=== PATIENT | female | born 1950 | race Caucasian/White ===

== ENCOUNTER 2017-07-10 09:36 | Emergency (ER) | payer MEDICARE ==
[~2017-07-10] VITALS: Ht 154.9 cm; Wt 54.7 kg
[~2017-07-10 09:36] MED LIST: ACHD5005 PO; ALBU17AE3 IH; AML2.5T PO; ASP81TEC PO; ATRV10T; BETA15CR37 TP; BUDE0.5A2 NEB; CALC-685 PO; CALC1TAB97 PO; CARV25TA PO; CEFT1FRO2 IV; CEFU250T11 PO; CEPH500C PO; CHOL100011 PO; CHOL200018 PO; CRV25T; CRV25T PO; FISH1CAP15 PO; FMT20TRX PO; FOLI-74 PO; FORM20VI NEB; FRSM20T; FURO40TA4 PO; HYDR-3583 PO; IPRA3AMP NEB; IRBE1TAB17 PO; ISOS30TA3 PO; KCL10CCR; KCL20TCR PO; LACT1TAB9 PO; LEVO100T7 PO; LEVO125T6 PO; LVT.15T PO; OLME40TA14; OMEG1CAP51 PO; OMEP20CA12 PO; OMG1KC PO; PANT40TA3 PO; POTA20TA15 PO; PRAV40TA PO; PRD10T PO; SIMV40TA2 PO; SIMV40TA4 PO; SULF1TAB38 PO; VENL150C98 PO; VNL75T PO; WARF5TAB PO; WARF5TAB6 PO; WARF7.5T PO; WARF7.5T49 PO; WRF1T PO; WRF2.5T PO; WRF5T PO; [UNRECOGNIZED DRUG - CODE] PO
[2017-07-10 10:04] LABS: BASOPHILS % (AUTO) 0 % (0-10); EOSINOPHILS # (AUTO) 0.2 10^3/uL (0.0-0.3); EOSINOPHILS % (AUTO) 2 % (0-10); LYMPHOCYTES # (AUTO) 0.9 X 10^3 (1.0-4.0); LYMPHOCYTES % (AUTO) 9 % (12-44); MEAN CORPUSCULAR HEMOGLOBIN 31 PG (25-34); MEAN CORPUSCULAR HGB CONC 33 G/DL (32-36); MEAN CORPUSCULAR VOLUME 94 FL (80-99); MEAN PLATELET VOLUME 11.3 FL (7.4-10.4); MONOCYTES # (AUTO) 1.6 X 10^3 (0.0-1.0); MONOCYTES % (AUTO) 16 % (0-12); NEUTROPHILS # (AUTO) 7.2 X 10^3 (1.8-7.8); NEUTROPHILS % (AUTO) 73 % (42-75); PLATELET COUNT 204 10^3/uL (130-400); RED BLOOD COUNT 3.75 10^6/uL (4.35-5.85); WHITE BLOOD COUNT 9.8 10^3/uL (4.3-11.0)
[2017-07-10 10:21] LABS: ALANINE AMINOTRANSFERASE 11 U/L (0-55); ALBUMIN 3.2 GM/DL (3.2-4.5); ANION GAP 8 MMOL/L (5-14); ASPARTATE AMINO TRANSFERASE 43 U/L (5-34); BILIRUBIN,TOTAL 0.6 MG/DL (0.1-1.0); BLOOD UREA NITROGEN 13 MG/DL (7-18); BUN/CREATININE RATIO 19; CARBON DIOXIDE 29 MMOL/L (21-32); CHLORIDE 102 MMOL/L (98-107); CREATININE SERUM 0.68 MG/DL (0.60-1.30); GFR ESTIMATED > 60; GLUCOSE 96 MG/DL (70-105); POTASSIUM 3.7 MMOL/L (3.6-5.0); SODIUM 139 MMOL/L (135-145); TOTAL PROTEIN 6.4 GM/DL (6.4-8.2)
[2017-07-10 10:27] LABS: TROPONIN I < 0.30 NG/ML (<0.30)
--- NOTE | 2017-07-10 10:29 | Diagnostic Imaging Report ---
Portable upright radiograph of the chest. INDICATION: Severe chest pain and shortness of breath. FINDINGS: The lungs are clear of focal infiltrate. There is prominent interstitial markings. These appear to be chronic with probable element of mild vascular congestion. The heart size is mildly enlarged. No effusion or pneumothorax. Post sternotomy wires and plates for internal fixation seen. There is bilateral shoulder replacement. IMPRESSION: Cardiomegaly with minimal vascular congestion. Dictated by: Dictated on workstation # [id number]
--- NOTE | 2017-07-10 11:01 | ED Chest Pain ---
General Chief Complaint: Chest Pain Stated Complaint: CP Nursing Triage Note: PT STATES MID CHEST PAIN RADIATING TO LT ARM THAT STARTED THE MORNING OF . PT HAS A HEART HX WITH CABG AND STENTS. Nursing Sepsis Screen: No Definite Risk Source: patient Exam Limitations: no limitations History of Present Illness Time seen by provider: 10:45 Initial Comments The patient is a 67-year-old white female. She presents with a complaint of central and left-sided chest pain. This began yesterday morning between 0330 and 0400. At that time she was driving a family member to work from the [employer] into the [employer]. It has continued unabated since then. She has taken a couple of baby aspirin. She has an extensive history of coronary artery disease with previous bypass grafting and also additional stenting. 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 Last interventions were in 2016. She is a smoker with a many year history 3 packs per day. Over the last 2 years she states that it is usually a one half pack per day problem. She denied any dyspnea or diaphoresis. Timing/Duration: other (30 hours) Severity/Quality: mild, moderate Location: central Radiation: arms Activities at Onset: none Prior CP/Workup: cardiac cath, cardiolye scan, echocardiography, thallium scan Allergies and Home Medications Allergies Coded Allergies: penicillin G (Verified Allergy, Intermediate, 10/11/16) ITCHING AFTER RECEIVING PENICILLIN WHEN SHE WAS 30-35 YEARS OLD meperidine (Verified Allergy, Unknown, 03/06/07) quinine (Verified Allergy, Unknown, 09/05/06) levofloxacin (Verified Adverse Reaction, Intermediate, HIVES, 10/11/16) BURNING AND ITCHING Home Medications Aspirin 81 Mg Tablet, 81 MG PO DAILY, (Reported) Betamethasone/Propylene Glyc 15 Gm Cream..g., TP BID PRN for RASH, (Reported) Budesonide 0.5 Mg/2 Ml Ampul.neb, 0.5 MG NEB DAILY, (Reported) Calcium Carbonate/Vitamin D3 1 Each Tablet, 1 TAB PO BID, (Reported) Carvedilol 25 Mg Tablet, 25 MG PO BID, (Reported) Ceftriaxone Na/Dextrose,Iso 1 Gm/50 Ml Froz.piggy, 1 GM IV DAILY for 42 Days Prescribed by: BENJAMIN MILLAN MD on 10/15/16 0725 Cholecalciferol 1,000 Unit Capsule, 1,000 UNIT PO DAILY, (Reported) Folic Acid/Mv,Fe,Other Min 1 Each Tablet, 1 TAB PO DAILY, (Reported) Formoterol Fumarate 20 Mcg/2 Ml Vial.neb, 20 MCG NEB BID, (Reported) Furosemide 40 Mg Tablet, 40 MG PO DAILY, (Reported) Ipratropium/Albuterol Sulfate 3 Ml Ampul.neb, 3 ML NEB DAILY PRN for SHORTNESS OF BREATH, (Reported) NEEDED FOR SHORTNESS OF BREATH Isosorbide Mononitrate 30 Mg Tab.er.24h, 30 MG PO BID, (Reported) Lactobacillus Acidophilus 1 Each Tablet, 1 EACH PO DAILY, #60 Prescribed by: SAM GOLDBERG on 10/15/16 0818 Levothyroxine Sodium 100 Mcg Tablet, 100 MCG PO DAILY, (Reported) [place] 3 Polyunsat Fatty Acids 1,000 Mg Cap, 1,000 MG PO DAILY, (Reported) Pantoprazole Sodium 40 Mg Tablet.dr, 40 MG PO DAILY, (Reported) Potassium Chloride 20 Meq Tab.er.prt, 20 MEQ PO DAILY, (Reported) Simvastatin 40 Mg Tablet, 40 MG PO HS, (Reported) Venlafaxine HCl 150 Mg Cap.er.24h, 150 MG PO BID, (Reported) Warfarin Sodium 7.5 Mg Tablet, 7.5 MG PO SuTuWeThSa, (Reported) Review of Systems Constitutional: see HPI EENTM: No Symptoms Reported Respiratory: Cough, SOA With Exertion, Wheezing Cardiovascular: See HPI Gastrointestinal: No Symptoms Reported, Other (weight loss over the past year or so) Genitourinary: No Symptoms Reported Musculoskeletal: no symptoms reported Skin: no symptoms reported Psychiatric/Neurological: No Symptoms Reported Endocrine: No Symptoms Reported Hematologic/Lymphatic: No Symptoms Reported Past Bwaaffi-Cgrhmu-Svxxrm Hx Patient Social History Alcohol Use: Denies Use Recreational Drug Use: No Smoking Status: Current Everyday Smoker Type Used: Cigarettes 2nd Hand Smoke Exposure: No Recent Foreign Travel: No Contact w/Someone Who Travel: No Recent Infectious Disease Expo: No Recent Hopitalizations: No ( ) Immunizations Up To Date Tetanus Booster (TDap): Less than 5yrs Date of Pneumonia Vaccine: Aug 21, 2015 Date of Influenza Vaccine: Oct 11, 2016 Seasonal Allergies Seasonal Allergies: No Surgeries HX Surgeries: Yes (L AND R SHOULDER REPLACEMENTS, LEFT ULNAR TRANSPOSITION, BYPASS 2 VESSEL) Surgeries: Appendectomy, CABG, Gallbladder, Hysterectomy, Orthopedic Respiratory Hx Respiratory Disorders: Yes Respiratory Disorders: Pulmonary Embolism, Sleep Apnea, COPD Cardiovascular Hx Cardiac Disorders: Yes (BY-PASS, STENTS) Cardiac Disorders: Coronary Artery Disease, Hypertension Neurological Hx Neurological Disorders: No Reproductive System Hx Reproductive Disorders: Yes (HYSTERECTOMY 1983) Sexually Transmitted Disease: No HIV/AIDS: No Female Reproductive Disorders: Denies Genitourinary Hx Genitourinary Disorders: No Gastrointestinal Hx Gastrointestinal Disorders: No Gastrointestinal Disorders: Obstructive Bowel, Ulcer Musculoskeletal Hx Musculoskeletal Disorders: Yes (ARTHRITIS, ARTHROSCOPY OF KNEE) Musculoskeletal Disorders: Chronic Back Pain Endocrine Hx Endocrine Disorders: Yes ( PRE- DIABETES) Endocrine Disorders: Diabetes, Non-Insulin dep HEENT HX ENT Disorders: No Loss of Vision: Denies Cancer Hx Cancer: No Psychosocial Hx Psychiatric Problems: Yes Behavioral Health Disorders: Depression Integumentary HX Skin/Integumentary Disorder: No Blood Transfusions Hx Blood Disorders: Yes ( HX OF DVT WITH PE) Family Medical History Significant Family History: Hypertension Family Medial History: Patient reports no known family medical history. Physical Exam Vital Signs Vital Sign - Last 12Hours 07/10/17 07/10/17 09:40 09:43 Temp 99.4 Pulse 70 Resp 20 B/P (MAP) 189/84 Pulse Ox 96 O2 Delivery Nasal Cannula O2 Flow Rate 2.00 Capillary Refill : Less Than 3 Seconds General Appearance: No Apparent Distress, WD/WN HEENT: Normal ENT Inspection Neck: Full Range of Motion, Normal Inspection, Non Tender Respiratory: Decreased Breath Sounds Cardiovascular: Regular Rate, Rhythm, No Edema, No Gallop, No JVD, No Murmur, Normal Peripheral Pulses Gastrointestinal: Other (scaphoid and nontender.) Extremity: Other Neurologic/Psychiatric: Alert, Oriented x3, No Motor/Sensory Deficits, Normal Mood/Affect Progress/Results/Core Measures Results/Orders Lab Results Laboratory Tests Test 07/10/17 09:45 Range/Units White Blood Count 9.8 4.3-11.0 10^3/uL Red Blood Count 3.75 L 4.35-5.85 10^6/uL Hemoglobin 11.5 11.5-16.0 G/DL Hematocrit 35 35-52 % Mean Corpuscular Volume 94 80-99 FL Mean Corpuscular Hemoglobin 31 25-34 PG Mean Corpuscular Hemoglobin Concent 33 32-36 G/DL Red Cell Distribution Width 17.0 H 10.0-14.5 % Platelet Count 204 130-400 10^3/uL Mean Platelet Volume 11.3 H 7.4-10.4 FL Neutrophils (%) (Auto) 73 42-75 % Lymphocytes (%) (Auto) 9 L 12-44 % Monocytes (%) (Auto) 16 H 0-12 % Eosinophils (%) (Auto) 2 0-10 % Basophils (%) (Auto) 0 0-10 % Neutrophils # (Auto) 7.2 1.8-7.8 X 10^3 Lymphocytes # (Auto) 0.9 L 1.0-4.0 X 10^3 Monocytes # (Auto) 1.6 H 0.0-1.0 X 10^3 Eosinophils # (Auto) 0.2 0.0-0.3 10^3/uL Basophils # (Auto) 0.0 0.0-0.1 10^3/uL Sodium Level 139 135-145 MMOL/L Potassium Level 3.7 3.6-5.0 MMOL/L Chloride Level 102 98-107 MMOL/L Carbon Dioxide Level 29 21-32 MMOL/L Anion Gap 8 5-14 MMOL/L Blood Urea Nitrogen 13 7-18 MG/DL Creatinine 0.68 0.60-1.30 MG/DL Estimat Glomerular Filtration Rate > 60 BUN/Creatinine Ratio 19 Glucose Level 96 70-105 MG/DL Calcium Level 9.0 8.5-10.1 MG/DL Total Bilirubin 0.6 0.1-1.0 MG/DL Aspartate Amino Transf (AST/SGOT) 43 H 5-34 U/L Alanine Aminotransferase (ALT/SGPT) 11 0-55 U/L Alkaline Phosphatase 69 40-136 U/L Troponin I < 0.30 <0.30 NG/ML Total Protein 6.4 6.4-8.2 GM/DL Albumin 3.2 3.2-4.5 GM/DL My Orders Orders - TAYLOR VALENCIA MD Ekg Tracing (07/10/17 09:40) Cbc With Automated Diff (07/10/17 09:48) Comprehensive Metabolic Panel (07/10/17 09:48) Troponin I (07/10/17 09:48) Chest 1 View, Ap/Pa Only (07/10/17 09:48) Vital Signs/I&O Vital Sign - Last 12Hours 07/10/17 07/10/17 09:40 09:43 Temp 99.4 Pulse 70 Resp 20 B/P (MAP) 189/84 Pulse Ox 96 O2 Delivery Nasal Cannula Nasal Cannula O2 Flow Rate 2.00 Blood Pressure Mean: 119 Departure Impression Impression: Primary Impression: Chest pain Disposition: 01 HOME, SELF-CARE Condition: Stable/Unchanged Departure-Patient Inst. Decision time for Depature: 11:01 Referrals: SAM GOLDBERG MD (PCP/Family) Primary Care Physician Add. Discharge Instructions: All discharge instructions reviewed with patient and/or family. Voiced understanding. Try tramadol for the pain. If pain increases or otherwise changes return to emergency room. I spoke to Dr. Goldberg and we have arranged a an office appointment for you on 07/15@09TAYLOR CARRIZALES MD Jul 10, 2017 11:00
[2017-07-10] MEDS ORDERED: HYDROcodone/APAP 5 MG/325 MG (LORTAB) TAB PO ONE (11:15)
[2017-07-10 11:21] VITALS: BP 177/77
[2017-08-05] MEDS ORDERED: AMLO2.5T PO (10:46)
[2017-08-05] MEDS ORDERED: BUDE10.2 IH (10:46)
[2017-08-05] MEDS ORDERED: CYAN10006 PO (10:46)
[2017-08-05] MEDS ORDERED: WARF-48 PO (10:46)
[2017-08-05] MEDS ORDERED: FA/M1TAB29 PO (10:46)
[2017-08-05] MEDS ORDERED: ALBU2.5V4 NEB (10:46)
[2017-08-08] MEDS ORDERED: OMG1KC PO (09:36)
[2017-08-08] MEDS ORDERED: PRD20T PO (09:36)
[2017-08-08] MEDS ORDERED: IPRA3AMP IH (09:36)
[2017-08-08] MEDS ORDERED: ASPI-983 PO (09:36)
[2017-08-08] MEDS ORDERED: RIVA20TA PO (09:36)
[2017-08-08] MEDS ORDERED: CLC200V2 IM (09:40)
[2017-08-08] MEDS ORDERED: FURO-125 PO (11:14)
[2017-08-19] MEDS ORDERED: ASPI-983 PO (10:02)
[2017-08-19] MEDS ORDERED: CEPH500C PO (10:02)
[2017-08-19] MEDS ORDERED: IPRA3AMP IH (10:02)
[2017-08-19] MEDS ORDERED: RIVA20TA PO (10:02)
[2017-08-19] MEDS ORDERED: OMG1KC PO (10:02)
[2017-08-19] MEDS ORDERED: ALEN70TA2 PO (10:02)
[2017-08-19] MEDS ORDERED: LACT1CAP65 PO (10:02)
[2017-08-19] MEDS ORDERED: FURO20TA4 PO (10:02)
[2017-08-22] MEDS ORDERED: FLUT1AER IH (13:52)
[2017-08-22] MEDS ORDERED: CALAZIME TOP (13:52)
[2017-08-22] MEDS ORDERED: PRD20T PO (14:19)
[2017-08-26] MEDS ORDERED: ACID1TAB PO (08:58)
[2017-08-26] MEDS ORDERED: PRD20T PO (08:58)
== END 2017-07-10 11:21 | disposition home or self-care (01) ==
LOC: EDUNIT# 09:36 → ER 09:39
DX: R07.9 Chest pain, unspecified (principal); M79.622 Pain in left upper arm; I51.7 Cardiomegaly; I25.10 Atherosclerotic heart disease of native coronary artery without angina pectoris; J44.1 Chronic obstructive pulmonary disease with (acute) exacerbation; G47.30 Sleep apnea, unspecified; F17.210 Nicotine dependence, cigarettes, uncomplicated; Z79.82 Long term (current) use of aspirin; Z79.899 Other long term (current) drug therapy; Z95.1 Presence of aortocoronary bypass graft; Z95.5 Presence of coronary angioplasty implant and graft
CPT/HCPCS: 36415; 71010; 80053; 84484; 85025; 93005

== ENCOUNTER 2017-08-03 11:30 | Inpatient (IN) | payer MEDICARE ==
[~2017-08-03] VITALS: Ht 156.2 cm; Wt 63.4 kg
[2017-08-03 11:55] LABS: BASOPHILS % (AUTO) 0 % (0-10); EOSINOPHILS % (AUTO) 0 % (0-10); LYMPHOCYTES # (AUTO) 1.5 X 10^3 (1.0-4.0); LYMPHOCYTES % (AUTO) 17 % (12-44); MEAN CORPUSCULAR HEMOGLOBIN 31 PG (25-34); MEAN CORPUSCULAR HGB CONC 34 G/DL (32-36); MEAN CORPUSCULAR VOLUME 93 FL (80-99); MEAN PLATELET VOLUME 11.1 FL (7.4-10.4); MONOCYTES # (AUTO) 1.1 X 10^3 (0.0-1.0); MONOCYTES % (AUTO) 13 % (0-12); NEUTROPHILS # (AUTO) 6.3 X 10^3 (1.8-7.8); NEUTROPHILS % (AUTO) 71 % (42-75); PLATELET COUNT 166 10^3/uL (130-400); RED BLOOD COUNT 3.76 10^6/uL (4.35-5.85); RED CELL DISTRIBUTION WIDTH 21.3 % (10.0-14.5); WHITE BLOOD COUNT 8.9 10^3/uL (4.3-11.0)
[2017-08-03] MEDS ORDERED: RT-ALBUTEROL/IPRATROPIUM 3 ML (DUONEB) VIAL INH ONE (12:00)
[2017-08-03 12:03] LABS: PROTHROMBIN TIME PATIENT 13.3 SEC (12.2-14.7)
[2017-08-03 12:12] LABS: ALANINE AMINOTRANSFERASE 8 U/L (0-55); ANION GAP 11 MMOL/L (5-14); ASPARTATE AMINO TRANSFERASE 32 U/L (5-34); BILIRUBIN,TOTAL 0.9 MG/DL (0.1-1.0); BLOOD UREA NITROGEN 18 MG/DL (7-18); BUN/CREATININE RATIO 24; CALCIUM 12.6 MG/DL (8.5-10.1); CARBON DIOXIDE 26 MMOL/L (21-32); CHLORIDE 105 MMOL/L (98-107); CREATININE SERUM 0.75 MG/DL (0.60-1.30); GFR ESTIMATED > 60; GLUCOSE 110 MG/DL (70-105); MAGNESIUM 1.6 MG/DL (1.8-2.4); POTASSIUM 4.1 MMOL/L (3.6-5.0); SODIUM 142 MMOL/L (135-145); TOTAL PROTEIN 6.2 GM/DL (6.4-8.2)
[2017-08-03 12:19] LABS: MYOGLOBIN SERUM 39.9 NG/ML (10.0-92.0)
--- NOTE | 2017-08-03 12:26 | Diagnostic Imaging Report ---
INDICATION: Confusion, hypoxia COMPARISON: 01/10/17 FINDINGS: Frontal and lateral views of the chest demonstrate cardiac enlargement without pulmonary edema. Small effusions are seen in both bases, left greater than right. There is no pneumothorax. No obvious infiltrate. There is COPD. IMPRESSION: 1. Cardiac enlargement without pulmonary edema 2. COPD without infiltrate 3. Small bilateral pleural effusions. Dictated by: Dictated on workstation # [id number]
[2017-08-03] MEDS ORDERED: IOHEXOL 350 MG/ML 150 ML (OMNIPAQUE 350) VIAL IV ONE (13:30)
[2017-08-03] MEDS ORDERED: NS 100 ML (IVPB) BAG IV ONE (13:30)
--- NOTE | 2017-08-03 14:30 | Diagnostic Imaging Report ---
PROCEDURE: CT angiography of the chest with contrast. TECHNIQUE: Multiple contiguous axial images were obtained through the chest after uneventful bolus administration of intravenous contrast. Reconstructed CTA MIP acquisitions were also performed. INDICATION: Chest pain, shortness of breath. COMPARISON: CT chest 08/31/15. FINDINGS: There is mild cardiac enlargement without pericardial effusion. There is atherosclerosis of the thoracic aorta without aneurysm or dissection. There is no pulmonary embolism. Coronary artery disease is present. There has been prior median sternotomy. There are new bilateral hilar and mediastinal lymph nodes. The largest lymph nodes in the right hilum measuring approximately 2 cm. Central airways are normal. There is some questionable narrowing of the superior vena cava. However, no collaterals are seen that would indicate superior vena cava syndrome. Please correlate clinically. There is centrilobular emphysema. There is no focal infiltrate. There is atelectasis and small effusion in the left base. There is no obvious pulmonary mass or nodule. No pneumothorax. Osseous structures are stable. Visualized upper abdominal solid organs are intact. Questionable portal lymph nodes are present. Consider CT abdomen and pelvis with postcontrast imaging. IMPRESSION: 1. No pulmonary embolism or aortic pathology. 2. Mediastinal and hilar lymphadenopathy concerning for neoplasm such as lymphoma. 3. COPD. 4. Small effusion left lung base. 5. Minimal narrowing of the superior vena cava without focal stenosis or occlusion. Dictated by: Dictated on workstation # [id number]
--- NOTE | 2017-08-03 15:19 | ED Chest Pain ---
General Chief Complaint: Chest Pain Stated Complaint: SOA/COUGH/CP Nursing Triage Note: TO ED ACCOMPIED BY FEMALE PATIENT REPORTS THAT SHE HAD ONSET OF CHEST PAIN ON FRIDAY WHILE WORKING IN [place]. WAS SEEN IN [facility] ER ON SAT WAS SENT HOME WORK UP NEG. HERE TO DAY BECAUSE CON'T TO HAVE CP ON AND OFF REPORTS NO PAIN ON ADMIT. GIVES POOR HX ABOUT PMH Nursing Sepsis Screen: No Definite Risk Source: patient, old records Exam Limitations: no limitations History of Present Illness Time seen by provider: 11:49 Initial Comments This 67-year-old woman presents to the emergency room with complaints of chest pain that started yesterday. She presented to the emergency room in [place] where she was evaluated and dismissed home. She was seen last week by her cardiology office at [place]. She reports an echocardiogram was performed along with a heart catheter. Records from the heart catheter were obtained which revealed no acute stenosis. She reports her pain is worse with cough and she produces clear sputum. Patient has significant COPD but has lost her nebulizer machine. She denies fever. Her local provider is Dr. Goldberg. Patient's friend reports that she has been rather confused over the past several days. Confusion has improved over the last 48 hours but she continues to be somewhat confused today. Allergies and Home Medications Allergies Coded Allergies: penicillin G (Verified Allergy, Intermediate, 10/11/16) ITCHING AFTER RECEIVING PENICILLIN WHEN SHE WAS 30-35 YEARS OLD meperidine (Verified Allergy, Unknown, 03/06/07) quinine (Verified Allergy, Unknown, 09/05/06) levofloxacin (Verified Adverse Reaction, Intermediate, HIVES, 10/11/16) BURNING AND ITCHING Home Medications Aspirin 81 Mg Tablet, 81 MG PO DAILY, (Reported) Betamethasone/Propylene Glyc 15 Gm Cream..g., TP BID PRN for RASH, (Reported) Budesonide 0.5 Mg/2 Ml Ampul.neb, 0.5 MG NEB DAILY, (Reported) Calcium Carbonate/Vitamin D3 1 Each Tablet, 1 TAB PO BID, (Reported) Carvedilol 25 Mg Tablet, 25 MG PO BID, (Reported) Ceftriaxone Na/Dextrose,Iso 1 Gm/50 Ml Froz.piggy, 1 GM IV DAILY for 42 Days Prescribed by: BENJAMIN MILLAN MD on 10/15/16 0725 Cholecalciferol 1,000 Unit Capsule, 1,000 UNIT PO DAILY, (Reported) Folic Acid/Mv,Fe,Other Min 1 Each Tablet, 1 TAB PO DAILY, (Reported) Formoterol Fumarate 20 Mcg/2 Ml Vial.neb, 20 MCG NEB BID, (Reported) Furosemide 40 Mg Tablet, 40 MG PO DAILY, (Reported) Ipratropium/Albuterol Sulfate 3 Ml Ampul.neb, 3 ML NEB DAILY PRN for SHORTNESS OF BREATH, (Reported) NEEDED FOR SHORTNESS OF BREATH Isosorbide Mononitrate 30 Mg Tab.er.24h, 30 MG PO BID, (Reported) Lactobacillus Acidophilus 1 Each Tablet, 1 EACH PO DAILY, #60 Prescribed by: SAM GOLDBERG on 10/15/16 0818 Levothyroxine Sodium 100 Mcg Tablet, 100 MCG PO DAILY, (Reported) [employer] [place] 3 Polyunsat Fatty Acids 1,000 Mg Cap, 1,000 MG PO DAILY, (Reported) Pantoprazole Sodium 40 Mg Tablet.dr, 40 MG PO DAILY, (Reported) Potassium Chloride 20 Meq Tab.er.prt, 20 MEQ PO DAILY, (Reported) Simvastatin 40 Mg Tablet, 40 MG PO HS, (Reported) Venlafaxine HCl 150 Mg Cap.er.24h, 150 MG PO BID, (Reported) Warfarin Sodium 7.5 Mg Tablet, 7.5 MG PO SuTuWeThSa, (Reported) Review of Systems Constitutional: no symptoms reported EENTM: No Symptoms Reported Respiratory: See HPI Cardiovascular: See HPI Gastrointestinal: No Symptoms Reported Genitourinary: No Symptoms Reported Musculoskeletal: no symptoms reported Skin: no symptoms reported Psychiatric/Neurological: See HPI Endocrine: No Symptoms Reported Hematologic/Lymphatic: No Symptoms Reported Past Nllecrn-Pupkgi-Gxhbbi Hx Patient Social History Alcohol Use: Denies Use Recreational Drug Use: No Type Used: Cigarettes 2nd Hand Smoke Exposure: No Recent Foreign Travel: No Contact w/Someone Who Travel: No Recent Infectious Disease Expo: No Recent Hopitalizations: No ( ) Immunizations Up To Date Tetanus Booster (TDap): Less than 5yrs Date of Pneumonia Vaccine: Aug 21, 2015 Date of Influenza Vaccine: Oct 11, 2016 Seasonal Allergies Seasonal Allergies: No Surgeries History of Surgeries: Yes (L AND R SHOULDER REPLACEMENTS, LEFT ULNAR TRANSPOSITION, BYPASS 2 VESSEL) Surgeries: Appendectomy, CABG, Gallbladder, Hysterectomy, Orthopedic Respiratory History of Respiratory Disorde: Yes Respiratory Disorders: Pulmonary Embolism, Sleep Apnea, COPD Currently Using CPAP: No Currently Using BIPAP: No Cardiovascular History of Cardiac Disorders: Yes (BY-PASS, STENTS) Cardiac Disorders: Coronary Artery Disease, Hypertension Neurological History of Neurological Disord: No Reproductive System Hx Reproductive Disorders: Yes (HYSTERECTOMY 1983) Sexually Transmitted Disease: No HIV/AIDS: No Female Reproductive Disorders: Denies Genitourinary History of Genitourinary Disor: No Gastrointestinal History of Gastrointestinal Di: No Gastrointestinal Disorders: Obstructive Bowel, Ulcer Musculoskeletal History of Musculoskeletal Dis: Yes (ARTHRITIS, ARTHROSCOPY OF KNEE) Musculoskeletal Disorders: Chronic Back Pain Endocrine History of Endocrine Disorders: Yes ( PRE- DIABETES) Endocrine Disorders: Diabetes, Non-Insulin dep HEENT Loss of Vision: Denies Cancer History of Cancer: No Psychosocial History of Psychiatric Problem: Yes Behavioral Health Disorders: Depression Integumentary History of Skin or Integumenta: No Blood Transfusions History of Blood Disorders: Yes ( HX OF DVT WITH PE) Family Medical History Significant Family History: Hypertension Family Medial History: Patient reports no known family medical history. Physical Exam Vital Signs Vital Sign - Last 12Hours 08/03/17 08/03/17 11:30 12:13 Temp 97.6 Pulse 73 Resp 18 B/P (MAP) 191/106 Pulse Ox 90 O2 Delivery Nasal Cannula O2 Flow Rate 2.00 Capillary Refill : Less Than 3 Seconds General Appearance: WD/WN, Mild Distress HEENT: PERRL/EOMI, Normal ENT Inspection, Other (Pharynx dry) Neck: Normal Inspection Respiratory: Accessory Muscle Use, No Crackles, Wheezing Cardiovascular: Regular Rate, Rhythm, No Edema, No Murmur Gastrointestinal: Normal Bowel Sounds, Non Tender, Soft Extremity: Normal Inspection, No Pedal Edema, Calf Tenderness (Left) Neurologic/Psychiatric: Alert, Oriented x3, No Motor/Sensory Deficits, Normal Mood/Affect, vest front presser II-XII Norm as Tested Skin: Normal Color, Warm/Dry Progress/Results/Core Measures Results/Orders Lab Results Laboratory Tests Test 08/03/17 11:35 Range/Units White Blood Count 8.9 4.3-11.0 10^3/uL Red Blood Count 3.76 L 4.35-5.85 10^6/uL Hemoglobin 11.7 11.5-16.0 G/DL Hematocrit 35 35-52 % Mean Corpuscular Volume 93 80-99 FL Mean Corpuscular Hemoglobin 31 25-34 PG Mean Corpuscular Hemoglobin Concent 34 32-36 G/DL Red Cell Distribution Width 21.3 H 10.0-14.5 % Platelet Count 166 130-400 10^3/uL Mean Platelet Volume 11.1 H 7.4-10.4 FL Neutrophils (%) (Auto) 71 42-75 % Lymphocytes (%) (Auto) 17 12-44 % Monocytes (%) (Auto) 13 H 0-12 % Eosinophils (%) (Auto) 0 0-10 % Basophils (%) (Auto) 0 0-10 % Neutrophils # (Auto) 6.3 1.8-7.8 X 10^3 Lymphocytes # (Auto) 1.5 1.0-4.0 X 10^3 Monocytes # (Auto) 1.1 H 0.0-1.0 X 10^3 Eosinophils # (Auto) 0.0 0.0-0.3 10^3/uL Basophils # (Auto) 0.0 0.0-0.1 10^3/uL Prothrombin Time 13.3 12.2-14.7 SEC INR Comment 1.0 0.8-1.4 Activated Partial Thromboplast Time 23 L 24-35 SEC D-Dimer 3.13 H 0.00-0.49 UG/ML Sodium Level 142 135-145 MMOL/L Potassium Level 4.1 3.6-5.0 MMOL/L Chloride Level 105 98-107 MMOL/L Carbon Dioxide Level 26 21-32 MMOL/L Anion Gap 11 5-14 MMOL/L Blood Urea Nitrogen 18 7-18 MG/DL Creatinine 0.75 0.60-1.30 MG/DL Estimat Glomerular Filtration Rate > 60 BUN/Creatinine Ratio 24 Glucose Level 110 H 70-105 MG/DL Calcium Level 12.6 H 8.5-10.1 MG/DL Magnesium Level 1.6 L 1.8-2.4 MG/DL Total Bilirubin 0.9 0.1-1.0 MG/DL Aspartate Amino Transf (AST/SGOT) 32 5-34 U/L Alanine Aminotransferase (ALT/SGPT) 8 0-55 U/L Alkaline Phosphatase 83 40-136 U/L Myoglobin 39.9 10.0-92.0 NG/ML Troponin I < 0.30 <0.30 NG/ML C-Reactive Protein High Sensitivity 2.62 H 0.00-0.50 MG/DL Total Protein 6.2 L 6.4-8.2 GM/DL Albumin 3.0 L 3.2-4.5 GM/DL My Orders Orders - MIGUEL SIERRA MD Ekg Tracing (08/03/17 11:32) Cbc With Automated Diff (08/03/17 11:49) Magnesium (08/03/17 11:49) Cardiac Profile 1 (08/03/17 11:49) Comprehensive Metabolic Panel (08/03/17 11:49) Myoglobin Serum (08/03/17 11:49) Protime With Inr (08/03/17 11:49) Partial Thromboplastin Time (08/03/17 11:49) O2 (08/03/17 11:49) Monitor-Rhythm Ecg Trace Only (08/03/17 11:49) Lipid Panel (08/04/17 06:00) Saline Lock/Iv-Start (08/03/17 11:49) Fibrin Degradation Products (08/03/17 11:49) Chest Pa/Lat (2 View) (08/03/17 11:49) Hs C Reactive Protein (08/03/17 11:49) Albuterol/Ipra Inhalation Soln (Duoneb I (08/03/17 12:00) Svn Sm Volume Nebulizer Rt-Rfs (08/03/17 11:49) Ct Angio Chest W (08/03/17 13:28) Iohexol Injection (Omnipaque 350 Mg/Ml 1 (08/03/17 13:30) Ns (Ivpb) (Sodium Chloride 0.9% Ivpb Bag (08/03/17 13:30) Medications Given in ED Current Medications Medications Dose Ordered Sig/Osmany Route Start Time Stop Time Status Last Admin Dose Admin Albuterol/ Ipratropium 3 ml ONCE ONCE INH 08/03/17 12:00 08/03/17 12:01 DC 08/03/17 12:12 3 ML Iohexol 150 ml ONCE ONCE IV 08/03/17 13:30 08/03/17 13:40 DC 08/03/17 13:43 125 ML Sodium Chloride 100 ml ONCE ONCE IV 08/03/17 13:30 08/03/17 13:40 DC 08/03/17 13:43 100 ML Vital Signs/I&O Vital Sign - Last 12Hours 08/03/17 08/03/17 08/03/17 11:30 11:30 12:13 Temp 97.6 Pulse 73 Resp 18 B/P (MAP) 191/106 Pulse Ox 90 O2 Delivery Nasal Cannula Nasal Cannula O2 Flow Rate 2.00 2.00 Blood Pressure Mean: 134 Progress Note : Progress Note Patient was treated with DuoNeb which helped her breathing and reduced her chest pain. D-dimer was significantly elevated. CT angiogram of the chest revealed no pulmonary embolus. However, there was perihilar and mediastinal lymphadenopathy suggestive of neoplasm. This was discussed with the patient and further workup with her primary care provider was advised. I have concerns about patient's stability at home. She has been confused in recent days and has not been taking her medications. She cannot give me a very good reason why she has not been compliant with her medications. She also has significant COPD but has lost her nebulizer machine. Chest pain seems to be noncardiac and not caused by pulmonary embolus. It is likely musculoskeletal in nature. The catheter report from [facility] was reviewed. There was no acute stenosis to suggest angina as a cause of her pain. Patient did improve somewhat with a DuoNeb treatment in the ER. ECG Initial ECG Impression Date: Aug 03, 2017 Initial ECG Impression Time: 11:33 Initial ECG Rate: 76 Initial ECG Rhythm: Normal Sinus Initial ECG Intervals: Normal Initial ECG Impression: Normal Comment Normal sinus rhythm with no ST elevation or depression. No abnormal intervals or axis deviation. Diagnostic Imaging Diagonstic Imaging: CT Plain Films/CT/US/NM/MRI: chest Comments CT angiogram of the chest viewed by me and report reviewed. See report below: NAME: DANIELA [facility]ER [facility] REC#: [id number] PT STATUS: REG ER : 1950 PHYSICIAN: MIGUEL SIERRA MD ADMIT DATE: 08/03/17/ER Draft Date of Exam:08/03/17 CT ANGIO CHEST W PROCEDURE: CT angiography of the chest with contrast. TECHNIQUE: Multiple contiguous axial images were obtained through the chest after uneventful bolus administration of intravenous contrast. Reconstructed CTA MIP acquisitions were also performed. INDICATION: Chest pain, shortness of breath. COMPARISON: CT chest 08/31/15. FINDINGS: There is mild cardiac enlargement without pericardial effusion. There is atherosclerosis of the thoracic aorta without aneurysm or dissection. There is no pulmonary embolism. Coronary artery disease is present. There has been prior median sternotomy. There are new bilateral hilar and mediastinal lymph nodes. The largest lymph nodes in the right hilum measuring approximately 2 cm. Central airways are normal. There is some questionable narrowing of the superior vena cava. However, no collaterals are seen that would indicate superior vena cava syndrome. Please correlate clinically. There is centrilobular emphysema. There is no focal infiltrate. There is atelectasis and small effusion in the left base. There is no obvious pulmonary mass or nodule. No pneumothorax. Osseous structures are stable. Visualized upper abdominal solid organs are intact. Questionable portal lymph nodes are present. Consider CT abdomen and pelvis with postcontrast imaging. IMPRESSION: 1. No pulmonary embolism or aortic pathology. 2. Mediastinal and hilar lymphadenopathy concerning for neoplasm such as lymphoma. 3. COPD. 4. Small effusion left lung base. 5. Minimal narrowing of the superior vena cava without focal stenosis or occlusion. Dictated on workstation # [id number] Dict: 08/03/17 1419 Trans: 08/03/17 1429 [id number] Interpreted by: ZAINA ORELLANA Departure Communication (Admissions) Time/Spoke to Admitting Phy: 15:30 Communication Case reviewed with Dr. Medellin who agrees to admission for observation. Impression Impression: Primary Impression: Altered mental status Qualified Codes: R41.82 - Altered mental status, unspecified Additional Impressions: COPD exacerbation Weakness Mediastinal lymphadenopathy Atypical chest pain Noncompliance with medication regimen Disposition: ADMITTED INPATIENT Condition: Improved Admissions Decision to Admit Reason: Admit from ER (General) Decision to Admit/Date: Aug 03, 2017 Time/Decision to Admit Time: 15:30 Departure-Patient Inst. Referrals: SAM GOLDBERG MD (PCP/Family) Primary Care Physician MIGUEL SIERRA MD Aug 03, 2017 15:19
[2017-08-03 17:00] VITALS: BP 175/82
[2017-08-03] MEDS ORDERED: CATHETER FLUSH 10 ML SYR IV PRN (17:15)
[2017-08-03] MEDS ORDERED: RT-ALBUTEROL SULF 2.5 MG/3 ML PRE-MIX VIAL IH PRN (17:15)
[2017-08-03] MEDS: NS IV 1000 ML 1,000 ML IV SCH (18:04)
[2017-08-03] MEDS: ENOXAPARIN 60 MG/0.6 ML (LOVENOX) SYR SC SCH (18:04)
[2017-08-03] MEDS: RT-ALBUTEROL/IPRATROPIUM 3 ML (DUONEB) VIAL IH SCH ×2 (19:02→22:23)
[2017-08-03] MEDS ORDERED: RT-ALBUTEROL/IPRATROPIUM 3 ML (DUONEB) VIAL IH PRN (20:15)
--- NOTE | 2017-08-03 20:24 | History & Physical-Hospitalist ---
HPI History of Present Illness: HPI/Chief Complaint 67 yo wf well known to me with very complicated and extensive PMH. presents with increased SOA, confusion. Hasn't taken any of her medications for the last 2-3 days. Has obviously lost weight and declined since I last saw her 2 years ago. Knows me and relates most of her history accurately. Source: patient, old records Exam Limitations: clinical condition Date Seen 08/03/17 Time Seen by Provider: 12:00 Attending Physician Yakelin Chacon MD PCP Sam Goldberg MD Referring Physician Date of Admission Aug 03, 2017 at 15:37 Home Medications & Allergies Home Medications Reviewed patient Home Medication Reconciliation Form Allergies Allergies Coded Allergies penicillin G (Verified Allergy, Intermediate, 10/11/16) ITCHING AFTER RECEIVING PENICILLIN WHEN SHE WAS 30-35 YEARS OLD meperidine (Verified Allergy, Unknown, 03/06/07) quinine (Verified Allergy, Unknown, 09/05/06) levofloxacin (Verified Adverse Reaction, Intermediate, HIVES, 10/11/16) BURNING AND ITCHING Past Oslgpot-Vjotkh-Vpqggu Hx Patient Social History Marrital Status: single Employed/Student: unemployed Alcohol Use: Denies Use Recreational Drug Use: No Smoking Status: Current Someday Smoker Former Smoker, Quit: Aug 01, 2017 Type Used: Cigarettes 2nd Hand Smoke Exposure: No Physical Abuse Screen: No Sexual Abuse: No Recent Foreign Travel: No Contact w/other who traveled: No Recent Hopitalizations: No ( ) Recent Infectious Disease Expo: No Immunizations Up To Date Tetanus Booster (TDap): Less than 5yrs Date of Pneumonia Vaccine: Aug 21, 2015 Date of Influenza Vaccine: Oct 11, 2016 Seasonal Allergies Seasonal Allergies: No Surgeries Yes (L AND R SHOULDER REPLACEMENTS, LEFT ULNAR TRANSPOSITION, BYPASS 2 VESSEL) Appendectomy, CABG, Gallbladder, Hysterectomy, Open Heart Surgery, Orthopedic Respiratory Yes COPD, Pulmonary Embolism Currently Using CPAP: Yes Currently Using BIPAP: No Cardiovascular Yes (BY-PASS, STENTS) Coronary Artery Disease, Hypertension Neurological No Reproductive System Hx Reproductive Disorders: Yes (HYSTERECTOMY 1983) Sexually Transmitted Disease: No HIV/AIDS: No Female Reproductive Disorders: Denies Genitourinary No Gastrointestinal Yes Abdominal Hernia, Obstructive Bowel, Ulcer Musculoskeletal Yes (ARTHRITIS, ARTHROSCOPY OF KNEE) Chronic Back Pain Endocrine History of Endocrine Disorders: Yes ( PRE- DIABETES) Endocrine Disorders: Hypothyroidsim, Diabetes, Non-Insulin dep HEENT History of HEENT Disorders: No Loss of Vision: Denies Cancer No Psychosocial History of Psychiatric Problem: Yes Behavioral Health Disorders: Depression Integumentary History of Skin or Integumenta: No Blood Transfusions History of Blood Disorders: Yes ( HX OF DVT WITH PE) Family Medical History Significant Family History: Hypertension Family Hx: Blood clots G8 BROTHER Cardiovascular disease 19 FATHER Hypertension 19 FATHER 19 MOTHER G8 BROTHER Hypoglycemia 19 FATHER Myocardial infarction G8 BROTHER, Onset:35 Review of Systems Constitutional: weakness, weight loss EENTM: no symptoms reported Respiratory: dyspnea on exertion, short of breath Cardiovascular: chest pain Gastrointestinal: no symptoms reported Genitourinary: no symptoms reported Musculoskeletal: back pain Skin: no symptoms reported Psychiatric/Neurological: Other (confused) Physical Exam Physical Exam Vital Signs Vital Sign - Last 12Hours 08/03/17 08/03/17 11:30 12:13 Temp 97.6 Pulse 73 Resp 18 B/P (MAP) 191/106 Pulse Ox 90 O2 Delivery Nasal Cannula O2 Flow Rate 2.00 Capillary Refill : Less Than 3 Seconds General Appearance: Chronically ill HEENT: Other (edentulous-dry) Neck: Limited Range of Motion Respiratory: Decreased Breath Sounds, Rales Cardiovascular: No Edema, Systolic Murmur (2/6) Gastrointestinal: No Organomegaly, Non Tender, Soft Rectal: Deferred Extremity: No Pedal Edema Neurologic/Psychiatric: Alert, No Motor/Sensory Deficits Skin: Warm/Dry Lymphatic: No Adenopathy Results Results/Procedures Lab Laboratory Tests 08/03/17 11:35 08/04/17 05:32 Assessment/Plan Admission Diagnosis 1.exacerbation of COPD-sats keep dropping to low 80's on my exam- plan abx - may need pulm consult for bronch because of adenopathy. 2. Confusion 3. Mediastinal adenopathy and weight loss of uncertain etiology- check LDH and CT abd/pelvis- consider lymphoma 4. CAD 5. PVD 6.hypercalcemia- possibly secondary to dehydration- recheck 7.poor social situation-pt lives at home with her 6 dogs with little support and money 8.hx of PE with subtherapeutic INR secondary to confusion and non-complience- Lovenox Copy Copies To 1: SAM GOLDBERG MD Clinical Quality Measures AMI/AHF: ASA po Prior to arrival: No DVT/VTE Risk/Contraindication: Risk Factor Score Per Nursin RFS Level Per Nursing on Admit: 4+=Very High YAKELIN CHACON MD Aug 03, 2017 20:24
[2017-08-03 20:45] VITALS: BP 175/82
[2017-08-03] MEDS ORDERED: ISOSORBIDE MONONITRATE 30 MG (IMDUR) TAB PO SCH (21:00)
[2017-08-03] MEDS ORDERED: SIMvastatin 40 MG (ZOCOR) TAB PO SCH (21:00)
[2017-08-03] MEDS ORDERED: NON-FORMULARY MEDICATION 1 EA EA (Carvedilol 25 MG) PO SCH (21:00)
[2017-08-03] MEDS ORDERED: NON-FORMULARY MEDICATION 1 EA EA (Venlafaxine HCl (Venlafaxine HCl ER) 150 MG) PO SCH (21:00)
[2017-08-03 23:30] VITALS: BP 134/62
[2017-08-04] MEDS: RT-ALBUTEROL/IPRATROPIUM 3 ML (DUONEB) VIAL IH SCH ×6 (02:24→21:52)
[2017-08-04 03:30] VITALS: BP 137/71
[2017-08-04] MEDS: NS IV 1000 ML 1,000 ML IV SCH ×2 (03:31→17:42)
[2017-08-04 06:08] LABS: BASOPHILS # (AUTO) 0.1 10^3/uL (0.0-0.1); BASOPHILS % (AUTO) 0 % (0-10); EOSINOPHILS # (AUTO) 0.1 10^3/uL (0.0-0.3); EOSINOPHILS % (AUTO) 1 % (0-10); LYMPHOCYTES % (AUTO) 24 % (12-44); MEAN CORPUSCULAR HEMOGLOBIN 31 PG (25-34); MEAN CORPUSCULAR HGB CONC 33 G/DL (32-36); MEAN CORPUSCULAR VOLUME 94 FL (80-99); MONOCYTES # (AUTO) 2.1 X 10^3 (0.0-1.0); MONOCYTES % (AUTO) 17 % (0-12); NEUTROPHILS # (AUTO) 7.2 X 10^3 (1.8-7.8); NEUTROPHILS % (AUTO) 58 % (42-75); PLATELET COUNT 152 10^3/uL (130-400); RED BLOOD COUNT 3.42 10^6/uL (4.35-5.85); RED CELL DISTRIBUTION WIDTH 21.9 % (10.0-14.5); WHITE BLOOD COUNT 12.4 10^3/uL (4.3-11.0)
[2017-08-04 06:18] LABS: ALANINE AMINOTRANSFERASE 6 U/L (0-55); ALBUMIN 2.6 GM/DL (3.2-4.5); ANION GAP 10 MMOL/L (5-14); ASPARTATE AMINO TRANSFERASE 28 U/L (5-34); BILIRUBIN,TOTAL 0.6 MG/DL (0.1-1.0); BLOOD UREA NITROGEN 18 MG/DL (7-18); BUN/CREATININE RATIO 24; CALCIUM 12.7 MG/DL (8.5-10.1); CARBON DIOXIDE 26 MMOL/L (21-32); CHLORIDE 109 MMOL/L (98-107); CREATININE SERUM 0.74 MG/DL (0.60-1.30); GFR ESTIMATED > 60; GLUCOSE 89 MG/DL (70-105); POTASSIUM 3.7 MMOL/L (3.6-5.0); SODIUM 145 MMOL/L (135-145); TOTAL PROTEIN 5.3 GM/DL (6.4-8.2)
[2017-08-04 06:27] LABS: CHOLESTEROL 150 MG/DL (< 200); DIRECT LDL 85 MG/DL (1-129); TRIGLYCERIDES 279 MG/DL (<150); VLDL CHOLESTEROL 56 MG/DL (5-40)
[2017-08-04] MEDS ORDERED: CARVEDILOL 12.5 MG (COREG) TABLET PO SCH (07:00)
[2017-08-04] MEDS ORDERED: VENlafaxine 75 MG (EFFEXOR) TAB PO SCH (07:00)
[2017-08-04 08:00] VITALS: BP 127/75
[2017-08-04] MEDS ORDERED: PANTOPRAZOLE 40 MG (PROTONIX) TAB PO SCH (09:00)
[2017-08-04] MEDS ORDERED: LEVOTHYROXINE 100 MCG (LEVOTHROID) TAB PO SCH (09:00)
[2017-08-04] MEDS ORDERED: KCL 20 MEQ TAB (K-DUR) PO SCH (09:00)
[2017-08-04] MEDS ORDERED: ASPIRIN E.C. 81 MG (ECOTRIN) TAB PO SCH (09:00)
[2017-08-04] MEDS ORDERED: PATIENT MAY USE OWN MEDS, ALL MC SCH (10:00)
[2017-08-04] MEDS: CARVEDILOL 25 MG PO SCH ×2 (10:54→17:41)
[2017-08-04] MEDS: KCL 20 MEQ TAB (K-DUR) PO SCH (10:56)
[2017-08-04] MEDS: ASPIRIN E.C. 81 MG (ECOTRIN) TAB PO SCH (10:56)
[2017-08-04] MEDS: ISOSORBIDE MONONITRATE 30 MG (IMDUR) TAB PO SCH ×2 (10:57→21:07)
[2017-08-04] MEDS: VENLAFAXINE ER 150 MG CAPS PO SCH ×2 (10:57→17:41)
[2017-08-04] MEDS: PANTOPRAZOLE 40 MG (PROTONIX) TAB PO SCH (10:58)
[2017-08-04] MEDS: LEVOTHYROXINE 100 MCG (LEVOTHROID) TAB PO SCH (11:00)
[2017-08-04 12:00] VITALS: BP 124/64
--- NOTE | 2017-08-04 12:27 | Progress Note (SOAP) ---
Subjective Date Seen by Provider: Aug 04, 2017 Time Seen by Provider: 12:21 Subjective/Events-last exam Fwup COPD exacerbation with hypoxia, confusion, mediastinal adenopathy, hypercalcemia, history of CAD and PVD. Awake and alert. Feels little better. Productive cough but clear. Patient does report at least a 100lb weight loss in last year and admits to night sweats. Objective Exam Vital Signs Date Time Temp Pulse Resp B/P (MAP) Pulse Ox O2 Delivery O2 Flow Rate FiO2 08/04/17 09:48 90 Nasal Cannula 2.00 08/04/17 07:05 95 Nasal Cannula 2.00 08/04/17 07:00 90 08/04/17 03:30 97.5 87 18 137/71 93 Nasal Cannula 2.00 08/04/17 02:24 91 Nasal Cannula 2.00 08/04/17 01:00 85 08/03/17 23:30 98.6 87 18 134/62 94 Nasal Cannula 2.00 08/03/17 22:23 91 Nasal Cannula 2.00 08/03/17 20:50 Nasal Cannula 2.00 08/03/17 20:45 98.5 55 19 175/82 97 Nasal Cannula 2.00 08/03/17 19:03 98 Nasal Cannula 2.00 08/03/17 19:00 79 08/03/17 18:07 62 08/03/17 17:30 98 Nasal Cannula 2.00 08/03/17 17:00 98.5 55 19 175/82 97 Nasal Cannula 2.00 08/03/17 16:45 67 18 100 Nasal Cannula Capillary Refill : Less Than 3 Seconds General Appearance: No Apparent Distress Neck: Supple Respiratory: Lungs Clear, Decreased Breath Sounds Cardiovascular: Regular Rate, Rhythm Gastrointestinal: normal bowel sounds, non tender, soft Extremity: Non Tender, No Calf Tenderness, No Pedal Edema Neurologic/Psychiatric: Alert, Oriented x3 Results Lab Laboratory Tests 08/04/17 05:32: White Blood Count 12.4H, Red Blood Count 3.42L, Hemoglobin 10.6L, Hematocrit 32L , Mean Corpuscular Volume 94, Mean Corpuscular Hemoglobin 31, Mean Corpuscular Hemoglobin Concent 33, Red Cell Distribution Width 21.9H, Platelet Count 152, Mean Platelet Volume 11.0H, Neutrophils (%) (Auto) 58, Lymphocytes (%) (Auto) 24 , Monocytes (%) (Auto) 17H, Eosinophils (%) (Auto) 1, Basophils (%) (Auto) 0, Neutrophils # (Auto) 7.2, Lymphocytes # (Auto) 3.0, Monocytes # (Auto) 2.1H, Eosinophils # (Auto) 0.1, Basophils # (Auto) 0.1, Sodium Level 145, Potassium Level 3.7, Chloride Level 109H, Carbon Dioxide Level 26, Anion Gap 10, Blood Urea Nitrogen 18, Creatinine 0.74, Estimat Glomerular Filtration Rate > 60, BUN/ Creatinine Ratio 24, Glucose Level 89, Calcium Level 12.7H, Total Bilirubin 0.6 , Aspartate Amino Transf (AST/SGOT) 28, Alanine Aminotransferase (ALT/SGPT) 6, Alkaline Phosphatase 80, Lactate Dehydrogenase 891H, Total Protein 5.3L, Albumin 2.6L, Triglycerides Level 279H, Cholesterol Level 150, LDL Cholesterol Direct 85, VLDL Cholesterol 56H, HDL Cholesterol < 15L Assessment/Plan Assessment/Plan Assess & Plan/Chief Complaint 1. Exacerbation of COPD with hypoxia--improved on oxygen and nebulizer treatments, CXR shows no sign of pneumonia 2. Confusion--improved 3. Mediastinal adenopathy and weight loss and night sweats of uncertain etiology --concerning for lymphoma, will consult pulmonology 4. CAD--stable 5. PVD--stable 6. Hypercalcemia--repeat with PTH 7. Poor social situation-pt lives at home with her 6 dogs with little support and money 8. Hx of PE with subtherapeutic INR secondary to confusion and non-complience- Lovenox 9. Leukocytosis--check UA Clinical Quality Measures AMI/AHF: ASA po Prior to arrival: No DVT/VTE Risk/Contraindication: Risk Factor Score Per Nursin RFS Level Per Nursing on Admit: 4+=Very High JONO MARTINEZ DO Aug 04, 2017 12:27
[2017-08-04] MEDS ORDERED: HOLD METFORMIN MC SCH (14:09)
[2017-08-04] MEDS ORDERED: IOHEXOL 350 MG/ML 100 ML (OMNIPAQUE 350) VIAL IV ONE (14:15)
[2017-08-04] MEDS ORDERED: NS 100 ML (IVPB) BAG IV ONE (14:15)
--- NOTE | 2017-08-04 14:45 | Diagnostic Imaging Report ---
PROCEDURE: CT abdomen and pelvis with and without contrast. TECHNIQUE: Precontrast acquisitions were acquired through the abdomen and pelvis. Multiple contiguous axial images were obtained through the abdomen and pelvis after the administration of intravenous contrast. INDICATION: Abdominal pain with cough. History of mediastinal adenopathy now with confusion. Most recent abdominal pelvic CT is 08/31/2015 that was a nonenhanced exam. Left pleural effusion and subjacent basilar atelectasis unchanged from earlier chest CT. There is no evidence for a liver mass. No biliary dilatation. Pancreas appears grossly unremarkable. There is a portacaval node in the right upper quadrant elongated measuring 2.7 cm in length with width of 1.5 cm. There are no adrenal masses. Spleen negative. There is some residual contrast within the kidneys presumed from CT performed one day prior. The delayed images do show accumulation of contrast within the collecting systems but heterogeneity throughout both renal cortices. Correlate with renal function studies to exclude tubular dysfunction. No renal obstruction or appreciable renal mass. There is a small abdominal and small to moderate pelvic free fluid without evidence for loculation. The urinary bladder unremarkable. There is aortoiliac and mesenteric atherosclerotic vascular calcifications. There is no bowel obstruction. No pneumatosis or free air. There is some generalized integumentary edema as well as some hazy induration and increased density of the abdominal pelvic mesenteric fat. No periaortic adenopathy. No pelvic adenopathy. No acute osseous abnormality. IMPRESSION: Abnormal density and heterogeneous enhancement of the unobstructed kidneys raise the question of tubular dysfunction. Correlate with renal function studies. Small volume of abdominal pelvic free fluid without loculation. Left basilar pleural fluid and adjacent atelectasis unchanged from prior CT. The preinjection series likely show some retention of cortical contrast in the kidneys again suggestive of dysfunction. Right upper quadrant portacaval lymph node. No other adenopathy. IVC filter present. No bowel, biliary or urinary tract obstruction. Dictated by: Dictated on workstation # [id number]
[2017-08-04] MEDS: RT-BUDESONIDE NEBS 0.5 MG/2ML (PULMICORT) AMP IH SCH ×2 (14:48→18:06)
[2017-08-04 16:00] VITALS: BP 109/55
[2017-08-04] MEDS: ENOXAPARIN 60 MG/0.6 ML (LOVENOX) SYR SC SCH (17:39)
[2017-08-04 20:55] VITALS: BP 134/65
[2017-08-04] MEDS: SIMvastatin 40 MG (ZOCOR) TAB PO SCH (21:08)
[2017-08-05] VITALS: BP 124/67
[2017-08-05] MEDS: RT-ALBUTEROL/IPRATROPIUM 3 ML (DUONEB) VIAL IH SCH ×6 (02:15→22:03)
[2017-08-05] MEDS: NS IV 1000 ML 1,000 ML IV SCH ×4 (03:10→17:21)
[2017-08-05 04:00] VITALS: BP 134/64
[2017-08-05 05:37] LABS: BASOPHILS % (AUTO) 0 % (0-10); EOSINOPHILS # (AUTO) 0.2 10^3/uL (0.0-0.3); EOSINOPHILS % (AUTO) 2 % (0-10); LYMPHOCYTES # (AUTO) 2.7 X 10^3 (1.0-4.0); LYMPHOCYTES % (AUTO) 28 % (12-44); MEAN CORPUSCULAR HEMOGLOBIN 31 PG (25-34); MEAN CORPUSCULAR HGB CONC 32 G/DL (32-36); MEAN CORPUSCULAR VOLUME 95 FL (80-99); MEAN PLATELET VOLUME 11.2 FL (7.4-10.4); MONOCYTES % (AUTO) 20 % (0-12); NEUTROPHILS # (AUTO) 4.7 X 10^3 (1.8-7.8); NEUTROPHILS % (AUTO) 49 % (42-75); PLATELET COUNT 145 10^3/uL (130-400); RED BLOOD COUNT 3.05 10^6/uL (4.35-5.85); RED CELL DISTRIBUTION WIDTH 21.9 % (10.0-14.5); WHITE BLOOD COUNT 9.6 10^3/uL (4.3-11.0)
[2017-08-05] MEDS: LEVOTHYROXINE 100 MCG (LEVOTHROID) TAB PO SCH (05:47)
[2017-08-05] MEDS: VENLAFAXINE ER 150 MG CAPS PO SCH ×2 (05:48→17:23)
[2017-08-05] MEDS: CARVEDILOL 25 MG PO SCH ×2 (05:49→17:24)
[2017-08-05 05:55] LABS: ANION GAP 5 MMOL/L (5-14); BLOOD UREA NITROGEN 18 MG/DL (7-18); BUN/CREATININE RATIO 26; CALCIUM 12.6 MG/DL (8.5-10.1); CARBON DIOXIDE 26 MMOL/L (21-32); CHLORIDE 111 MMOL/L (98-107); CREATININE SERUM 0.68 MG/DL (0.60-1.30); GFR ESTIMATED > 60; GLUCOSE 80 MG/DL (70-105); POTASSIUM 4.1 MMOL/L (3.6-5.0); SODIUM 142 MMOL/L (135-145)
[2017-08-05 05:56] LABS: ANISOCYTOSIS MODERATE; ATYPICAL LYMPHOCYTES 4 %; BAND NEUTROPHILS 2 %; BASOPHILS % (MANUAL) 0 %; EOSINOPHILS % (MANUAL) 0 %; HYPOCHROMASIA MODERATE; LYMPHOCYTES % (MANUAL) 20 %; MICROCYTOSIS SLIGHT; NEUTROPHILS % (MANUAL) 54 %; POLYCHROMASIA SLIGHT; REACTIVE LYMPHOCYTES 4 %; STOMATOCYTES SLIGHT; TARGET CELLS SLIGHT
[2017-08-05] MEDS: RT-BUDESONIDE NEBS 0.5 MG/2ML (PULMICORT) AMP IH SCH ×2 (06:37→18:47)
--- NOTE | 2017-08-05 07:43 | Pulmonary Consultation ---
History of Present Illness History of Present Illness Date of Consultation 08/05/17 07:37 Time Seen by Provider: 07:37 Date of Admission History of Present Illness 67yo with hx of COPD presented secondary to worsening SOB, pleuritic CP, and confusion. CP is worse with coughing. Onset of symptoms were 2-3 days prior to admission PT had recent echo and heart cath at [facility]. CT scan done upon admission shows signigicant mediastinal lymphadenopathy. PT has been having significant wt loss and decreased appetite. I am consulted for pulmonary management. Allergies and Home Medications Allergies Coded Allergies: penicillin G (Verified Allergy, Intermediate, 10/11/16) ITCHING AFTER RECEIVING PENICILLIN WHEN SHE WAS 30-35 YEARS OLD meperidine (Verified Allergy, Unknown, 03/06/07) quinine (Verified Allergy, Unknown, 09/05/06) levofloxacin (Verified Adverse Reaction, Intermediate, HIVES, 10/11/16) BURNING AND ITCHING Home Medications Aspirin 81 Mg Tablet, 81 MG PO DAILY, (Reported) Betamethasone/Propylene Glyc 15 Gm Cream..g., TP BID PRN for RASH, (Reported) Budesonide 0.5 Mg/2 Ml Ampul.neb, 0.5 MG NEB DAILY, (Reported) Calcium Carbonate/Vitamin D3 1 Each Tablet, 1 TAB PO BID, (Reported) Carvedilol 25 Mg Tablet, 25 MG PO BID, (Reported) Ceftriaxone Na/Dextrose,Iso 1 Gm/50 Ml Froz.piggy, 1 GM IV DAILY for 42 Days Prescribed by: BENJAMIN MILLAN MD on 10/15/16 0725 Cholecalciferol 1,000 Unit Capsule, 1,000 UNIT PO DAILY, (Reported) Folic Acid/Mv,Fe,Other Min 1 Each Tablet, 1 TAB PO DAILY, (Reported) Formoterol Fumarate 20 Mcg/2 Ml Vial.neb, 20 MCG NEB BID, (Reported) Furosemide 40 Mg Tablet, 40 MG PO DAILY, (Reported) Ipratropium/Albuterol Sulfate 3 Ml Ampul.neb, 3 ML NEB DAILY PRN for SHORTNESS OF BREATH, (Reported) NEEDED FOR SHORTNESS OF BREATH Isosorbide Mononitrate 30 Mg Tab.er.24h, 30 MG PO BID, (Reported) Lactobacillus Acidophilus 1 Each Tablet, 1 EACH PO DAILY, #60 Prescribed by: SAM GOLDBERG on 10/15/16 0818 Levothyroxine Sodium 100 Mcg Tablet, 100 MCG PO DAILY, (Reported) Clare 3 Polyunsat Fatty Acids 1,000 Mg Cap, 1,000 MG PO DAILY, (Reported) Pantoprazole Sodium 40 Mg Tablet.dr, 40 MG PO DAILY, (Reported) Potassium Chloride 20 Meq Tab.er.prt, 20 MEQ PO DAILY, (Reported) Simvastatin 40 Mg Tablet, 40 MG PO HS, (Reported) Venlafaxine HCl 150 Mg Cap.er.24h, 150 MG PO BID, (Reported) Warfarin Sodium 7.5 Mg Tablet, 7.5 MG PO SuTuWeThSa, (Reported) Past Lexwlgi-Xeljre-Xiiprg Hx Patient Social History Alcohol Use: Denies Use Recreational Drug Use: No Smoking Status: Current Someday Smoker Type Used: Cigarettes Former Smoker, Quit: Aug 01, 2017 2nd Hand Smoke Exposure: No Recent Foreign Travel: No Contact w/Someone Who Travel: No Recent Infectious Disease Expo: No Recent Hopitalizations: No ( ) Immunizations Up To Date Tetanus Booster (TDap): Less than 5yrs Date of Pneumonia Vaccine: Aug 21, 2015 Date of Influenza Vaccine: Oct 11, 2016 Seasonal Allergies Seasonal Allergies: No Surgeries History of Surgeries: Yes (L AND R SHOULDER REPLACEMENTS, LEFT ULNAR TRANSPOSITION, BYPASS 2 VESSEL) Surgeries: Appendectomy, CABG, Gallbladder, Hysterectomy, Open Heart Surgery, Orthopedic Respiratory History of Respiratory Disorde: Yes Respiratory Disorders: Pulmonary Embolism, Sleep Apnea, COPD Currently Using CPAP: Yes Currently Using BIPAP: No Cardiovascular History of Cardiac Disorders: Yes (BY-PASS, STENTS) Cardiac Disorders: Coronary Artery Disease, Hypertension Neurological History of Neurological Disord: No Reproductive System Hx Reproductive Disorders: Yes (HYSTERECTOMY 1983) Sexually Transmitted Disease: No HIV/AIDS: No Female Reproductive Disorders: Denies Genitourinary History of Genitourinary Disor: No Gastrointestinal History of Gastrointestinal Di: Yes Gastrointestinal Disorders: Abdominal Hernia, Obstructive Bowel, Ulcer Musculoskeletal History of Musculoskeletal Dis: Yes (ARTHRITIS, ARTHROSCOPY OF KNEE) Musculoskeletal Disorders: Chronic Back Pain Endocrine History of Endocrine Disorders: Yes ( PRE- DIABETES) Endocrine Disorders: Hypothyroidsim, Diabetes, Non-Insulin dep HEENT History of HEENT Disorders: No Loss of Vision: Denies Cancer History of Cancer: No Psychosocial History of Psychiatric Problem: Yes Behavioral Health Disorders: Depression Integumentary History of Skin or Integumenta: No Blood Transfusions History of Blood Disorders: Yes ( HX OF DVT WITH PE) Family Medical History Significant Family History: Hypertension Family Medial History: Blood clots G8 BROTHER Cardiovascular disease 19 FATHER Hypertension 19 FATHER 19 MOTHER G8 BROTHER Hypoglycemia 19 FATHER Myocardial infarction G8 BROTHER, Onset:35 Review of Systems Time Seen by Provider: 07:46 Constitutional: Weakness, Malaise, No: Fever Eyes: No: Pain, Vision change, Conjunctivae inflammation, Eyelid inflammation, Other, Redness ENT: No: Ear pain, Ear discharge, Nose pain, Nose discharge, Nose congestion, Mouth pain, Mouth swelling, Throat pain, Throat swelling, Other Respiratory: Cough, Dry, Shortness of breath, SOB with excertion Cardiovascular: Chest Pain, Palpitations, Orthopnea, Paroxysmal Noc. Dyspnea Gastrointestinal: No: Nausea, Vomiting, Abdominal Pain, Diarrhea, Constipation , Melena, Hematochezia, Other Neurological: Weakness, Incoordination Exam Exam Vital Signs Date Time Temp Pulse Resp B/P (MAP) Pulse Ox O2 Delivery O2 Flow Rate FiO2 08/05/17 06:40 99 08/05/17 06:34 95 Nasal Cannula 2.00 08/05/17 02:16 90 Nasal Cannula 2.00 08/05/17 00:42 57 08/05/17 00:00 98.6 67 18 124/67 96 Nasal Cannula 2.00 08/04/17 21:53 95 Nasal Cannula 2.00 08/04/17 21:00 94 Nasal Cannula 2.00 08/04/17 20:55 98.6 64 21 134/65 93 Nasal Cannula 2.00 08/04/17 19:00 59 08/04/17 18:09 95 Nasal Cannula 2.00 08/04/17 16:00 98.6 62 20 109/55 95 Nasal Cannula 2.00 08/04/17 14:48 92 Nasal Cannula 2.00 08/04/17 13:00 67 08/04/17 12:00 98.3 68 20 124/64 95 Nasal Cannula 2.00 08/04/17 09:48 90 Nasal Cannula 2.00 08/04/17 09:00 94 Nasal Cannula 2.00 08/04/17 08:00 98.8 95 20 127/75 General Appearance: No Apparent Distress, Anxious, Chronically ill HEENT: Other (edentulous-dry) Neck: Limited Range of Motion Respiratory: Decreased Breath Sounds, Rales Cardiovascular: No Edema, Systolic Murmur (2/6) Capillary Refill: Less Than 3 Seconds Gastrointestinal: normal bowel sounds, non tender, soft Extremity: No Pedal Edema Neurologic/Psychiatric: Alert, No Motor/Sensory Deficits Skin: Warm/Dry Lymphatic: No Adenopathy Results Lab Laboratory Tests 08/03/17 11:35 08/04/17 05:32 08/05/17 05:15 Assessment/Plan Assessment/Plan COPDAE -oxygen -SVNs Q4 -Steroids Mediastinal adenopathy with wt loss -- No hx of sarcoid -check LAITH level -Will plan on bronchoscopy with EBUS next Wed - this can be done as out patient Hypercalcemia -IVF - increase to 150 cc/hr NS -Add Solumedrol 40 IV Q 6 Hx of PE -currently on lovenox 60 min was spent with patient and medical staff discussing plan of care. I talked with Samara from endoscopy and patient is scheduled for bronchoscopy and EBUS next Wed. I also communicated POC with Dr. Goldberg. Clinical Quality Measures AMI/AHF: ASA po Prior to arrival: No DVT/VTE Risk/Contraindication: Risk Factor Score Per Nursin RFS Level Per Nursing on Admit: 4+=Very High SHIVA AVITIA DO Aug 05, 2017 07:43
[2017-08-05 08:00] VITALS: BP 132/65
[2017-08-05] MEDS ORDERED: methylPREDNISolone 125 MG (Solu-MEDROL) VIAL IVP NR (08:15)
--- NOTE | 2017-08-05 08:58 | Progress Note (SOAP) ---
Subjective Date Seen by Provider: Aug 05, 2017 Time Seen by Provider: 08:55 Subjective/Events-last exam SHE STATES THAT SHE WAS TOLD ABOUT THE LESIONS IN HER CHEST - AND DR. AVITIA REPORTED THAT HE WAS PLANNING ON PROCEDURE NEXT WEEK. PATIENT REPORTS THAT SHE IS STILL FEELING FATIGUED, SHORT OF BREATH, BUT DOES FEEL BETTER THAN ON ADMISSION. Review of Systems General: No Chills, Fatigue HEENT: No Head Aches Pulmonary: Dyspnea, Cough Cardiovascular: No: Chest Pain, Palpitations Gastrointestinal: No: Nausea, Abdominal Pain Neurological: Weakness, No: Confusion Objective Exam Vital Signs Date Time Temp Pulse Resp B/P (MAP) Pulse Ox O2 Delivery O2 Flow Rate FiO2 08/05/17 06:40 99 08/05/17 06:34 95 Nasal Cannula 2.00 08/05/17 04:00 98.9 56 18 134/64 92 Nasal Cannula 2.00 08/05/17 02:16 90 Nasal Cannula 2.00 08/05/17 00:42 57 08/05/17 00:00 98.6 67 18 124/67 96 Nasal Cannula 2.00 08/04/17 21:53 95 Nasal Cannula 2.00 08/04/17 21:00 94 Nasal Cannula 2.00 08/04/17 20:55 98.6 64 21 134/65 93 Nasal Cannula 2.00 08/04/17 19:00 59 08/04/17 18:09 95 Nasal Cannula 2.00 08/04/17 16:00 98.6 62 20 109/55 95 Nasal Cannula 2.00 08/04/17 14:48 92 Nasal Cannula 2.00 08/04/17 13:00 67 08/04/17 12:00 98.3 68 20 124/64 95 Nasal Cannula 2.00 08/04/17 09:48 90 Nasal Cannula 2.00 08/04/17 09:00 94 Nasal Cannula 2.00 Capillary Refill : Less Than 3 Seconds General Appearance: No Apparent Distress, WD/WN HEENT: PERRL/EOMI Neck: Full Range of Motion, Supple Respiratory: Chest Non Tender, Decreased Breath Sounds, Wheezing Cardiovascular: Regular Rate, Rhythm Gastrointestinal: normal bowel sounds, non tender, soft, no pulsatile mass Neurologic/Psychiatric: Alert, Oriented x3, No Motor/Sensory Deficits, Normal Mood/Affect Skin: Normal Color, Warm/Dry Lymphatic: No Adenopathy Results Lab Laboratory Tests 08/05/17 05:15: White Blood Count 9.6, Red Blood Count 3.05L, Hemoglobin 9.3L, Hematocrit 29L, Mean Corpuscular Volume 95, Mean Corpuscular Hemoglobin 31, Mean Corpuscular Hemoglobin Concent 32, Red Cell Distribution Width 21.9H, Platelet Count 145, Mean Platelet Volume 11.2H, Neutrophils (%) (Auto) 49, Lymphocytes (%) (Auto) 28 , Monocytes (%) (Auto) 20H, Eosinophils (%) (Auto) 2, Basophils (%) (Auto) 0, Neutrophils # (Auto) 4.7, Lymphocytes # (Auto) 2.7, Monocytes # (Auto) 2.0H, Eosinophils # (Auto) 0.2, Basophils # (Auto) 0.0, Neutrophils % (Manual) 54, Lymphocytes % (Manual) 20, Monocytes % (Manual) 16, Eosinophils % (Manual) 0, Basophils % (Manual) 0, Band Neutrophils 2, Atypical Lymphocytes 4, Reactive Lymphocytes 4, Smudge Cells SLIGHT, Polychromasia SLIGHT, Hypochromasia MODERATE , Anisocytosis MODERATE, Microcytosis SLIGHT, Macrocytosis MODERATE, Target Cells SLIGHT, Stomatocytes SLIGHT, Sodium Level 142, Potassium Level 4.1, Chloride Level 111H, Carbon Dioxide Level 26, Anion Gap 5, Blood Urea Nitrogen 18, Creatinine 0.68, Estimat Glomerular Filtration Rate > 60, BUN/Creatinine Ratio 26, Glucose Level 80, Calcium Level 12.6H Assessment/Plan Assessment/Plan Assess & Plan/Chief Complaint COPD EXACERBATION - HYPOXEMIA - IMPROVED ON 2 LITERS NASAL CANNULA AT 94% - CXR/ CT OF CHEST SHOWS LYMPHADENOPATHY - SUSPECT LYMPHOMA CONFUSION - IMPROVING LYMPHADENOPATHY - MEDIASTINAL AND ABDOMINAL - SUSPICIOUS FOR LYMPHOMA - DR. AVITIA CONSULTED - SEE HIS FULL NOTE - HE HAS INDICATED OUTPATIENT BRONCHOSCOPY NEXT WEEK. CAD - CHRONIC - STABLE - CONTINUE CURRENT CARE HX OF PULMONARY EMBOLUS - HAS BEEN ON COUMADIN FOR "YEARS" - WILL NEED TO CONSIDER OTHER TREATMENT OPTIONS - HOWEVER - DUE TO COST, PT MAY NOT BE ABLE TO AFFORD OTHER MEDICATIONS. WILL HAVE SUPERVISOR DOG LICENSE OFFICER WITH HELP WITH MEDICATION IF THEY ARE ABLE. HYPERCALCEMIA - PTH PENDING - CALCIUM LEVEL STILL HIGH. DIFFICULT SOCIAL SITUATION - PT IS ABLE TO MAKE HER OWN DECISIONS, [place]ES [place] - LIVES ALONE - HAS 6 DOGS WHO LIVE IN HER HOUSE. SHE USUALLY COMES TO CLINIC SMELLING OF ANIMALS. Clinical Quality Measures AMI/AHF: ASA po Prior to arrival: No DVT/VTE Risk/Contraindication: Risk Factor Score Per Nursin RFS Level Per Nursing on Admit: 4+=Very High SAM CINTRON MD Aug 05, 2017 08:58
[2017-08-05] MEDS: KCL 20 MEQ TAB (K-DUR) PO SCH (09:02)
[2017-08-05] MEDS: ASPIRIN E.C. 81 MG (ECOTRIN) TAB PO SCH (09:02)
[2017-08-05] MEDS: ISOSORBIDE MONONITRATE 30 MG (IMDUR) TAB PO SCH ×2 (09:02→21:23)
[2017-08-05] MEDS: PANTOPRAZOLE 40 MG (PROTONIX) TAB PO SCH (09:02)
[2017-08-05] MEDS ORDERED: OMG1KC PO (10:46)
[2017-08-05] MEDS ORDERED: BUDE10.2 IH ×2 (10:46)
[2017-08-05] MEDS ORDERED: CYAN10006 PO ×2 (10:46)
[2017-08-05] MEDS ORDERED: FA/M1TAB29 PO ×2 (10:46)
[2017-08-05] MEDS ORDERED: AMLO2.5T PO ×2 (10:46)
[2017-08-05] MEDS ORDERED: WARF-48 PO ×2 (10:46)
[2017-08-05] MEDS ORDERED: ALBU2.5V4 NEB ×2 (10:46)
[2017-08-05 12:00] VITALS: BP 158/76
[2017-08-05 16:00] VITALS: BP 145/77
[2017-08-05] MEDS: methylPREDNISolone 40 MG/ML (Solu-MEDROL) VIAL IV SCH ×2 (17:21→21:23)
[2017-08-05] MEDS: ENOXAPARIN 60 MG/0.6 ML (LOVENOX) SYR SC SCH (17:22)
[2017-08-05 20:00] VITALS: BP 157/74
[2017-08-05] MEDS: SIMvastatin 40 MG (ZOCOR) TAB PO SCH (21:24)
[2017-08-06] VITALS: BP 160/67
[2017-08-06] MEDS: NS IV 1000 ML 1,000 ML IV SCH ×3 (01:18→21:05)
[2017-08-06] MEDS: RT-ALBUTEROL/IPRATROPIUM 3 ML (DUONEB) VIAL IH SCH ×6 (02:14→22:20)
[2017-08-06] MEDS: methylPREDNISolone 40 MG/ML (Solu-MEDROL) VIAL IV SCH ×4 (02:39→20:02)
[2017-08-06 04:00] VITALS: BP 158/72
[2017-08-06] MEDS: RT-BUDESONIDE NEBS 0.5 MG/2ML (PULMICORT) AMP IH SCH ×2 (06:30→18:52)
[2017-08-06] MEDS: VENLAFAXINE ER 150 MG CAPS PO SCH ×2 (06:38→17:42)
[2017-08-06] MEDS: LEVOTHYROXINE 100 MCG (LEVOTHROID) TAB PO SCH (06:42)
[2017-08-06] MEDS: CARVEDILOL 25 MG PO SCH ×2 (06:44→17:42)
[2017-08-06 07:46] LABS: CALCIUM PARA THYROID HORMONE 12.2 mg/dL (8.5-10.5); PTH INTACT IRMA <6.0 pg/mL (10.0-65.0)
[2017-08-06 08:16] VITALS: BP 181/76
[2017-08-06] MEDS: ASPIRIN E.C. 81 MG (ECOTRIN) TAB PO SCH (08:39)
[2017-08-06] MEDS: ISOSORBIDE MONONITRATE 30 MG (IMDUR) TAB PO SCH ×2 (08:39→20:03)
--- NOTE | 2017-08-06 08:39 | Progress Note (SOAP) ---
Subjective Date Seen by Provider: Aug 06, 2017 Time Seen by Provider: 08:38 Subjective/Events-last exam PT REPORTS THAT SHE IS FEELING A LITTLE BETTER EVERY DAY - SHE IS BREATHING BETTER TODAY. SHE REPORTS THAT SHE DOES NOT HAVE ANY CHEST PAIN, DOES HAVE SOME WEAKNESS WITH STANDING AND WALKING, BUT IS FEELING STRONGER. HER LADAUM-SL-JTY IS IN THE ROOM, DISCUSSING HER DIAGNOSIS AND PROGNOSIS. THEY HAVE AGREED TOGETHER (DANIELA AND FAMILY) THAT SHE SHOULD GO TO THE HALF-WAY FOR STRENGTHENING AND SHE WOULD LIKE TO CONSIDER NURSING [facility] [place] [facility] [place] WHEN SHE IS DISCHARGED FROM THE HALF-WAY. Review of Systems General: No Chills, Fatigue HEENT: No Head Aches Pulmonary: Dyspnea, No Cough Cardiovascular: No: Chest Pain, Palpitations Gastrointestinal: No: Nausea, Abdominal Pain, Constipation Genitourinary: No Dysuria, No Frequency Neurological: Weakness, Confusion (INTERMITTENT) Objective Exam Vital Signs Date Time Temp Pulse Resp B/P (MAP) Pulse Ox O2 Delivery O2 Flow Rate FiO2 08/06/17 08:16 97.5 70 18 181/76 94 Nasal Cannula 2.00 08/06/17 06:36 98 08/06/17 06:30 95 Nasal Cannula 2.00 08/06/17 04:00 97.4 72 18 158/72 91 Nasal Cannula 2.00 08/06/17 02:16 92 Nasal Cannula 2.00 08/06/17 01:00 58 08/06/17 00:00 96.5 62 16 160/67 90 Nasal Cannula 2.00 08/05/17 22:03 92 Nasal Cannula 08/05/17 21:56 99.3 08/05/17 21:00 94 Nasal Cannula 2.00 08/05/17 20:00 100.3 73 20 157/74 91 Nasal Cannula 2.00 08/05/17 19:00 54 08/05/17 18:49 91 Nasal Cannula 08/05/17 16:00 98.3 56 20 145/77 95 Nasal Cannula 2.00 08/05/17 14:52 86 Room Air 08/05/17 13:00 54 08/05/17 12:00 98.4 59 20 158/76 92 Nasal Cannula 2.00 08/05/17 11:22 90 Nasal Cannula 2.00 08/05/17 09:00 94 Nasal Cannula 2.00 Capillary Refill : Less Than 3 Seconds General Appearance: No Apparent Distress, WD/WN HEENT: PERRL/EOMI, Pharynx Normal Neck: Full Range of Motion, Supple Respiratory: Chest Non Tender, Lungs Clear Cardiovascular: Regular Rate, Rhythm Gastrointestinal: normal bowel sounds, soft Extremity: Normal Capillary Refill, Non Tender, No Calf Tenderness Neurologic/Psychiatric: Alert, Oriented x3, Normal Mood/Affect Skin: Warm/Dry Assessment/Plan Assessment/Plan Assess & Plan/Chief Complaint COPD EXACERBATION - HYPOXEMIA - IMPROVED ON 2 LITERS NASAL CANNULA AT 94% - CXR/ CT OF CHEST SHOWS LYMPHADENOPATHY - SUSPECT LYMPHOMA - DR. AVITIA WILL DO WORK- UP NEXT WEEK CONFUSION - IMPROVING LYMPHADENOPATHY - MEDIASTINAL AND ABDOMINAL - SUSPICIOUS FOR LYMPHOMA - DR. AVITIA CONSULTED - SEE HIS FULL NOTE - HE HAS INDICATED OUTPATIENT BRONCHOSCOPY NEXT WEEK. CAD - CHRONIC - STABLE - CONTINUE CURRENT CARE HX OF PULMONARY EMBOLUS - HAS BEEN ON COUMADIN FOR "YEARS" - WILL NEED TO CONSIDER OTHER TREATMENT OPTIONS - HOWEVER - DUE TO COST, PT MAY NOT BE ABLE TO AFFORD OTHER MEDICATIONS. WILL HAVE OCC MED PHYSICIAN WITH HELP WITH MEDICATION IF THEY ARE ABLE. HYPERCALCEMIA - PTH PENDING - CALCIUM LEVEL STILL HIGH. DIFFICULT SOCIAL SITUATION - PT IS ABLE TO MAKE HER OWN DECISIONS, HOWEVER HER [id number]-ORM AND OTHER FAMILY MEMBERS HAVE TALKED TO HER AND SHE IS CURRENTLY IN AGREEMENT THAT SHE NEEDS HELP AND WILL GO TO HALF-WAY ON DISCHARGE - OTHERWISE SHE WILL GO BACK TO A BAD LIVING SITUATION OF SIGNIFICANT POVERTY, LACK OF SELF CARE AND MOST OF HER MONEY GOING TO PAY FOR HER 6 DOGS. Clinical Quality Measures AMI/AHF: ASA po Prior to arrival: No DVT/VTE Risk/Contraindication: Risk Factor Score Per Nursin RFS Level Per Nursing on Admit: 4+=Very High SAM CINTRON MD Aug 06, 2017 08:38
[2017-08-06] MEDS: KCL 20 MEQ TAB (K-DUR) PO SCH (08:40)
[2017-08-06] MEDS: PANTOPRAZOLE 40 MG (PROTONIX) TAB PO SCH (08:41)
[2017-08-06 12:00] VITALS: BP_SYST 153; BP_SYST 177; BP_DIAS 69; BP_DIAS 71
--- NOTE | 2017-08-06 12:06 | Pulmonary Progress Note ---
Subjective Time Seen by Provider: 08:14 Subjective/Events-last exam No complications noted. Exam Exam Vital Signs Date Time Temp Pulse Resp B/P (MAP) Pulse Ox O2 Delivery O2 Flow Rate FiO2 08/06/17 10:18 93 Nasal Cannula 2.00 08/06/17 09:00 Nasal Cannula 2.00 08/06/17 08:16 97.5 70 18 181/76 94 Nasal Cannula 2.00 08/06/17 06:36 98 08/06/17 06:30 95 Nasal Cannula 2.00 08/06/17 04:00 97.4 72 18 158/72 91 Nasal Cannula 2.00 08/06/17 02:16 92 Nasal Cannula 2.00 08/06/17 01:00 58 08/06/17 00:00 96.5 62 16 160/67 90 Nasal Cannula 2.00 08/05/17 22:03 92 Nasal Cannula 08/05/17 21:56 99.3 08/05/17 21:00 94 Nasal Cannula 2.00 08/05/17 20:00 100.3 73 20 157/74 91 Nasal Cannula 2.00 08/05/17 19:00 54 08/05/17 18:49 91 Nasal Cannula 08/05/17 16:00 98.3 56 20 145/77 95 Nasal Cannula 2.00 08/05/17 14:52 86 Room Air 08/05/17 13:00 54 General Appearance: No Apparent Distress, WD/WN HEENT: PERRL/EOMI Neck: Full Range of Motion, Supple Respiratory: Chest Non Tender, Decreased Breath Sounds, Wheezing Cardiovascular: Regular Rate, Rhythm Capillary Refill: Less Than 3 Seconds Gastrointestinal: normal bowel sounds, non tender, soft, no pulsatile mass Extremity: No Pedal Edema Neurologic/Psychiatric: Alert, Oriented x3, No Motor/Sensory Deficits, Normal Mood/Affect Skin: Normal Color, Warm/Dry Lymphatic: No Adenopathy Results Lab Laboratory Tests 08/05/17 05:15 Assessment/Plan Assessment/Plan COPDAE -oxygen -SVNs Q4 -Steroids Mediastinal adenopathy with wt loss -- No hx of sarcoid -check LAITH level -Will plan on bronchoscopy with EBUS next Fri - this can be done as out patient Hypercalcemia -IVF - increase to 150 cc/hr NS -Add Solumedrol 40 IV Q 6 Hx of PE -currently on lovenox 232 Clinical Quality Measures AMI/AHF: ASA po Prior to arrival: No DVT/VTE Risk/Contraindication: Risk Factor Score Per Nursin RFS Level Per Nursing on Admit: 4+=Very High SHIVA AVITIA DO Aug 06, 2017 12:06
[2017-08-06 15:45] VITALS: BP 136/65
[2017-08-06] MEDS: ENOXAPARIN 60 MG/0.6 ML (LOVENOX) SYR SC SCH (17:42)
[2017-08-06 19:57] LABS: BILIRUBIN,URINE NEGATIVE (NEGATIVE); KETONES,URINE NEGATIVE (NEGATIVE); LEUKOCYTE ESTERASE ,URINE NEGATIVE (NEGATIVE); NITRITE,URINE NEGATIVE (NEGATIVE); PH,URINE 5 (5-9); PROTEIN,URINE NEGATIVE (NEGATIVE); UROBILINOGEN,URINE NORMAL (NORMAL)
[2017-08-06 20:00] VITALS: BP 165/77
[2017-08-06] MEDS: SIMvastatin 40 MG (ZOCOR) TAB PO SCH (20:02)
[2017-08-06 20:08] LABS: WBC,URINE 0-2 /HPF
[2017-08-07] VITALS (7 sets, daily range): BP systolic 147–190; BP diastolic 75–87
[2017-08-07] MEDS: RT-ALBUTEROL/IPRATROPIUM 3 ML (DUONEB) VIAL IH SCH ×6 (01:41→21:34)
[2017-08-07] MEDS: methylPREDNISolone 40 MG/ML (Solu-MEDROL) VIAL IV SCH ×4 (03:12→20:06)
[2017-08-07] MEDS: VENLAFAXINE ER 150 MG CAPS PO SCH ×2 (05:37→18:10)
[2017-08-07] MEDS: LEVOTHYROXINE 100 MCG (LEVOTHROID) TAB PO SCH (05:38)
[2017-08-07] MEDS: CARVEDILOL 25 MG PO SCH ×2 (05:38→18:11)
[2017-08-07] MEDS: RT-BUDESONIDE NEBS 0.5 MG/2ML (PULMICORT) AMP IH SCH ×2 (07:57→21:34)
--- NOTE | 2017-08-07 08:34 | Pulmonary Progress Note ---
Subjective Time Seen by Provider: 08:29 Subjective/Events-last exam No complications noted. Exam Exam Vital Signs Date Time Temp Pulse Resp B/P (MAP) Pulse Ox O2 Delivery O2 Flow Rate FiO2 08/07/17 08:18 Nasal Cannula 2.00 08/07/17 08:10 95 Nasal Cannula 2.00 08/07/17 07:58 94 Nasal Cannula 2.00 08/07/17 04:25 98.4 67 19 177/86 94 Nasal Cannula 2.00 08/07/17 01:41 93 Nasal Cannula 2.00 08/07/17 01:00 65 08/07/17 00:00 96.7 65 19 166/77 91 Nasal Cannula 2.00 08/06/17 22:20 92 Nasal Cannula 2.00 08/06/17 20:30 Nasal Cannula 2.00 08/06/17 20:00 97.1 63 20 165/77 95 Nasal Cannula 2.00 08/06/17 19:00 58 08/06/17 18:59 Nasal Cannula 2.00 08/06/17 18:52 92 Nasal Cannula 2.00 08/06/17 15:45 97.0 69 20 136/65 95 Nasal Cannula 2.00 08/06/17 14:37 93 Nasal Cannula 2.00 08/06/17 12:00 98.2 57 18 153/69 93 Nasal Cannula 2.00 08/06/17 10:18 93 Nasal Cannula 2.00 08/06/17 09:00 Nasal Cannula 2.00 General Appearance: No Apparent Distress, WD/WN HEENT: PERRL/EOMI Neck: Full Range of Motion, Supple Respiratory: Chest Non Tender, Decreased Breath Sounds, Wheezing Cardiovascular: Regular Rate, Rhythm Capillary Refill: Less Than 3 Seconds Gastrointestinal: normal bowel sounds, non tender, soft, no pulsatile mass Extremity: No Pedal Edema Neurologic/Psychiatric: Alert, Oriented x3, No Motor/Sensory Deficits, Normal Mood/Affect Skin: Normal Color, Warm/Dry Lymphatic: No Adenopathy Assessment/Plan Assessment/Plan COPDAE -oxygen -SVNs Q4 -Steroids Mediastinal adenopathy with wt loss -- No hx of sarcoid -check LAITH level -Will plan on bronchoscopy with EBUS next Wed - this can be done as out patient Hypercalcemia - IVF -Steroids - repeat labs Hx of PE -currently on lovenox 232 Clinical Quality Measures AMI/AHF: ASA po Prior to arrival: No DVT/VTE Risk/Contraindication: Risk Factor Score Per Nursin RFS Level Per Nursing on Admit: 4+=Very High SHIVA AVITIA DO Aug 07, 2017 08:34
--- NOTE | 2017-08-07 08:49 | Progress Note (SOAP) ---
Subjective Date Seen by Provider: Aug 07, 2017 Time Seen by Provider: 08:31 Subjective/Events-last exam PT REPORTS THAT SHE IS FEELING BETTER - STILL WEAK AND SHORT OF BREATH, BUT SHE IS IMPROVING. SHE DOES FEEL INTERMITTENTLY CONFUSED. Review of Systems General: Fatigue, Malaise Pulmonary: Dyspnea Cardiovascular: No: Chest Pain Gastrointestinal: No: Nausea, Abdominal Pain Neurological: Weakness, Confusion (INTERMITTENT) Objective Exam Vital Signs Date Time Temp Pulse Resp B/P (MAP) Pulse Ox O2 Delivery O2 Flow Rate FiO2 08/07/17 08:18 Nasal Cannula 2.00 08/07/17 08:10 95 Nasal Cannula 2.00 08/07/17 07:58 94 Nasal Cannula 2.00 08/07/17 04:25 98.4 67 19 177/86 94 Nasal Cannula 2.00 08/07/17 01:41 93 Nasal Cannula 2.00 08/07/17 01:00 65 08/07/17 00:00 96.7 65 19 166/77 91 Nasal Cannula 2.00 08/06/17 22:20 92 Nasal Cannula 2.00 08/06/17 20:30 Nasal Cannula 2.00 08/06/17 20:00 97.1 63 20 165/77 95 Nasal Cannula 2.00 08/06/17 19:00 58 08/06/17 18:59 Nasal Cannula 2.00 08/06/17 18:52 92 Nasal Cannula 2.00 08/06/17 15:45 97.0 69 20 136/65 95 Nasal Cannula 2.00 08/06/17 14:37 93 Nasal Cannula 2.00 08/06/17 12:00 98.2 57 18 153/69 93 Nasal Cannula 2.00 08/06/17 10:18 93 Nasal Cannula 2.00 08/06/17 09:00 Nasal Cannula 2.00 Capillary Refill : Less Than 3 SecondsLess Than 3 Seconds General Appearance: No Apparent Distress, WD/WN HEENT: PERRL/EOMI Neck: Full Range of Motion, Supple Respiratory: Chest Non Tender, Lungs Clear Cardiovascular: Regular Rate, Rhythm Gastrointestinal: normal bowel sounds, soft Extremity: Normal Capillary Refill, No Pedal Edema Neurologic/Psychiatric: Alert Skin: Warm/Dry Lymphatic: No Adenopathy Results Lab Laboratory Tests 08/06/17 19:30: Urine Color YELLOW, Urine Clarity CLEAR, Urine pH 5, Urine Specific [place] 1.025H, Urine Protein NEGATIVE, Urine Glucose (UA) NEGATIVE, Urine Ketones NEGATIVE, Urine Nitrite NEGATIVE, Urine Bilirubin NEGATIVE, Urine Urobilinogen NORMAL, Urine Leukocyte Esterase NEGATIVE, Urine RBC (Auto) NEGATIVE, Urine RBC NONE, Urine WBC 0-2, Urine Crystals NONE, Urine Bacteria TRACE, Urine Casts NONE , Urine Mucus NEGATIVE, Urine Culture Indicated NO Assessment/Plan Assessment/Plan Assess & Plan/Chief Complaint COPD EXACERBATION - HYPOXEMIA - IMPROVED ON 2 LITERS NASAL CANNULA AT 94% - CXR/ CT OF CHEST SHOWS LYMPHADENOPATHY - SUSPECT LYMPHOMA - DR. AVITIA WILL DO WORK- UP NEXT WEEK CONFUSION - IMPROVING LYMPHADENOPATHY - MEDIASTINAL AND ABDOMINAL - SUSPICIOUS FOR LYMPHOMA (LDH ELEVATED)- DR. AVITIA CONSULTED - SEE HIS FULL NOTE - HE HAS INDICATED OUTPATIENT BRONCHOSCOPY NEXT WEEK. CAD - CHRONIC - STABLE - CONTINUE CURRENT CARE HX OF PULMONARY EMBOLUS - HAS BEEN ON COUMADIN FOR "YEARS" - HYPERCALCEMIA - PTH PENDING - CALCIUM LEVEL STILL HIGH. - ORDERED IM CALCITONIN IF REPEAT CALCIUM IS STILL ELEVATED DIFFICULT SOCIAL SITUATION - PT IS ABLE TO MAKE HER OWN DECISIONS, HOWEVER HER [id number] AND OTHER FAMILY MEMBERS HAVE TALKED TO HER AND SHE IS CURRENTLY IN AGREEMENT THAT SHE NEEDS HELP AND WILL GO TO HALF-WAY ON DISCHARGE - OTHERWISE SHE WILL GO BACK TO A BAD LIVING SITUATION OF SIGNIFICANT POVERTY, LACK OF SELF CARE AND MOST OF HER MONEY GOING TO PAY FOR HER 6 DOGS. Clinical Quality Measures AMI/AHF: ASA po Prior to arrival: No DVT/VTE Risk/Contraindication: Risk Factor Score Per Nursin RFS Level Per Nursing on Admit: 4+=Very High SAM CINTRON MD Aug 07, 2017 08:49
[2017-08-07] MEDS: PANTOPRAZOLE 40 MG (PROTONIX) TAB PO SCH (08:59)
[2017-08-07] MEDS: KCL 20 MEQ TAB (K-DUR) PO SCH (09:00)
[2017-08-07] MEDS: ISOSORBIDE MONONITRATE 30 MG (IMDUR) TAB PO SCH ×2 (09:00→20:06)
[2017-08-07] MEDS: ASPIRIN E.C. 81 MG (ECOTRIN) TAB PO SCH (09:01)
[2017-08-07 10:20] LABS: BASOPHILS % (AUTO) 0 % (0-10); EOSINOPHILS % (AUTO) 0 % (0-10); LYMPHOCYTES # (AUTO) 1.3 X 10^3 (1.0-4.0); LYMPHOCYTES % (AUTO) 9 % (12-44); MEAN CORPUSCULAR HEMOGLOBIN 31 PG (25-34); MEAN CORPUSCULAR HGB CONC 33 G/DL (32-36); MEAN CORPUSCULAR VOLUME 95 FL (80-99); MEAN PLATELET VOLUME 11.2 FL (7.4-10.4); MONOCYTES # (AUTO) 1.5 X 10^3 (0.0-1.0); MONOCYTES % (AUTO) 10 % (0-12); NEUTROPHILS # (AUTO) 11.9 X 10^3 (1.8-7.8); NEUTROPHILS % (AUTO) 81 % (42-75); PLATELET COUNT 185 10^3/uL (130-400); RED BLOOD COUNT 3.05 10^6/uL (4.35-5.85); WHITE BLOOD COUNT 14.6 10^3/uL (4.3-11.0)
[2017-08-07 10:47] LABS: ALANINE AMINOTRANSFERASE 7 U/L (0-55); ALBUMIN 2.5 GM/DL (3.2-4.5); ANION GAP 5 MMOL/L (5-14); ASPARTATE AMINO TRANSFERASE 23 U/L (5-34); BILIRUBIN,TOTAL 0.5 MG/DL (0.1-1.0); BLOOD UREA NITROGEN 26 MG/DL (7-18); BUN/CREATININE RATIO 38; CARBON DIOXIDE 26 MMOL/L (21-32); CHLORIDE 110 MMOL/L (98-107); CREATININE SERUM 0.68 MG/DL (0.60-1.30); GFR ESTIMATED > 60; GLUCOSE 94 MG/DL (70-105); POTASSIUM 3.8 MMOL/L (3.6-5.0); SODIUM 141 MMOL/L (135-145); TOTAL PROTEIN 4.8 GM/DL (6.4-8.2)
[2017-08-07] MEDS: NS IV 1000 ML 1,000 ML IV SCH ×2 (10:51→18:08)
[2017-08-07 10:52] LABS: CALCIUM 13.4 MG/DL (8.5-10.1)
[2017-08-07] MEDS ORDERED: CALCITONIN 400 IUNITS/2 ML INJ (MIACALCIN) VIAL IM SCH (12:00)
--- NOTE | 2017-08-07 13:47 | Diagnostic Imaging Report ---
Parathyroid scan with SPECT CT. INDICATION: Elevated calcium, low PHA. There are no previous nuclear medicine studies available for comparison. The thyroid gland and the parathyroid tissues were obscured by streak artifact related to the total shoulder prostheses on the recent CTA chest exam of 08/03/2017. Anterior images of the neck and upper thorax were obtained at 20 minutes following injection and at 2 hours after injection. On the delayed series there is no area of increased activity that would suggest a parathyroid adenoma. In reviewing the SPECT images, there is no abnormal uptake that would suggest a parathyroid adenoma either. The mediastinal adenopathy and the left lower lobe atelectasis/infiltrate seen on the recent CT chest exam are again visualized on this study. IMPRESSION: There is no abnormal uptake to indicate the presence of a parathyroid adenoma. Dictated by: Dictated on workstation # [id number]
[2017-08-07] MEDS: ENOXAPARIN 60 MG/0.6 ML (LOVENOX) SYR SC SCH (18:08)
[2017-08-07] MEDS: SIMvastatin 40 MG (ZOCOR) TAB PO SCH (20:07)
[2017-08-07 23:24] LABS: CALCIUM IONIZED 2.06 mmol/L (1.16-1.32)
[2017-08-08] MEDS: NS IV 1000 ML 1,000 ML IV SCH ×2 (01:01→12:38)
[2017-08-08] MEDS: methylPREDNISolone 40 MG/ML (Solu-MEDROL) VIAL IV SCH ×2 (02:50→10:16)
[2017-08-08] MEDS: RT-ALBUTEROL/IPRATROPIUM 3 ML (DUONEB) VIAL IH SCH ×3 (03:05→10:11)
[2017-08-08 05:40] VITALS: BP 169/85
[2017-08-08] MEDS: VENLAFAXINE ER 150 MG CAPS PO SCH (05:40)
[2017-08-08] MEDS: CARVEDILOL 25 MG PO SCH (05:40)
[2017-08-08] MEDS: LEVOTHYROXINE 100 MCG (LEVOTHROID) TAB PO SCH (05:40)
[2017-08-08] MEDS: RT-BUDESONIDE NEBS 0.5 MG/2ML (PULMICORT) AMP IH SCH (06:21)
[2017-08-08 08:00] VITALS: BP 194/88
[2017-08-08] MEDS ORDERED: RIVAROXABAN 20 MG TABLET (XARELTO) PO NR (09:30)
[2017-08-08] MEDS ORDERED: PRD20T PO ×2 (09:36)
[2017-08-08] MEDS ORDERED: IPRA3AMP IH ×2 (09:36)
[2017-08-08] MEDS ORDERED: RIVA20TA PO ×2 (09:36)
[2017-08-08] MEDS ORDERED: OMG1KC PO ×2 (09:36)
[2017-08-08] MEDS ORDERED: ASPI-983 PO ×2 (09:36)
[2017-08-08] MEDS ORDERED: CLC200V2 IM ×2 (09:40)
[2017-08-08] MEDS ORDERED: CALCITONIN 400 IUNITS/2 ML INJ (MIACALCIN) VIAL IM SCH (10:00)
--- NOTE | 2017-08-08 10:05 | Discharge Inst-Skilled Nursing ---
Discharge Inst-Skilled NF Patient Instructions Patient Problems: COPD EXACERBATION - HYPOXEMIA CONFUSION - IMPROVING LYMPHADENOPATHY - MEDIASTINAL AND ABDOMINAL CAD - CHRONIC HX OF PULMONARY EMBOLUS HYPERCALCEMIA DIFFICULT SOCIAL SITUATION GENERALIZED WEAKNESS OXYGEN DEPENDENCE Consult/Follow Up/Orders Follow Up Appt.: PT MUST BE AT THE HOSPITAL FOR A PROCEDURE BY DR. AVITIA ON 08/13/17 - SHE NEEDS TO BE AT HOSPITAL AT 6:15AM ON 08/13/17. FOLLOW UP WITH [facility] IN 7 DAYS FROM DISCHARGE. Skilled NF Admit to: [facility] Certification (SNF) I certify that SNF services are required to be given on an inpatient basis because of the above named patient's need for penitentiary care on a continuing basis for the conditions(s) for which he/she was receiving inpatient hospital services prior to his/her transfer to the [facility]. Correction Facility Order: Nursing Services, [employer]-Evaluate & Treat, Physical Therapy-Evaluate & Treat, Speech Language-Evaluate & Treat Discharge Diet: Regular Diet Daily Activity as Tolerated: Yes New & Resume Previous Orders Sam Goldberg Aug 08, 2017 10:02 Medication List: Active Scripts Active Miacalcin (Calcitonin [place]) 400 Intlu/2 Ml Soln 250 Intlu IM Q12H 4 Days Xarelto (Rivaroxaban) 20 Mg Tablet 20 Mg PO DAILY 30 Days GIVE MEDICATION DAILY - HOLD ON 08/11/17, 08/12/17, AND 08/13/17 AND RESTART ON 08/14/17 GIVE DAILY THEREAFTER Prednisone 20 Mg Tab 20 Mg PO DAILY Take 3 tabs(60mg)daily,decrease by 1/2 tab(10mg)every other day. Aspirin EC (Aspirin) 81 Mg Tablet. 0 Mg PO DAILY 30 Days HOLD UNTIL 08/15/17 Iprat-Albut 0.5-3(2.5) mg/3 ml (Ipratropium/Albuterol Sulfate) 3 Ml Ampul.neb 3 Ml IH Q6H 30 Days Fish Oil 1,000 mg Capsule ([place] 3 Polyunsat Fatty Acids) 1,000 Mg Cap 2,000 Mg PO HS 30 Days HOLD MEDICATION UNTIL 08/15/17 - SHE TAKES 2 (1000MG) CAPSULES @HS Reported Amlodipine Besylate 2.5 Mg Tablet 1.25 Mg PO HS TAKES 1/2 (2.5MG) TABLET Symbicort 160-4.5 Mcg Inhaler (Budesonide/Formoterol Fumarate) 10.2 Gm Hfa.aer.ad 2 Puff IH BID Albuterol Sulfate 2.5 Mg/3 Ml Vial.neb 2.5 Mg NEB Q4H PRN Vitamin B-12 (Cyanocobalamin (Vitamin B-12)) 1,000 Mcg Tablet 1,000 Mcg PO DAILY Complete Multi 50+ Tablet (Multivit-Min/FA/Lycopene/Lut) 1 Each Tablet 1 Tab PO DAILY Isosorbide Mononitrate ER (Isosorbide Mononitrate) 30 Mg Tab.er.24h 30 Mg PO BID Levothyroxine Sodium 100 Mcg Tablet 100 Mcg PO DAILY Venlafaxine HCl ER (Venlafaxine HCl) 150 Mg Cap.er.24h 150 Mg PO BID Pantoprazole Sodium 40 Mg Tablet.dr 40 Mg PO DAILY Potassium Chloride 20 Meq Tab.er.prt 20 Meq PO DAILY Carvedilol 25 Mg Tablet 25 Mg PO BID Simvastatin 40 Mg Tablet 40 Mg PO HS Lab results: Laboratory Tests Test 08/07/17 10:07 Range/Units White Blood Count 14.6 H 4.3-11.0 10^3/uL Red Blood Count 3.05 L 4.35-5.85 10^6/uL Hemoglobin 9.5 L 11.5-16.0 G/DL Hematocrit 29 L 35-52 % Mean Corpuscular Volume 95 80-99 FL Mean Corpuscular Hemoglobin 31 25-34 PG Mean Corpuscular Hemoglobin Concent 33 32-36 G/DL Red Cell Distribution Width 22.0 H 10.0-14.5 % Platelet Count 185 130-400 10^3/uL Mean Platelet Volume 11.2 H 7.4-10.4 FL Neutrophils (%) (Auto) 81 H 42-75 % Lymphocytes (%) (Auto) 9 L 12-44 % Monocytes (%) (Auto) 10 0-12 % Eosinophils (%) (Auto) 0 0-10 % Basophils (%) (Auto) 0 0-10 % Neutrophils # (Auto) 11.9 H 1.8-7.8 X 10^3 Lymphocytes # (Auto) 1.3 1.0-4.0 X 10^3 Monocytes # (Auto) 1.5 H 0.0-1.0 X 10^3 Eosinophils # (Auto) 0.0 0.0-0.3 10^3/uL Basophils # (Auto) 0.0 0.0-0.1 10^3/uL Sodium Level 141 135-145 MMOL/L Potassium Level 3.8 3.6-5.0 MMOL/L Chloride Level 110 H 98-107 MMOL/L Carbon Dioxide Level 26 21-32 MMOL/L Anion Gap 5 5-14 MMOL/L Blood Urea Nitrogen 26 H 7-18 MG/DL Creatinine 0.68 0.60-1.30 MG/DL Estimat Glomerular Filtration Rate > 60 BUN/Creatinine Ratio 38 Glucose Level 94 70-105 MG/DL Calcium Level 13.4 *H 8.5-10.1 MG/DL Total Bilirubin 0.5 0.1-1.0 MG/DL Aspartate Amino Transf (AST/SGOT) 23 5-34 U/L Alanine Aminotransferase (ALT/SGPT) 7 0-55 U/L Alkaline Phosphatase 58 40-136 U/L Total Protein 4.8 L 6.4-8.2 GM/DL Albumin 2.5 L 3.2-4.5 GM/DL My orders: Orders - SAM GOLDBERG MD Calcitonin Injection (Miacalcin Injectio (08/08/17 10:00) Rivaroxaban Tablet (Xarelto Tablet) (08/08/17 09:30) Attending Discharge (08/08/17 10:01) SAM GOLDBERG MD Aug 08, 2017 10:05
--- NOTE | 2017-08-08 10:07 | Discharge Summary ---
Diagnosis/Chief Complaint Date of Admission Aug 05, 2017 at 09:25 Date of Discharge Discharge Date: Aug 08, 2017 Discharge Time: 11:00 Admission Diagnosis Admission Diagnosis COPD EXACERBATION - HYPOXEMIA - CONFUSION - IMPROVING LYMPHADENOPATHY - MEDIASTINAL AND ABDOMINAL - CAD - CHRONIC - STABLE - HX OF PULMONARY EMBOLUS - HYPERCALCEMIA - DIFFICULT SOCIAL SITUATION - GENERALIZED WEAKNESS Discharge Diagnosis COPD EXACERBATION - HYPOXEMIA - CONFUSION - IMPROVING LYMPHADENOPATHY - MEDIASTINAL AND ABDOMINAL - CAD - CHRONIC - STABLE - HX OF PULMONARY EMBOLUS - HYPERCALCEMIA - DIFFICULT SOCIAL SITUATION - GENERALIZED WEAKNESS Reason Hospital Visit PT ADMITTED WITH CONFUSION, WEAKNESS, HAD BEEN AT HOME, NOT ABLE TO CARE FOR HERSELF. Discharge Summary Discharge Physical Examination Allergies: Coded Allergies: penicillin G (Verified Allergy, Intermediate, 10/11/16) ITCHING AFTER RECEIVING PENICILLIN WHEN SHE WAS 30-35 YEARS OLD meperidine (Verified Allergy, Unknown, 03/06/07) quinine (Verified Allergy, Unknown, 09/05/06) levofloxacin (Verified Adverse Reaction, Intermediate, HIVES, 10/11/16) BURNING AND ITCHING Vitals & I&Os General Appearance: Alert, Oriented X3, Cooperative Respiratory: Clear to Auscultation Cardiovascular: Regular Rate, Other (II/ CINTHIA) Abdominal: Normal Bowel Sounds, Soft Extremities: No Clubbing Neuro: Cranial Nerves 3-12 NL Psych/Mental Status: Mental Status NL, Mood NL Hospital Course COPD EXACERBATION - HYPOXEMIA - IMPROVED ON 2 LITERS NASAL CANNULA AT 94% - CXR/ CT OF CHEST SHOWS LYMPHADENOPATHY - SUSPECT LYMPHOMA - DR. AVITIA WILL DO WORK- UP NEXT WEEK CONFUSION - IMPROVING LYMPHADENOPATHY - MEDIASTINAL AND ABDOMINAL - SUSPICIOUS FOR LYMPHOMA (LDH ELEVATED)- DR. AVITIA CONSULTED - SEE HIS FULL NOTE - HE HAS INDICATED OUTPATIENT BRONCHOSCOPY NEXT WEEK. CAD - CHRONIC - STABLE - CONTINUE CURRENT CARE HX OF PULMONARY EMBOLUS - HAS BEEN ON COUMADIN FOR "YEARS" - HYPERCALCEMIA - PTH PENDING - CALCIUM LEVEL STILL HIGH. - ORDERED IM CALCITONIN IF REPEAT CALCIUM IS STILL ELEVATED DIFFICULT SOCIAL SITUATION - PT IS ABLE TO MAKE HER OWN DECISIONS, HOWEVER HER [id number] AND OTHER FAMILY MEMBERS HAVE TALKED TO HER AND SHE IS CURRENTLY IN AGREEMENT THAT SHE NEEDS HELP AND WILL GO TO LONG TERM ON DISCHARGE - OTHERWISE SHE WILL GO BACK TO A BAD LIVING SITUATION OF SIGNIFICANT POVERTY, LACK OF SELF CARE AND MOST OF HER MONEY GOING TO PAY FOR HER 6 DOGS. Discharge Condition at discharge SLIGHTLY IMPROVED Instructions to patient/family Please see electronic discharge instructions given to patient. Discharge Medications Reviewed and agree with Discharge Medication list on patient's Discharge Instruction sheet Clinical Quality Measures AMI/AHF: ASA po Prior to arrival: No DVT/VTE Risk/Contraindication: Risk Factor Score Per Nursin RFS Level Per Nursing on Admit: 4+=Very High SAM CINTRON MD Aug 08, 2017 10:07
[2017-08-08] MEDS: PANTOPRAZOLE 40 MG (PROTONIX) TAB PO SCH (10:10)
[2017-08-08] MEDS: ISOSORBIDE MONONITRATE 30 MG (IMDUR) TAB PO SCH (10:10)
[2017-08-08] MEDS: ASPIRIN E.C. 81 MG (ECOTRIN) TAB PO SCH (10:11)
[2017-08-08] MEDS: KCL 20 MEQ TAB (K-DUR) PO SCH (10:11)
[2017-08-08 10:13] LABS: CALCIUM PH 7.39
[2017-08-08 10:13] LABS: ABG BASE EXCESS 3.3 MMOL/L (-2.5-2.5); ABG HCO3 28 MMOL/L (23-27); ABG OXYGEN SATURATION 94 % (94-100); ABG PCO2 45 MMHG (35-45); ABG PO2 70 MMHG (79-93)
[2017-08-08 10:15] LABS: CORRECTED IONIZED CALCIUM 2.04 mmol/L (1.16-1.32)
[2017-08-08] MEDS ORDERED: FUROSEMIDE 40 MG/4 ML INJ (LASIX) ONE (10:32)
[2017-08-08] MEDS ORDERED: FURO-125 PO ×2 (11:14)
[2017-08-19] MEDS ORDERED: FURO20TA4 PO (10:02)
[2017-08-19] MEDS ORDERED: IPRA3AMP IH (10:02)
[2017-08-19] MEDS ORDERED: ASPI-983 PO (10:02)
[2017-08-19] MEDS ORDERED: CEPH500C PO (10:02)
[2017-08-19] MEDS ORDERED: RIVA20TA PO (10:02)
[2017-08-19] MEDS ORDERED: OMG1KC PO (10:02)
[2017-08-19] MEDS ORDERED: ALEN70TA2 PO (10:02)
[2017-08-19] MEDS ORDERED: LACT1CAP65 PO (10:02)
[2017-08-22] MEDS ORDERED: CALAZIME TOP (13:52)
[2017-08-22] MEDS ORDERED: FLUT1AER IH (13:52)
[2017-08-22] MEDS ORDERED: PRD20T PO (14:19)
[2017-08-26] MEDS ORDERED: PRD20T PO (08:58)
[2017-08-26] MEDS ORDERED: ACID1TAB PO (08:58)
== END 2017-08-08 15:23 | DRG 191 ==
LOC: EDUNIT# 11:30 → ER 11:31 → UNDOADMOB 15:37 → 4TH 15:37 → OBSVTOIN 08-05 09:24 → INTOOBSV 08-05 09:25 → 4TH 08-06 08:24 → UNDODISIN 08-08 15:23
PROVIDERS: ADMIT Internal Medicine; ATTEND Internal Medicine
DX: J44.1 Chronic obstructive pulmonary disease with (acute) exacerbation (principal); C85.92 Non-Hodgkin lymphoma, unspecified, intrathoracic lymph nodes; R07.89 Other chest pain; E83.52 Hypercalcemia; R63.4 Abnormal weight loss; R63.0 Anorexia; E86.0 Dehydration; I25.10 Atherosclerotic heart disease of native coronary artery without angina pectoris; I10 Essential (primary) hypertension; G47.30 Sleep apnea, unspecified; R41.0 Disorientation, unspecified; E11.9 Type 2 diabetes mellitus without complications; F32.9 Major depressive disorder, single episode, unspecified; I73.9 Peripheral vascular disease, unspecified; E03.9 Hypothyroidism, unspecified; M19.91 Primary osteoarthritis, unspecified site; M54.9 Dorsalgia, unspecified; Z91.14 Patient's other noncompliance with medication regimen; Z59.6 Low income; Z60.2 Problems related to living alone; Z87.891 Personal history of nicotine dependence; Z79.84 Long term (current) use of oral hypoglycemic drugs; Z86.711 Personal history of pulmonary embolism; Z86.718 Personal history of other venous thrombosis and embolism; Z79.01 Long term (current) use of anticoagulants; Z95.1 Presence of aortocoronary bypass graft; Z95.5 Presence of coronary angioplasty implant and graft; Z87.11 Personal history of peptic ulcer disease; Z96.611 Presence of right artificial shoulder joint; Z96.612 Presence of left artificial shoulder joint
CPT/HCPCS: 36415; 71020; 71275; 74178; 78072; 80048; 80053; 80061; 81000; 82164; 82330; 82805; 83615; 83735; 83874; 83970; 84484; 85007; 85025; 85027; 85379; 85610; 85730; 86141; 93005; 93041; 94640; 94760; G0378

== ENCOUNTER 2017-08-11 05:29 | Outpatient (CLI) | payer MEDICARE ==
[~2017-08-11] VITALS: Ht 156.2 cm; Wt 63.4 kg
[~2017-08-11 05:29] MED LIST changes: +ALBU2.5V4 NEB; +AMLO2.5T PO; +ASPI-983 PO; +BUDE10.2 IH; +CLC200V2 IM; +CYAN10006 PO; +FA/M1TAB29 PO; +FURO-125 PO; +IPRA3AMP IH; +PRD20T PO; +RIVA20TA PO; +WARF-48 PO
== END 2017-08-11 08:40 | disposition home or self-care (01) ==
LOC: PREOP 05:29
PROVIDERS: ATTEND Internal Medicine Critical Care Medicine
DX: Z53.9 Procedure and treatment not carried out, unspecified reason (principal)

== ENCOUNTER 2017-08-12 16:53 | Outpatient (CLI) | payer MEDICARE ==
[~2017-08-12] VITALS: Wt 55.8 kg
[2017-08-12] MEDS ORDERED: methylPREDNISolone 125 MG (Solu-MEDROL) VIAL ONE (17:11)
[2017-08-12] MEDS ORDERED: methylPREDNISolone 125 MG (Solu-MEDROL) VIAL IVP NR (17:15)
[2017-08-12] MEDS ORDERED: NS IV 1000 ML 1,000 ML IV SCH (17:15)
[2017-08-12 17:19] VITALS: BP 162/72
[2017-08-12] MEDS ORDERED: NS IV ONE (17:30)
[2017-08-12] MEDS ORDERED: PAMIDRONATE IV ONE (17:30)
[2017-08-12 21:25] VITALS: BP 162/72
[2017-08-12 21:28] VITALS: BP 164/88
[2017-08-19] MEDS ORDERED: OMG1KC PO (10:02)
[2017-08-19] MEDS ORDERED: ALEN70TA2 PO (10:02)
[2017-08-19] MEDS ORDERED: ASPI-983 PO (10:02)
[2017-08-19] MEDS ORDERED: FURO20TA4 PO (10:02)
[2017-08-19] MEDS ORDERED: RIVA20TA PO (10:02)
[2017-08-19] MEDS ORDERED: CEPH500C PO (10:02)
[2017-08-19] MEDS ORDERED: LACT1CAP65 PO (10:02)
[2017-08-19] MEDS ORDERED: IPRA3AMP IH (10:02)
== END 2017-08-12 21:40 ==
LOC: 4THo 16:53 → 4TH 16:55 → 4THo 21:40
PROVIDERS: ATTEND Family Medicine
DX: E83.52 Hypercalcemia (principal)
CPT/HCPCS: 96361; 96365; 96366; 96374

== ENCOUNTER → 2017-08-12 | Outpatient (CLI) | payer MEDICARE ==
[2017-08-12 12:51] LABS: BASOPHILS # (AUTO) 0.1 10^3/uL (0.0-0.1); BASOPHILS % (AUTO) 1 % (0-10); EOSINOPHILS # (AUTO) 0.3 10^3/uL (0.0-0.3); EOSINOPHILS % (AUTO) 2 % (0-10); LYMPHOCYTES # (AUTO) 2.2 X 10^3 (1.0-4.0); LYMPHOCYTES % (AUTO) 15 % (12-44); MEAN CORPUSCULAR HEMOGLOBIN 32 PG (25-34); MEAN CORPUSCULAR HGB CONC 32 G/DL (32-36); MEAN CORPUSCULAR VOLUME 99 FL (80-99); MEAN PLATELET VOLUME 11.3 FL (7.4-10.4); MONOCYTES # (AUTO) 2.5 X 10^3 (0.0-1.0); MONOCYTES % (AUTO) 16 % (0-12); NEUTROPHILS % (AUTO) 66 % (42-75); PLATELET COUNT 197 10^3/uL (130-400); RED BLOOD COUNT 3.59 10^6/uL (4.35-5.85)
[2017-08-12 13:07] LABS: PROTHROMBIN TIME PATIENT 12.8 SEC (12.2-14.7)
[2017-08-12 13:16] LABS: ALBUMIN 2.9 GM/DL (3.2-4.5); BILIRUBIN,TOTAL 0.7 MG/DL (0.1-1.0); CREATININE SERUM 1.49 MG/DL (0.60-1.30); POTASSIUM 3.3 MMOL/L (3.6-5.0); TOTAL PROTEIN 5.3 GM/DL (6.4-8.2)
[2017-08-12 13:23] LABS: CALCIUM 15.2 MG/DL (8.5-10.1)
[2017-08-12 13:41] LABS: ANISOCYTOSIS SLIGHT; BAND NEUTROPHILS 11 %; BASOPHILS % (MANUAL) 0 %; EOSINOPHILS % (MANUAL) 2 %; LYMPHOCYTES % (MANUAL) 8 %; METAMYELOCYTES % 1 %; NEUTROPHILS % (MANUAL) 61 %; REACTIVE LYMPHOCYTES 5 %; TARGET CELLS SLIGHT
[2017-08-13 08:18] LABS: CALCIUM PH 7.46
[2017-08-13 08:23] LABS: CALCIUM IONIZED 2.1 mmol/L (1.16-1.32); CORRECTED IONIZED CALCIUM 2.16 mmol/L (1.16-1.32)
== END ==
LOC: LAB 11:59
PROVIDERS: ATTEND Nurse Practitioner Family
DX: R59.1 Generalized enlarged lymph nodes (principal)
CPT/HCPCS: 36415; 80053; 82330; 85007; 85027; 85610; 85730

== ENCOUNTER → 2017-08-15 | Outpatient (CLI) | payer MEDICARE ==
[~2017-08-15] MED LIST changes: +ACID1TAB PO; +ALEN70TA2 PO; +CALAZIME TOP; +FLUT1AER IH; +FURO20TA4 PO; +LACT1CAP65 PO
--- NOTE | 2017-08-25 14:44 | Physician Query-Final Dx ---
LOUISE ART 08/25/17 1444: Clinic Account Progress/Dx Physician Query: Please give diagnosis need dx for urine culture Date of Service Aug 15, 2017 at 15:33 SAM CINTRON MD 08/25/17 1614: Clinic Account Progress/Dx DIAGNOSIS: Diagnosis CONFUSION, WEAKNESS, FREQUENCY LOUISE ART Aug 25, 2017 14:44 SAM CINTRON MD Aug 25, 2017 16:14
== END ==
LOC: CVS 15:33
PROVIDERS: ATTEND Family Medicine
DX: R35.0 Frequency of micturition (principal); R53.1 Weakness; R41.0 Disorientation, unspecified
CPT/HCPCS: 87077; 87088; 87186

== ENCOUNTER → 2017-08-18 | Outpatient (CLI) | payer MEDICARE ==
[2017-08-18 17:46] LABS: ALBUMIN 2.6 GM/DL (3.2-4.5); BILIRUBIN,TOTAL 0.4 MG/DL (0.1-1.0); CALCIUM 9.7 MG/DL (8.5-10.1); CREATININE SERUM 0.99 MG/DL (0.60-1.30); POTASSIUM 3.5 MMOL/L (3.6-5.0); TOTAL PROTEIN 4.4 GM/DL (6.4-8.2)
== END ==
LOC: CVS 16:54
PROVIDERS: ATTEND Family Medicine
DX: E83.52 Hypercalcemia (principal)
CPT/HCPCS: 80053

== ENCOUNTER 2017-08-20 06:32 | Day surgery (SDC) | payer MEDICARE ==
[~2017-08-20] VITALS: Wt 55.8 kg
[~2017-08-20 06:32] MED LIST changes: -ACID1TAB PO; -CALAZIME TOP; -FLUT1AER IH
[2017-08-20] MEDS ORDERED: LACTATED RINGERS 1,000 ML IV STA (06:48)
[2017-08-20 06:55] VITALS: BP 176/86
--- NOTE | 2017-08-20 07:14 | Progress Note-Pre Operative ---
Pre-Operative Progress Note H&P Reviewed The H&P was reviewed, patient examined and no changes noted. Date Seen by Provider: Aug 20, 2017 Time Seen by Provider: 07:14 Date H&P Reviewed: Aug 20, 2017 Time H&P Reviewed: 07:14 Pre-Operative Diagnosis: SHIVA HARRIS DO Aug 20, 2017 07:14
[2017-08-20] MEDS ORDERED: MIDAZOLAM 2 MG/2 ML (VERSED) VIAL ONE (07:26)
[2017-08-20] MEDS ORDERED: proPOfol 200 MG/20 ML (DIPRIVAN) VIAL IV ONE (07:26)
[2017-08-20] MEDS ORDERED: fentaNYL INJECTION 100 MCG/2 ML AMP ONE (07:26)
[2017-08-20] MEDS ORDERED: SEVOFLURANE (ULTANE) 15 ML INHAL SOLN ONE (07:26)
[2017-08-20] MEDS ORDERED: SUCCINYLCHOLINE INJ 100 MG/5 ML SYR ONE (07:26)
[2017-08-20] MEDS ORDERED: ROCURONIUM 50 MG/5 ML (ZEMURON) VIAL IV ONE (08:14)
--- NOTE | 2017-08-20 08:14 | Diagnostic Imaging Report ---
Portable upright radiograph of the chest. INDICATION: Crackles. FINDINGS: There is left basilar infiltrates or atelectasis with a small left effusion. The heart size is at the upper limits of normal. No pneumothorax. Mediastinum and mirtha appear unremarkable. Poststernotomy changes and bilateral shoulder replacement seen. IMPRESSION: Left lower lobe infiltrate and/or atelectasis with small left effusion. Dictated by: Dictated on workstation # [id number]
--- NOTE | 2017-08-20 09:30 | Pulmonary Procedures ---
Pulmonary Procedures Date of Procedure Date of Service: Aug 20, 2017 Bronch Bronchoscopy with EBUS with bx of station 7, 10R, 4L, and 4R lymph nodes Preop DX: mediastinal lymphadenopathy PostOP DX: same Complications: None Pt was sedated per anesthesia. Bronchoscopy was advanced through the ED tube and an anatomical undertaken down to the segmental bronchi bilaterally. No endobronchial lesions noted. EBUS was then advanced through ET tube and the mediastinum was US. station 7, 10R, 4L, and 4R lymph nodes were sampled via needle bx under US guidance. Pt tolerated procedure well. No complications noted. SHIVA AVITIA DO Aug 20, 2017 09:30
--- NOTE | 2017-08-20 10:23 | Diagnostic Imaging Report ---
INDICATION: Post bronchoscopy. TECHNIQUE: Single view chest at 9:51 AM. CORRELATION STUDY: 08/20/2017. FINDINGS: The heart size is enlarged. There is a prominent appearance about the hilar structures. The vasculature is also prominent. Left pleural effusion with likely trace right pleural effusion. There is lucency over the region of the diaphragm. No definitive pneumothorax. Mildly prominent interstitial markings. Poststernotomy changes. Surgical changes of the bilateral shoulders. IMPRESSION: Small pleural effusions, left greater than right. No definitive pneumothorax. Lucency at the right diaphragm is likely overlapping summation shadows. Fullness of the hilar structures is likely owing to underlying known lymphadenopathy. Dictated by: Dictated on workstation # [id number]
[2017-08-20 10:25] VITALS: BP 195/90
[2017-08-20 10:55] VITALS: BP 146/100
[2017-08-20 11:05] VITALS: BP 146/100
[2017-08-22] MEDS ORDERED: CALAZIME TOP (13:52)
[2017-08-22] MEDS ORDERED: FLUT1AER IH (13:52)
[2017-08-22] MEDS ORDERED: PRD20T PO (14:19)
[2017-08-26] MEDS ORDERED: PRD20T PO (08:58)
[2017-08-26] MEDS ORDERED: ACID1TAB PO (08:58)
== END 2017-08-20 11:05 | disposition home or self-care (01) ==
LOC: ENDO 06:32
PROVIDERS: ATTEND Internal Medicine Critical Care Medicine
DX: C85.12 Unspecified B-cell lymphoma, intrathoracic lymph nodes (principal); D86.9 Sarcoidosis, unspecified; J44.9 Chronic obstructive pulmonary disease, unspecified; E83.52 Hypercalcemia; I10 Essential (primary) hypertension; G47.33 Obstructive sleep apnea (adult) (pediatric); E11.9 Type 2 diabetes mellitus without complications; Z86.718 Personal history of other venous thrombosis and embolism; Z86.711 Personal history of pulmonary embolism; Z95.1 Presence of aortocoronary bypass graft; Z87.891 Personal history of nicotine dependence; Z79.01 Long term (current) use of anticoagulants
CPT/HCPCS: 71010; 88112; 88305; 88341; 88342

== ENCOUNTER 2017-08-22 08:50 | Inpatient (IN) | payer MEDICARE ==
[~2017-08-22] VITALS: Ht 157.5 cm; Wt 63.5 kg
[2017-08-22 09:16] LABS: BASOPHILS % (AUTO) 0 % (0-10); EOSINOPHILS # (AUTO) 0.2 10^3/uL (0.0-0.3); EOSINOPHILS % (AUTO) 1 % (0-10); LYMPHOCYTES # (AUTO) 1.7 X 10^3 (1.0-4.0); LYMPHOCYTES % (AUTO) 13 % (12-44); MEAN CORPUSCULAR HEMOGLOBIN 32 PG (25-34); MEAN CORPUSCULAR HGB CONC 32 G/DL (32-36); MEAN CORPUSCULAR VOLUME 98 FL (80-99); MEAN PLATELET VOLUME 11.2 FL (7.4-10.4); MONOCYTES # (AUTO) 1.6 X 10^3 (0.0-1.0); MONOCYTES % (AUTO) 11 % (0-12); NEUTROPHILS # (AUTO) 10.3 X 10^3 (1.8-7.8); NEUTROPHILS % (AUTO) 75 % (42-75); PLATELET COUNT 133 10^3/uL (130-400); RED BLOOD COUNT 2.92 10^6/uL (4.35-5.85); RED CELL DISTRIBUTION WIDTH 19.1 % (10.0-14.5); WHITE BLOOD COUNT 13.8 10^3/uL (4.3-11.0)
[2017-08-22 09:22] LABS: BILIRUBIN,URINE NEGATIVE (NEGATIVE); KETONES,URINE NEGATIVE (NEGATIVE); LEUKOCYTE ESTERASE ,URINE NEGATIVE (NEGATIVE); NITRITE,URINE NEGATIVE (NEGATIVE); PH,URINE 8 (5-9); PROTEIN,URINE NEGATIVE (NEGATIVE); UROBILINOGEN,URINE NORMAL (NORMAL)
--- NOTE | 2017-08-22 09:25 | ED General ---
General Chief Complaint: Altered Mental Status Stated Complaint: AMS Nursing Triage Note: ARRIVED VIA AMBULANCE FROM [facility] WITH ALTERED LOC AND WILL PARKINSONIAN MOVEMENTS TO BOTH SIDES WITH NECK. Nursing Sepsis Screen: No Definite Risk Source of Information: Patient, Caregiver, EMS, Family History of Present Illness Time Seen by Provider: 09:14 Initial Comments This 67-year-old white female presents to emergency department via EMS with a history of being unable to weight-bear due to difficulty with balance and confusion. The patient has apparently had a recent bronchoscopy with Dr. Magdaleno. She has had hypercalcemia which has spontaneously improved. The patient is unable to offer a helpful history due to confusion and possible hallucinations. Allergies and Home Medications Allergies Coded Allergies: penicillin G (Verified Allergy, Intermediate, 10/11/16) ITCHING AFTER RECEIVING PENICILLIN WHEN SHE WAS 30-35 YEARS OLD meperidine (Verified Allergy, Unknown, 03/06/07) quinine (Verified Allergy, Unknown, 09/05/06) levofloxacin (Verified Adverse Reaction, Intermediate, HIVES, 10/11/16) BURNING AND ITCHING Home Medications Albuterol Sulfate 2.5 Mg/3 Ml Vial.neb, 2.5 MG NEB Q4H PRN for SHORTNESS OF BREATH, (Reported) Alendronate Sodium 70 Mg Tablet, 70 MG PO WEEK, (Reported) Amlodipine Besylate 2.5 Mg Tablet, 1.25 MG PO HS, (Reported) TAKES 1/2 (2.5MG) TABLET Aspirin 81 Mg Tablet.dr, 81 MG PO DAILY, (Reported) Budesonide/Formoterol Fumarate 10.2 Gm Hfa.aer.ad, 2 PUFF IH BID, (Reported) Carvedilol 25 Mg Tablet, 25 MG PO BID, (Reported) Cephalexin 500 Mg Capsule, 500 MG PO TID, (Reported) Cyanocobalamin (Vitamin B-12) 1,000 Mcg Tablet, 1,000 MCG PO DAILY, (Reported) Furosemide 20 Mg Tablet, 20 MG PO DAILY, (Reported) Ipratropium/Albuterol Sulfate 3 Ml Ampul.neb, 3 ML IH Q6H, (Reported) Isosorbide Mononitrate 30 Mg Tab.er.24h, 30 MG PO BID, (Reported) Lactobacillus Rhamnosus GG 1 Each Cap.sprink, 1 EACH PO TID, (Reported) Levothyroxine Sodium 100 Mcg Tablet, 100 MCG PO DAILY, (Reported) Multivit-Min/FA/Lycopene/Lut 1 Each Tablet, 1 TAB PO DAILY, (Reported) [place] 3 Polyunsat Fatty Acids 1,000 Mg Cap, 2,000 MG PO HS, (Reported) take 2 (1,000mg) tabs Pantoprazole Sodium 40 Mg Tablet.dr, 40 MG PO DAILY, (Reported) Potassium Chloride 20 Meq Tab.er.prt, 20 MEQ PO DAILY, (Reported) Prednisone 20 Mg Tab, 20 MG PO DAILY, #22 Take 3 tabs(60mg)daily,decrease by 1/2 tab(10mg)every other day. Prescribed by: SAM GOLDBERG on 08/08/17 0936 Rivaroxaban 20 Mg Tablet, 20 MG PO DAILY@1800, (Reported) Simvastatin 40 Mg Tablet, 40 MG PO HS, (Reported) Venlafaxine HCl 150 Mg Cap.er.24h, 150 MG PO BID, (Reported) Constitutional: No chills, No fever EENTM: No hoarseness Respiratory: No cough Cardiovascular: no symptoms reported Gastrointestinal: No diarrhea Genitourinary: no symptoms reported : No Musculoskeletal: no symptoms reported Skin: no symptoms reported Psychiatric/Neurological: Tremors, Other (confusion and possible visual hallucinations.) Hematologic/Lymphatic: No Symptoms Reported Immunological/Allergic: no symptoms reported Past Mexpkmc-Sonhyw-Zcdqyq Hx Patient Social History Alcohol Use: Denies Use Recreational Drug Use: No Smoking Status: Unknown if Ever Smoked Type Used: Cigarettes Former Smoker, Quit: Aug 01, 2017 2nd Hand Smoke Exposure: No Recent Foreign Travel: No Contact w/Someone Who Travel: No Recent Infectious Disease Expo: No Recent Hopitalizations: Yes (Aug) Immunizations Up To Date Tetanus Booster (TDap): Less than 5yrs Date of Pneumonia Vaccine: Aug 21, 2015 Date of Influenza Vaccine: Oct 11, 2016 Seasonal Allergies Seasonal Allergies: No Surgeries History of Surgeries: Yes (L AND R SHOULDER REPLACEMENTS, LEFT ULNAR TRANSPOSITION, BYPASS 2 VESSEL) Surgeries: Appendectomy, CABG, Gallbladder, Hysterectomy, Open Heart Surgery, Orthopedic Respiratory History of Respiratory Disorde: Yes Respiratory Disorders: Pulmonary Embolism, Sleep Apnea, COPD Currently Using CPAP: Yes Currently Using BIPAP: No Cardiovascular History of Cardiac Disorders: Yes (BY-PASS, STENTS) Cardiac Disorders: Coronary Artery Disease, Hypertension Neurological History of Neurological Disord: No Reproductive System Hx Reproductive Disorders: No Sexually Transmitted Disease: No HIV/AIDS: No Female Reproductive Disorders: Denies 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 Genitourinary History of Genitourinary Disor: No Gastrointestinal History of Gastrointestinal Di: Yes Gastrointestinal Disorders: Abdominal Hernia, Obstructive Bowel, Ulcer Musculoskeletal History of Musculoskeletal Dis: Yes (ARTHRITIS, ARTHROSCOPY OF KNEE) Musculoskeletal Disorders: Chronic Back Pain Endocrine History of Endocrine Disorders: Yes ( PRE- DIABETES diet controlled) Endocrine Disorders: Hypothyroidsim, Diabetes, Non-Insulin dep HEENT History of HEENT Disorders: No Loss of Vision: Denies Cancer History of Cancer: No Psychosocial History of Psychiatric Problem: Yes Behavioral Health Disorders: Depression Integumentary History of Skin or Integumenta: No Blood Transfusions History of Blood Disorders: Yes ( HX OF DVT WITH PE) Reviewed Nursing Assessment Reviewed/Agree w Nursing PMH: Yes Family Medical History Significant Family History: Hypertension Family Medial History: Blood clots G8 BROTHER Cardiovascular disease 19 FATHER Hypertension 19 FATHER 19 MOTHER G8 BROTHER Hypoglycemia 19 FATHER Myocardial infarction G8 BROTHER, Onset:35 Physical Exam Vital Signs Vital Sign - Last 12Hours 08/22/17 08:50 Temp 98.0 Pulse 87 Resp 18 B/P (MAP) 113/74 Pulse Ox 91 Capillary Refill : Less Than 3 Seconds General Appearance: Anxious, Cachetic HEENT: Normal ENT Inspection Neck: Normal Inspection Respiratory: Lungs Clear Cardiovascular: Regular Rate, Rhythm Gastrointestinal: Normal Bowel Sounds, Non Tender Back: Normal Inspection Extremity: Normal Range of Motion Neurologic/Psychiatric: Alert, Other (the patient is clearly confused. She believes that her dog years ago is alive. The patient may be having some visual hallucinations. The patient is poorly oriented to place and time.) Progress/Results/Core Measures Results/Orders Lab Results Laboratory Tests Test 08/22/17 08:59 08/22/17 09:15 Range/Units White Blood Count 13.8 H 4.3-11.0 10^3/uL Red Blood Count 2.92 L 4.35-5.85 10^6/uL Hemoglobin 9.2 L 11.5-16.0 G/DL Hematocrit 29 L 35-52 % Mean Corpuscular Volume 98 80-99 FL Mean Corpuscular Hemoglobin 32 25-34 PG Mean Corpuscular Hemoglobin Concent 32 32-36 G/DL Red Cell Distribution Width 19.1 H 10.0-14.5 % Platelet Count 133 130-400 10^3/uL Mean Platelet Volume 11.2 H 7.4-10.4 FL Neutrophils (%) (Auto) 75 42-75 % Lymphocytes (%) (Auto) 13 12-44 % Monocytes (%) (Auto) 11 0-12 % Eosinophils (%) (Auto) 1 0-10 % Basophils (%) (Auto) 0 0-10 % Neutrophils # (Auto) 10.3 H 1.8-7.8 X 10^3 Lymphocytes # (Auto) 1.7 1.0-4.0 X 10^3 Monocytes # (Auto) 1.6 H 0.0-1.0 X 10^3 Eosinophils # (Auto) 0.2 0.0-0.3 10^3/uL Basophils # (Auto) 0.0 0.0-0.1 10^3/uL Sodium Level 143 135-145 MMOL/L Potassium Level 3.6 3.6-5.0 MMOL/L Chloride Level 107 98-107 MMOL/L Carbon Dioxide Level 30 21-32 MMOL/L Anion Gap 6 5-14 MMOL/L Blood Urea Nitrogen 18 7-18 MG/DL Creatinine 0.80 0.60-1.30 MG/DL Estimat Glomerular Filtration Rate > 60 BUN/Creatinine Ratio 23 Glucose Level 103 70-105 MG/DL Calcium Level 10.1 8.5-10.1 MG/DL Phosphorus Level 2.3 2.3-4.7 MG/DL Magnesium Level 1.5 L 1.8-2.4 MG/DL Total Bilirubin 0.6 0.1-1.0 MG/DL Aspartate Amino Transf (AST/SGOT) 28 5-34 U/L Alanine Aminotransferase (ALT/SGPT) 10 0-55 U/L Alkaline Phosphatase 79 40-136 U/L Total Protein 4.6 L 6.4-8.2 GM/DL Albumin 2.7 L 3.2-4.5 GM/DL Urine Color YELLOW Urine Clarity CLEAR Urine pH 8 5-9 Urine Specific [place] 1.010 L 1.016-1.022 Urine Protein NEGATIVE NEGATIVE Urine Glucose (UA) NEGATIVE NEGATIVE Urine Ketones NEGATIVE NEGATIVE Urine Nitrite NEGATIVE NEGATIVE Urine Bilirubin NEGATIVE NEGATIVE Urine Urobilinogen NORMAL NORMAL MG/DL Urine Leukocyte Esterase NEGATIVE NEGATIVE Urine RBC (Auto) NEGATIVE NEGATIVE Urine RBC 0-2 /HPF Urine WBC 5-10 H /HPF Urine Crystals NONE /LPF Urine Bacteria TRACE /HPF Urine Casts NONE /LPF Urine Mucus NEGATIVE /LPF Urine Culture Indicated YES My Orders Orders - JEAN PAUL TAYLOR MD Cbc With Automated Diff (08/22/17 09:05) Comprehensive Metabolic Panel (08/22/17 09:05) Ua Culture If Indicated (08/22/17 09:05) Ekg Tracing (08/22/17 09:05) Chest 1 View, Ap/Pa Only (08/22/17 09:05) Magnesium (08/22/17 09:05) Phosphorus (08/22/17 09:05) Ct Head Wo (08/22/17 09:08) Urine Culture (08/22/17 09:15) Doxycycline Injection (Vibramycin Inject (08/22/17 10:30) Tick Panel With Lyme Eia (08/22/17 10:28) Mri Brain W/Wo Contrast (08/22/17 10:28) Methylprednisolone Sod Succ (Solu-Medrol (08/22/17 10:30) Vital Signs/I&O Vital Sign - Last 12Hours 08/22/17 08:50 Temp 98.0 Pulse 87 Resp 18 B/P (MAP) 113/74 Pulse Ox 91 Blood Pressure Mean: 87 Progress Note : Time: 10:38 Progress Note The patient's lab and radiographic evaluation were essentially unremarkable. I visited with Dr. Goldberg, the patient's doctor, who informed me the patient has a pulmonary mass. The acute confusion as causes concern and we are going to obtain an MR I have the patient's head, a tick panel, initiate IV doxycycline and Solu-Medrol. Patient will be admitted. Departure Communication (Admissions) Time/Spoke to Admitting Phy: 10:[address] Goldberg. Impression Impression: Primary Impression: Acute confusion Disposition: ADMITTED INPATIENT Condition: Unchanged Admissions Decision to Admit Reason: Admit from ER (General) Decision to Admit/Date: Aug 22, 2017 Time/Decision to Admit Time: 10:43 Departure-Patient Inst. Referrals: SAM GOLDBERG MD (PCP/Family) Primary Care Physician JEAN PAUL TAYLOR MD Aug 22, 2017 09:25
[2017-08-22 09:28] LABS: ALANINE AMINOTRANSFERASE 10 U/L (0-55); ALBUMIN 2.7 GM/DL (3.2-4.5); ANION GAP 6 MMOL/L (5-14); ASPARTATE AMINO TRANSFERASE 28 U/L (5-34); BILIRUBIN,TOTAL 0.6 MG/DL (0.1-1.0); BLOOD UREA NITROGEN 18 MG/DL (7-18); BUN/CREATININE RATIO 23; CALCIUM 10.1 MG/DL (8.5-10.1); CARBON DIOXIDE 30 MMOL/L (21-32); CHLORIDE 107 MMOL/L (98-107); GFR ESTIMATED > 60; GLUCOSE 103 MG/DL (70-105); MAGNESIUM 1.5 MG/DL (1.8-2.4); PHOSPHORUS 2.3 MG/DL (2.3-4.7); POTASSIUM 3.6 MMOL/L (3.6-5.0); SODIUM 143 MMOL/L (135-145); TOTAL PROTEIN 4.6 GM/DL (6.4-8.2)
--- NOTE | 2017-08-22 09:53 | Diagnostic Imaging Report ---
Portable upright radiograph of the chest INDICATION: Altered mental status. FINDINGS: There is chronic appearing interstitial thickening seen with no focal infiltrates. The heart size is mildly enlarged. No effusion or pneumothorax. Sternotomy wires and bilateral shoulder replacement seen. IMPRESSION: Chronic appearing interstitial prominence. Mild cardiomegaly. Dictated by: Dictated on workstation # [id number]
--- NOTE | 2017-08-22 09:58 | Diagnostic Imaging Report ---
PROCEDURE: CT head without contrast. TECHNIQUE: Multiple contiguous axial images were obtained through the brain without the use of intravenous contrast. INDICATION: Altered mental status. FINDINGS: There is no intracranial hemorrhage. There is periventricular and deep white matter hypodensities slightly prominent in the right periventricular white matter near the upper aspect of the right basal ganglia. No hydrocephalus. No extra-axial fluid collection seen. The calvarium, the orbits and paranasal sinuses appear grossly unremarkable. IMPRESSION: 1. No intracranial hemorrhage. 2. Periventricular and deep white matter mild hypodensities are seen particularly prominent in the right periventricular region along the upper aspect of the basal ganglia level. Chronicity of this finding is indeterminate and a small acute component is not entirely ruled out. Correlate clinically and with MRI of the brain if needed. Dictated by: Dictated on workstation # [id number]
[2017-08-22] MEDS ORDERED: DOXYCYCLINE INJECTION 100 MG in NS (IVPB) 100 ML IV ONE (10:30)
[2017-08-22] MEDS ORDERED: methylPREDNISolone 125 MG (Solu-MEDROL) VIAL IVP ONE (10:30)
[2017-08-22] MEDS ORDERED: LORazepam INJ 2 MG/ML (ATIVAN) VIAL ONE (11:10)
[2017-08-22] MEDS ORDERED: LORazepam INJ 2 MG/ML (ATIVAN) VIAL IVP ONE (11:15)
[2017-08-22] MEDS ORDERED: GADOBUTROL 7.5 MMOL/7.5 ML (GADAVIST) VIAL IV ONE (11:45)
--- NOTE | 2017-08-22 12:09 | Diagnostic Imaging Report ---
PROCEDURE: MR imaging of the brain with and without contrast. TECHNIQUE: Multiplanar, multisequence MR imaging of the brain was performed with and without contrast. INDICATION: Altered mental status. Abnormal density in the white matter seen on CT scan particularly along the right periventricular lesion. 6 mL of Gadavist is administered intravenously. FINDINGS: There is no diffusion restriction to suggest an acute infarct or other diffusion abnormality. Abnormal density seen on CT scan demonstrates corresponding T2 hyperintense lesions in the periventricular and deep white matter and also in the basal ganglia. These demonstrate no significant mass effect and no associated postcontrast enhancement. There is also no diffusion restriction in these areas. This is compatible with chronic microvascular ischemic changes with possible component of lacunar infarcts in the more confluent areas. No acute infarct is seen however. There is also white matter abnormalities within the tracts and the brainstem with similar imaging features compatible with chronic microvascular ischemic changes and probably element of Wallerian degeneration. No acute infarct in the brainstem or the cerebellum. There is no enhancing mass. The central vascular flow-voids appear grossly unremarkable. No hydrocephalus. The internal auditory canals and inner ear structures appear unremarkable. The pituitary gland is normal in size. No hypothalamic or pineal region mass. The orbits appear symmetric. There is mild mucosal thickening along the middle and inferior turbinates in the nasal cavity and in the ethmoidal air cells. IMPRESSION: White matter findings are compatible with chronic microvascular ischemic changes. No acute infarct. No enhancing mass. Dictated by: Dictated on workstation # [id number]
[2017-08-22] MEDS ORDERED: NS IV 1000 ML 1,000 ML ONE (12:39)
[2017-08-22 12:40] VITALS: BP 176/83
[2017-08-22] MEDS ORDERED: CATHETER FLUSH 10 ML SYR IV PRN (13:00)
[2017-08-22] MEDS ORDERED: NS IV 1000 ML 1,000 ML IV SCH (13:00)
--- NOTE | 2017-08-22 13:03 | History & Physicial ---
History of Present Illness History of Present Illness Reason for visit/HPI PT IS A 67 Y/O FEMALE WHO IS KNOWN TO ME FROM CLINIC. SHE WAS ADMITTED EARLIER THIS MONTH FOR CONFUSION, DYSPNEA, FOUND TO HAVE LYMPHADENOPATHY OF THE CHEST - POSSIBLE LYMPHOMA. HER CALCIUM LEVEL CLIMBED WHILE IN THE HOSPITAL, SHE WAS STARTED ON CALCITONIN IM - THE SENIOR CARE NEGLECTED TO GET THE CORRECT MEDICATION GIVEN TO THE PATIENT X 4 DAYS, AND HER CALCIUM DEO TO 16. WE WERE ABLE TO DOSE HER WITH FLUIDS AND PAMIDRONATE IN THE HOSPITAL X 1, AND THEN THE SENIOR CARE FINALLY GOT THE CORRECT MEDICATION INTO THE FACILITY FOR 8 DOSES OF CALCITONIN IM. HER CALCIUM LEVEL RETURNED TO NORMAL, HER CONFUSION RESOLVED UNTIL LAST NIGHT. SHE APPARENTLY HAD "STRANGE HEAD MOVEMENTS" AND PER HER COUSIN - SOME JERKING BEHAVIORS. SHE WAS BROUGHT TO THE HOSPITAL AFTER HER FAMILY WAS NOTIFIED OF HER SYMPTOMS. NOTE SHOULD BE MADE THAT I WAS NOT NOTIFIED LAST NIGHT OF HER SYMPTOMS. Date of Admission Aug 22, 2017 at 11:00 Date Seen by Provider: Aug 22, 2017 Time Seen by Provider: 10:15 Attending Physician Sam Goldberg MD Admitting Physician Sam Goldberg MD Consult DR. CRAWFORD AND ANESTHESIA Allergies and Home Medications Allergies Coded Allergies: penicillin G (Verified Allergy, Intermediate, 10/11/16) ITCHING AFTER RECEIVING PENICILLIN WHEN SHE WAS 30-35 YEARS OLD meperidine (Verified Allergy, Unknown, 03/06/07) quinine (Verified Allergy, Unknown, 09/05/06) levofloxacin (Verified Adverse Reaction, Intermediate, HIVES, 10/11/16) BURNING AND ITCHING Home Medications Albuterol Sulfate 2.5 Mg/3 Ml Vial.neb, 2.5 MG NEB Q4H PRN for SHORTNESS OF BREATH, (Reported) Alendronate Sodium 70 Mg Tablet, 70 MG PO WEEK, (Reported) Amlodipine Besylate 2.5 Mg Tablet, 1.25 MG PO HS, (Reported) TAKES 1/2 (2.5MG) TABLET Aspirin 81 Mg Tablet.dr, 81 MG PO DAILY, (Reported) Budesonide/Formoterol Fumarate 10.2 Gm Hfa.aer.ad, 2 PUFF IH BID, (Reported) Carvedilol 25 Mg Tablet, 25 MG PO BID, (Reported) Cephalexin 500 Mg Capsule, 500 MG PO TID, (Reported) Cyanocobalamin (Vitamin B-12) 1,000 Mcg Tablet, 1,000 MCG PO DAILY, (Reported) Furosemide 20 Mg Tablet, 20 MG PO DAILY, (Reported) Ipratropium/Albuterol Sulfate 3 Ml Ampul.neb, 3 ML IH Q6H, (Reported) Isosorbide Mononitrate 30 Mg Tab.er.24h, 30 MG PO BID, (Reported) Lactobacillus Rhamnosus GG 1 Each Cap.sprink, 1 EACH PO TID, (Reported) Levothyroxine Sodium 100 Mcg Tablet, 100 MCG PO DAILY, (Reported) Multivit-Min/FA/Lycopene/Lut 1 Each Tablet, 1 TAB PO DAILY, (Reported) [place] 3 Polyunsat Fatty Acids 1,000 Mg Cap, 2,000 MG PO HS, (Reported) take 2 (1,000mg) tabs Pantoprazole Sodium 40 Mg Tablet.dr, 40 MG PO DAILY, (Reported) Potassium Chloride 20 Meq Tab.er.prt, 20 MEQ PO DAILY, (Reported) Prednisone 20 Mg Tab, 20 MG PO DAILY, #22 Take 3 tabs(60mg)daily,decrease by 1/2 tab(10mg)every other day. Prescribed by: SAM GOLDBERG on 08/08/17 0936 Rivaroxaban 20 Mg Tablet, 20 MG PO DAILY@1800, (Reported) Simvastatin 40 Mg Tablet, 40 MG PO HS, (Reported) Venlafaxine HCl 150 Mg Cap.er.24h, 150 MG PO BID, (Reported) Past Iletqvm-Czllgf-Rpjsld Hx Patient Social History Marrital Status: single Number of Children: 0 Number of living children: 0 Living Status: AT [facility]IOR CARE -PRIOR TO THIS WAS LIVING AT HOME WITH HER MULTIPLE DOGS Employed/Student: retired Alcohol Use: Denies Use Recreational Drug Use: No Smoking Status: Unknown if Ever Smoked Former Smoker, Quit: Aug 01, 2017 Type Used: Cigarettes 2nd Hand Smoke Exposure: No Physical Abuse Screen: No Sexual Abuse: No Recent Foreign Travel: No Contact w/other who traveled: No Recent Hopitalizations: Yes (Aug) Recent Infectious Disease Expo: No Immunizations Up To Date Tetanus Booster (TDap): Less than 5yrs Date of Pneumonia Vaccine: Aug 21, 2015 Date of Influenza Vaccine: Oct 11, 2016 Seasonal Allergies Seasonal Allergies: No Surgeries Yes (L AND R SHOULDER REPLACEMENTS, LEFT ULNAR TRANSPOSITION, BYPASS 2 VESSEL) Appendectomy, CABG, Gallbladder, Hysterectomy, Open Heart Surgery, Orthopedic Respiratory Yes COPD, Pulmonary Embolism Currently Using CPAP: Yes Currently Using BIPAP: No Cardiovascular Yes (BY-PASS, STENTS) Coronary Artery Disease, Hypertension Neurological No Reproductive System : No Hx Reproductive Disorders: No Sexually Transmitted Disease: No HIV/AIDS: No Female Reproductive Disorders: Denies 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 History: Hysterectomy Genitourinary No Gastrointestinal Yes Abdominal Hernia, Obstructive Bowel, Ulcer Musculoskeletal Yes (ARTHRITIS, ARTHROSCOPY OF KNEE) Chronic Back Pain Endocrine History of Endocrine Disorders: Yes ( PRE- DIABETES diet controlled) Endocrine Disorders: Hypothyroidsim, Diabetes, Non-Insulin dep HEENT History of HEENT Disorders: No Loss of Vision: Denies Cancer No Psychosocial History of Psychiatric Problem: Yes Behavioral Health Disorders: Depression Integumentary History of Skin or Integumenta: No Blood Transfusions History of Blood Disorders: Yes ( HX OF DVT WITH PE) Reviewed Nursing Assessment Reviewed/Agree w Nursing PMH: Yes Family Medical History Significant Family History: Heart Disease, Hypertension, Other Conditions/Hx ( HX OF BLOOD CLOTS) Family Hx: Blood clots G8 BROTHER Cardiovascular disease 19 FATHER Hypertension 19 FATHER 19 MOTHER G8 BROTHER Hypoglycemia 19 FATHER Myocardial infarction G8 BROTHER, Onset:35 Constitutional: No chills, No fever, weakness EENTM: No hearing loss, No vision loss, No hoarseness, No mouth pain, No throat pain Respiratory: No cough, No dyspnea on exertion Cardiovascular: No chest pain, No edema, No palpitations Gastrointestinal: No abdominal pain, No nausea, No vomiting Genitourinary: no symptoms reported Musculoskeletal: No muscle stiffness, No muscle weakness Skin: No lesions, No rash Psychiatric/Neurological: Other (CONFUSION, WEAKNESS, HALLUCINATIONS - VISUAL, JERKING MOVEMENT OF HEAD) All Other Systems Reviewed Negative Unless Noted: Yes Physical Exam Vital Signs Vital Sign - Last 12Hours 08/22/17 08/22/17 08:50 12:00 Temp 98.0 Pulse 87 Resp 18 B/P (MAP) 113/74 Pulse Ox 91 O2 Delivery Nasal Cannula O2 Flow Rate 2.00 Capillary Refill : Less Than 3 Seconds General Appearance: WD/WN, Other (ODD HEAD AND NECK MOVEMENTS, UNABLE TO FOLLOW COMMANDS) Eyes: Bilateral Eye Normal Inspection, Bilateral Eye PERRL Neck: Supple Respiratory: Chest Non Tender, Lungs Clear, Normal Breath Sounds, No Accessory Muscle Use Cardiovascular: Regular Rate, Rhythm, Systolic Murmur (III/) Gastrointestinal: Normal Bowel Sounds, Non Tender, Soft Rectal: Deferred Extremity: Normal Capillary Refill, Normal Range of Motion, Non Tender, No Calf Tenderness, No Pedal Edema Neurologic/Psychiatric: Alert, No Aphasia, No Depressed Affect, Disoriented x3 , No Facial Droop, No Motor Weakness Skin: Warm/Dry Assessment/Plan Assessment and Plan CONFUSION HX OF TICK BORNE ILLNESS POSSIBLE LYMPHOMA - CONCERN FOR LYMPHATIC SPREAD TO SPINAL CANAL HYPOTHYROID HX OF PULMONARY EMBOLISM CHRONIC ANTICOAGULATION HYPERCALCEMIA CONFUSION - SUPPORTIVE CARE, MRI OF BRAIN NEGATIVE FOR ACUTE STROKE, NO MASS- LIKE LESIONS IN BRAIN EITHER. HX OF TICK BORNE ILLNESS - TICK PANEL PROCESSING - PT GIVEN IV DOXYCYCLINE POSSIBLE LYMPHOMA - CONCERN FOR LYMPHATIC SPREAD TO SPINAL CANAL - CONTACTED DR. ZAYAS - HE WILL HAVE HIS ANESTHESIA PROVIDER IN THE HOSPITAL DO A LUMBAR PUNCTURE TODAY- I HAVE DISCUSSED WITH DR. CRAWFORD AND DR. PRICE - AN EXTRA TUBE FOR CYTOLOGY WILL BE PREPARED. HYPOTHYROID - CHECK TSH AND FREE T4, RESUME HOME MEDICATION TOMORROW. HX OF PULMONARY EMBOLISM WITH CHRONIC ANTICOAGULATION - RESUME XARELTO TOMORROW. HYPERCALCEMIA - CALCIUM SLIGHTLY ELEVATED TODAY- MONITOR LABS - MAY NEED TO GIVE IV PAMIDRONATE TOMORROW- DEPENDING ON CALCIUM LEVEL. DVT PROPHYLAXIS WITH XARELTO AND SCD'S GI PROPHYLAXIS WILL BE WITH PROTONIX. Problems: Admission Diagnosis CONFUSION HX OF TICK BORNE ILLNESS POSSIBLE LYMPHOMA - CONCERN FOR LYMPHATIC SPREAD TO SPINAL CANAL HYPOTHYROID HX OF PULMONARY EMBOLISM CHRONIC ANTICOAGULATION HYPERCALCEMIA SAM GOLDBERG MD Aug 22, 2017 13:03
[2017-08-22] MEDS ORDERED: CALAZIME TOP ×2 (13:52)
[2017-08-22] MEDS ORDERED: FLUT1AER IH ×2 (13:52)
--- NOTE | 2017-08-22 13:53 | Anesthesia-Procedure Note ---
Procedure Start/Stop Time Date of Procedure: Aug 22, 2017 Start Time: 13:30 Stop Time: 13:45 Postprocedural Diagnosis: change in mental status Procedures/Interventions Discussed Risk,Benefits: Yes Patient Consents: Yes Position: Sitting Sterile Technique: Yes Fluid Color: clear Spinal Needle Used: 20g Quinke 3 1/2inch Procedure Notes csf aspirated on 2nd attempt with no heme or parasthesia. csf fluid clear. tolerated procedure well KEEGAN CHERY CRNA Aug 22, 2017 13:53
[2017-08-22] MEDS ORDERED: PRD20T PO ×2 (14:19)
[2017-08-22 14:26] LABS: CSF GLUCOSE 43 MG/DL (50-80); CSF TOTAL PROTEIN 34 MG/DL (15-40)
[2017-08-22] MEDS: NS IV 1000 ML 1,000 ML IV SCH ×2 (14:30→23:54)
[2017-08-22 14:32] LABS: APPEARANCE,CSF CLEAR; COLOR,CSF COLORLESS
[2017-08-22 14:34] LABS: WHITE BLOOD CELL,CSF 0 CELLS (0-5)
[2017-08-22 14:56] LABS: THYROID STIMULATING HORMONE 10.91 UIU/ML (0.35-4.94)
[2017-08-22] MEDS ORDERED: RT-ALBUTEROL SULF 2.5 MG/3 ML PRE-MIX VIAL INH PRN (15:00)
[2017-08-22 15:25] VITALS: BP 158/75
[2017-08-22] MEDS ORDERED: cefTRIAXone INJECTION 1,000 MG in NS (IVPB) 50 ML IV NR (15:30)
[2017-08-22] MEDS: LACTOBACILLUS Acidoph/Bulgar (LACTINEX/FLORANEX) TAB PO SCH (18:32)
[2017-08-22] MEDS: RIVAROXABAN 20 MG TABLET (XARELTO) PO SCH (18:32)
[2017-08-22] MEDS: methylPREDNISolone 125 MG (Solu-MEDROL) VIAL IVP SCH ×2 (18:32→23:54)
[2017-08-22 19:45] VITALS: BP 158/79
--- NOTE | 2017-08-22 20:01 | CONSULTATION REPORT ---
DATE OF SERVICE: 08/22/2017 REFERRING AND PRIMARY PHYSICIAN: Yenny Goldberg MD IMPRESSION: 1. A 67-year-old female admitted with mental status changes. 2. Recent history of hypercalcemia which was treated and patient transferred to a detention. 3. Recent CT scan showing small mediastinal lymphadenopathy which was suspicious for malignancy. Status post biopsy on 08/20/2017 with the pathology report pending. 4. Abnormal CT scan and MRI of the head with significant white matter changes due to chronic microvascular ischemic changes. RECOMMENDATIONS: 1. Agree with lumbar puncture because of the acute change in mental status. 2. Will await pathology report from the bronchoscopy with transbronchial biopsy of mediastinal lymph nodes. 3. Continue supportive care as you are doing. 4. I will be out of town for one week and Dr. Sarbjit Rodriguez is covering for me during this time. BRIEF HISTORY: The patient is a 67-year-old female who was sent to the hospital from the detention with mental status changes that worsened within the last 24 hours. The patient was admitted to the hospital approximately 3 weeks ago with hypercalcemia which was treated with bisphosphonate. She had workup including CT scans done at that time which showed mild to moderate enlargement of mediastinal lymph nodes. No other obvious masses noted. She was scheduled for an outpatient bronchoscopy with transbronchial biopsy which was completed on 08/20/2017. As there was a change in her mental status, she was sent to the Emergency Room, evaluated and admitted. An oncology consultation was obtained because of the lymphadenopathy and possibility of lymphoma or other malignancy. PAST MEDICAL HISTORY: Could not be obtained from the patient as she is somnolent and not arousable today. Reviewing her previous records showed history of COPD. She has history of coronary artery disease requiring 2-vessel CABG in the past. She has had history of DVTs and PEs in the past. History of hypertension for several years. She has history of osteoarthritis requiring bilateral shoulder replacement. She has had abdominal hernia repair following bowel obstruction. She is borderline diabetic which is controlled with diet. History of hypothyroidism and on replacement. PAST SURGICAL HISTORY: Include appendectomy, cholecystectomy, hysterectomy, in addition to the orthopedic surgeries, CABG. SOCIAL HISTORY: The patient was living alone previously but following her most recent hospitalization she was sent to a detention. She has no children and a cousin or sister is her close relative and POA. She has previous history of tobacco but unable to quantitate as she could not provide any history. PHYSICAL EXAMINATION: GENERAL: Today showed an elderly female, somnolent and not arousable. VITAL SIGNS: Temperature was 99.3, pulse rate of 72, respirations 20, blood pressure 176/83, oxygen saturation 98% on 2 liters of oxygen by nasal cannula. HEENT: Normocephalic, conjunctivae pink, sclerae anicteric, oral mucosa moist. NECK: Supple with no JVD. No nuchal rigidity on passive movement. No cervical, supraclavicular or axillary lymphadenopathy palpable. CHEST: Symmetrical. LUNGS: With slightly diminished breath sounds bilaterally without wheezes or rales. CARDIOVASCULAR: Regular in rate and rhythm with a grade 3 holosystolic murmur. ABDOMEN: Soft, nontender with no hepatosplenomegaly or other masses palpable. EXTREMITIES: Showed no edema. NEUROLOGICAL: Examination could not be completed. LABORATORY: CBC done today showed WBC 13.8, hemoglobin 9.2, platelet count 133,000 with neutrophil count of 10.3 and monocyte count of 1.6. Chemistry panel showed normal electrolytes. BUN was 18 and creatinine 0.8 with GFR more than 60 mL/min. Measured calcium was 10.1 with albumin level of 2.7 for a corrected calcium level of 11.2. Liver function studies were normal except albumin level of 2.7. Serum magnesium was 1.5. TSH was elevated at 10.91. Calcium level during her most recent hospitalization in early August was elevated with the highest reading on 08/12/2017 when this was measured at 15.2 with an albumin level of 2.9. RADIOLOGY: CT scan of the head done today in the Emergency Room showed no intracranial hemorrhage. Periventricular deep white matter hypodensities more prominent in the right periventricular region. An MRI of the brain was recommended which was done today. This showed white matter findings compatible with chronic microvascular ischemic changes. No acute infarct or enhancing masses. CT angiogram done on 08/03/2017 showed no evidence of pulmonary embolism. Mediastinal and hilar lymphadenopathy was noted. Lymph nodes in the right hilum measuring 2 cm was the largest group. Small left pleural effusion. Minimal narrowing of the superior vena cava without focal stenosis or occlusion. CT scan of the abdomen and pelvis done on 08/04/2017 showed abnormal density and heterogeneous enhancement of the unobstructed kidneys raising the question of tubular dysfunction. Small volume of abdominal/pelvic free fluid without loculation. There is a right upper quadrant portal caval lymph node measuring 1.5 x 2.7 cm. No other adenopathy. An IVC filter was present. No obstruction of any hollow viscus. The patient underwent a bronchoscopy with EBUS and transbronchial biopsy. Pathology reports are pending from this. Thank you for allowing me to participate in this patient's care. I will follow the patient with you and make appropriate recommendations. I will be out of town for one week and Dr. Rodriguez is covering for me during this time. Job ID: [id number] DocumentID: [id number] Dictated Date: 08/22/2017 15:26:21 Automotive Refinisher Date: 08/22/2017 20:01:16 Dictated By: DYLAN CRAWFORD MD
[2017-08-22] MEDS: RT-ALBUTEROL/IPRATROPIUM 3 ML (DUONEB) VIAL IH SCH (20:23)
[2017-08-22] MEDS ORDERED: NON-FORMULARY MEDICATION 1 EA EA (Lactobacillus Rhamnosus GG (Culturelle) 1 CAP) PO SCH (21:00)
[2017-08-23] VITALS: BP 158/74
[2017-08-23] MEDS: RT-ALBUTEROL/IPRATROPIUM 3 ML (DUONEB) VIAL IH SCH ×4 (02:26→19:15)
[2017-08-23 04:00] VITALS: BP 167/82
[2017-08-23 05:21] LABS: LYME AB G M < 0.01 Index (0.00-0.89)
[2017-08-23] MEDS: LACTOBACILLUS Acidoph/Bulgar (LACTINEX/FLORANEX) TAB PO SCH ×3 (06:15→17:13)
[2017-08-23] MEDS: methylPREDNISolone 125 MG (Solu-MEDROL) VIAL IVP SCH ×3 (06:15→17:13)
[2017-08-23] MEDS: PANTOPRAZOLE 40 MG (PROTONIX) TAB PO SCH (06:15)
[2017-08-23] MEDS: LEVOTHYROXINE 100 MCG (LEVOTHROID) TAB PO SCH (06:15)
[2017-08-23 06:26] LABS: BASOPHILS % (AUTO) 0 % (0-10); EOSINOPHILS % (AUTO) 0 % (0-10); LYMPHOCYTES # (AUTO) 0.5 X 10^3 (1.0-4.0); LYMPHOCYTES % (AUTO) 4 % (12-44); MEAN CORPUSCULAR HEMOGLOBIN 32 PG (25-34); MEAN CORPUSCULAR HGB CONC 33 G/DL (32-36); MEAN CORPUSCULAR VOLUME 99 FL (80-99); MEAN PLATELET VOLUME 11.4 FL (7.4-10.4); MONOCYTES # (AUTO) 0.5 X 10^3 (0.0-1.0); MONOCYTES % (AUTO) 4 % (0-12); NEUTROPHILS # (AUTO) 10.7 X 10^3 (1.8-7.8); NEUTROPHILS % (AUTO) 92 % (42-75); PLATELET COUNT 129 10^3/uL (130-400); RED BLOOD COUNT 2.96 10^6/uL (4.35-5.85); RED CELL DISTRIBUTION WIDTH 19.7 % (10.0-14.5); WHITE BLOOD COUNT 11.6 10^3/uL (4.3-11.0)
[2017-08-23 06:52] LABS: ALANINE AMINOTRANSFERASE 8 U/L (0-55); ALBUMIN 2.6 GM/DL (3.2-4.5); ANION GAP 8 MMOL/L (5-14); ASPARTATE AMINO TRANSFERASE 24 U/L (5-34); BILIRUBIN,TOTAL 0.4 MG/DL (0.1-1.0); BLOOD UREA NITROGEN 23 MG/DL (7-18); BUN/CREATININE RATIO 28; CALCIUM 9.7 MG/DL (8.5-10.1); CARBON DIOXIDE 26 MMOL/L (21-32); CHLORIDE 110 MMOL/L (98-107); CREATININE SERUM 0.83 MG/DL (0.60-1.30); GFR ESTIMATED > 60; GLUCOSE 149 MG/DL (70-105); POTASSIUM 4.2 MMOL/L (3.6-5.0); SODIUM 144 MMOL/L (135-145); TOTAL PROTEIN 4.6 GM/DL (6.4-8.2)
[2017-08-23 08:00] VITALS: BP 188/86
[2017-08-23] MEDS ORDERED: NON-FORMULARY MEDICATION 1 EA EA (Fluticasone/Vilanterol (Breo Ellipta 100-25 Mcg INH) 1 P IH SCH (09:00)
[2017-08-23] MEDS: NS IV 1000 ML 1,000 ML IV SCH ×3 (09:05→20:22)
[2017-08-23] MEDS: cefTRIAXone INJECTION 1,000 MG in NS (IVPB) 50 ML IV SCH (09:05)
[2017-08-23] MEDS: RT-ADVAIR HFA 115/21 MCG PER PUFF IH SCH ×2 (10:03→19:15)
--- NOTE | 2017-08-23 11:16 | Progress Note-Hospitalist ---
Progress Note Progress Notes/Assess & Plan Date Seen 08/23/17 Time Seen by Provider: 10:45 Diagonsis/Assessment & Plan Patient still very confused and hallucinating and delusional Thinks people are in her room and she is in the room alone Chapin catheter maintains indwelling Labs are stable Lumbar puncture performed basic assessment shows no significant abnormality but most studies pending Reviewed meds and labs AFVSS, Pleasant, confused RRR w/murmur, CTAB no rales noted but minimal expansion No edema Laboratory Tests 08/23/17 05:[address] Goldberg with updates: CONFUSION - SUPPORTIVE CARE, MRI OF BRAIN NEGATIVE FOR ACUTE STROKE, NO MASS- LIKE LESIONS IN BRAIN EITHER. Hallucinations noted. HX OF TICK BORNE ILLNESS - TICK PANEL PROCESSING - PT ON IV DOXYCYCLINE POSSIBLE LYMPHOMA - CONCERN FOR LYMPHATIC SPREAD TO SPINAL CANAL - CONTACTED DR. ZAYAS - HE WILL HAVE HIS ANESTHESIA PROVIDER IN THE HOSPITAL DO A LUMBAR PUNCTURE TODAY- I HAVE DISCUSSED WITH DR. CRAWFORD AND DR. PRICE - AN EXTRA TUBE FOR CYTOLOGY WILL BE PREPARED. HYPOTHYROID - CHECK TSH AND FREE T4, RESUME HOME MEDICATION TODAY. HX OF PULMONARY EMBOLISM WITH CHRONIC ANTICOAGULATION - RESUME XARELTO TODAY. HYPERCALCEMIA - CALCIUM SLIGHTLY ELEVATED ON ADMIT- MONITOR LABS - MAY NEED TO GIVE IV PAMIDRONATE - DEPENDING ON CALCIUM LEVEL. DR CRAWFORD TO ADDRESS. CORRECTED TODAY IS 10.82 GIVEN ALBUMIN 2.6 YESTERDAY IT WAS 11.14 DVT PROPHYLAXIS WITH XARELTO AND SCD'S GI PROPHYLAXIS WITH PROTONIX. Plan: Poor prognosis long-term due to multiple co-morbidities Maintain Doxy empirically Xarelto tolerated Obtain labs tomorrow Appreciate Oncology evaluation KINDRA MOTT DO Aug 23, 2017 11:16
[2017-08-23 12:00] VITALS: BP 176/74
[2017-08-23] MEDS ORDERED: NON-FORMULARY MEDICATION 1 EA EA (Alendronate Sodium (Fosamax) 70 MG) PO SCH (15:00)
[2017-08-23 16:20] VITALS: BP 179/86
[2017-08-23] MEDS: RIVAROXABAN 20 MG TABLET (XARELTO) PO SCH (17:13)
[2017-08-23 20:00] VITALS: BP 164/80
[2017-08-24] VITALS: BP 169/87
[2017-08-24] MEDS: methylPREDNISolone 125 MG (Solu-MEDROL) VIAL IVP SCH ×2 (00:44→06:10)
[2017-08-24] MEDS: RT-ALBUTEROL/IPRATROPIUM 3 ML (DUONEB) VIAL IH SCH ×4 (02:20→20:43)
[2017-08-24] MEDS: NS IV 1000 ML 1,000 ML IV SCH (06:09)
[2017-08-24] MEDS: PANTOPRAZOLE 40 MG (PROTONIX) TAB PO SCH (06:09)
[2017-08-24] MEDS: LACTOBACILLUS Acidoph/Bulgar (LACTINEX/FLORANEX) TAB PO SCH ×3 (06:09→17:19)
[2017-08-24] MEDS: LEVOTHYROXINE 100 MCG (LEVOTHROID) TAB PO SCH (06:09)
[2017-08-24 06:23] LABS: BASOPHILS % (AUTO) 0 % (0-10); EOSINOPHILS % (AUTO) 0 % (0-10); LYMPHOCYTES # (AUTO) 0.4 X 10^3 (1.0-4.0); LYMPHOCYTES % (AUTO) 3 % (12-44); MEAN CORPUSCULAR HEMOGLOBIN 32 PG (25-34); MEAN CORPUSCULAR HGB CONC 33 G/DL (32-36); MEAN CORPUSCULAR VOLUME 98 FL (80-99); MONOCYTES # (AUTO) 0.7 X 10^3 (0.0-1.0); MONOCYTES % (AUTO) 4 % (0-12); NEUTROPHILS # (AUTO) 15.2 X 10^3 (1.8-7.8); NEUTROPHILS % (AUTO) 93 % (42-75); PLATELET COUNT 146 10^3/uL (130-400); RED CELL DISTRIBUTION WIDTH 19.7 % (10.0-14.5); WHITE BLOOD COUNT 16.3 10^3/uL (4.3-11.0)
[2017-08-24 06:41] LABS: ALANINE AMINOTRANSFERASE 9 U/L (0-55); ALBUMIN 2.6 GM/DL (3.2-4.5); ANION GAP 9 MMOL/L (5-14); ASPARTATE AMINO TRANSFERASE 18 U/L (5-34); BILIRUBIN,TOTAL 0.3 MG/DL (0.1-1.0); BLOOD UREA NITROGEN 25 MG/DL (7-18); BUN/CREATININE RATIO 30; CALCIUM 9.5 MG/DL (8.5-10.1); CARBON DIOXIDE 23 MMOL/L (21-32); CHLORIDE 110 MMOL/L (98-107); CREATININE SERUM 0.82 MG/DL (0.60-1.30); GFR ESTIMATED > 60; GLUCOSE 148 MG/DL (70-105); POTASSIUM 3.7 MMOL/L (3.6-5.0); SODIUM 142 MMOL/L (135-145); TOTAL PROTEIN 4.6 GM/DL (6.4-8.2)
[2017-08-24 06:46] LABS: BAND NEUTROPHILS 6 %; HYPOCHROMASIA SLIGHT; LYMPHOCYTES % (MANUAL) 2 %; NEUTROPHILS % (MANUAL) 91 %
[2017-08-24 08:00] VITALS: BP 152/87
[2017-08-24] MEDS: RT-ADVAIR HFA 115/21 MCG PER PUFF IH SCH ×2 (08:08→20:44)
[2017-08-24] MEDS: cefTRIAXone INJECTION 1,000 MG in NS (IVPB) 50 ML IV SCH (08:32)
[2017-08-24] MEDS: SENNA W/DOCUSATE (SENOKOT S) TABLET PO SCH ×2 (11:40→20:41)
[2017-08-24] MEDS: LACTULOSE SYRUP 10GM/15ML (ENULOSE) 30ML UDC PO SCH ×2 (11:40→20:43)
--- NOTE | 2017-08-24 11:48 | Progress Note-Hospitalist ---
Progress Note Progress Notes/Assess & Plan Date Seen 08/24/17 Time Seen by Provider: 11:00 Diagonsis/Assessment & Plan Patient is now alert and not delirious and not hallucinating and was aware that she was confused yesterday Chapin catheter maintains indwelling so will DC Labs are stable but elevated wbc due to steroids so will decrease the dose Reviewed meds and labs Eating and drinking so will HLIVF AFVSS, Pleasant, awake, alert, sitting in chair RRR w/murmur, CTAB no rales good expansion today No edema Laboratory Tests 08/24/17 06:[address] Goldberg with updates: CONFUSION - SUPPORTIVE CARE, MRI OF BRAIN NEGATIVE FOR ACUTE STROKE, NO MASS- LIKE LESIONS IN BRAIN EITHER. Hallucinations noted yesterday that are resolved today HX OF TICK BORNE ILLNESS - TICK PANEL PROCESSING - PT ON IV ROCEPHIN POSSIBLE LYMPHOMA - CONCERN FOR LYMPHATIC SPREAD TO SPINAL CANAL - CONTACTED DR. ZAYAS - HE WILL HAVE HIS ANESTHESIA PROVIDER IN THE HOSPITAL DO A LUMBAR PUNCTURE TODAY- I HAVE DISCUSSED WITH DR. CRAWFORD AND DR. PRICE - AN EXTRA TUBE FOR CYTOLOGY WILL BE PREPARED. HYPOTHYROID - CHECK TSH AND FREE T4, RESUMED HOME MEDICATION FRIDAY. HX OF PULMONARY EMBOLISM WITH CHRONIC ANTICOAGULATION - RESUMED XARELTO FRIDAY. HYPERCALCEMIA - CALCIUM SLIGHTLY ELEVATED ON ADMIT- MONITOR LABS - MAY NEED TO GIVE IV PAMIDRONATE - DEPENDING ON CALCIUM LEVEL. DR CRAWFORD TO ADDRESS. CORRECTED TODAY IS IMPROVED DVT PROPHYLAXIS WITH XARELTO AND SCD'S GI PROPHYLAXIS WITH PROTONIX. Plan: Poor prognosis long-term due to multiple co-morbidities but improved today Maintain Rocephin empirically Xarelto tolerated Obtain labs tomorrow Appreciate Oncology evaluation HLIVF DC catheter PT/OT KINDRA MOTT DO Aug 24, 2017 11:48
[2017-08-24 15:52] VITALS: BP 155/82
[2017-08-24] MEDS: RIVAROXABAN 20 MG TABLET (XARELTO) PO SCH (17:19)
[2017-08-24] MEDS: VENlafaxine XR 75 MG (EFFEXOR XR) CAP PO SCH (17:19)
[2017-08-24] MEDS: amLODIPine 2.5MG (NORVASC) TAB PO SCH (20:41)
[2017-08-24] MEDS: ISOSORBIDE MONONITRATE 30 MG (IMDUR) TAB PO SCH (20:41)
[2017-08-24] MEDS: methylPREDNISolone 40 MG/ML (Solu-MEDROL) VIAL IV SCH (20:47)
[2017-08-24] MEDS ORDERED: NON-FORMULARY MEDICATION 1 EA EA (Venlafaxine HCl (Venlafaxine HCl ER) 150 MG) PO SCH (21:00)
[2017-08-24] MEDS ORDERED: methylPREDNISolone 125 MG (Solu-MEDROL) VIAL IVP SCH (21:00)
[2017-08-25] VITALS: BP 165/93
[2017-08-25] MEDS: RT-ALBUTEROL/IPRATROPIUM 3 ML (DUONEB) VIAL IH SCH ×4 (02:40→21:45)
[2017-08-25 05:55] LABS: BASOPHILS % (AUTO) 0 % (0-10); EOSINOPHILS # (AUTO) 0.1 10^3/uL (0.0-0.3); EOSINOPHILS % (AUTO) 0 % (0-10); LYMPHOCYTES # (AUTO) 0.5 X 10^3 (1.0-4.0); LYMPHOCYTES % (AUTO) 3 % (12-44); MEAN CORPUSCULAR HEMOGLOBIN 32 PG (25-34); MEAN CORPUSCULAR HGB CONC 32 G/DL (32-36); MEAN CORPUSCULAR VOLUME 99 FL (80-99); MEAN PLATELET VOLUME 10.9 FL (7.4-10.4); MONOCYTES # (AUTO) 1.1 X 10^3 (0.0-1.0); MONOCYTES % (AUTO) 7 % (0-12); NEUTROPHILS # (AUTO) 14.1 X 10^3 (1.8-7.8); NEUTROPHILS % (AUTO) 90 % (42-75); PLATELET COUNT 143 10^3/uL (130-400); RED BLOOD COUNT 3.16 10^6/uL (4.35-5.85); RED CELL DISTRIBUTION WIDTH 19.4 % (10.0-14.5); WHITE BLOOD COUNT 15.8 10^3/uL (4.3-11.0)
[2017-08-25] MEDS: LEVOTHYROXINE 100 MCG (LEVOTHROID) TAB PO SCH (06:06)
[2017-08-25] MEDS: VENlafaxine XR 75 MG (EFFEXOR XR) CAP PO SCH ×2 (06:06→17:12)
[2017-08-25] MEDS: LACTOBACILLUS Acidoph/Bulgar (LACTINEX/FLORANEX) TAB PO SCH ×3 (06:06→17:12)
[2017-08-25] MEDS: PANTOPRAZOLE 40 MG (PROTONIX) TAB PO SCH (06:08)
[2017-08-25 06:19] LABS: ALANINE AMINOTRANSFERASE 8 U/L (0-55); ALBUMIN 2.5 GM/DL (3.2-4.5); ANION GAP 7 MMOL/L (5-14); ASPARTATE AMINO TRANSFERASE 17 U/L (5-34); BILIRUBIN,TOTAL 0.3 MG/DL (0.1-1.0); BLOOD UREA NITROGEN 28 MG/DL (7-18); BUN/CREATININE RATIO 37; CALCIUM 10.1 MG/DL (8.5-10.1); CARBON DIOXIDE 24 MMOL/L (21-32); CHLORIDE 109 MMOL/L (98-107); CREATININE SERUM 0.76 MG/DL (0.60-1.30); GFR ESTIMATED > 60; GLUCOSE 134 MG/DL (70-105); POTASSIUM 3.7 MMOL/L (3.6-5.0); SODIUM 140 MMOL/L (135-145); TOTAL PROTEIN 4.3 GM/DL (6.4-8.2)
[2017-08-25] MEDS: RT-ADVAIR HFA 115/21 MCG PER PUFF IH SCH ×2 (07:16→21:45)
[2017-08-25 08:00] VITALS: BP 184/94
[2017-08-25] MEDS: SENNA W/DOCUSATE (SENOKOT S) TABLET PO SCH ×2 (08:03→20:27)
--- NOTE | 2017-08-25 08:03 | Progress Note (SOAP) ---
Subjective Date Seen by Provider: Aug 25, 2017 Time Seen by Provider: 08:15 Objective Exam Vital Signs Date Time Temp Pulse Resp B/P (MAP) Pulse Ox O2 Delivery O2 Flow Rate FiO2 08/25/17 07:18 95 Nasal Cannula 2.00 08/25/17 07:16 95 Nasal Cannula 2.00 08/25/17 02:41 95 Nasal Cannula 3.00 08/25/17 00:00 98.9 84 20 165/93 98 Nasal Cannula 3.00 08/24/17 20:55 Nasal Cannula 3.00 08/24/17 20:53 96 Nasal Cannula 08/24/17 20:44 95 Nasal Cannula 3.00 08/24/17 15:52 97.0 84 20 155/82 96 Nasal Cannula 3.00 08/24/17 15:38 95 Nasal Cannula 3.00 08/24/17 09:29 Nasal Cannula 3.00 08/24/17 08:11 95 Nasal Cannula 3.00 Capillary Refill : Less Than 3 SecondsLess Than 3 Seconds Results Lab Laboratory Tests 08/25/17 05:37: White Blood Count 15.8H, Red Blood Count 3.16L, Hemoglobin 10.0L, Hematocrit 31L , Mean Corpuscular Volume 99, Mean Corpuscular Hemoglobin 32, Mean Corpuscular Hemoglobin Concent 32, Red Cell Distribution Width 19.4H, Platelet Count 143, Mean Platelet Volume 10.9H, Neutrophils (%) (Auto) 90H, Lymphocytes (%) (Auto) 3L, Monocytes (%) (Auto) 7, Eosinophils (%) (Auto) 0, Basophils (%) (Auto) 0, Neutrophils # (Auto) 14.1H, Lymphocytes # (Auto) 0.5L, Monocytes # (Auto) 1.1H, Eosinophils # (Auto) 0.1, Basophils # (Auto) 0.0, Sodium Level 140, Potassium Level 3.7, Chloride Level 109H, Carbon Dioxide Level 24, Anion Gap 7, Blood Urea Nitrogen 28H, Creatinine 0.76, Estimat Glomerular Filtration Rate > 60, BUN /Creatinine Ratio 37, Glucose Level 134H, Calcium Level 10.1, Total Bilirubin 0.3, Aspartate Amino Transf (AST/SGOT) 17, Alanine Aminotransferase (ALT/SGPT) 8 , Alkaline Phosphatase 78, Total Protein 4.3L, Albumin 2.5L Microbiology 08/22/17 Blood Culture - Preliminary, Resulted No growth 08/22/17 Gram Stain - Final, Resulted 08/22/17 CSF Culture - Preliminary, Resulted No growth 08/22/17 Urine Culture - Final, Complete NO GROWTH Clinical Quality Measures DVT/VTE Risk/Contraindication: Risk Factor Score Per Nursin RFS Level Per Nursing on Admit: 4+=Very High SAM CINTRON MD Aug 25, 2017 08:03
[2017-08-25] MEDS: KCL 20 MEQ TAB (K-DUR) PO SCH (08:04)
[2017-08-25] MEDS: FUROSEMIDE 20 MG (LASIX) TAB PO SCH (08:04)
[2017-08-25] MEDS: ISOSORBIDE MONONITRATE 30 MG (IMDUR) TAB PO SCH ×2 (08:04→20:27)
[2017-08-25] MEDS: methylPREDNISolone 40 MG/ML (Solu-MEDROL) VIAL IV SCH ×2 (08:04→20:27)
[2017-08-25] MEDS: LACTULOSE SYRUP 10GM/15ML (ENULOSE) 30ML UDC PO SCH ×2 (08:05→20:27)
[2017-08-25] MEDS: cefTRIAXone INJECTION 1,000 MG in NS (IVPB) 50 ML IV SCH (08:05)
[2017-08-25 08:59] LABS: LYME AB INTERP Negative (Negative); TULAREMIA ANTIBODY <1:20
[2017-08-25 13:18] LABS: EHRLICHIA CHAFFEENSIS G ABY <1:16 (<1:16)
[2017-08-25 15:15] VITALS: BP 141/85
[2017-08-25 15:20] LABS: IGG ROCKY MOUNTAIN SPOTTED FEV <1:16 (<1:16); IGM ROCKY MOUNTAIN SPOTTED FEV <1:10 (<1:10)
[2017-08-25] MEDS: RIVAROXABAN 20 MG TABLET (XARELTO) PO SCH (17:12)
[2017-08-25] MEDS: amLODIPine 2.5MG (NORVASC) TAB PO SCH (20:27)
[2017-08-26 00:30] VITALS: BP 144/88
[2017-08-26] MEDS: RT-ALBUTEROL/IPRATROPIUM 3 ML (DUONEB) VIAL IH SCH ×2 (03:03→08:04)
[2017-08-26 05:58] LABS: BASOPHILS % (AUTO) 0 % (0-10); EOSINOPHILS % (AUTO) 0 % (0-10); LYMPHOCYTES # (AUTO) 0.6 X 10^3 (1.0-4.0); LYMPHOCYTES % (AUTO) 4 % (12-44); MEAN CORPUSCULAR HEMOGLOBIN 32 PG (25-34); MEAN CORPUSCULAR HGB CONC 33 G/DL (32-36); MEAN CORPUSCULAR VOLUME 98 FL (80-99); MEAN PLATELET VOLUME 11.3 FL (7.4-10.4); MONOCYTES # (AUTO) 1.4 X 10^3 (0.0-1.0); MONOCYTES % (AUTO) 8 % (0-12); NEUTROPHILS # (AUTO) 15.1 X 10^3 (1.8-7.8); NEUTROPHILS % (AUTO) 88 % (42-75); PLATELET COUNT 165 10^3/uL (130-400); RED BLOOD COUNT 3.32 10^6/uL (4.35-5.85); RED CELL DISTRIBUTION WIDTH 19.4 % (10.0-14.5); WHITE BLOOD COUNT 17.2 10^3/uL (4.3-11.0)
[2017-08-26] MEDS: PANTOPRAZOLE 40 MG (PROTONIX) TAB PO SCH (06:01)
[2017-08-26] MEDS: LACTOBACILLUS Acidoph/Bulgar (LACTINEX/FLORANEX) TAB PO SCH ×2 (06:01→11:31)
[2017-08-26] MEDS: LEVOTHYROXINE 100 MCG (LEVOTHROID) TAB PO SCH (06:01)
[2017-08-26] MEDS: VENlafaxine XR 75 MG (EFFEXOR XR) CAP PO SCH (06:01)
[2017-08-26 06:11] LABS: ALANINE AMINOTRANSFERASE 8 U/L (0-55); ALBUMIN 2.6 GM/DL (3.2-4.5); ANION GAP 8 MMOL/L (5-14); ASPARTATE AMINO TRANSFERASE 16 U/L (5-34); BILIRUBIN,TOTAL 0.3 MG/DL (0.1-1.0); BLOOD UREA NITROGEN 32 MG/DL (7-18); BUN/CREATININE RATIO 42; CALCIUM 10.7 MG/DL (8.5-10.1); CARBON DIOXIDE 24 MMOL/L (21-32); CHLORIDE 106 MMOL/L (98-107); CREATININE SERUM 0.77 MG/DL (0.60-1.30); GFR ESTIMATED > 60; GLUCOSE 108 MG/DL (70-105); POTASSIUM 3.9 MMOL/L (3.6-5.0); SODIUM 138 MMOL/L (135-145); TOTAL PROTEIN 4.4 GM/DL (6.4-8.2)
[2017-08-26 08:00] VITALS: BP 161/101
[2017-08-26] MEDS: RT-ADVAIR HFA 115/21 MCG PER PUFF IH SCH (08:11)
[2017-08-26] MEDS: SENNA W/DOCUSATE (SENOKOT S) TABLET PO SCH (08:13)
[2017-08-26] MEDS: LACTULOSE SYRUP 10GM/15ML (ENULOSE) 30ML UDC PO SCH (08:14)
[2017-08-26] MEDS: cefTRIAXone INJECTION 1,000 MG in NS (IVPB) 50 ML IV SCH (08:14)
[2017-08-26] MEDS: methylPREDNISolone 40 MG/ML (Solu-MEDROL) VIAL IV SCH (08:14)
[2017-08-26] MEDS: FUROSEMIDE 20 MG (LASIX) TAB PO SCH (08:14)
[2017-08-26] MEDS: ISOSORBIDE MONONITRATE 30 MG (IMDUR) TAB PO SCH (08:14)
[2017-08-26] MEDS: KCL 20 MEQ TAB (K-DUR) PO SCH (08:14)
--- NOTE | 2017-08-26 08:53 | Discharge Summary ---
Diagnosis/Chief Complaint Date of Admission Aug 22, 2017 at 11:00 Date of Discharge Admission Diagnosis Admission Diagnosis CONFUSION HX OF TICK BORNE ILLNESS POSSIBLE LYMPHOMA - CONCERN FOR LYMPHATIC SPREAD TO SPINAL CANAL HYPOTHYROID HX OF PULMONARY EMBOLISM CHRONIC ANTICOAGULATION HYPERCALCEMIA Reason Hospital Visit PT IS A 67 Y/O FEMALE WHO IS KNOWN TO ME FROM CLINIC. SHE WAS ADMITTED EARLIER THIS MONTH FOR CONFUSION, DYSPNEA, FOUND TO HAVE LYMPHADENOPATHY OF THE CHEST - POSSIBLE LYMPHOMA. HER CALCIUM LEVEL CLIMBED WHILE IN THE HOSPITAL, SHE WAS STARTED ON CALCITONIN IM - THE SNF NEGLECTED TO GET THE CORRECT MEDICATION GIVEN TO THE PATIENT X 4 DAYS, AND HER CALCIUM DEO TO 16. WE WERE ABLE TO DOSE HER WITH FLUIDS AND PAMIDRONATE IN THE HOSPITAL X 1, AND THEN THE SNF FINALLY GOT THE CORRECT MEDICATION INTO THE FACILITY FOR 8 DOSES OF CALCITONIN IM. HER CALCIUM LEVEL RETURNED TO NORMAL, HER CONFUSION RESOLVED UNTIL LAST NIGHT. SHE APPARENTLY HAD "STRANGE HEAD MOVEMENTS" AND PER HER COUSIN - SOME JERKING BEHAVIORS. SHE WAS BROUGHT TO THE HOSPITAL AFTER HER FAMILY WAS NOTIFIED OF HER SYMPTOMS. NOTE SHOULD BE MADE THAT I WAS NOT NOTIFIED LAST NIGHT OF HER SYMPTOMS. Discharge Summary Discharge Physical Examination Allergies: Coded Allergies: penicillin G (Verified Allergy, Intermediate, 10/11/16) ITCHING AFTER RECEIVING PENICILLIN WHEN SHE WAS 30-35 YEARS OLD meperidine (Verified Allergy, Unknown, 03/06/07) quinine (Verified Allergy, Unknown, 09/05/06) levofloxacin (Verified Adverse Reaction, Intermediate, HIVES, 10/11/16) BURNING AND ITCHING Vitals & I&Os Vital Signs Date Time Temp Pulse Resp B/P (MAP) Pulse Ox O2 Delivery O2 Flow Rate FiO2 08/26/17 08:11 96 Nasal Cannula 2.00 08/26/17 08:00 96.4 93 16 161/101 Hospital Course Pending Labs Laboratory Tests 08/26/17 05:10: White Blood Count 17.2, Red Blood Count 3.32, Hemoglobin 10.7, Hematocrit 33, Mean Corpuscular Volume 98, Mean Corpuscular Hemoglobin 32, Mean Corpuscular Hemoglobin Concent 33, Red Cell Distribution Width 19.4, Platelet Count 165, Mean Platelet Volume 11.3, Neutrophils (%) (Auto) 88, Lymphocytes (%) (Auto) 4, Monocytes (%) (Auto) 8, Eosinophils (%) (Auto) 0, Basophils (%) (Auto) 0, Neutrophils # (Auto) 15.1, Lymphocytes # (Auto) 0.6, Monocytes # (Auto) 1.4, Eosinophils # (Auto) 0.0, Basophils # (Auto) 0.0, Sodium Level 138, Potassium Level 3.9, Chloride Level 106, Carbon Dioxide Level 24, Anion Gap 8, Blood Urea Nitrogen 32, Creatinine 0.77, Estimat Glomerular Filtration Rate > 60, BUN/ Creatinine Ratio 42, Glucose Level 108, Calcium Level 10.7, Total Bilirubin 0.3 , Aspartate Amino Transf (AST/SGOT) 16, Alanine Aminotransferase (ALT/SGPT) 8, Alkaline Phosphatase 83, Total Protein 4.4, Albumin 2.6 Discharge Instructions to patient/family Please see electronic discharge instructions given to patient. Discharge Medications Reviewed and agree with Discharge Medication list on patient's Discharge Instruction sheet Clinical Quality Measures DVT/VTE Risk/Contraindication: Risk Factor Score Per Nursin RFS Level Per Nursing on Admit: 4+=Very High SAM CINTRON MD Aug 26, 2017 08:53
[2017-08-26] MEDS ORDERED: ACID1TAB PO ×2 (08:58)
[2017-08-26] MEDS ORDERED: PRD20T PO ×2 (08:58)
[2017-08-26] MEDS ORDERED: CARVEDILOL 12.5 MG (COREG) TABLET PO SCH (09:00)
[2017-08-26] MEDS ORDERED: predniSONE 20 MG TAB PO NR (09:00)
--- NOTE | 2017-08-26 09:00 | Discharge Inst-Skilled Nursing ---
Discharge Inst-Skilled NF Patient Instructions Patient Problems: CONFUSION HX OF TICK BORNE ILLNESS POSSIBLE LYMPHOMA - CONCERN FOR LYMPHATIC SPREAD TO SPINAL CANAL HYPOTHYROID HX OF PULMONARY EMBOLISM CHRONIC ANTICOAGULATION HYPERCALCEMIA Goal: strengthening increased enough for patient to go to assisted living facility Consult/Follow Up/Orders Follow Up Appt.: 1 week with bryan arrieta Skilled NF Admit to: [facility] ([facility]) I certify that SNF services are required to be given on an inpatient basis because of the above named patient's need for long-term care on a continuing basis for the conditions(s) for which he/she was receiving inpatient hospital services prior to his/her transfer to the SNF. Long-Term Facility Order: Nursing Services, Eligibility Supervisor-Evaluate & Treat, Physical Therapy-Evaluate & Treat, Speech Language-Evaluate & Treat Discharge Diet: Regular Diet Daily Activity as Tolerated: Yes New & Resume Previous Orders Sam Goldberg Aug 26, 2017 08:58 Pneu Vac Indicated: Yes SAM GOLDBERG MD Aug 26, 2017 09:00
[2017-08-26 12:45] VITALS: BP 161/101
--- NOTE | 2017-08-27 13:11 | Physician Query Clarification ---
PQ-Uncertain Diagnosis Admission/Discharge Admission Date: Aug 22, 2017 at 11:00 Discharge Date: Aug 26, 2017 at 12:50 Question After studies, what was determined to be the cause of the patients confusion, hallucinations, delirium? Principal reason for admission? Please document a response below. PHYSICIAN RESPONSE Diagnosis clinically valid: Other, explanation/clinical finding Explanation of clincal finding HYPERCALCEMIA In responding to this query, please exercise your independent professional judgment. The purpose of this communication is to more accurately reflect the complexity of your patients condition. The fact that a question is asked does not imply that any particular answer is desired or expected. Thank you for your timely response to this clarification. Requestors name: [ ] Phone # [ ] THIS PHYSICIAN QUERY FORM IS A PERMANENT PART OF THE MEDICAL RECORD LOUISE ART Aug 27, 2017 13:11 SAM CINTRON MD Aug 29, 2017 11:38
== END 2017-08-26 12:50 | DRG 641 ==
LOC: EDUNIT# 08:50 → ER 08:51 → 4TH 11:00
PROVIDERS: ADMIT Family Medicine; ATTEND Family Medicine
PROC: 009U3ZX Drainage of Spinal Canal, Percutaneous Approach, Diagnostic (ICD-10-PCS; principal; 2017-08-22)
DX: E83.52 Hypercalcemia (principal); C85.90 Non-Hodgkin lymphoma, unspecified, unspecified site; R41.0 Disorientation, unspecified; E03.9 Hypothyroidism, unspecified; R64 Cachexia; R44.3 Hallucinations, unspecified; E11.9 Type 2 diabetes mellitus without complications; I25.10 Atherosclerotic heart disease of native coronary artery without angina pectoris; I10 Essential (primary) hypertension; J44.9 Chronic obstructive pulmonary disease, unspecified; G47.30 Sleep apnea, unspecified; F32.9 Major depressive disorder, single episode, unspecified; M19.91 Primary osteoarthritis, unspecified site; M54.9 Dorsalgia, unspecified; Z79.01 Long term (current) use of anticoagulants; Z86.711 Personal history of pulmonary embolism; Z86.718 Personal history of other venous thrombosis and embolism; Z86.19 Personal history of other infectious and parasitic diseases; Z95.5 Presence of coronary angioplasty implant and graft; Z95.1 Presence of aortocoronary bypass graft; Z79.84 Long term (current) use of oral hypoglycemic drugs; Z87.891 Personal history of nicotine dependence; Z87.11 Personal history of peptic ulcer disease; Z96.611 Presence of right artificial shoulder joint; Z96.612 Presence of left artificial shoulder joint
CPT/HCPCS: 36415; 51702; 70450; 70553; 71010; 80053; 81000; 82945; 83735; 84100; 84157; 84439; 84443; 85007; 85025; 85027; 86618; 86666; 86668; 86757; 87040; 87070; 87088; 87205; 88112; 89051; 93005; 94640; 94760; 96365; 96375

== ENCOUNTER 2017-08-29 05:14 | Inpatient (IN) | payer MEDICARE ==
[~2017-08-29] VITALS: Ht 157.5 cm; Wt 61.1 kg
[~2017-08-29 05:14] MED LIST changes: +ACID1TAB PO; +CALAZIME TOP; +FLUT1AER IH
[2017-08-29] MEDS ORDERED: NS IV 500 ML 500 ML IV ONE (05:34)
--- NOTE | 2017-08-29 05:41 | ED Neurological Problem ---
General Chief Complaint: Altered Mental Status Stated Complaint: AMS Nursing Triage Note: BROUGHT IN BY CUSTODIAL STAFF FOR INCREASED ALTERED MENTAL STATUS Nursing Sepsis Screen: No Definite Risk Source: patient, family Exam Limitations: clinical condition (JULIANN PICKETT MD) History of Present Illness Time seen by provider: 05:25 Initial Comments Here from the fdc with family who reports that the patient is confused tonight. Apparently she was doing okay last night but sometime overnight became quite confused and was twitching. Patient has new diagnosis of lymphoma to the chest and has recently been admitted for urinary tract infection and altered mental status with hypercalcemia. She is currently on a steroid taper. She had been doing better since the last hospitalization a week ago until early this morning. No reported fevers. Patient does answer a few questions and follows simple commands. Denies pain, vomiting or breathing problems. Timing/Duration: 4-6 hours Severity: moderate Associated Symptoms: confusion, No fever/chills, muscle spasms, No nausea/ vomiting, trouble walking, weakness (JULIANN PICKETT MD) Allergies and Home Medications Allergies Coded Allergies: penicillin G (Verified Allergy, Intermediate, 10/11/16) ITCHING AFTER RECEIVING PENICILLIN WHEN SHE WAS 30-35 YEARS OLD meperidine (Verified Allergy, Unknown, 03/06/07) quinine (Verified Allergy, Unknown, 09/05/06) levofloxacin (Verified Adverse Reaction, Intermediate, HIVES, 10/11/16) BURNING AND ITCHING Home Medications Albuterol Sulfate 2.5 Mg/3 Ml Vial.neb, 2.5 MG NEB Q4H PRN for COPD, (Reported) Alendronate Sodium 70 Mg Tablet, 70 MG PO Sa, (Reported) Amlodipine Besylate 2.5 Mg Tablet, 1.25 MG PO HS, (Reported) TAKES 1/2 (2.5MG) TABLET Aspirin 81 Mg Tablet.dr, 81 MG PO DAILY, (Reported) Carvedilol 25 Mg Tablet, 25 MG PO BID, (Reported) Cyanocobalamin (Vitamin B-12) 1,000 Mcg Tablet, 1,000 MCG PO DAILY, (Reported) Fluticasone/Vilanterol 1 Each Blst.w.dev, 1 PUFF IH DAILY, (Reported) Furosemide 20 Mg Tablet, 20 MG PO DAILY, (Reported) Ipratropium/Albuterol Sulfate 3 Ml Ampul.neb, 3 ML IH Q6H, (Reported) Isosorbide Mononitrate 30 Mg Tab.er.24h, 30 MG PO BID, (Reported) L. Acidophilus/Bulgaricus 1 Each Tablet, 1 TAB.CHEW PO DAILY for 30 Days, #30 Ref 6 Prescribed by: SAM GOLDBERG on 08/26/17 0858 Levothyroxine Sodium 100 Mcg Tablet, 100 MCG PO DAILY, (Reported) Multivit-Min/FA/Lycopene/Lut 1 Each Tablet, 1 TAB PO DAILY, (Reported) [place] 3 Polyunsat Fatty Acids 1,000 Mg Cap, 2,000 MG PO HS, (Reported) take 2 (1,000mg) tabs Pantoprazole Sodium 40 Mg Tablet.dr, 40 MG PO DAILY, (Reported) Potassium Chloride 20 Meq Tab.er.prt, 20 MEQ PO DAILY, (Reported) Prednisone 20 Mg Tab, 20 MG PO DAILY, #22 Take 3 tabs(60mg)daily,decrease by 1/2 tab(10mg)every other day. Prescribed by: SAM GOLDBERG on 08/26/1758 Rivaroxaban 20 Mg Tablet, 20 MG PO 1800, (Reported) Simvastatin 40 Mg Tablet, 40 MG PO HS, (Reported) Venlafaxine HCl 150 Mg Cap.er.24h, 150 MG PO BID, (Reported) [Calazime Oint] , TOP BID, (Reported) FOR OTHER SPECIFIED AFTER CARE Constitutional: see HPI, No chills, No fever Respiratory: no symptoms reported, No cough, No short of breath Cardiovascular: no symptoms reported, No chest pain Gastrointestinal: no symptoms reported, No diarrhea, No vomiting Other Unable to Complete review of systems due to altered mental status (JULIANN PICKETT MD) Past Aathlch-Smahko-Pjtogf Hx Patient Social History Alcohol Use: Denies Use Recreational Drug Use: No Smoking Status: Former Smoker Type Used: Cigarettes Former Smoker, Quit: Aug 01, 2017 2nd Hand Smoke Exposure: No Recent Foreign Travel: No Contact w/Someone Who Travel: No Recent Infectious Disease Expo: No Recent Hopitalizations: Yes (Aug) (JULIANN PICKETT MD) Immunizations Up To Date Tetanus Booster (TDap): Less than 5yrs Date of Pneumonia Vaccine: Aug 21, 2015 Date of Influenza Vaccine: Oct 20, 2016 (JULIANN PICKETT MD) Seasonal Allergies Seasonal Allergies: No (JULIANN PICKETT MD) Surgeries History of Surgeries: Yes (L AND R SHOULDER REPLACEMENTS, LEFT ULNAR TRANSPOSITION, BYPASS 2 VESSEL) Surgeries: Appendectomy, CABG, Gallbladder, Hysterectomy, Open Heart Surgery, Orthopedic (JULIANN PICKETT MD) Respiratory History of Respiratory Disorde: Yes Respiratory Disorders: Pulmonary Embolism, Sleep Apnea, COPD Currently Using CPAP: Yes Currently Using BIPAP: No (JULIANN PICKETT MD) Cardiovascular History of Cardiac Disorders: Yes (BY-PASS, STENTS) Cardiac Disorders: Coronary Artery Disease, Hypertension (JULIANN PICKETT MD) Neurological History of Neurological Disord: No (JULIANN PICKETT MD) Reproductive System Hx Reproductive Disorders: No Sexually Transmitted Disease: No HIV/AIDS: No Female Reproductive Disorders: Denies 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 (JULIANN PICKETT MD) Genitourinary History of Genitourinary Disor: No (JULIANN PICKETT MD) Gastrointestinal History of Gastrointestinal Di: Yes Gastrointestinal Disorders: Abdominal Hernia, Obstructive Bowel, Ulcer (JULIANN PICKETT MD) Musculoskeletal History of Musculoskeletal Dis: Yes (ARTHRITIS, ARTHROSCOPY OF KNEE) Musculoskeletal Disorders: Chronic Back Pain (JULIANN PICKETT MD) Endocrine History of Endocrine Disorders: Yes ( PRE- DIABETES diet controlled) Endocrine Disorders: Hypothyroidsim, Diabetes, Non-Insulin dep (JULIANN PICKETT MD) HEENT History of HEENT Disorders: No Loss of Vision: Denies (JULIANN PICKETT MD) Cancer History of Cancer: No (JULIANN PICKETT MD) Psychosocial History of Psychiatric Problem: Yes Behavioral Health Disorders: Depression (JULIANN PICKETT MD) Integumentary History of Skin or Integumenta: No (JULIANN PICKETT MD) Blood Transfusions History of Blood Disorders: Yes ( HX OF DVT WITH PE) (JULIANN PICKETT MD) Reviewed Nursing Assessment Reviewed/Agree w Nursing PMH: Yes (JULIANN PICKETT MD) Family Medical History Significant Family History: Heart Disease, Hypertension, Other Conditions/Hx Family Medial History: Blood clots G8 BROTHER Cardiovascular disease 19 FATHER Hypertension 19 FATHER 19 MOTHER G8 BROTHER Hypoglycemia 19 FATHER Myocardial infarction G8 BROTHER, Onset:35 (JULIANN PICKETT MD) Family Medial History: Blood clots G8 BROTHER Cardiovascular disease 19 FATHER Hypertension 19 FATHER 19 MOTHER G8 BROTHER Hypoglycemia 19 FATHER Myocardial infarction G8 BROTHER, Onset:35 (TAYLOR VALENCIA MD) Physical Exam Vital Signs Vital Sign - Last 12Hours 08/29/17 05:30 Temp 96.4 Pulse 74 Resp 18 B/P (MAP) 176/95 Pulse Ox 96 O2 Delivery Nasal Cannula O2 Flow Rate 3.00 (TAYLOR VALENCIA MD) Vital Signs Capillary Refill : Less Than 3 Seconds (JULIANN PICKETT MD) General Appearance: no apparent distress, other (ill appearing) HEENT: PERRL/EOMI, other (mucous membranes dry) Neck: full range of motion, supple Respiratory: lungs clear, normal breath sounds Cardiovascular: regular rate, rhythm, systolic murmur (holosystolic) Gastrointestinal: non tender, soft Back: normal inspection, no CVA tenderness, no vertebral tenderness Extremities: non-tender, no pedal edema, other (appears to have involuntary twitching muscle movements) Neurologic/Psychiatric: disoriented x 3, other (awake and follows simple commands and answers some simple questions but appears to be quite confused) Crainal Nerves: normal speech, PERRL Coordination/Gait: abnormal gait (requires full assistance to transfer from wheelchair to bed.) Motor/Sensory: weak motor strength RUE, weak motor strength LUE, weak motor strength RLE, weak motor strength LLE Skin: normal color, warm/dry (JULIANN PICKETT MD) Progress/Results/Core Measures Results/Orders Lab Results Laboratory Tests Test 08/29/17 05:37 08/29/17 05:40 Range/Units Urine Color YELLOW Urine Clarity CLEAR Urine pH 5 5-9 Urine Specific Dwarf 1.015 L 1.016-1.022 Urine Protein NEGATIVE NEGATIVE Urine Glucose (UA) NEGATIVE NEGATIVE Urine Ketones NEGATIVE NEGATIVE Urine Nitrite NEGATIVE NEGATIVE Urine Bilirubin NEGATIVE NEGATIVE Urine Urobilinogen NORMAL NORMAL MG/DL Urine Leukocyte Esterase NEGATIVE NEGATIVE Urine RBC (Auto) 1+ H NEGATIVE Urine RBC RARE /HPF Urine WBC RARE /HPF Urine Squamous Epithelial Cells NONE /HPF Urine Crystals NONE /LPF Urine Bacteria NEGATIVE /HPF Urine Casts PRESENT /LPF Urine Hyaline Casts RARE /LPF Urine Mucus NEGATIVE /LPF Urine Yeast FEW H /HPF Urine Culture Indicated NO White Blood Count 12.4 H 4.3-11.0 10^3/uL Red Blood Count 3.05 L 4.35-5.85 10^6/uL Hemoglobin 9.9 L 11.5-16.0 G/DL Hematocrit 31 L 35-52 % Mean Corpuscular Volume 102 H 80-99 FL Mean Corpuscular Hemoglobin 33 25-34 PG Mean Corpuscular Hemoglobin Concent 32 32-36 G/DL Red Cell Distribution Width 18.9 H 10.0-14.5 % Platelet Count 141 130-400 10^3/uL Mean Platelet Volume 10.4 7.4-10.4 FL Neutrophils (%) (Auto) 78 H 42-75 % Lymphocytes (%) (Auto) 10 L 12-44 % Monocytes (%) (Auto) 11 0-12 % Eosinophils (%) (Auto) 1 0-10 % Basophils (%) (Auto) 0 0-10 % Neutrophils # (Auto) 9.7 H 1.8-7.8 X 10^3 Lymphocytes # (Auto) 1.2 1.0-4.0 X 10^3 Monocytes # (Auto) 1.4 H 0.0-1.0 X 10^3 Eosinophils # (Auto) 0.2 0.0-0.3 10^3/uL Basophils # (Auto) 0.0 0.0-0.1 10^3/uL Sodium Level 142 135-145 MMOL/L Potassium Level 3.9 3.6-5.0 MMOL/L Chloride Level 107 98-107 MMOL/L Carbon Dioxide Level 29 21-32 MMOL/L Anion Gap 6 5-14 MMOL/L Blood Urea Nitrogen 31 H 7-18 MG/DL Creatinine 0.72 0.60-1.30 MG/DL Estimat Glomerular Filtration Rate > 60 BUN/Creatinine Ratio 43 Glucose Level 65 L 70-105 MG/DL Calcium Level 12.7 H 8.5-10.1 MG/DL Phosphorus Level 2.5 2.3-4.7 MG/DL Magnesium Level 1.6 L 1.8-2.4 MG/DL Total Bilirubin 0.6 0.1-1.0 MG/DL Aspartate Amino Transf (AST/SGOT) 20 5-34 U/L Alanine Aminotransferase (ALT/SGPT) < 6 0-55 U/L Alkaline Phosphatase 75 40-136 U/L Total Protein 4.5 L 6.4-8.2 GM/DL Albumin 2.6 L 3.2-4.5 GM/DL (TAYLOR VALENCIA MD) Medications Given in ED Current Medications Medications Dose Ordered Sig/Osmany Route Start Time Stop Time Status Last Admin Dose Admin Sodium Chloride 500 ml @ 0 mls/hr Q0M ONCE IV 08/29/17 05:34 08/29/17 05:36 DC 08/29/17 05:55 0 MLS/HR (TAYLOR VALENCIA MD) Vital Signs/I&O Vital Sign - Last 12Hours 08/29/17 08/29/17 05:30 06:43 Temp 96.4 Pulse 74 98 Resp 18 18 B/P (MAP) 176/95 176/60 Pulse Ox 96 91 O2 Delivery Nasal Cannula Nasal Cannula O2 Flow Rate 3.00 3.00 (TAYLOR VALENCIA MD) Blood Pressure Mean: 122 Progress Note : Progress Note Seen and evaluated. IV, labs and UA ordered. Records reviewed. Dr. Goldberg did call prior to patient's arrival. Patient has had recent CT and MRI of the brain. We will forego that at this point. Patient does have new diagnosis of lymphoma. History of previous event similar and noted to have urinary tract infection and hypercalcemia. We will evaluate for these. Normal saline 500 mL bolus. Monitor patient. (JULIANN PICKETT MD) Departure Communication (Admissions) Progress Notes [address] Goldberg (TAYLOR VALENCIA MD) Impression Impression: Primary Impression: ALTERERED MENTAL STATE Additional Impression: Hypercalcemia Disposition: ADMITTED INPATIENT Condition: Stable/Unchanged Admissions Decision to Admit Reason: Admit from ER (General) Decision to Admit/Date: Aug 29, 2017 Time/Decision to Admit Time: 07:04 (TAYLOR VALENCIA MD) Transfer Time Spoke to Accepting Phy: 07:04 (TAYLOR VALENCIA MD) Departure-Patient Inst. Referrals: SAM GOLDBERG MD (PCP/Family) Primary Care Physician JULIANN PICKETT MD Aug 29, 2017 05:41 TAYLOR VALENCIA MD Aug 29, 2017 07:04
[2017-08-29 05:49] LABS: BILIRUBIN,URINE NEGATIVE (NEGATIVE); KETONES,URINE NEGATIVE (NEGATIVE); LEUKOCYTE ESTERASE ,URINE NEGATIVE (NEGATIVE); NITRITE,URINE NEGATIVE (NEGATIVE); PH,URINE 5 (5-9); PROTEIN,URINE NEGATIVE (NEGATIVE); UROBILINOGEN,URINE NORMAL (NORMAL)
[2017-08-29 05:57] LABS: BASOPHILS % (AUTO) 0 % (0-10); EOSINOPHILS # (AUTO) 0.2 10^3/uL (0.0-0.3); EOSINOPHILS % (AUTO) 1 % (0-10); LYMPHOCYTES # (AUTO) 1.2 X 10^3 (1.0-4.0); LYMPHOCYTES % (AUTO) 10 % (12-44); MEAN CORPUSCULAR HEMOGLOBIN 33 PG (25-34); MEAN CORPUSCULAR HGB CONC 32 G/DL (32-36); MEAN CORPUSCULAR VOLUME 102 FL (80-99); MEAN PLATELET VOLUME 10.4 FL (7.4-10.4); MONOCYTES # (AUTO) 1.4 X 10^3 (0.0-1.0); MONOCYTES % (AUTO) 11 % (0-12); NEUTROPHILS # (AUTO) 9.7 X 10^3 (1.8-7.8); NEUTROPHILS % (AUTO) 78 % (42-75); PLATELET COUNT 141 10^3/uL (130-400); RED BLOOD COUNT 3.05 10^6/uL (4.35-5.85); RED CELL DISTRIBUTION WIDTH 18.9 % (10.0-14.5); WHITE BLOOD COUNT 12.4 10^3/uL (4.3-11.0)
[2017-08-29 05:58] LABS: HYALINE CASTS, URINE RARE /LPF; WBC,URINE RARE /HPF
[2017-08-29 05:59] LABS: YEAST,URINE FEW /HPF
[2017-08-29 06:16] LABS: ALANINE AMINOTRANSFERASE < 6 U/L (0-55); ALBUMIN 2.6 GM/DL (3.2-4.5); ANION GAP 6 MMOL/L (5-14); ASPARTATE AMINO TRANSFERASE 20 U/L (5-34); BILIRUBIN,TOTAL 0.6 MG/DL (0.1-1.0); BLOOD UREA NITROGEN 31 MG/DL (7-18); BUN/CREATININE RATIO 43; CALCIUM 12.7 MG/DL (8.5-10.1); CARBON DIOXIDE 29 MMOL/L (21-32); CHLORIDE 107 MMOL/L (98-107); CREATININE SERUM 0.72 MG/DL (0.60-1.30); GFR ESTIMATED > 60; GLUCOSE 65 MG/DL (70-105); MAGNESIUM 1.6 MG/DL (1.8-2.4); PHOSPHORUS 2.5 MG/DL (2.3-4.7); POTASSIUM 3.9 MMOL/L (3.6-5.0); SODIUM 142 MMOL/L (135-145); TOTAL PROTEIN 4.5 GM/DL (6.4-8.2)
[2017-08-29 06:43] VITALS: BP 176/60
[2017-08-29 07:50] VITALS: BP 173/85
[2017-08-29] MEDS ORDERED: NS IV NR ×2 (08:15)
[2017-08-29] MEDS ORDERED: PAMIDRONATE IV NR ×2 (08:15)
[2017-08-29] MEDS ORDERED: CATHETER FLUSH 10 ML SYR IV PRN (08:15)
[2017-08-29] MEDS: NS IV 1000 ML 1,000 ML IV SCH ×4 (08:32→20:42)
[2017-08-29] MEDS: predniSONE 20 MG TAB PO SCH (08:33)
--- NOTE | 2017-08-29 09:11 | History & Physicial ---
History of Present Illness History of Present Illness Reason for visit/HPI PT IS A 67 Y/O FEMALE WHO IS WELL KNOWN TO ME FROM CLINIC AND MULTIPLE RECENT HOSPITALIZATIONS. DANIELA HAS LYMPHOMA WITH ENLARGED NODES IN THE CHEST AND HAS HYPERCALCEMIA WELL A RECENT URINARY TRACT INFECTION. SHE WAS DOING WELL LAST WEEK, WAS DISCHARGED FROM THE HOSPITAL ON ORAL ANTIBIOTICS, HER CALCIUM LEVEL WAS NORMAL. SHE WAS SEEN BY DR. AVITIA YESTERDAY AND HAD BEEN GIVEN THE DIAGNOSIS OF LYMPHOMA. SHE WAS BEING WELL MAINTAINED ON HER BISPHOSPHONATE THERAPY WELL STEROID TAPER. APPARENTLY IN THE MIDDLE OF THE NIGHT LAST NIGHT, THE NURSES NOTED THAT THE PATIENT WAS HAVING STRANGE HEAD MOVEMENTS, JERKING MOVEMENTS AND WAS UNABLE TO BE AROUSED BACK TO HER NORMAL COGNITIVE. Date of Admission Aug 29, 2017 at 06:35 Date Seen by Provider: Aug 29, 2017 Time Seen by Provider: 08:40 Attending Physician Sam Goldberg MD Admitting Physician Sam Goldberg MD Consult DR. DIEHL Allergies and Home Medications Allergies Coded Allergies: penicillin G (Verified Allergy, Intermediate, 08/29/17) ITCHING AFTER RECEIVING PENICILLIN WHEN SHE WAS 30-35 YEARS OLD meperidine (Verified Allergy, Unknown, 08/29/17) quinine (Verified Allergy, Unknown, 08/29/17) levofloxacin (Verified Adverse Reaction, Intermediate, HIVES, 08/29/17) BURNING AND ITCHING Home Medications Albuterol Sulfate 2.5 Mg/3 Ml Vial.neb, 2.5 MG NEB Q4H PRN for COPD, (Reported) Alendronate Sodium 70 Mg Tablet, 70 MG PO Sa, (Reported) Amlodipine Besylate 2.5 Mg Tablet, 1.25 MG PO HS, (Reported) TAKES 1/2 (2.5MG) TABLET Aspirin 81 Mg Tablet.dr, 81 MG PO DAILY, (Reported) Carvedilol 25 Mg Tablet, 25 MG PO BID, (Reported) Cyanocobalamin (Vitamin B-12) 1,000 Mcg Tablet, 1,000 MCG PO DAILY, (Reported) Fluticasone/Vilanterol 1 Each Blst.w.dev, 1 PUFF IH DAILY, (Reported) Furosemide 20 Mg Tablet, 20 MG PO DAILY, (Reported) Ipratropium/Albuterol Sulfate 3 Ml Ampul.neb, 3 ML IH Q6H, (Reported) Isosorbide Mononitrate 30 Mg Tab.er.24h, 30 MG PO BID, (Reported) L. Acidophilus/Bulgaricus 1 Each Tablet, 1 TAB.CHEW PO DAILY for 30 Days, #30 Ref 6 Prescribed by: SAM GOLDBERG on 08/26/17857 Levothyroxine Sodium 100 Mcg Tablet, 100 MCG PO DAILY, (Reported) Multivit-Min/FA/Lycopene/Lut 1 Each Tablet, 1 TAB PO DAILY, (Reported) [place] 3 Polyunsat Fatty Acids 1,000 Mg Cap, 2,000 MG PO HS, (Reported) take 2 (1,000mg) tabs Pantoprazole Sodium 40 Mg Tablet.dr, 40 MG PO DAILY, (Reported) Potassium Chloride 20 Meq Tab.er.prt, 20 MEQ PO DAILY, (Reported) Prednisone 20 Mg Tab, 20 MG PO DAILY, #22 Take 3 tabs(60mg)daily,decrease by 1/2 tab(10mg)every other day. Prescribed by: SAM GOLDBERG on 08/26/17857 Rivaroxaban 20 Mg Tablet, 20 MG PO 1800, (Reported) Simvastatin 40 Mg Tablet, 40 MG PO HS, (Reported) Venlafaxine HCl 150 Mg Cap.er.24h, 150 MG PO BID, (Reported) [Calazime Oint] , TOP BID, (Reported) FOR OTHER SPECIFIED AFTER CARE Past Zamouxa-Wnewdk-Cgylee Hx Patient Social History Marrital Status: single Living Status: PREVIOUSLY LIVED AT HOME ALONE Alcohol Use: Denies Use Recreational Drug Use: No Smoking Status: Former Smoker Former Smoker, Quit: Aug 01, 2017 Type Used: Cigarettes 2nd Hand Smoke Exposure: No Recent Foreign Travel: No Contact w/other who traveled: No Recent Hopitalizations: Yes (Aug) Recent Infectious Disease Expo: No Immunizations Up To Date Tetanus Booster (TDap): Less than 5yrs Date of Pneumonia Vaccine: Aug 21, 2015 Date of Influenza Vaccine: Oct 20, 2016 Seasonal Allergies Seasonal Allergies: No Surgeries Yes (L AND R SHOULDER REPLACEMENTS, LEFT ULNAR TRANSPOSITION, BYPASS 2 VESSEL) Appendectomy, CABG, Gallbladder, Hysterectomy, Open Heart Surgery, Orthopedic Respiratory Yes COPD, Pulmonary Embolism Currently Using CPAP: Yes Currently Using BIPAP: No Cardiovascular Yes (BY-PASS, STENTS) Coronary Artery Disease, Hypertension Neurological No Reproductive System Hx Reproductive Disorders: No Sexually Transmitted Disease: No HIV/AIDS: No Female Reproductive Disorders: Denies 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 Genitourinary No Gastrointestinal Yes Abdominal Hernia, Obstructive Bowel, Ulcer Musculoskeletal Yes (ARTHRITIS, ARTHROSCOPY OF KNEE) Chronic Back Pain Endocrine History of Endocrine Disorders: Yes ( PRE- DIABETES diet controlled) Endocrine Disorders: Hypothyroidsim, Diabetes, Non-Insulin dep HEENT History of HEENT Disorders: No Loss of Vision: Denies Cancer No Psychosocial History of Psychiatric Problem: Yes Behavioral Health Disorders: Depression Integumentary History of Skin or Integumenta: No Blood Transfusions History of Blood Disorders: Yes ( HX OF DVT WITH PE) Reviewed Nursing Assessment Reviewed/Agree w Nursing PMH: Yes Family Medical History Significant Family History: Heart Disease, Hypertension, Other Conditions/Hx Family Hx: Blood clots G8 BROTHER Cardiovascular disease 19 FATHER Hypertension 19 FATHER 19 MOTHER G8 BROTHER Hypoglycemia 19 FATHER Myocardial infarction G8 BROTHER, Onset:35 Constitutional: No chills, No fever, malaise, weakness EENTM: No hoarseness, No mouth pain, No throat pain, No throat swelling Respiratory: No cough, No dyspnea on exertion Cardiovascular: No chest pain Gastrointestinal: No abdominal pain, No constipation, No diarrhea Genitourinary: no symptoms reported : No Musculoskeletal: No back pain Skin: no symptoms reported Psychiatric/Neurological: Weakness All Other Systems Reviewed Negative Unless Noted: Yes Physical Exam Vital Signs Vital Sign - Last 12Hours 08/29/17 05:30 Temp 96.4 Pulse 74 Resp 18 B/P (MAP) 176/95 Pulse Ox 96 O2 Delivery Nasal Cannula O2 Flow Rate 3.00 Capillary Refill : Less Than 3 Seconds General Appearance: WD/WN, Other (ABNORMAL MOVEMENTS, APPEARS CONFUSED) Eyes: Bilateral Eye Normal Inspection HEENT: PERRL/EOMI, Pharynx Normal Neck: Full Range of Motion, Supple Respiratory: Chest Non Tender, Lungs Clear, Normal Breath Sounds, No Accessory Muscle Use Cardiovascular: Regular Rate, Rhythm, Systolic Murmur Gastrointestinal: Normal Bowel Sounds, No Organomegaly, No Pulsatile Mass, Non Tender, Soft Rectal: Deferred Back: Normal Inspection Extremity: Normal Capillary Refill, Non Tender, No Calf Tenderness, No Pedal Edema Neurologic/Psychiatric: Alert, Disoriented x3 Skin: Warm/Dry Lymphatic: No Adenopathy Assessment/Plan Assessment and Plan HYPERCALCEMIA CONFUSION LYMPHOMA HYPOTHYROID HX OF PULMONARY EMBOLISM CHRONIC ANTICOAGULATION HYPERCALCEMIA - IV PAMIDRONATE, HIGH RATE IV FLUIDS, IV LASIX. CONFUSION - SUPPORTIVE CARE LYMPHOMA - MONITOR SYMPTOMS - CONSULT TO DR. DIEHL. SHE HAS INDICATED THAT DR. CRAWFORD DOES NOT WANT THE PATIENT STARTED ON CHEMOTHERAPY OF YET. HE WANTS TO HAVE A PORT PLACED AND POSSIBLY GET MORE TISSUE. HYPOTHYROID - RESUME HOME MEDICATION HX OF PULMONARY EMBOLISM WITH CHRONIC ANTICOAGULATION - RESUMED XARELTO DVT PROPHYLAXIS WITH XARELTO AND SCD'S GI PROPHYLAXIS WILL BE WITH PROTONIX. Problems: Admission Diagnosis HYPERCALCEMIA CONFUSION LYMPHOMA HYPOTHYROID HX OF PULMONARY EMBOLISM CHRONIC ANTICOAGULATION SAM GOLDBERG MD Aug 29, 2017 09:11
[2017-08-29] MEDS ORDERED: FUROSEMIDE 40 MG/4 ML INJ (LASIX) IVP NR (09:15)
[2017-08-29 12:00] VITALS: BP 134/81
[2017-08-29 12:36] LABS: ANION GAP 6 MMOL/L (5-14); BLOOD UREA NITROGEN 29 MG/DL (7-18); BUN/CREATININE RATIO 40; CARBON DIOXIDE 32 MMOL/L (21-32); CHLORIDE 105 MMOL/L (98-107); CREATININE SERUM 0.73 MG/DL (0.60-1.30); GFR ESTIMATED > 60; GLUCOSE 85 MG/DL (70-105); POTASSIUM 3.6 MMOL/L (3.6-5.0); SODIUM 143 MMOL/L (135-145)
[2017-08-29] MEDS: MENTHOL/ZINC OXIDE (CALMOSEPTINE) 113 GM TUBE TOP SCH ×2 (12:56→20:42)
--- NOTE | 2017-08-29 15:15 | Oncology Consultation ---
Visit Information Visit Information Date of Admission Aug 29, 2017 at 06:35 Attending Physician Sam Goldberg MD Admitting Physician Sam Goldberg MD Chief Complaint Called to see patient for hypercalcemia and mental status changes and newly diagnosed lymphoma Interval History Ms. Del Castillo is a 67 year old white female readmitted to hospital for confusion and hypercalcemia. She had the similar episodes 2 weeks and had extensive work including MRI of head, lumbar puncture for CSF where negative for infarction and tumor lesion and infection. Her CT scan showed mediastinal and hilar lymphadenopathy concerning for neoplasm such as lymphoma. However the lesion was too difficulty for CT guided biopsy. Dr Pineda did a transbronchial biopsy early this week and preliminary pathology report showed B cell lymphoma as of yesterday. Pt had clear mental status and cognitive condition and normal serum calcium level at last discharge to alf. She had acute onset confusion again last night and was found to have hypercalcemia again. Her last Pamidronate treatment was about [address] Jordan saw patient last week before his vacation and is aware of what is going on the patient. I consulted the patient on: 08/29/17 15:15 Time Seen by Provider: 11:00 Constitutional: see HPI Respiratory: no symptoms reported Cardiovascular: no symptoms reported Gastrointestinal: no symptoms reported Genitourinary: frequency Musculoskeletal: other (arms jerk) Psychiatric/Neurological: Other (seeing birds in the room and seeing her parent parents in her room) Health Status Allergies Coded Allergies: penicillin G (Verified Allergy, Intermediate, 08/29/17) ITCHING AFTER RECEIVING PENICILLIN WHEN SHE WAS 30-35 YEARS OLD meperidine (Verified Allergy, Unknown, 08/29/17) quinine (Verified Allergy, Unknown, 08/29/17) levofloxacin (Verified Adverse Reaction, Intermediate, HIVES, 08/29/17) BURNING AND ITCHING Home Medications Albuterol Sulfate (Albuterol Sulfate) 2.5 Mg/3 Ml Vial.neb, 2.5 MG NEB Q4H PRN for COPD, (Reported) Alendronate Sodium (Fosamax) 70 Mg Tablet, 70 MG PO Sa, (Reported) Amlodipine Besylate (Amlodipine Besylate) 2.5 Mg Tablet, 1.25 MG PO HS, ( Reported) TAKES 1/2 (2.5MG) TABLET Aspirin (Aspirin EC) 81 Mg Tablet.dr, 81 MG PO DAILY, (Reported) Carvedilol (Carvedilol) 25 Mg Tablet, 25 MG PO BID, (Reported) Cyanocobalamin (Vitamin B-12) (Vitamin B-12) 1,000 Mcg Tablet, 1,000 MCG PO DAILY, (Reported) Fluticasone/Vilanterol (Breo Ellipta 100-25 Mcg INH) 1 Each Blst.w.dev, 1 PUFF IH DAILY, (Reported) Furosemide (Furosemide) 20 Mg Tablet, 20 MG PO DAILY, (Reported) Ipratropium/Albuterol Sulfate (Iprat-Albut 0.5-3(2.5) mg/3 ml) 3 Ml Ampul.neb, 3 ML IH Q6H, (Reported) Isosorbide Mononitrate (Isosorbide Mononitrate ER) 30 Mg Tab.er.24h, 30 MG PO BID, (Reported) L. Acidophilus/Bulgaricus (Floranex Tablet) 1 Each Tablet, 1 TAB.CHEW PO DAILY for 30 Days, #30 Ref 6 Prescribed by: SAM GOLDBERG on 08/26/1758 Levothyroxine Sodium (Levothyroxine Sodium) 100 Mcg Tablet, 100 MCG PO DAILY, ( Reported) Multivit-Min/FA/Lycopene/Lut (Complete Multi 50+ Tablet) 1 Each Tablet, 1 TAB PO DAILY, (Reported) [place] 3 Polyunsat Fatty Acids (Fish Oil 1,000 mg Capsule) 1,000 Mg Cap, 2,000 MG PO HS, (Reported) take 2 (1,000mg) tabs Pantoprazole Sodium (Pantoprazole Sodium) 40 Mg Tablet.dr, 40 MG PO DAILY, ( Reported) Potassium Chloride (Potassium Chloride) 20 Meq Tab.er.prt, 20 MEQ PO DAILY, ( Reported) Prednisone (Prednisone) 20 Mg Tab, 20 MG PO DAILY, #22 Take 3 tabs(60mg)daily,decrease by 1/2 tab(10mg)every other day. Prescribed by: SAM GOLDBERG on 08/26/17857 Rivaroxaban (Xarelto) 20 Mg Tablet, 20 MG PO 1800, (Reported) Simvastatin (Simvastatin) 40 Mg Tablet, 40 MG PO HS, (Reported) Venlafaxine HCl (Venlafaxine HCl ER) 150 Mg Cap.er.24h, 150 MG PO BID, (Reported ) [Calazime Oint] , TOP BID, (Reported) FOR OTHER SPECIFIED AFTER CARE ORU-Vnmfrv-Vretph Hx Patient Social History Marrital Status: single Living Status: PREVIOUSLY LIVED AT HOME ALONE Alcohol Use: Denies Use Recreational Drug Use: No Smoking Status: Former Smoker Type Used: Cigarettes 2nd Hand Smoke Exposure: No Recent Foreign Travel: No Contact w/other who traveled: No Recent Infectious Disease Expo: No Recent Hopitalizations: Yes (Aug) Physical Abuse Screen: No Sexual Abuse: No Immunizations Up To Date Tetanus Booster (TDap): Less than 5yrs Date of Pneumonia Vaccine: Aug 21, 2015 Date of Influenza Vaccine: Oct 20, 2016 Family Medical History Significant Family History: Heart Disease, Hypertension, Other Conditions/Hx Family History: Blood clots G8 BROTHER Cardiovascular disease 19 FATHER Hypertension 19 FATHER 19 MOTHER G8 BROTHER Hypoglycemia 19 FATHER Myocardial infarction G8 BROTHER, Onset:35 Physical Exam Vital Signs Vital Sign - Last 12Hours 08/29/17 05:30 Temp 96.4 Pulse 74 Resp 18 B/P (MAP) 176/95 Pulse Ox 96 O2 Delivery Nasal Cannula O2 Flow Rate 3.00 Capillary Refill : Less Than 3 Seconds General Appearance: No Apparent Distress HEENT: PERRL/EOMI, Other (poor dental condition) Neck: Non Tender, Supple Respiratory: Chest Non Tender, Lungs Clear, No Accessory Muscle Use, No Respiratory Distress Cardiovascular: Regular Rate, Rhythm, No Edema, No Gallop Gastrointestinal: Non Tender, Soft Neurologic/Psychiatric: Other (Pt knows her name but do not the place and date. She is seeing the birds in her room and actively chasing the birds with her arms and legs moving around) Data Review Labs Laboratory Tests 08/29/17 12:15 08/30/17 05:13 Laboratory Tests 08/29/17 05:37: Urine Specific [place] 1.015L, Urine RBC (Auto) 1+H, Urine Yeast FEWH 08/29/17 05:40: White Blood Count 12.4H, Red Blood Count 3.05L, Hemoglobin 9.9L, Hematocrit 31L , Mean Corpuscular Volume 102H, Red Cell Distribution Width 18.9H, Neutrophils ( %) (Auto) 78H, Lymphocytes (%) (Auto) 10L, Neutrophils # (Auto) 9.7H, Monocytes # (Auto) 1.4H, Blood Urea Nitrogen 31H, Glucose Level 65L, Calcium Level 12.7H, Magnesium Level 1.6L, Total Protein 4.5L, Albumin 2.6L 08/29/17 12:15: Blood Urea Nitrogen 29H, Calcium Level 13.0*H 08/30/17 05:13: Red Blood Count 2.65L, Hemoglobin 8.6L, Hematocrit 27L, Mean Corpuscular Volume 102H, Red Cell Distribution Width 19.0H, Monocytes # (Auto) 1.1H, Blood Urea Nitrogen 26H, Glucose Level 63L, Calcium Level 11.9H, Total Protein 3.9L, Albumin 2.4L, Mean Platelet Volume 10.5H, Sodium Level 146H, Potassium Level 3.2L, Chloride Level 110H Laboratory Tests 08/29/17 12:15 08/30/17 05:13 Impression & Plan Impression & Plan IMP: 1. Acute metal status change with confusion and hallucination. 2. Hypercalcemia. 3. [place] lymphadenopathy with preliminary report B cell lymphoma. 4. Anemia, slightly macrocytic. Plan: 1. IVF and Lasix 2. IV Pamidronate 3. [place] to monitor accurate I/O 4. Once patient is clear from her confusion/hallucination, we can arrange port placement and prepare for chemotherapy. 5. Dr Jordan will be back next Friday to decide the chemo regiment. 6. I have discussed above plans with her POA and she agreed with them. 7. Daily lab RAQUEL DIEHL MD Aug 29, 2017 15:15
[2017-08-29 16:00] VITALS: BP 159/79
[2017-08-29] MEDS ORDERED: RIVAROXABAN 20 MG TABLET (XARELTO) PO SCH (17:00)
[2017-08-29 19:19] VITALS: BP 154/85
[2017-08-30] VITALS: BP 163/85
[2017-08-30] MEDS: NS IV 1000 ML 1,000 ML IV SCH ×2 (02:12→06:59)
[2017-08-30 04:00] VITALS: BP 158/86
[2017-08-30] MEDS: predniSONE 20 MG TAB PO SCH (06:02)
[2017-08-30 06:07] LABS: BASOPHILS % (AUTO) 0 % (0-10); EOSINOPHILS # (AUTO) 0.2 10^3/uL (0.0-0.3); EOSINOPHILS % (AUTO) 2 % (0-10); LYMPHOCYTES # (AUTO) 1.3 X 10^3 (1.0-4.0); LYMPHOCYTES % (AUTO) 14 % (12-44); MEAN CORPUSCULAR HEMOGLOBIN 33 PG (25-34); MEAN CORPUSCULAR HGB CONC 32 G/DL (32-36); MEAN CORPUSCULAR VOLUME 102 FL (80-99); MEAN PLATELET VOLUME 10.5 FL (7.4-10.4); MONOCYTES # (AUTO) 1.1 X 10^3 (0.0-1.0); MONOCYTES % (AUTO) 12 % (0-12); NEUTROPHILS # (AUTO) 6.4 X 10^3 (1.8-7.8); NEUTROPHILS % (AUTO) 71 % (42-75); PLATELET COUNT 147 10^3/uL (130-400); RED BLOOD COUNT 2.65 10^6/uL (4.35-5.85)
[2017-08-30 06:35] LABS: ALANINE AMINOTRANSFERASE 6 U/L (0-55); ALBUMIN 2.4 GM/DL (3.2-4.5); ANION GAP 7 MMOL/L (5-14); ASPARTATE AMINO TRANSFERASE 21 U/L (5-34); BILIRUBIN,TOTAL 0.5 MG/DL (0.1-1.0); BLOOD UREA NITROGEN 26 MG/DL (7-18); BUN/CREATININE RATIO 35; CALCIUM 11.9 MG/DL (8.5-10.1); CARBON DIOXIDE 29 MMOL/L (21-32); CHLORIDE 110 MMOL/L (98-107); CREATININE SERUM 0.74 MG/DL (0.60-1.30); GFR ESTIMATED > 60; GLUCOSE 63 MG/DL (70-105); POTASSIUM 3.2 MMOL/L (3.6-5.0); SODIUM 146 MMOL/L (135-145); TOTAL PROTEIN 3.9 GM/DL (6.4-8.2)
[2017-08-30 08:00] VITALS: BP 170/80
[2017-08-30] MEDS: MENTHOL/ZINC OXIDE (CALMOSEPTINE) 113 GM TUBE TOP SCH ×2 (08:42→22:13)
[2017-08-30] MEDS ORDERED: FUROSEMIDE 40 MG/4 ML INJ (LASIX) IVP ONE (11:30)
[2017-08-30 12:00] VITALS: BP 167/81
[2017-08-30] MEDS: D5 1/2 NS W/KCL 40 MEQ/L 1,000 ML IV SCH ×3 (12:08→22:13)
[2017-08-30] MEDS: POTASSIUM CL 10MEQ/50ML IVPB 50 ML IV SCH ×4 (12:09→15:56)
--- NOTE | 2017-08-30 12:22 | Oncology Progress Note ---
Subjective Time Seen by Provider: 11:30 Subjective/Events-last exam Pt is more alert today compare to yesterday. She says "I am doing fine". However, she is still moving up her arms "I am painting the ceiling". Data Review Labs Laboratory Tests 08/30/17 05:13 Laboratory Tests 08/29/17 05:37: Urine Specific [place] 1.015L, Urine RBC (Auto) 1+H, Urine Yeast FEWH 08/29/17 05:40: White Blood Count 12.4H, Red Blood Count 3.05L, Hemoglobin 9.9L, Hematocrit 31L , Mean Corpuscular Volume 102H, Red Cell Distribution Width 18.9H, Neutrophils ( %) (Auto) 78H, Lymphocytes (%) (Auto) 10L, Neutrophils # (Auto) 9.7H, Monocytes # (Auto) 1.4H, Blood Urea Nitrogen 31H, Glucose Level 65L, Calcium Level 12.7H, Magnesium Level 1.6L, Total Protein 4.5L, Albumin 2.6L 08/29/17 12:15: Blood Urea Nitrogen 29H, Calcium Level 13.0*H 08/30/17 05:13: Red Blood Count 2.65L, Hemoglobin 8.6L, Hematocrit 27L, Mean Corpuscular Volume 102H, Red Cell Distribution Width 19.0H, Monocytes # (Auto) 1.1H, Blood Urea Nitrogen 26H, Glucose Level 63L, Calcium Level 11.9H, Total Protein 3.9L, Albumin 2.4L, Mean Platelet Volume 10.5H, Sodium Level 146H, Potassium Level 3.2L, Chloride Level 110H Physical Exam Vital Signs Vital Sign - Last 12Hours 08/29/17 05:30 Temp 96.4 Pulse 74 Resp 18 B/P (MAP) 176/95 Pulse Ox 96 O2 Delivery Nasal Cannula O2 Flow Rate 3.00 Capillary Refill : Less Than 3 Seconds General Appearance: No Apparent Distress HEENT: PERRL/EOMI Respiratory: Chest Non Tender, Lungs Clear, No Accessory Muscle Use, No Respiratory Distress Cardiovascular: No Edema, No JVD Gastrointestinal: Non Tender, Soft Neurologic/Psychiatric: Alert, Other (still hallucination) Impression & Plan Impression & Plan IMP: 1. Acute metal status change with confusion and hallucination. 2. Hypercalcemia. 3. [place] lymphadenopathy with preliminary report B cell lymphoma. 4. Anemia, slightly macrocytic. 5. Hypokalemia 6. Elevated Na due to NS infusion. Plan: 1. Change normal saline to D5 1/2 NS with 40 meq KCL at 200ml/hr. 2. IV Lasix 40mg today. 3. [place] to monitor accurate I/O 4. Once patient is clear from her confusion/hallucination, we can arrange port placement and prepare for chemotherapy. 5. Dr Jordan will be back next Friday to decide the chemo regiment. 6. Replace 40meq K+ today 7. Daily lab. Clinical Quality Measures DVT/VTE Risk/Contraindication: Risk Factor Score Per Nursin RFS Level Per Nursing on Admit: 4+=Very High RAQUEL DIEHL MD Aug 30, 2017 12:22
--- NOTE | 2017-08-30 12:43 | Progress Note-Hospitalist ---
Progress Note Progress Notes/Assess & Plan Date Seen 08/30/17 Time Seen by Provider: 11:15 Diagonsis/Assessment & Plan Chart Review: No fever Vitals stable WBC normal at 9.0 Hgb 8.6 CMP reveled Na+ 146, K+ 3.2, Ca++ 11.9 down from 13 Patient Interview: Pt states she has not yet had anything to eat or drink, but she is doing okay but she is actively hallucinating by grabbing things in the air and likely her answers are not reliable Pt confirms she is seeing things and states that the paint is changing colors. Pt asked why this was happening and Ca++ level was discussed. Physical exam stable Pt confirms coughing up mucus that is clear? AFVSS, Pleasant, confused, grabbing out into the air, lying supine in bed RRR, CTAB no rales noted Noted 1+ edema Laboratory Tests 08/30/17 05:13 Assessment: Hypercalcemia decreased from 13 to 11.9 after Pamidronate Hallucinations due to hypercalcemia Lymphoma new dx no chemotherapy plans for right now per Oncology Recent UTI Hypokalemia receiving supplement IV Hypernatremia mild 146 Plan: Will check labs today and tomorrow Encourage eating and drinking Potassium supplement O2 prn Monitor sodium and potassium Scribed by Daria Benavidez under the direct supervision of Dr. Hussein. Diagnosis/Problems Diagnosis/Problems (1) Hypercalcemia Status: Acute Assessment & Plan: Due to Lymphoma, continue IVF and s/p Pamidronate (2) Dehydration Status: Acute Assessment & Plan: Due to hypercalcemia maintained on aggressive IVF (3) Hallucinations Status: Acute Assessment & Plan: Due to hypercalcemia, no anti-psychotics required at this time (4) Lymphoma Status: Acute Assessment & Plan: Oncology consulted and appreciated Qualifiers: Qualified Codes: C85.10 - Unspecified B-cell lymphoma, unspecified site (5) Hypokalemia Status: Acute Assessment & Plan: Replacing IVF 40meq (6) Hypernatremia Status: Acute Assessment & Plan: IVF D51/2NS KINDRA HUSSEIN DO Aug 30, 2017 12:43
[2017-08-30] MEDS ORDERED: RT-ALBUTEROL SULF 2.5 MG/3 ML PRE-MIX VIAL IH PRN (14:15)
[2017-08-30] MEDS ORDERED: NON-FORMULARY MEDICATION 1 EA EA (Alendronate Sodium (Fosamax) 70 MG) PO SCH (14:15)
[2017-08-30] MEDS: RT-ALBUTEROL/IPRATROPIUM 3 ML (DUONEB) VIAL IH SCH ×2 (14:56→20:42)
[2017-08-30 15:37] VITALS: BP 167/80
[2017-08-30] MEDS: RIVAROXABAN 20 MG TABLET (XARELTO) PO SCH (17:00)
[2017-08-30 19:35] VITALS: BP 175/86
[2017-08-30] MEDS: RT-ADVAIR HFA 115/21 MCG PER PUFF IH SCH (20:42)
[2017-08-30] MEDS: VENlafaxine XR 75 MG (EFFEXOR XR) CAP PO SCH (22:13)
[2017-08-30] MEDS: OMEGA 3 (FISH OIL) 1000 MG CAP PO SCH (22:14)
[2017-08-30] MEDS: CARVEDILOL 12.5 MG (COREG) TABLET PO SCH (22:14)
[2017-08-30] MEDS: ISOSORBIDE MONONITRATE 30 MG (IMDUR) TAB PO SCH (22:15)
[2017-08-30] MEDS: amLODIPine 2.5MG (NORVASC) TAB PO SCH (22:15)
[2017-08-30] MEDS: SIMvastatin 40 MG (ZOCOR) TAB PO SCH (22:15)
[2017-08-31] VITALS (7 sets, daily range): BP systolic 95–171; BP diastolic 55–82
[2017-08-31] MEDS: D5 1/2 NS W/KCL 40 MEQ/L 1,000 ML IV SCH ×3 (03:16→12:06)
[2017-08-31] MEDS: RT-ALBUTEROL/IPRATROPIUM 3 ML (DUONEB) VIAL IH SCH ×4 (04:33→21:30)
[2017-08-31] MEDS: LEVOTHYROXINE 100 MCG (LEVOTHROID) TAB PO SCH (06:34)
[2017-08-31] MEDS: predniSONE 20 MG TAB PO SCH (06:34)
[2017-08-31 07:29] LABS: MEAN PLATELET VOLUME 10.5 FL (7.4-10.4); RED BLOOD COUNT 2.85 10^6/uL (4.35-5.85); RED CELL DISTRIBUTION WIDTH 19.4 % (10.0-14.5); WHITE BLOOD COUNT 9.5 10^3/uL (4.3-11.0)
[2017-08-31 07:55] LABS: ALANINE AMINOTRANSFERASE 6 U/L (0-55); ALBUMIN 2.3 GM/DL (3.2-4.5); ANION GAP 3 MMOL/L (5-14); ASPARTATE AMINO TRANSFERASE 19 U/L (5-34); BILIRUBIN,TOTAL 0.4 MG/DL (0.1-1.0); BLOOD UREA NITROGEN 22 MG/DL (7-18); BUN/CREATININE RATIO 31; CALCIUM 11.5 MG/DL (8.5-10.1); CARBON DIOXIDE 29 MMOL/L (21-32); CHLORIDE 109 MMOL/L (98-107); CREATININE SERUM 0.72 MG/DL (0.60-1.30); GFR ESTIMATED > 60; GLUCOSE 113 MG/DL (70-105); MAGNESIUM 1.3 MG/DL (1.8-2.4); POTASSIUM 4.7 MMOL/L (3.6-5.0); SODIUM 141 MMOL/L (135-145); TOTAL PROTEIN 3.8 GM/DL (6.4-8.2)
[2017-08-31] MEDS: ISOSORBIDE MONONITRATE 30 MG (IMDUR) TAB PO SCH ×2 (08:14→21:24)
[2017-08-31] MEDS: KCL 20 MEQ TAB (K-DUR) PO SCH (08:14)
[2017-08-31] MEDS: VENlafaxine XR 75 MG (EFFEXOR XR) CAP PO SCH ×2 (08:14→21:24)
[2017-08-31] MEDS: CARVEDILOL 12.5 MG (COREG) TABLET PO SCH ×2 (08:14→21:24)
[2017-08-31] MEDS: LACTOBACILLUS Acidoph/Bulgar (LACTINEX/FLORANEX) TAB PO SCH (08:14)
[2017-08-31] MEDS: PANTOPRAZOLE 40 MG (PROTONIX) TAB PO SCH (08:14)
[2017-08-31] MEDS: MULTIVIT W/MINERALS TAB (THERAGRAN M) PO SCH (08:15)
[2017-08-31] MEDS: ASPIRIN E.C. 81 MG (ECOTRIN) TAB PO SCH (08:15)
[2017-08-31] MEDS: CYANOCOBALAMIN 500 MCG TAB (VITAMIN B-12) PO SCH (08:15)
[2017-08-31] MEDS: FUROSEMIDE 20 MG (LASIX) TAB PO SCH (08:15)
[2017-08-31] MEDS: MENTHOL/ZINC OXIDE (CALMOSEPTINE) 113 GM TUBE TOP SCH ×2 (08:15→21:25)
[2017-08-31] MEDS: RT-ADVAIR HFA 115/21 MCG PER PUFF IH SCH ×2 (08:55→21:29)
[2017-08-31] MEDS ORDERED: predniSONE 20 MG TAB PO SCH (09:00)
[2017-08-31] MEDS ORDERED: INFLUENZA TRIvalent 2017-2018 0.5 ML/45 MCG SYR IM ONE (09:00)
[2017-08-31] MEDS ORDERED: amLODIPine 5 MG (NORVASC) TAB PO ONE (11:45)
--- NOTE | 2017-08-31 12:23 | Progress Note-Hospitalist ---
Progress Note Progress Notes/Assess & Plan Date Seen 08/31/17 Time Seen by Provider: 11:00 Diagonsis/Assessment & Plan Chart Review: WBC 9.5 Hgb 9.2 Restarted home meds yesterday due to elevated BP Ca++ down from 11.9 to 11.5 Albumin 2.3 K+ 4.7 No fever Vitals stable except elevated BP Will give Norvasc 5 since 1.25 dose given at night Patient Interview: Pt states she feels up to eating and had breakfast ready on the bedside-table. Pt states she would like to sit up to eat though and I informed her that I will have her RN come help her sit up. Pt confirms experiencing pain in her knees. Pt confirms having pain meds administered Physical exam stable. Lungs sound perfect AFVSS, Pleasant, less confused, lying supine in bed RRR, CTAB no rales noted Noted 1+ edema Laboratory Tests 08/31/17 06:33 Assessment: Hypercalcemia decreased from 13 to 11.5 after Pamidronate and aggressive IVF with Lasix so will initiate another one time dose of Lasix IV 20mg today Hallucinations due to hypercalcemia appear to be improved today Lymphoma new dx no chemotherapy plans for right now per Oncology Recent UTI Hypokalemia receiving supplement IV no Hypernatremia mild now resolved at 141 Chronic anemia of cancer and chronic disease Plan: Will check labs tomorrow Encourage eating and drinking O2 prn Monitor sodium and potassium and calcium Lasix 20mg IV x 1 Poor prognosis Scribed by Daria Benavidez under the direct supervision of Dr. Hussein. Diagnosis/Problems Diagnosis/Problems (1) Hypercalcemia Status: Acute Assessment & Plan: Due to Lymphoma, continue IVF and s/p Pamidronate (2) Dehydration Status: Acute Assessment & Plan: Due to hypercalcemia maintained on aggressive IVF (3) Hallucinations Status: Acute Assessment & Plan: Due to hypercalcemia, no anti-psychotics required at this time (4) Lymphoma Status: Acute Assessment & Plan: Oncology consulted and appreciated Qualifiers: Qualified Codes: C85.10 - Unspecified B-cell lymphoma, unspecified site (5) Hypokalemia Status: Acute Assessment & Plan: Replacing IVF 40meq (6) Hypernatremia Status: Acute Assessment & Plan: IVF D51/2NS KINDRA HUSSEIN DO Aug 31, 2017 12:23
[2017-08-31] MEDS ORDERED: FUROSEMIDE 40 MG/4 ML INJ (LASIX) IVP NR (12:30)
--- NOTE | 2017-08-31 14:12 | Oncology Progress Note ---
Subjective Time Seen by Provider: 14:00 Subjective/Events-last exam Pt is feeling much better. She is happy and smiling. She knows her name, place and time date. No more hallucination this morning and afternoon. She is eating her full meals. Good urine output and fluid balance Ca++ down from 13 to 11.5 today Mg++ low 1.3 today Data Review Labs Laboratory Tests 08/31/17 06:33 Laboratory Tests 08/29/17 05:37: Urine Specific [place] 1.015L, Urine RBC (Auto) 1+H, Urine Yeast FEWH 08/29/17 05:40: White Blood Count 12.4H, Red Blood Count 3.05L, Hemoglobin 9.9L, Hematocrit 31L , Mean Corpuscular Volume 102H, Red Cell Distribution Width 18.9H, Neutrophils ( %) (Auto) 78H, Lymphocytes (%) (Auto) 10L, Neutrophils # (Auto) 9.7H, Monocytes # (Auto) 1.4H, Blood Urea Nitrogen 31H, Glucose Level 65L, Calcium Level 12.7H, Magnesium Level 1.6L, Total Protein 4.5L, Albumin 2.6L 08/29/17 12:15: Blood Urea Nitrogen 29H, Calcium Level 13.0*H 08/30/17 05:13: Red Blood Count 2.65L, Hemoglobin 8.6L, Hematocrit 27L, Mean Corpuscular Volume 102H, Red Cell Distribution Width 19.0H, Monocytes # (Auto) 1.1H, Blood Urea Nitrogen 26H, Glucose Level 63L, Calcium Level 11.9H, Total Protein 3.9L, Albumin 2.4L, Mean Platelet Volume 10.5H, Sodium Level 146H, Potassium Level 3.2L, Chloride Level 110H 08/31/17 06:33: Red Blood Count 2.85L, Hemoglobin 9.2L, Hematocrit 29L, Mean Corpuscular Volume 103H, Mean Corpuscular Hemoglobin Concent 31L, Red Cell Distribution Width 19.4H , Mean Platelet Volume 10.5H, Chloride Level 109H, Anion Gap 3L, Blood Urea Nitrogen 22H, Glucose Level 113H, Calcium Level 11.5H, Magnesium Level 1.3L, Total Protein 3.8L, Albumin 2.3L Laboratory Tests 08/31/17 06:33 Physical Exam Vital Signs Vital Sign - Last 12Hours 08/29/17 05:30 Temp 96.4 Pulse 74 Resp 18 B/P (MAP) 176/95 Pulse Ox 96 O2 Delivery Nasal Cannula O2 Flow Rate 3.00 Capillary Refill : Less Than 3 Seconds General Appearance: No Apparent Distress HEENT: PERRL/EOMI Respiratory: Chest Non Tender, Lungs Clear, Normal Breath Sounds, No Accessory Muscle Use, No Respiratory Distress Cardiovascular: No Edema, No JVD Gastrointestinal: Non Tender, Soft Extremity: No Calf Tenderness, No Pedal Edema Neurologic/Psychiatric: Alert, Oriented x3 Impression & Plan Impression & Plan IMP: 1. Acute metal status change with confusion and hallucination. Much improved. 2. Hypercalcemia, improved from 13 to 11.5 today 3. [place] lymphadenopathy with preliminary report B cell lymphoma. 4. Anemia, slightly macrocytic. 5. Hypokalemia, resolved 6. Elevated Na due to NS infusion. resolved 7. Hypomagnesium 1.3. Plan: 1. Change IVF to normal saline 100ml/hr today. 2. IV Lasix 20mg today. 3. [place] to monitor accurate I/O 4. Once patient is clear from her confusion/hallucination, we can arrange port placement Friday and prepare for chemotherapy. Dr Bray is aware of the patient for the port. 5. Dr Jordan will be back next Friday to decide the chemo regiment. 6. Replace 4g Mg++ today 7. Daily lab. Clinical Quality Measures DVT/VTE Risk/Contraindication: Risk Factor Score Per Nursin RFS Level Per Nursing on Admit: 4+=Very High RAQUEL DIEHL MD Aug 31, 2017 14:12
[2017-08-31] MEDS: NS IV 1000 ML 1,000 ML IV SCH (14:39)
[2017-08-31] MEDS: MAGNESIUM 1 GM/100 ML IVPB 100 ML IV SCH ×4 (14:40→18:29)
[2017-08-31] MEDS: RIVAROXABAN 20 MG TABLET (XARELTO) PO SCH (18:29)
[2017-08-31] MEDS: amLODIPine 2.5MG (NORVASC) TAB PO SCH (21:23)
[2017-08-31] MEDS: SIMvastatin 40 MG (ZOCOR) TAB PO SCH (21:24)
[2017-08-31] MEDS: OMEGA 3 (FISH OIL) 1000 MG CAP PO SCH (21:24)
[2017-09-01] VITALS (7 sets, daily range): BP systolic 126–173; BP diastolic 71–82
[2017-09-01] MEDS: NS IV 1000 ML 1,000 ML IV SCH ×5 (01:39→23:28)
[2017-09-01] MEDS: RT-ALBUTEROL/IPRATROPIUM 3 ML (DUONEB) VIAL IH SCH ×4 (02:56→19:25)
[2017-09-01 05:56] LABS: MEAN PLATELET VOLUME 10.4 FL (7.4-10.4); RED BLOOD COUNT 2.96 10^6/uL (4.35-5.85); RED CELL DISTRIBUTION WIDTH 19.3 % (10.0-14.5); WHITE BLOOD COUNT 9.6 10^3/uL (4.3-11.0)
[2017-09-01] MEDS: predniSONE 20 MG TAB PO SCH (06:19)
[2017-09-01] MEDS: LEVOTHYROXINE 100 MCG (LEVOTHROID) TAB PO SCH (06:19)
[2017-09-01 06:20] LABS: ALANINE AMINOTRANSFERASE < 6 U/L (0-55); ALBUMIN 2.3 GM/DL (3.2-4.5); ANION GAP 5 MMOL/L (5-14); ASPARTATE AMINO TRANSFERASE 17 U/L (5-34); BILIRUBIN,TOTAL 0.3 MG/DL (0.1-1.0); BLOOD UREA NITROGEN 19 MG/DL (7-18); BUN/CREATININE RATIO 26; CALCIUM 11.4 MG/DL (8.5-10.1); CARBON DIOXIDE 29 MMOL/L (21-32); CHLORIDE 107 MMOL/L (98-107); CREATININE SERUM 0.73 MG/DL (0.60-1.30); GFR ESTIMATED > 60; GLUCOSE 85 MG/DL (70-105); MAGNESIUM 2.1 MG/DL (1.8-2.4); POTASSIUM 4.7 MMOL/L (3.6-5.0); SODIUM 141 MMOL/L (135-145)
--- NOTE | 2017-09-01 08:16 | Progress Note (SOAP) ---
Subjective Date Seen by Provider: Sep 01, 2017 Time Seen by Provider: 08:20 Subjective/Events-last exam PT IS A 67 Y/O FEMALE WHO IS WELL KNOWN TO ME FROM CLINIC. SHE STATES THAT SHE FEELS BETTER TODAY- HER COUSIN MAGALY REPORTS THAT SHE THINKS DANIELA IS BACK TO HER USUAL SELF AT THIS TIME. DANIELA REPORTS THAT SHE HAS "LOST TIME" BUT THINKS THAT SHE IS FEELING NORMAL FROM A COGNITIVE STANDPOINT. SHE DENIES CHEST PAIN, SHORTNESS OF BREATH, DIZZINESS, ABDOMINAL PAIN, NAUSEA. Review of Systems General: No Fatigue, No Malaise HEENT: No Head Aches Pulmonary: No Dyspnea, No Cough Cardiovascular: No: Chest Pain Gastrointestinal: No: Nausea, Abdominal Pain Musculoskeletal: No: neck pain, back pain, leg pain Neurological: No: Weakness, Confusion Objective Exam Vital Signs Date Time Temp Pulse Resp B/P (MAP) Pulse Ox O2 Delivery O2 Flow Rate FiO2 09/01/17 04:05 98.4 69 20 171/82 92 Nasal Cannula 2.00 09/01/17 02:57 93 Nasal Cannula 0.50 09/01/17 00:10 98.4 71 20 173/73 92 Nasal Cannula 2.00 08/31/17 21:30 92 Nasal Cannula 0.50 08/31/17 20:15 99.3 71 20 142/68 95 Nasal Cannula 2.00 08/31/17 20:15 Nasal Cannula 2.00 08/31/17 16:25 97.3 65 20 146/77 93 Nasal Cannula 0.50 08/31/17 15:02 94 Nasal Cannula 0.50 08/31/17 13:15 68 116/55 08/31/17 12:00 98.7 69 20 95/58 98 Nasal Cannula 0.50 08/31/17 08:56 Nasal Cannula 0.50 08/31/17 08:55 94 Nasal Cannula 0.50 Capillary Refill : Less Than 3 Seconds General Appearance: No Apparent Distress, WD/WN HEENT: PERRL/EOMI Neck: Full Range of Motion, Supple Respiratory: Chest Non Tender, Lungs Clear, Normal Breath Sounds Cardiovascular: Regular Rate, Rhythm, Systolic Murmur Gastrointestinal: normal bowel sounds, non tender, soft, no organomegaly, no pulsatile mass Extremity: Normal Capillary Refill, Non Tender, No Calf Tenderness, No Pedal Edema Neurologic/Psychiatric: Alert, Oriented x3, No Motor/Sensory Deficits, Normal Mood/Affect, surgical assistant II-XII Norm as Tested Skin: Warm/Dry Lymphatic: No Adenopathy Results Lab Laboratory Tests 09/01/17 05:30: White Blood Count 9.6, Red Blood Count 2.96L, Hemoglobin 9.6L, Hematocrit 31L, Mean Corpuscular Volume 103H, Mean Corpuscular Hemoglobin 32, Mean Corpuscular Hemoglobin Concent 32, Red Cell Distribution Width 19.3H, Platelet Count 151, Mean Platelet Volume 10.4, Sodium Level 141, Potassium Level 4.7, Chloride Level 107, Carbon Dioxide Level 29, Anion Gap 5, Blood Urea Nitrogen 19H, Creatinine 0.73, Estimat Glomerular Filtration Rate > 60, BUN/Creatinine Ratio 26, Glucose Level 85, Calcium Level 11.4H, Magnesium Level 2.1, Total Bilirubin 0.3, Aspartate Amino Transf (AST/SGOT) 17, Alanine Aminotransferase (ALT/SGPT) < 6, Alkaline Phosphatase 77, Total Protein 4.0L, Albumin 2.3L Assessment/Plan Assessment/Plan Assess & Plan/Chief Complaint HYPERCALCEMIA CONFUSION LYMPHOMA HYPOTHYROID HX OF PULMONARY EMBOLISM CHRONIC ANTICOAGULATION HYPERCALCEMIA - IV PAMIDRONATE, ON ADMISSION PT WAS STARTED ON HIGH RATE IV FLUIDS, IV LASIX. - - DOSE OF FLUIDS DECREASED - CONTINUE WITH FLUIDS, MONITOR CREATININE. CONFUSION - RESOLVED. LYMPHOMA - MONITOR SYMPTOMS - CONSULT TO DR. DIEHL. SHE HAS INDICATED THAT DR. CRAWFORD DOES NOT WANT THE PATIENT STARTED ON CHEMOTHERAPY OF YET. HE WANTS TO HAVE A PORT PLACED AND POSSIBLY GET MORE TISSUE. - PT TO HAVE PORT PLACED ON FRIDAY OF THIS WEEK - DR. REECE CONSULTED. HYPOTHYROID - RESUMED HOME MEDICATION HYPOMAGNESEMIA - PT RECENTLY WITH 4 BAGS OF MAGNESIUM - THIS WAS FINISHED ON 08/31/17 IN THE EVENING. HX OF PULMONARY EMBOLISM WITH CHRONIC ANTICOAGULATION - RESUMED XARELTO - HOWEVER TO BE HELD TODAY, TOMORROW AND FRIDAY - RESTART FRIDAY EVENING. PT TO BE ON LOVENOX UNTIL PRIOR TO PORT PLACEMENT. DVT PROPHYLAXIS WITH XARELTO AND SCD'S GI PROPHYLAXIS WILL BE WITH PROTONIX. Clinical Quality Measures DVT/VTE Risk/Contraindication: Risk Factor Score Per Nursin RFS Level Per Nursing on Admit: 4+=Very High SAM CINTRON MD Sep 01, 2017 08:16
[2017-09-01] MEDS: CARVEDILOL 12.5 MG (COREG) TABLET PO SCH ×2 (08:23→21:10)
[2017-09-01] MEDS: VENlafaxine XR 75 MG (EFFEXOR XR) CAP PO SCH ×2 (08:23→21:08)
[2017-09-01] MEDS: PANTOPRAZOLE 40 MG (PROTONIX) TAB PO SCH (08:23)
[2017-09-01] MEDS: MULTIVIT W/MINERALS TAB (THERAGRAN M) PO SCH (08:23)
[2017-09-01] MEDS: ISOSORBIDE MONONITRATE 30 MG (IMDUR) TAB PO SCH ×2 (08:23→21:09)
[2017-09-01] MEDS: LACTOBACILLUS Acidoph/Bulgar (LACTINEX/FLORANEX) TAB PO SCH (08:24)
[2017-09-01] MEDS: CYANOCOBALAMIN 500 MCG TAB (VITAMIN B-12) PO SCH (08:24)
[2017-09-01] MEDS: MENTHOL/ZINC OXIDE (CALMOSEPTINE) 113 GM TUBE TOP SCH ×2 (08:24→21:11)
[2017-09-01] MEDS: KCL 20 MEQ TAB (K-DUR) PO SCH (08:24)
[2017-09-01] MEDS: ASPIRIN E.C. 81 MG (ECOTRIN) TAB PO SCH (08:24)
[2017-09-01] MEDS: FUROSEMIDE 20 MG (LASIX) TAB PO SCH (08:24)
[2017-09-01] MEDS: RT-ADVAIR HFA 115/21 MCG PER PUFF IH SCH ×2 (10:37→19:25)
--- NOTE | 2017-09-01 11:11 | Progress Note (SOAP) ---
Subjective Date Seen by Provider: Sep 01, 2017 Time Seen by Provider: 11:05 Subjective/Events-last exam dry cough. Serum calcium decreasing Review of Systems General: Night Sweats, Malaise HEENT: No Head Aches, No Eye Pain, No Ear Pain, No Dysphasia, No Sinus Congestion, No Post Nasal Drip, No Sore Throat Pulmonary: Dyspnea, Cough Cardiovascular: No: Chest Pain, Palpitations, Orthopnea, Paroxysmal Noc. Dyspnea, Edema, Lt Headedness Gastrointestinal: No: Nausea, Vomiting, Abdominal Pain, Diarrhea, Constipation , Melena, Hematochezia Genitourinary: Dysuria Musculoskeletal: back pain Neurological: Weakness Objective Exam Vital Signs Date Time Temp Pulse Resp B/P (MAP) Pulse Ox O2 Delivery O2 Flow Rate FiO2 09/01/17 10:36 Nasal Cannula 0.50 09/01/17 08:46 97.8 72 20 126/79 96 Nasal Cannula 2.00 09/01/17 04:05 98.4 69 20 171/82 92 Nasal Cannula 2.00 09/01/17 02:57 93 Nasal Cannula 0.50 09/01/17 00:10 98.4 71 20 173/73 92 Nasal Cannula 2.00 08/31/17 21:30 92 Nasal Cannula 0.50 08/31/17 20:15 99.3 71 20 142/68 95 Nasal Cannula 2.00 08/31/17 20:15 Nasal Cannula 2.00 08/31/17 16:25 97.3 65 20 146/77 93 Nasal Cannula 0.50 08/31/17 15:02 94 Nasal Cannula 0.50 08/31/17 13:15 68 116/55 08/31/17 12:00 98.7 69 20 95/58 98 Nasal Cannula 0.50 Capillary Refill : Less Than 3 Seconds General Appearance: Mild Distress Neck: Normal Inspection Respiratory: Decreased Breath Sounds Cardiovascular: Regular Rate, Rhythm Gastrointestinal: non tender Extremity: Normal Inspection Neurologic/Psychiatric: Alert, Oriented x3 Skin: Warm/Dry Other comments sternal wires appeared to be prominent due to decreased subcutaneous tissue. No dehiscence of sternum. No supraclavicular lymphadenopathy Results Lab Laboratory Tests 09/01/17 05:30: White Blood Count 9.6, Red Blood Count 2.96L, Hemoglobin 9.6L, Hematocrit 31L, Mean Corpuscular Volume 103H, Mean Corpuscular Hemoglobin 32, Mean Corpuscular Hemoglobin Concent 32, Red Cell Distribution Width 19.3H, Platelet Count 151, Mean Platelet Volume 10.4, Sodium Level 141, Potassium Level 4.7, Chloride Level 107, Carbon Dioxide Level 29, Anion Gap 5, Blood Urea Nitrogen 19H, Creatinine 0.73, Estimat Glomerular Filtration Rate > 60, BUN/Creatinine Ratio 26, Glucose Level 85, Calcium Level 11.4H, Magnesium Level 2.1, Total Bilirubin 0.3, Aspartate Amino Transf (AST/SGOT) 17, Alanine Aminotransferase (ALT/SGPT) < 6, Alkaline Phosphatase 77, Total Protein 4.0L, Albumin 2.3L Assessment/Plan Assessment/Plan Assess & Plan/Chief Complaint 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 Hypercalcemia of malignancy. On intravenous fluids and pharmacotherapy. 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 the technique of placing an Nqjlij-t-Hpyr under ultrasound guidance beyond the right internal jugular vein discussed in detail. Anticoagulation would be withheld for 36 hours and the procedure scheduled for Friday ,09/03/2017 Final Diagnosis lymphoma. Hypercalcemia malignancy Clinical Quality Measures DVT/VTE Risk/Contraindication: Risk Factor Score Per Nursin RFS Level Per Nursing on Admit: 4+=Very High CLIF REECE MD Sep 01, 2017 11:11 am
--- NOTE | 2017-09-01 14:57 | Progress Note-Standard ---
Standard Progress Note Progress Notes/Assess & Plan Date Seen by Provider: Sep 01, 2017 Time Seen by Provider: 14:51 Progress/Assessment & Plan 67-year-old female admitted with recurrent hypercalcemia and mental status changes. She was seen in consultation on 08/22/2017 with mediastinal lymphadenopathy. She underwent bronchoscopy with transbronchial biopsy of lymph nodes on 08/20/2017. 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 More tissue was requested for better characterization of the lymphoma. She is scheduled for a PET scan tomorrow which can guide to the easiest lymph node to biopsy. If all the lymph nodes are mediastinal, she may need to see a thoracic surgeon for mediastinoscopy and biopsy. Hypercalcemia is improving. Continue IV hydration. May discontinue furosemide. Will follow patient with you. DYLAN CRAWFORD Sep 01, 2017 14:57
[2017-09-01] MEDS: ENOXAPARIN 60 MG/0.6 ML (LOVENOX) SYR SC SCH ×2 (16:36→21:08)
[2017-09-01] MEDS: SIMvastatin 40 MG (ZOCOR) TAB PO SCH (21:09)
[2017-09-01] MEDS: amLODIPine 2.5MG (NORVASC) TAB PO SCH (21:09)
[2017-09-02 00:23] VITALS: BP 160/80
[2017-09-02] MEDS: RT-ALBUTEROL/IPRATROPIUM 3 ML (DUONEB) VIAL IH SCH ×4 (02:18→20:40)
[2017-09-02 04:03] VITALS: BP 173/74
[2017-09-02] MEDS: NS IV 1000 ML 1,000 ML IV SCH ×4 (06:24→23:43)
[2017-09-02] MEDS: predniSONE 20 MG TAB PO SCH (06:24)
[2017-09-02] MEDS: LEVOTHYROXINE 100 MCG (LEVOTHROID) TAB PO SCH (06:24)
[2017-09-02 08:00] VITALS: BP 187/85
[2017-09-02] MEDS ORDERED: amLODIPine 5 MG (NORVASC) TAB PO NR (08:30)
[2017-09-02] MEDS: CARVEDILOL 12.5 MG (COREG) TABLET PO SCH ×2 (08:36→21:22)
[2017-09-02] MEDS: FUROSEMIDE 20 MG (LASIX) TAB PO SCH (08:36)
[2017-09-02] MEDS: MULTIVIT W/MINERALS TAB (THERAGRAN M) PO SCH (08:37)
[2017-09-02] MEDS: CYANOCOBALAMIN 500 MCG TAB (VITAMIN B-12) PO SCH (08:37)
[2017-09-02] MEDS: LACTOBACILLUS Acidoph/Bulgar (LACTINEX/FLORANEX) TAB PO SCH (08:37)
[2017-09-02] MEDS: ASPIRIN E.C. 81 MG (ECOTRIN) TAB PO SCH (08:37)
[2017-09-02] MEDS: VENlafaxine XR 75 MG (EFFEXOR XR) CAP PO SCH ×2 (08:37→21:22)
[2017-09-02] MEDS: ISOSORBIDE MONONITRATE 30 MG (IMDUR) TAB PO SCH ×2 (08:37→21:21)
[2017-09-02] MEDS: KCL 20 MEQ TAB (K-DUR) PO SCH (08:37)
[2017-09-02] MEDS: PANTOPRAZOLE 40 MG (PROTONIX) TAB PO SCH (08:37)
[2017-09-02] MEDS: ENOXAPARIN 60 MG/0.6 ML (LOVENOX) SYR SC SCH (08:38)
--- NOTE | 2017-09-02 08:49 | Progress Note (SOAP) ---
Subjective Date Seen by Provider: Sep 02, 2017 Time Seen by Provider: 08:05 Subjective/Events-last exam PT REPORTS THAT SHE IS FEELING BETTER, HAS LESS CONFUSION PER FAMILY REPORT. SHE DENIES JOINT PAIN, SHE DENIES MUSCLE SPASMS TODAY. Review of Systems General: Fatigue HEENT: No Head Aches Pulmonary: No Dyspnea, No Cough Cardiovascular: No: Chest Pain, Palpitations Gastrointestinal: No: Nausea, Abdominal Pain Neurological: Weakness, Confusion (INTERMITTENT PER STAFF REPORT) Objective Exam Vital Signs Date Time Temp Pulse Resp B/P (MAP) Pulse Ox O2 Delivery O2 Flow Rate FiO2 09/02/17 04:03 98.0 72 24 173/74 90 Nasal Cannula 2.00 09/02/17 02:18 91 Nasal Cannula 0.50 09/02/17 00:25 98.3 79 20 93 Nasal Cannula 0.50 09/02/17 00:23 160/80 09/01/17 21:11 78 150/80 09/01/17 21:00 Nasal Cannula 09/01/17 19:20 98.9 81 20 144/77 94 Nasal Cannula 0.50 09/01/17 19:05 94 Nasal Cannula 0.50 09/01/17 16:50 98.6 76 22 131/71 94 Nasal Cannula 0.50 09/01/17 15:08 95 Nasal Cannula 0.50 09/01/17 12:00 98.0 63 22 130/71 93 Nasal Cannula 2.00 09/01/17 10:36 Nasal Cannula 0.50 09/01/17 09:00 Nasal Cannula 0.50 Capillary Refill : Less Than 3 Seconds General Appearance: No Apparent Distress, WD/WN HEENT: PERRL/EOMI Neck: Full Range of Motion, Supple Respiratory: Chest Non Tender, Decreased Breath Sounds Cardiovascular: Regular Rate, Rhythm, Systolic Murmur Gastrointestinal: normal bowel sounds, non tender, soft, no organomegaly, no pulsatile mass Extremity: Normal Capillary Refill, No Calf Tenderness Neurologic/Psychiatric: Alert, Oriented x3, Normal Mood/Affect Skin: Warm/Dry Assessment/Plan Assessment/Plan Assess & Plan/Chief Complaint HYPERCALCEMIA CONFUSION LYMPHOMA HYPOTHYROID HX OF PULMONARY EMBOLISM CHRONIC ANTICOAGULATION HYPERCALCEMIA - IV PAMIDRONATE, ON ADMISSION PT WAS STARTED ON HIGH RATE IV FLUIDS, IV LASIX. - - DOSE OF FLUIDS DECREASED - CONTINUE WITH FLUIDS, MONITOR CREATININE. CONFUSION - RESOLVED. LYMPHOMA - MONITOR SYMPTOMS - CONSULT TO DR. DIEHL. SHE HAS INDICATED THAT DR. CRAWFORD DOES NOT WANT THE PATIENT STARTED ON CHEMOTHERAPY OF YET. HE WANTS TO HAVE A PORT PLACED AND POSSIBLY GET MORE TISSUE. - PT TO HAVE PORT PLACED ON FRIDAY OF THIS WEEK - DR. REECE CONSULTED. HYPOTHYROID - RESUMED HOME MEDICATION HYPOMAGNESEMIA - REPEAT LABS HX OF PULMONARY EMBOLISM WITH CHRONIC ANTICOAGULATION - RESUMED XARELTO - HOWEVER TO BE HELD TODAY, TOMORROW AND FRIDAY - RESTART FRIDAY EVENING. PT TO BE ON LOVENOX UNTIL PRIOR TO PORT PLACEMENT. DVT PROPHYLAXIS WITH XARELTO AND SCD'S GI PROPHYLAXIS WILL BE WITH PROTONIX. Clinical Quality Measures DVT/VTE Risk/Contraindication: Risk Factor Score Per Nursin RFS Level Per Nursing on Admit: 4+=Very High SAM CINTRON MD Sep 02, 2017 08:49
[2017-09-02] MEDS: MENTHOL/ZINC OXIDE (CALMOSEPTINE) 113 GM TUBE TOP SCH ×2 (09:11→21:22)
[2017-09-02] MEDS: RT-ADVAIR HFA 115/21 MCG PER PUFF IH SCH ×2 (09:44→20:40)
[2017-09-02 12:30] VITALS: BP 174/83
[2017-09-02 15:25] VITALS: BP 167/81
--- NOTE | 2017-09-02 17:13 | Diagnostic Imaging Report ---
EXAMINATION: PET-CT TECHNIQUE: Serum glucose level at the time of the study is: 1:13 mg/dL. 15.1 mCi of FDG was administered intravenously followed by obtaining PET images with corresponding noncontrast CT scan images. The CT scan was performed for anatomic correlation and attenuation correction and was not performed according to the diagnostic protocol of the areas covered. The scan was performed from the head to mid thighs. INDICATION: B-cell lymphoma FINDINGS: There is symmetric FDG uptake seen in the brain. There is no significant hypermetabolism seen in the neck. Bilateral shoulder mild areas of increased activity are seen, probably inflammatory. There is beam hardening artifacts from bilateral shoulder hardware from seen. There is lymphadenopathy in the chest that demonstrates mild hypermetabolism with maximum SUV of 3 involving both mirtha and the mediastinum. There is also a lower chest anterior mediastinal mass anterior to the heart with soft tissue density that is partially obscured by beam hardening artifact as seen in the region from adjacent sternotomy wires. This demonstrates prominent increased FDG uptake and estimated axial CT measurements of 3.8 x 1.2 cm is noted. Maximum SUV is 5. This is concerning for lymphoma although the flattened appearance of the uptake is somewhat unusual. The liver average increased radiotracer uptake is at 1.7 SUVs. This could be related to partial loss of the FDG dose within the arm at the injection site. In the abdomen and pelvis there is notable parenchymal uptake in the kidneys without renal collecting system uptake as typically seen. There is also absent bladder uptake. This could be related to parenchymal renal dysfunction or possibly in parenchymal involvement with lymphoma. The spleen has mild to moderate increased uptake in a diffuse fashion with maximum SUV of 5. The spleen is slightly enlarged at 3.4 cm in length with no definitive focal lesion. No hypermetabolic lesion is seen otherwise in the abdomen or pelvis. There is a moderate amount of free peritoneal fluid seen. IMPRESSION: 1. Hypermetabolic mediastinal and bilateral hilar lymph nodes are seen, compatible with provided diagnosis of lymphoma. 2. There is mild splenic enlargement with mild to moderate increased FDG uptake in a diffuse fashion within the spleen suggestive of lymphoma. 3. There is mild to moderate renal parenchymal increased FDG uptake in a symmetric fashion bilaterally. There is no renal excretion compatible with renal dysfunction. The findings could relate to renal parenchymal inflammatory nephritis or lymphoma involvement. If tissue diagnosis is needed, this could be obtained with an ultrasound-guided renal biopsy. Dictated by: Dictated on workstation # [id number]
[2017-09-02 20:35] VITALS: BP 185/91
[2017-09-02] MEDS: SIMvastatin 40 MG (ZOCOR) TAB PO SCH (21:21)
[2017-09-02] MEDS: amLODIPine 5 MG (NORVASC) TAB PO SCH (21:21)
[2017-09-03] VITALS: BP 150/78
[2017-09-03] MEDS: RT-ALBUTEROL/IPRATROPIUM 3 ML (DUONEB) VIAL IH SCH ×4 (03:15→20:26)
[2017-09-03 04:00] VITALS: BP 167/84
[2017-09-03] MEDS: LEVOTHYROXINE 100 MCG (LEVOTHROID) TAB PO SCH (04:15)
[2017-09-03] MEDS: predniSONE 20 MG TAB PO SCH (04:16)
[2017-09-03] MEDS: NS IV 1000 ML 1,000 ML IV SCH ×3 (06:56→22:47)
--- NOTE | 2017-09-03 07:53 | Progress Note-Pre Operative ---
Pre-Operative Progress Note H&P Reviewed The H&P was reviewed, patient examined and no changes noted. Date Seen by Provider: Sep 01, 2017 Time Seen by Provider: 14:35 Date H&P Reviewed: Sep 03, 2017 Time H&P Reviewed: 07:53 Pre-Operative Diagnosis: Lymphoma CLIF REECE MD Sep 03, 2017 7:53 am
[2017-09-03 08:29] VITALS: BP 185/89
[2017-09-03] MEDS: ISOSORBIDE MONONITRATE 30 MG (IMDUR) TAB PO SCH ×2 (08:45→20:17)
[2017-09-03] MEDS: CARVEDILOL 12.5 MG (COREG) TABLET PO SCH ×2 (08:45→20:17)
[2017-09-03] MEDS: RT-ADVAIR HFA 115/21 MCG PER PUFF IH SCH ×2 (08:47→20:26)
--- NOTE | 2017-09-03 08:54 | Progress Note (SOAP) ---
Subjective Date Seen by Provider: Sep 03, 2017 Time Seen by Provider: 08:54 Subjective/Events-last exam PT IS MORE CONFUSED TODAY PER HER DPOA'S REPORT. SHE NOTES MORE MUSCLE TWITCHING TODAY THAN YESTERDAY. DANIELA REPORTS THAT SHE IS "OUT OF IT" AT TIMES. Review of Systems General: No Chills, Fatigue HEENT: Head Aches Pulmonary: No Dyspnea, No Cough Cardiovascular: No: Chest Pain, Edema Gastrointestinal: Abdominal Pain, No: Nausea Genitourinary: No Dysuria Neurological: Confusion, No: Weakness Objective Exam Vital Signs Date Time Temp Pulse Resp B/P (MAP) Pulse Ox O2 Delivery O2 Flow Rate FiO2 09/03/17 08:49 91 Nasal Cannula 0.50 09/03/17 08:47 91 Nasal Cannula 0.50 09/03/17 08:29 99.1 71 20 185/89 93 Nasal Cannula 0.50 09/03/17 04:00 97.2 80 20 167/84 92 Nasal Cannula 0.50 09/03/17 03:15 93 Nasal Cannula 0.50 09/03/17 00:00 97.1 75 20 150/78 91 Nasal Cannula 0.50 09/02/17 21:00 Nasal Cannula 0.50 09/02/17 20:46 92 Nasal Cannula 0.50 09/02/17 20:41 91 Nasal Cannula 0.50 09/02/17 20:35 97.5 68 20 185/91 94 Nasal Cannula 0.50 09/02/17 15:36 Nasal Cannula 0.50 09/02/17 15:25 98.4 61 18 167/81 95 Nasal Cannula 0.50 09/02/17 12:30 98.6 62 20 174/83 97 Nasal Cannula 0.50 09/02/17 09:51 93 Nasal Cannula 0.50 09/02/17 09:00 Nasal Cannula 1.00 Capillary Refill : Less Than 3 Seconds General Appearance: No Apparent Distress, WD/WN HEENT: PERRL/EOMI Neck: Full Range of Motion, Supple Respiratory: Chest Non Tender, Lungs Clear, Normal Breath Sounds, No Accessory Muscle Use Cardiovascular: Regular Rate, Rhythm, Systolic Murmur Gastrointestinal: normal bowel sounds, non tender, soft Extremity: Pedal Edema (TRACE) Neurologic/Psychiatric: Alert, Other (SOMEWHAT CONFUSED TODAY.) Lymphatic: No Adenopathy Assessment/Plan Assessment/Plan Assess & Plan/Chief Complaint HYPERCALCEMIA CONFUSION LYMPHOMA HYPOTHYROID HX OF PULMONARY EMBOLISM CHRONIC ANTICOAGULATION HYPERCALCEMIA - IV PAMIDRONATE, ON ADMISSION PT WAS STARTED ON HIGH RATE IV FLUIDS, IV LASIX. - - DOSE OF FLUIDS DECREASED - CONTINUE WITH FLUIDS, MONITOR CREATININE. - EXTRA DOSE OF LASIX TODAY CONFUSION - RESOLVED. LYMPHOMA - MONITOR SYMPTOMS - CONSULT TO DR. CRAWFORD - WE DISCUSSED HER DIAGNOSIS - HE FEELS LIKE MORE TISSUE IS NEEDED FOR A THOROUGH DIAGNOSIS OF LYMPHOMA. I HAVE TALKED TO THE PATHOLOGIST - AND HE INDICATED THAT A BIOPSY OF THE KIDNEY SHOULD BE SUFFICIENT FOR TISSUE DIAGNOSIS - HE WOULD LIKE TO SEE 3 CORE BIOPSIES WITH AN 18 GAUGE NEEDLE WITH ONE TUBE FOR FLOW CYTOMETRY. I HAVE LET DR. CRAWFORD KNOW AND I HAVE INFORMED DR. JIMENEZ ABOUT THIS RECOMMENDATION FROM PATHOLOGY. DR. JIMENEZ HAS AN OPENING AT 9:[address] GUIDED BIOPSY. PORT TO BE PLACED TODAY. HYPOTHYROID - RESUMED HOME MEDICATION HYPOMAGNESEMIA - PT RECENTLY WITH 4 BAGS OF MAGNESIUM - THIS WAS FINISHED ON 08/31/17 IN THE EVENING. HX OF PULMONARY EMBOLISM WITH CHRONIC ANTICOAGULATION - RESUMED XARELTO - HOWEVER TO BE HELD FRIDAY AND FRIDAY - RESTART FRIDAY EVENING. PT TO BE ON LOVENOX UNTIL PRIOR TO PORT PLACEMENT. DVT PROPHYLAXIS WITH XARELTO AND SCD'S GI PROPHYLAXIS WILL BE WITH PROTONIX. Clinical Quality Measures DVT/VTE Risk/Contraindication: Risk Factor Score Per Nursin RFS Level Per Nursing on Admit: 4+=Very High SAM CINTRON MD Sep 03, 2017 08:54
[2017-09-03] MEDS: MENTHOL/ZINC OXIDE (CALMOSEPTINE) 113 GM TUBE TOP SCH ×2 (09:23→20:17)
[2017-09-03] MEDS ORDERED: FUROSEMIDE 40 MG/4 ML INJ (LASIX) IVP NR (09:30)
[2017-09-03 09:51] LABS: ALANINE AMINOTRANSFERASE 7 U/L (0-55); ALBUMIN 2.5 GM/DL (3.2-4.5); ANION GAP 5 MMOL/L (5-14); ASPARTATE AMINO TRANSFERASE 25 U/L (5-34); BILIRUBIN,TOTAL 0.4 MG/DL (0.1-1.0); BLOOD UREA NITROGEN 22 MG/DL (7-18); BUN/CREATININE RATIO 37; CALCIUM 10.2 MG/DL (8.5-10.1); CARBON DIOXIDE 27 MMOL/L (21-32); CHLORIDE 108 MMOL/L (98-107); GFR ESTIMATED > 60; GLUCOSE 70 MG/DL (70-105); POTASSIUM 3.4 MMOL/L (3.6-5.0); SODIUM 140 MMOL/L (135-145); TOTAL PROTEIN 4.1 GM/DL (6.4-8.2)
[2017-09-03] MEDS ORDERED: ceFAZolin INJECTION 1,000 MG in NS (IVPB) 50 ML IV NR (11:15)
[2017-09-03] MEDS ORDERED: 0.9% SODIUM CHLORIDE PF INJ 20 ML VIAL ONE (11:51)
[2017-09-03] MEDS ORDERED: HEParin (CENTRAL IV FLUSH) 500 UNIT/5 ML SYR ONE (11:51)
[2017-09-03] MEDS ORDERED: BUP/EPI 0.5% 1:200,000 (MARCAINE) 10ML VIAL IJ ONE (11:51)
[2017-09-03] MEDS ORDERED: NEOSTIGMINE (BLOXIVERZ ) 1 MG/1ML 10 ML VIAL ONE (12:11)
[2017-09-03] MEDS ORDERED: MIDAZOLAM 2 MG/2 ML (VERSED) VIAL ONE (12:11)
[2017-09-03] MEDS ORDERED: ONDANSETRON 4 MG/2 ML (SDV) Z0FRAN ONE (12:12)
[2017-09-03] MEDS ORDERED: LACTATED RINGERS 1,000 ML IV PRN (12:12)
[2017-09-03] MEDS ORDERED: PROPOFOL INJECTION 50 ML IV ONE (12:15)
[2017-09-03] MEDS: FUROSEMIDE 20 MG (LASIX) TAB PO SCH (13:35)
[2017-09-03] MEDS: ASPIRIN E.C. 81 MG (ECOTRIN) TAB PO SCH (13:38)
[2017-09-03] MEDS: VENlafaxine XR 75 MG (EFFEXOR XR) CAP PO SCH ×2 (13:40→20:17)
--- NOTE | 2017-09-03 14:23 | Diagnostic Imaging Report ---
EXAMINATION: Intraoperative view of the chest. INDICATION: Port placement. FLUOROSCOPY TIME: The fluoroscopic time provided to the OR is 144 seconds. IMPRESSION: The provided image demonstrates a port catheter placed through the right IJ approach with the tip at the SVC level. Dictated by: Dictated on workstation # [id number]
[2017-09-03] MEDS ORDERED: ONDANSETRON 4 MG/2 ML (SDV) Z0FRAN IVP PRN (14:30)
[2017-09-03] MEDS ORDERED: fentaNYL INJECTION 100 MCG/2 ML AMP IVP PRN (14:45)
[2017-09-03] MEDS ORDERED: HYDROcodone/APAP 5 MG/325 MG (LORTAB) TAB PO PRN (14:45)
--- NOTE | 2017-09-03 14:52 | Diagnostic Imaging Report ---
INDICATION: Central line placement. Portable chest 2:40 PM. Right IJ Port-A-Cath tip projects over the cavoatrial junction. There are postop changes from a median sternotomy. Patient has had bilateral shoulder arthroplasties. There is pulmonary vascular congestion new since 08/22/2017. IMPRESSION: Interval development of central pulmonary vascular congestion since prior study. Dictated by: Dictated on workstation # [id number]
[2017-09-03 15:01] VITALS: BP 176/86
[2017-09-03 15:30] VITALS: BP 150/85
--- NOTE | 2017-09-03 15:32 | Operative Report ---
Operative Report Date of Procedure/Surgery Sep 03, 2017 Surgeon (s) CLIF REECE MD Sales Administration Manager (s): Post-Operative Diagnosis same Procedure Performed ultrasound localization of right internal jugular vein Intraoperative fluoroscopy [id number]-[id number] placement Description of Procedure Anesthesia Type: MAC Estimated blood loss (mL): minimal Specimen(s) collected/removed none Description of the Procedure Indication for procedure: This lady is being managed for hypercalcemia of malignancy possibly due to B cell lymphoma. To facilitate IV therapy and in anticipation of systemic chemotherapy, I was asked to place an [id number]-j-[id number]. Informed consent was obtained after reviewing the procedure in detail. Description of the procedure: She was placed supine on the operative table and our anesthesiologist administered sedation, monitoring her vital signs. A gram of Ancef was administered intravenously as prophylaxis against wound infection. Her neck and upper chest were prepared and draped in the usual sterile manner. I made several attempts to access the internal jugular vein on both sides of the neck but could not advance the guidewire. Subsequently,, , our radiologist was able to advance a smaller guidewire under ultrasound guidance into the internal jugular vein. I took over the rest of the operation subsequently. The smaller guidewire was exchanged for a 0.38 guidewire and a subcutaneous pocket created over the infraclavicular fossa. The Paul catheter was then brought into the neck in a retrograde fashion and advanced into the heart, under fluoroscopy. The catheter was then pulled back to the superior vena cava and connected to the Lzyhbm-z-Pzzv, that had been primed with heparinized saline. I was able to aspirate and flush the system without any difficulty. The port was then secured to the pectoralis muscle with 2-0 Prolene sutures. The incision was then closed using 3-0 Vicryl for the subcutaneous tissue and 4- 0 Vicryl for skin, in a subcuticular fashion. It was accessed and then of the operation. A nonadherent dressing was then applied. She tolerated the procedure well and was taken to the recovery room in a stable condition. Findings of the Procedure see operative report Allergies and Home Medications Allergies Coded Allergies: penicillin G (Verified Allergy, Intermediate, Pt has received Cefazolin & Cefepime in the past, 09/01/17) ITCHING AFTER RECEIVING PENICILLIN WHEN SHE WAS 30-35 YEARS OLD meperidine (Verified Allergy, Unknown, 08/29/17) quinine (Verified Allergy, Unknown, 08/29/17) levofloxacin (Verified Adverse Reaction, Intermediate, HIVES, 08/29/17) BURNING AND ITCHING Home Medications Albuterol Sulfate 2.5 Mg/3 Ml Vial.neb, 2.5 MG NEB Q4H PRN for COPD, (Reported) Alendronate Sodium 70 Mg Tablet, 70 MG PO Sa, (Reported) Amlodipine Besylate 2.5 Mg Tablet, 1.25 MG PO HS, (Reported) TAKES 1/2 (2.5MG) TABLET Aspirin 81 Mg Tablet.dr, 81 MG PO DAILY, (Reported) Carvedilol 25 Mg Tablet, 25 MG PO BID, (Reported) Cyanocobalamin (Vitamin B-12) 1,000 Mcg Tablet, 1,000 MCG PO DAILY, (Reported) Fluticasone/Vilanterol 1 Each Blst.w.dev, 1 PUFF IH DAILY, (Reported) Furosemide 20 Mg Tablet, 20 MG PO DAILY, (Reported) Ipratropium/Albuterol Sulfate 3 Ml Ampul.neb, 3 ML IH Q6H, (Reported) Isosorbide Mononitrate 30 Mg Tab.er.24h, 30 MG PO BID, (Reported) L. Acidophilus/Bulgaricus 1 Each Tablet, 1 TAB.CHEW PO DAILY for 30 Days, #30 Ref 6 Prescribed by: SAM CINTRON on 08/26/17 0858 Levothyroxine Sodium 100 Mcg Tablet, 100 MCG PO DAILY, (Reported) Multivit-Min/FA/Lycopene/Lut 1 Each Tablet, 1 TAB PO DAILY, (Reported) [place] 3 Polyunsat Fatty Acids 1,000 Mg Cap, 2,000 MG PO HS, (Reported) take 2 (1,000mg) tabs Pantoprazole Sodium 40 Mg Tablet.dr, 40 MG PO DAILY, (Reported) Potassium Chloride 20 Meq Tab.er.prt, 20 MEQ PO DAILY, (Reported) Prednisone 20 Mg Tab, 20 MG PO DAILY, #22 Take 3 tabs(60mg)daily,decrease by 1/2 tab(10mg)every other day. Prescribed by: SAM CINTRON on 08/26/17857 Rivaroxaban 20 Mg Tablet, 20 MG PO 1800, (Reported) Simvastatin 40 Mg Tablet, 40 MG PO HS, (Reported) Venlafaxine HCl 150 Mg Cap.er.24h, 150 MG PO BID, (Reported) [Calazime Oint] , TOP BID, (Reported) FOR OTHER SPECIFIED AFTER CARE CLIF REECE MD Sep 03, 2017 3:32 pm
[2017-09-03] MEDS: CYANOCOBALAMIN 500 MCG TAB (VITAMIN B-12) PO SCH (16:02)
[2017-09-03] MEDS: LACTOBACILLUS Acidoph/Bulgar (LACTINEX/FLORANEX) TAB PO SCH (16:02)
[2017-09-03] MEDS: KCL 20 MEQ TAB (K-DUR) PO SCH (16:02)
[2017-09-03] MEDS: PANTOPRAZOLE 40 MG (PROTONIX) TAB PO SCH (16:02)
[2017-09-03] MEDS: MULTIVIT W/MINERALS TAB (THERAGRAN M) PO SCH (16:02)
[2017-09-03] MEDS: FUROSEMIDE 40 MG/4 ML INJ (LASIX) IVP SCH (17:30)
[2017-09-03 19:51] VITALS: BP 157/76
[2017-09-03] MEDS: amLODIPine 5 MG (NORVASC) TAB PO SCH (20:17)
[2017-09-03] MEDS: SIMvastatin 40 MG (ZOCOR) TAB PO SCH (20:17)
[2017-09-04] VITALS (12 sets, daily range): BP systolic 15–173; BP diastolic 64–88
[2017-09-04] MEDS: RT-ALBUTEROL/IPRATROPIUM 3 ML (DUONEB) VIAL IH SCH ×4 (02:34→20:29)
[2017-09-04] MEDS: NS IV 1000 ML 1,000 ML IV SCH ×3 (05:29→19:31)
[2017-09-04] MEDS: FUROSEMIDE 40 MG/4 ML INJ (LASIX) IVP SCH ×2 (06:14→17:03)
[2017-09-04] MEDS: LEVOTHYROXINE 100 MCG (LEVOTHROID) TAB PO SCH (06:16)
[2017-09-04] MEDS: predniSONE 20 MG TAB PO SCH (06:17)
[2017-09-04 06:44] LABS: BASOPHILS % (AUTO) 0 % (0-10); EOSINOPHILS # (AUTO) 0.3 10^3/uL (0.0-0.3); EOSINOPHILS % (AUTO) 2 % (0-10); LYMPHOCYTES % (AUTO) 20 % (12-44); MEAN CORPUSCULAR HEMOGLOBIN 33 PG (25-34); MEAN CORPUSCULAR HGB CONC 32 G/DL (32-36); MEAN CORPUSCULAR VOLUME 102 FL (80-99); MONOCYTES # (AUTO) 1.5 X 10^3 (0.0-1.0); MONOCYTES % (AUTO) 15 % (0-12); NEUTROPHILS # (AUTO) 6.5 X 10^3 (1.8-7.8); NEUTROPHILS % (AUTO) 63 % (42-75); PLATELET COUNT 157 10^3/uL (130-400); RED BLOOD COUNT 2.74 10^6/uL (4.35-5.85); RED CELL DISTRIBUTION WIDTH 19.2 % (10.0-14.5); WHITE BLOOD COUNT 10.4 10^3/uL (4.3-11.0)
[2017-09-04 07:02] LABS: ALANINE AMINOTRANSFERASE < 6 U/L (0-55); ALBUMIN 2.3 GM/DL (3.2-4.5); ANION GAP 4 MMOL/L (5-14); ASPARTATE AMINO TRANSFERASE 28 U/L (5-34); BILIRUBIN,TOTAL 0.4 MG/DL (0.1-1.0); BLOOD UREA NITROGEN 21 MG/DL (7-18); BUN/CREATININE RATIO 33; CALCIUM 9.8 MG/DL (8.5-10.1); CARBON DIOXIDE 29 MMOL/L (21-32); CHLORIDE 109 MMOL/L (98-107); CREATININE SERUM 0.63 MG/DL (0.60-1.30); GFR ESTIMATED > 60; GLUCOSE 66 MG/DL (70-105); POTASSIUM 3.5 MMOL/L (3.6-5.0); SODIUM 142 MMOL/L (135-145); TOTAL PROTEIN 4.1 GM/DL (6.4-8.2)
--- NOTE | 2017-09-04 08:23 | Progress Note (SOAP) ---
Subjective Date Seen by Provider: Sep 04, 2017 Time Seen by Provider: 08:35 Subjective/Events-last exam PT REPORTS THAT SHE IS FEELING BETTER TODAY - FEELS MORE CLEAR COGNITIVELY. HER DPOA IS NOT IN HER ROOM THIS MORNING - NOTE LEFT FOR MAGALY ALLEN PT REPORTS TAHT SHE DOES NOT HAVE CHEST PAIN IN RIGHT CHEST FROM PORT PLACEMENT Review of Systems General: Fatigue HEENT: No Head Aches Pulmonary: No Dyspnea, No Cough Cardiovascular: No: Chest Pain, Palpitations Gastrointestinal: No: Nausea, Abdominal Pain Musculoskeletal: No: back pain Neurological: Weakness, Confusion (INTERMITTENT - BUT IMPROVED) Objective Exam Vital Signs Date Time Temp Pulse Resp B/P (MAP) Pulse Ox O2 Delivery O2 Flow Rate FiO2 09/04/17 04:00 98.9 60 18 140/76 94 Nasal Cannula 2.00 09/04/17 02:35 92 Nasal Cannula 2.00 09/04/17 00:00 98.6 60 20 139/73 95 Nasal Cannula 2.00 09/03/17 20:54 Nasal Cannula 2.00 09/03/17 20:26 97 Nasal Cannula 2.00 09/03/17 19:51 99.1 68 20 157/76 93 Nasal Cannula 2.00 09/03/17 15:30 99.1 62 18 150/85 93 Nasal Cannula 2.00 09/03/17 15:18 92 Nasal Cannula 0.50 09/03/17 15:01 96.8 60 14 176/86 93 Nasal Cannula 2.00 09/03/17 09:00 Nasal Cannula 0.50 09/03/17 08:49 91 Nasal Cannula 0.50 09/03/17 08:47 91 Nasal Cannula 0.50 09/03/17 08:29 99.1 71 20 185/89 93 Nasal Cannula 0.50 Capillary Refill : Less Than 3 Seconds General Appearance: No Apparent Distress, WD/WN HEENT: PERRL/EOMI Neck: Full Range of Motion, Supple Respiratory: Chest Non Tender, Lungs Clear, Normal Breath Sounds, No Accessory Muscle Use Cardiovascular: Regular Rate, Rhythm, Systolic Murmur Gastrointestinal: normal bowel sounds, non tender, soft, no organomegaly Extremity: Normal Capillary Refill, No Pedal Edema Neurologic/Psychiatric: Alert, Oriented x3, Normal Mood/Affect Skin: Warm/Dry Lymphatic: No Adenopathy Results Lab Laboratory Tests 09/03/17 09:18: Sodium Level 140, Potassium Level 3.4L, Chloride Level 108H, Carbon Dioxide Level 27, Anion Gap 5, Blood Urea Nitrogen 22H, Creatinine 0.60, Estimat Glomerular Filtration Rate > 60, BUN/Creatinine Ratio 37, Glucose Level 70, Calcium Level 10.2H, Total Bilirubin 0.4, Aspartate Amino Transf (AST/SGOT) 25, Alanine Aminotransferase (ALT/SGPT) 7, Alkaline Phosphatase 89, Total Protein 4.1L, Albumin 2.5L 09/03/17 11:09: Glucometer 71 09/04/17 06:18: Sodium Level 142, Potassium Level 3.5L, Chloride Level 109H, Carbon Dioxide Level 29, Anion Gap 4L, Blood Urea Nitrogen 21H, Creatinine 0.63, Estimat Glomerular Filtration Rate > 60, BUN/Creatinine Ratio 33, Glucose Level 66L, Calcium Level 9.8, Total Bilirubin 0.4, Aspartate Amino Transf (AST/SGOT) 28, Alanine Aminotransferase (ALT/SGPT) < 6, Alkaline Phosphatase 95, Total Protein 4.1L, Albumin 2.3L, White Blood Count 10.4, Red Blood Count 2.74L, Hemoglobin 8.9L, Hematocrit 28L, Mean Corpuscular Volume 102H, Mean Corpuscular Hemoglobin 33, Mean Corpuscular Hemoglobin Concent 32, Red Cell Distribution Width 19.2H, Platelet Count 157, Mean Platelet Volume 10.0, Neutrophils (%) (Auto) 63, Lymphocytes (%) (Auto) 20, Monocytes (%) (Auto) 15H, Eosinophils (%) (Auto) 2, Basophils (%) (Auto) 0, Neutrophils # (Auto) 6.5, Lymphocytes # (Auto) 2.0, Monocytes # (Auto) 1.5H, Eosinophils # (Auto) 0.3, Basophils # (Auto) 0.0 Assessment/Plan Assessment/Plan Assess & Plan/Chief Complaint HYPERCALCEMIA CONFUSION LYMPHOMA HYPOTHYROID HX OF PULMONARY EMBOLISM CHRONIC ANTICOAGULATION HYPERCALCEMIA - IV PAMIDRONATE, ON ADMISSION PT WAS STARTED ON HIGH RATE IV FLUIDS, IV LASIX. - - DOSE OF FLUIDS DECREASED - CONTINUE WITH FLUIDS, MONITOR CREATININE. - EXTRA DOSE OF LASIX TODAY CONFUSION - RESOLVED. LYMPHOMA - MONITOR SYMPTOMS - CONSULT TO DR. CRAWFORD - WE DISCUSSED HER DIAGNOSIS - HE FEELS LIKE MORE TISSUE IS NEEDED FOR A THOROUGH DIAGNOSIS OF LYMPHOMA. I HAVE TALKED TO THE PATHOLOGIST - AND HE INDICATED THAT A BIOPSY OF THE KIDNEY SHOULD BE SUFFICIENT FOR TISSUE DIAGNOSIS - HE WOULD LIKE TO SEE 3 CORE BIOPSIES WITH AN 18 GAUGE NEEDLE WITH ONE TUBE FOR FLOW CYTOMETRY. I HAVE LET DR. CRAWFORD KNOW AND I HAVE INFORMED DR. JIMENEZ ABOUT THIS RECOMMENDATION FROM PATHOLOGY. DR. JIMENEZ HAS AN OPENING AT 9:[address] GUIDED BIOPSY. PORT TO BE PLACED TODAY. HYPOTHYROID - RESUMED HOME MEDICATION HYPOMAGNESEMIA - PT RECENTLY WITH 4 BAGS OF MAGNESIUM - THIS WAS FINISHED ON 08/31/17 IN THE EVENING. HX OF PULMONARY EMBOLISM WITH CHRONIC ANTICOAGULATION - RESUMED XARELTO - HOWEVER TO BE HELD FRIDAY AND FRIDAY - RESTART FRIDAY EVENING. PT TO BE ON LOVENOX UNTIL PRIOR TO PORT PLACEMENT. DVT PROPHYLAXIS WITH XARELTO AND SCD'S GI PROPHYLAXIS WILL BE WITH PROTONIX. Clinical Quality Measures DVT/VTE Risk/Contraindication: Risk Factor Score Per Nursin RFS Level Per Nursing on Admit: 4+=Very High SAM CINTRON MD Sep 04, 2017 08:23
[2017-09-04] MEDS ORDERED: LIDOCAINE 1% INJ 20 ML (XYLOCAINE) VIAL INJ ONE (08:45)
--- NOTE | 2017-09-04 09:53 | Pre-Procedure Progress Note ---
Pre-Procedure Progress Note H&P Reviewed The H&P was reviewed, patient examined and no changes noted. Date H&P Reviewed: Sep 04, 2017 Time H&P Reviewed: 08:00 Pre-Procedure Diagnosis: lymphoma with suspected kidney involvement Anticoagulation has been held and the patient is to get a the ultrasound-guided biopsy of the kidney PAUL JIMENEZ MD Sep 04, 2017 09:53
[2017-09-04] MEDS ORDERED: HYDROcodone/APAP 5 MG/325 MG (LORTAB) TAB PO PRN (10:00)
[2017-09-04] MEDS: PANTOPRAZOLE 40 MG (PROTONIX) TAB PO SCH (10:02)
[2017-09-04] MEDS: LACTOBACILLUS Acidoph/Bulgar (LACTINEX/FLORANEX) TAB PO SCH (10:04)
[2017-09-04] MEDS: ISOSORBIDE MONONITRATE 30 MG (IMDUR) TAB PO SCH ×2 (10:04→20:15)
[2017-09-04] MEDS: MULTIVIT W/MINERALS TAB (THERAGRAN M) PO SCH (10:04)
[2017-09-04] MEDS: VENlafaxine XR 75 MG (EFFEXOR XR) CAP PO SCH ×2 (10:11→20:14)
[2017-09-04] MEDS: CARVEDILOL 12.5 MG (COREG) TABLET PO SCH ×2 (10:11→20:14)
[2017-09-04] MEDS: CYANOCOBALAMIN 500 MCG TAB (VITAMIN B-12) PO SCH (10:12)
[2017-09-04] MEDS: KCL 20 MEQ TAB (K-DUR) PO SCH (10:12)
--- NOTE | 2017-09-04 10:25 | Diagnostic Imaging Report ---
EXAMINATION: US-guided core biopsy-kidney. INDICATION: Bilateral renal abnormal densities concerning for lymphoma. Current history and physical and other medical records are reviewed prior to the procedure. CONSENT: Informed consent was obtained from the patient. The risks, benefits, potential complications and alternatives were reviewed and all questions answered to the patient's satisfaction. The patient's vital signs, cardiac rhythm, and pulse oximetry with observed throughout the procedure by qualified nursing personnel. Sedation/medications: none. FINDINGS: Hyperechoic slightly heterogenous renal parenchyma is seen in the left kidney which is examined and found that suitable for ultrasound-guided biopsy from the inferior pole. PROCEDURE: After maximal sterile barrier technique preparation and draping, 1% lidocaine was utilized for local anesthesia. With the patient in prone position, and via posterior subcostal approach, a 17-gauge guide needle is introduced into the lower pole of the left kidney under live ultrasound guidance. After confirming adequate positioning with saved ultrasound images, multiple 18 gauge core biopsy specimens were obtained. Gelfoam injected in the tract as the guide needle was removed The patient tolerated the procedure well with no immediate complications. IMPRESSION: Successful US-guided core biopsy of left kidney taken from the lower pole. Dictated by: Dictated on workstation # [id number]
[2017-09-04] MEDS: MENTHOL/ZINC OXIDE (CALMOSEPTINE) 113 GM TUBE TOP SCH ×2 (10:35→20:14)
[2017-09-04] MEDS: RT-ADVAIR HFA 115/21 MCG PER PUFF IH SCH ×2 (11:14→20:29)
--- NOTE | 2017-09-04 14:29 | Anesthesia-General Post-Op ---
MAC Patient Condition Mental Status/LOC: Same as Preop Cardiovascular: Satisfactory Nausea/Vomiting: Absent Respiratory: Satisfactory Pain: Controlled Complications: Absent Post Op Complications Complications None Follow Up Care/Instructions Patient Instructions None needed. Anesthesiology Discharge Order Discharge Order Patient is doing well, no complaints, stable vital signs, no apparent adverse anesthesia problems. JULIA ZAYAS DO Sep 04, 2017 14:29
[2017-09-04] MEDS ORDERED: RIVAROXABAN 20 MG TABLET (XARELTO) PO SCH (17:00)
--- NOTE | 2017-09-04 17:36 | Progress Note-Standard ---
Standard Progress Note Progress Notes/Assess & Plan Date Seen by Provider: Sep 04, 2017 Time Seen by Provider: 17:33 Progress/Assessment & Plan 67-year-old female admitted with recurrent hypercalcemia and mental status changes. She was seen in consultation on 08/22/2017 with mediastinal lymphadenopathy. She underwent bronchoscopy with transbronchial biopsy of lymph nodes on 08/20/2017. 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 More tissue was requested for better characterization of the lymphoma. PET/CT scan done on 09/02/17 showed slightly increased uptake in mediastinal lymph nodes as well as in spleen and kidneys which were felt to be due to lymphoma. Patient completed ultrasound-guided core needle biopsy of kidneys today. We will await pathology report before discussing treatment options. C- MYC testing from initial biopsy is pending to rule out triple hit lymphoma. Patient is more oriented today and denied any problems. No pain at the right infraclavicular port insertion site or at the renal biopsy site. DYLAN CRAWFORD Sep 04, 2017 17:36
[2017-09-04] MEDS: SIMvastatin 40 MG (ZOCOR) TAB PO SCH (20:14)
[2017-09-04] MEDS: OMEGA 3 (FISH OIL) 1000 MG CAP PO SCH (20:14)
[2017-09-04] MEDS: amLODIPine 5 MG (NORVASC) TAB PO SCH (20:17)
[2017-09-05 00:32] VITALS: BP 128/72
[2017-09-05] MEDS: NS IV 1000 ML 1,000 ML IV SCH ×2 (02:27→08:16)
[2017-09-05] MEDS: RT-ALBUTEROL/IPRATROPIUM 3 ML (DUONEB) VIAL IH SCH ×2 (02:44→09:06)
[2017-09-05 04:00] VITALS: BP 146/68
[2017-09-05] MEDS: predniSONE 20 MG TAB PO SCH (05:57)
[2017-09-05] MEDS: LEVOTHYROXINE 100 MCG (LEVOTHROID) TAB PO SCH (05:57)
[2017-09-05] MEDS: FUROSEMIDE 40 MG/4 ML INJ (LASIX) IVP SCH (05:57)
[2017-09-05 08:00] VITALS: BP 150/73
[2017-09-05] MEDS: CARVEDILOL 12.5 MG (COREG) TABLET PO SCH (08:14)
[2017-09-05] MEDS: VENlafaxine XR 75 MG (EFFEXOR XR) CAP PO SCH (08:14)
[2017-09-05] MEDS: MULTIVIT W/MINERALS TAB (THERAGRAN M) PO SCH (08:15)
[2017-09-05] MEDS: LACTOBACILLUS Acidoph/Bulgar (LACTINEX/FLORANEX) TAB PO SCH (08:15)
[2017-09-05] MEDS: ASPIRIN E.C. 81 MG (ECOTRIN) TAB PO SCH (08:15)
[2017-09-05] MEDS: PANTOPRAZOLE 40 MG (PROTONIX) TAB PO SCH (08:15)
[2017-09-05] MEDS: CYANOCOBALAMIN 500 MCG TAB (VITAMIN B-12) PO SCH (08:15)
[2017-09-05] MEDS: ISOSORBIDE MONONITRATE 30 MG (IMDUR) TAB PO SCH (08:15)
[2017-09-05] MEDS: KCL 20 MEQ TAB (K-DUR) PO SCH (08:15)
[2017-09-05] MEDS: MENTHOL/ZINC OXIDE (CALMOSEPTINE) 113 GM TUBE TOP SCH (08:49)
[2017-09-05] MEDS: RT-ADVAIR HFA 115/21 MCG PER PUFF IH SCH (09:07)
--- NOTE | 2017-09-05 11:22 | Discharge Summary ---
Diagnosis/Chief Complaint Date of Admission Aug 29, 2017 at 06:35 Date of Discharge Discharge Date: Sep 05, 2017 Discharge Time: 11:20 Admission Diagnosis Admission Diagnosis HYPERCALCEMIA CONFUSION LYMPHOMA HYPOTHYROID HX OF PULMONARY EMBOLISM CHRONIC ANTICOAGULATION Discharge Diagnosis HYPERCALCEMIA CONFUSION LYMPHOMA HYPOTHYROID HX OF PULMONARY EMBOLISM CHRONIC ANTICOAGULATION Reason Hospital Visit PT IS A 67 Y/O FEMALE WHO IS WELL KNOWN TO ME FROM CLINIC AND MULTIPLE RECENT HOSPITALIZATIONS. DANIELA HAS LYMPHOMA WITH ENLARGED NODES IN THE CHEST AND HAS HYPERCALCEMIA WELL A RECENT URINARY TRACT INFECTION. SHE WAS DOING WELL LAST WEEK, WAS DISCHARGED FROM THE HOSPITAL ON ORAL ANTIBIOTICS, HER CALCIUM LEVEL WAS NORMAL. SHE WAS SEEN BY DR. AVITIA YESTERDAY AND HAD BEEN GIVEN THE DIAGNOSIS OF LYMPHOMA. SHE WAS BEING WELL MAINTAINED ON HER BISPHOSPHONATE THERAPY WELL STEROID TAPER. APPARENTLY IN THE MIDDLE OF THE NIGHT LAST NIGHT, THE NURSES NOTED THAT THE PATIENT WAS HAVING STRANGE HEAD MOVEMENTS, JERKING MOVEMENTS AND WAS UNABLE TO BE AROUSED BACK TO HER NORMAL COGNITIVE. Discharge Summary Consultations DR. TY REECE Discharge Physical Examination Allergies: Coded Allergies: penicillin G (Verified Allergy, Intermediate, Pt has received Cefazolin & Cefepime in the past, 09/01/17) ITCHING AFTER RECEIVING PENICILLIN WHEN SHE WAS 30-35 YEARS OLD meperidine (Verified Allergy, Unknown, 08/29/17) quinine (Verified Allergy, Unknown, 08/29/17) levofloxacin (Verified Adverse Reaction, Intermediate, HIVES, 08/29/17) BURNING AND ITCHING Vitals & I&Os Vital Signs Date Time Temp Pulse Resp B/P (MAP) Pulse Ox O2 Delivery O2 Flow Rate FiO2 09/05/17 09:06 90 Nasal Cannula 2.00 09/05/17 08:00 99.3 65 20 150/73 General Appearance: Alert, Oriented X3, Cooperative HEENT: Atraumatic, PERRLA, Mucous Memb Moist/[place] Respiratory: Clear to Auscultation, Normal Air Movement Cardiovascular: Regular Rate, Other (ii/vi luis) Abdominal: Normal Bowel Sounds, Soft, No Tenderness, Other (renal biopsy site improved) Skin: No Rashes, Other (no erythema or tenderness at site of right port site and abdominal biopsy site) Neuro: Cranial Nerves 3-12 NL Psych/Mental Status: Mental Status NL, Mood NL Hospital Course HYPERCALCEMIA CONFUSION LYMPHOMA HYPOTHYROID HX OF PULMONARY EMBOLISM CHRONIC ANTICOAGULATION HYPERCALCEMIA - IV PAMIDRONATE, ON ADMISSION PT WAS STARTED ON HIGH RATE IV FLUIDS, IV LASIX. - - DOSE OF FLUIDS DECREASED - CONTINUE WITH FLUIDS, MONITOR CREATININE. CONTINUE WITH LASIX BID CONFUSION - RESOLVED. LYMPHOMA - MONITOR SYMPTOMS - CONSULT TO DR. CRAWFORD - WE DISCUSSED HER DIAGNOSIS - HE FEELS LIKE MORE TISSUE IS NEEDED FOR A THOROUGH DIAGNOSIS OF LYMPHOMA. I HAVE TALKED TO THE PATHOLOGIST - AND HE INDICATED THAT A BIOPSY OF THE KIDNEY SHOULD BE SUFFICIENT FOR TISSUE DIAGNOSIS - HE WOULD LIKE TO SEE 3 CORE BIOPSIES WITH AN 18 GAUGE NEEDLE WITH ONE TUBE FOR FLOW CYTOMETRY. I HAVE LET DR. CRAWFORD KNOW AND I HAVE INFORMED DR. JIMENEZ ABOUT THIS RECOMMENDATION FROM PATHOLOGY. RENAL BIOPSY YESTERDAY - WAITING ON FINAL PATHOLOGY REPORT - WILL LOOK FOR REPORT NEXT WEEK HYPOTHYROID - RESUMED HOME MEDICATION HYPOMAGNESEMIA - PT RECENTLY WITH 4 BAGS OF MAGNESIUM - THIS WAS FINISHED ON 08/31/17 IN THE EVENING. HX OF PULMONARY EMBOLISM WITH CHRONIC ANTICOAGULATION - RESUMED XARELTO - DVT PROPHYLAXIS WITH XARELTO AND SCD'S GI PROPHYLAXIS WILL BE WITH PROTONIX. Discharge Condition at discharge IMPROVED Instructions to patient/family Please see electronic discharge instructions given to patient. Discharge Medications Reviewed and agree with Discharge Medication list on patient's Discharge Instruction sheet Clinical Quality Measures DVT/VTE Risk/Contraindication: Risk Factor Score Per Nursin RFS Level Per Nursing on Admit: 4+=Very High SAM CINTRON MD Sep 05, 2017 11:22
[2017-09-05] MEDS ORDERED: RT-ALBUTEROL/IPRATROPIUM 3 ML (DUONEB) VIAL IH SCH (15:00)
[2017-09-05] MEDS ORDERED: RIVAROXABAN 20 MG TABLET (XARELTO) PO SCH (17:00)
== END 2017-09-05 11:25 | disposition swing bed (61) | DRG 641 ==
LOC: EDUNIT# 05:14 → ER 05:16 → 4TH 06:35
PROVIDERS: ADMIT Family Medicine; ATTEND Family Medicine
PROC: 0JH60WZ Insertion of Totally Implantable Vascular Access Device into Chest Subcutaneous Tissue and Fascia, Open Approach (ICD-10-PCS; 2017-09-03)
PROC: 02HV33Z Insertion of Infusion Device into Superior Vena Cava, Percutaneous Approach (ICD-10-PCS; principal; 2017-09-03 12:35)
PROC: 0TB13ZX Excision of Left Kidney, Percutaneous Approach, Diagnostic (ICD-10-PCS; 2017-09-04)
DX: E83.52 Hypercalcemia (principal); C85.12 Unspecified B-cell lymphoma, intrathoracic lymph nodes; E87.0 Hyperosmolality and hypernatremia; E86.0 Dehydration; J44.9 Chronic obstructive pulmonary disease, unspecified; G47.30 Sleep apnea, unspecified; I25.10 Atherosclerotic heart disease of native coronary artery without angina pectoris; I10 Essential (primary) hypertension; E11.9 Type 2 diabetes mellitus without complications; E03.9 Hypothyroidism, unspecified; D53.9 Nutritional anemia, unspecified; D63.0 Anemia in neoplastic disease; D63.8 Anemia in other chronic diseases classified elsewhere; F32.9 Major depressive disorder, single episode, unspecified; M19.91 Primary osteoarthritis, unspecified site; M54.9 Dorsalgia, unspecified; E87.6 Hypokalemia; E83.42 Hypomagnesemia; Z86.711 Personal history of pulmonary embolism; Z86.718 Personal history of other venous thrombosis and embolism; Z79.01 Long term (current) use of anticoagulants; Z87.891 Personal history of nicotine dependence; Z95.1 Presence of aortocoronary bypass graft; Z95.5 Presence of coronary angioplasty implant and graft; Z87.11 Personal history of peptic ulcer disease; Z96.611 Presence of right artificial shoulder joint; Z96.612 Presence of left artificial shoulder joint; Z87.440 Personal history of urinary (tract) infections; Z79.4 Long term (current) use of insulin
CPT/HCPCS: 36415; 71010; 76942; 80048; 80053; 81000; 82306; 82962; 83735; 84100; 85025; 85027; 86850; 86900; 86901; 87081; 93306; 94640; 94760; 96360

== ENCOUNTER 2017-09-05 11:07 | Inpatient (IN) | payer MEDICARE ==
[~2017-09-05] VITALS: Ht 154.9 cm; Wt 54.4 kg
[2017-09-05] MEDS ORDERED: fentaNYL INJECTION 100 MCG/2 ML AMP IVP PRN (11:39)
[2017-09-05] MEDS ORDERED: CATHETER FLUSH 10 ML SYR IV PRN (11:39)
[2017-09-05] MEDS ORDERED: NON-FORMULARY MEDICATION 1 EA EA (Alendronate Sodium (Fosamax) 70 MG) PO SCH (11:39)
[2017-09-05] MEDS ORDERED: HYDROcodone/APAP 5 MG/325 MG (LORTAB) TAB PO PRN (11:39)
[2017-09-05] MEDS ORDERED: RT-ALBUTEROL SULF 2.5 MG/3 ML PRE-MIX VIAL IH PRN (11:39)
[2017-09-05] MEDS: NS IV 1000 ML 1,000 ML IV SCH ×3 (11:50→22:28)
[2017-09-05 12:00] VITALS: BP 133/71
[2017-09-05] MEDS ORDERED: INFLUENZA TRIvalent 2017-2018 0.5 ML/45 MCG SYR IM ONE (12:00)
--- NOTE | 2017-09-05 13:46 | Physical Therapy Evaluation ---
PT Evaluation-General Medical Diagnosis Admission Date Sep 05, 2017 at 11:26 Medical Diagnosis: hypercalcemia/lymphoma Onset Date: Aug 29, 2017 Therapy Diagnosis Therapy Diagnosis: generalized weakness/debility Height/Weight Height (Feet): 5 Height (Inches): 2.00 Weight (Pounds): 140 Weight (Ounces): 0.0 Medical History Pertinent Medical History: Arthritis, CABG, CAD, COPD, DM, HTN, Smoking Additional Medical History multiple hospital admits Current History SWB status Reviewed History: Yes Social History Home: [facility] Prior/[facility] FIM Prior Level of Function Functional [place] Measure 0=Not Assessed/NA 4=Minimal Assistance 1=Total Assistance 5=Supervision or Setup 2=Maximal Assistance 6=Modified [place] 3=Moderate Assistance 7=Complete [place] Bed Mobility: 4 Transfers (B,C,W/C) (FIM): 4 Gait: 1 Wheelchair Mobility: 4 PT Evaluation-Current Subjective Patient agrees to PT. Pain Numeric Pain Scale: 0-No Pain Location: No Pain Reported Objective Patient Orientation: Confused Attachments: Oxygen, Chapin Catheter, IV ROM/Strength ROM Lower Extremities bilateral LE WNL Strenght Lower Extremities bilateral LE WNL Integumentary/Posture Integumentary refer to nursing notes Bowel Incontinence: No Bladder Incontinence: Chapin Cath Posture WNL Neuromuscular (Tone, Coordination, Reflexes) slightly diminished coordination Sensory Vision: Functional Hearing: Functional Sensation Right Lower Extremit: Impaired Sensation Left Lower Extremity: Impaired Transfers Functional [place] Measure 0=Not Assessed/NA 4=Minimal Assistance 1=Total Assistance 5=Supervision or Setup 2=Maximal Assistance 6=Modified [place] 3=Moderate Assistance 7=Complete [place] Transfers (B, C, W/C) (FIM): 4 Scootin Rollin Supine to/from Sit: 4 Sit to/from Stand: 4 Sit to Lying (QC): 3 Lying to Sitting/Side of Bed(Q: 3 Sit to Stand (QC): 3 Gait Does the Patient Walk?: Yes Mode of Locomotion: Both Anticipated Mode of Locomotion: Both Gait (FIM): 1 Distance (FIM): 1=up to 49 ft Distance: 5' Walk 50 ft with 2 Turns(QC): 9 Walk 150 ft (QC): 9 Gait Level of Assist: 4 Gait Persons Needed: 1 Gait Assistive Device: FWW Comments/Gait Description shuffle gait sequence Wheelchair Training Does the Pt Use a Wheelchair?: Yes Balance Sitting Static: Normal Sitting Dynamic: Normal Standing Static: Fair Standing Dynamic: Fair Treatment bilateral LE exercises in supine and sit 10 reps each: AP, HS QS,LAQ Assessment/Needs 67 y.o. female, will benefit from short term skilled PT to address functionals strength and mobility to improve current LOF. Rehab Potential: Fair PT Senior Living Goals Senior Quality Control Inspector Goals PT Senior Quality Control Inspector Goals Time Frame: Sep 19, 2017 Transfers (B,C,W/C) (FIM): 5 Sit to Lying (QC): 4 Lying-Sitting on Side/Bed(QC): 4 Sit to Stand (QC): 4 Rollin Chair/Blp-yq-Pajez Xfer(QC): 4 Does the Patient Walk: Yes Gait (FIM): 1 Gait distance (FIM): 1=up to 49 ft (25') Distance: 25' Walk 50ft with 2 Turns (QC): 9 Walk 150 ft (QC): 9 Gait Level of Assist: 5 Gait Assistive Device: FWW PT Plan Problem List Problem List: Activity Tolerance, Functional Strength, Safety, Balance, Gait, Transfer, Bed Mobility Treatment/Plan Treatment Plan: Continue Plan of Care Treatment Plan: Bed Mobility, Education, Functional Activity Emily, Functional Strength, Gait, Safety, Therapeutic Exercise, Transfers Treatment Duration: Sep 19, 2017 Frequency: 6 times per week Estimated Hrs Per Day: .25 hour per day Patient and/or Family Agrees t: Yes Safety Risks/Education Patient Education: Safety Issues Teaching Recipient: Patient Teaching Methods: Discussion Response to Teaching: Reinforcement Needed Discharge Recommendations Therapy D/C Recommendations: [facility] Placement, Halfway (TCU/NH) Time/GCodes Time In: 1230 Time Out: 1255 Total Billed Treatment Time: 25 Total Billed Treatment 1 visit Axel Parra 10 min EX 15 min ALISON BOBBY PT Sep 05, 2017 13:46
--- NOTE | 2017-09-05 15:35 | Occupational Therapy Eval ---
OT Evaluation-General/PLF Medical Diagnosis Admission Date Sep 05, 2017 at 11:26 Medical Diagnosis: hypercalcemia/lymphoma Onset Date: Aug 29, 2017 Therapy Diagnosis Therapy Diagnosis: impaired self care skills Height/Weight Height (Feet): 5 Height (Inches): 2.00 Weight (Pounds): 140 Weight (Ounces): 0.0 Medical History Pertinent Medical History: Arthritis, CABG, CAD, COPD, DM, HTN, Smoking Additional Medical History lymphoma, bilateral shoulder replacement, left ulnar transposition, hypothyroidism, depression Reviewed History: Yes Social History Home: [facility] ADL-Prior Level of Function ADL PLOF Comments Pt has difficulty providing PLOF. States she walks with a walker OT Current Status Subjective Pt sitting in chair, confused. Pt states she wants to do therapy, but she doesn' t want to participate right now. Therapist and RN educated pt on importance of therapy and pt agrees to participate. Pt states she is not having any pain. Mental Status/Objective Patient Orientation: Person, Confused Attachments: Chapin Catheter, IV, Oxygen Current Glasses/Contacts: Yes Hand Dominance: Right Upper Extremity ROM Pt has decreased bilateral shoulder ROM. Upper Extremity Coordination Fair. Pt has decreased coordination in bilateral hands. Upper Extremity Strength Grossly 4-/5 ADL-Treatment ADL-Current Pt participated in UE assessment while seated in chair. Pt states she needs to use BSC . Sit to stand with minimal assistance. Pt transferred to BSC with minimal assistance using FWW. Pt requires skilled cues for proper walker use and safety. Assist to manage hospital gown. Pt unable to have BM while seated on BSC. Transfer back to chair with minimal assistance. Pt sitting in chair with needs met after session. Functional [place] Measure 0=Not Assessed/NA 4=Minimal Assistance 1=Total Assistance 5=Supervision or Setup 2=Maximal Assistance 6=Modified [place] 3=Moderate Assistance 7=Complete IndependenceIRFPAI Quality Coding Scale 6 Independent with activity with or without an assistive device 5 Patient requires set up or clean up by helper. Patient completes activity by themselves 4 Supervision or touching assist (CGA). [place] provide cues , steadying assist 3 The helper provides less than half the effort to complete the activity 2 The helper provides more than half the effort to complete the activity 1 Dependent. The helper does all the effort to complete an activity 7 Patient refused to complete or attempt activity 9 The patient did not perform the activity before the current illness or injury 88 Not attempted due to Medical conditions or safety concerns Toilet/Commode Transfer (FIM): 4 Toilet Transfer (QC): 3 Education OT Patient Education: Rehab process Teaching Recipient: Patient Teaching Methods: Discussion Response to Teaching: Unable to Comprehend OT Short Term Goals Short Term Goals 1=Demonstrate adherence to instructed precautions during ADL tasks. 2=Patient will verbalize/demonstrate understanding of assistive devices/ modifications for ADL. 3=Patient will improve strength/tolerance for activity to enable patient to perform ADL's. OT [place] [employer] Goals Intermediate Goals Time Frame: Sep 19, 2017 Eating (FIM): 5 Eating (QC): 5 Groomin Oral Hygiene (QC): 5 Upper Body Dressing(FIM): 5 Lower Body Dressing(FIM): 4 Toileting(FIM): 4 Toileting Hygiene (QC): 4 Toilet/Commode Transfer(FIM): 5 Toilet/Commode Transfer (QC): 4 Additional Goals: 1-Demonstrate ADL Tasks, 2-Verbalize Understanding, 3- ImproveStrength/Emily 1=Demonstrate adherence to instructed precautions during ADL tasks. 2=Patient will verbalize/demonstrate understanding of assistive devices/ modifications for ADL. 3=Patient will improve strength/tolerance for activity to enable patient to perform ADL's. OT Education/Plan Problem List/Assessment Assessment: Decreased Activ Tolerance, Decreased Safety Aware, Decreased UE Strength, Dependent Transfers, Impaired Self-Care Skills Pt demonstrates decreased ADL functioning, strength, mobility, and activity tolerance. Pt to benefit from skilled OT intervention for ADL training, transfers, strengthening, and safety education to improve level of independence and allow safe discharge plan. Discharge Recommendations Plan/Recommendations: Continue POC Treatment Plan/Plan of Care Treatment,Training & Education: Yes Patient would benefit from OT for education, treatment and training to promote independence in ADL's, mobility, safety and/or upper extremity function for ADL' s. Plan of Care: ADL Retraining, Functional Mobility, UE Funct Exercise/Act Treatment Duration: Sep 19, 2017 Frequency: 5 times per week Estimated Hrs Per Day: .25 hour per day Rehab Potential: Fair Time/GCodes Start Time: 15:00 Stop Time: 15:25 Total Time Billed (hr/min): 25 Billed Treatment Time 1 visit, EVL(10minutes), ADL(15minutes) HEDY GONZALES OT Sep 05, 2017 15:35
[2017-09-05 15:40] VITALS: BP 118/66
[2017-09-05] MEDS: RT-ALBUTEROL/IPRATROPIUM 3 ML (DUONEB) VIAL IH SCH ×2 (15:49→20:14)
[2017-09-05] MEDS: RIVAROXABAN 20 MG TABLET (XARELTO) PO SCH (16:32)
[2017-09-05] MEDS: FUROSEMIDE 40 MG/4 ML INJ (LASIX) IVP SCH (16:32)
[2017-09-05 19:30] VITALS: BP 143/63
[2017-09-05] MEDS: amLODIPine 5 MG (NORVASC) TAB PO SCH (20:06)
[2017-09-05] MEDS: SIMvastatin 40 MG (ZOCOR) TAB PO SCH (20:06)
[2017-09-05] MEDS: ISOSORBIDE MONONITRATE 30 MG (IMDUR) TAB PO SCH (20:06)
[2017-09-05] MEDS: VENlafaxine XR 75 MG (EFFEXOR XR) CAP PO SCH (20:06)
[2017-09-05] MEDS: CARVEDILOL 12.5 MG (COREG) TABLET PO SCH (20:07)
[2017-09-05] MEDS: OMEGA 3 (FISH OIL) 1000 MG CAP PO SCH (20:07)
[2017-09-05] MEDS: MENTHOL/ZINC OXIDE (CALMOSEPTINE) 113 GM TUBE TOP SCH (20:10)
[2017-09-05] MEDS: RT-ADVAIR HFA 115/21 MCG PER PUFF IH SCH (20:14)
[2017-09-06] VITALS (7 sets, daily range): BP systolic 117–162; BP diastolic 58–77
[2017-09-06] MEDS: RT-ALBUTEROL/IPRATROPIUM 3 ML (DUONEB) VIAL IH SCH ×4 (02:07→19:09)
[2017-09-06] MEDS: NS IV 1000 ML 1,000 ML IV SCH ×3 (04:30→18:44)
[2017-09-06 05:13] LABS: RED BLOOD COUNT 2.43 10^6/uL (4.35-5.85); RED CELL DISTRIBUTION WIDTH 19.3 % (10.0-14.5); WHITE BLOOD COUNT 9.5 10^3/uL (4.3-11.0)
[2017-09-06 05:33] LABS: ALANINE AMINOTRANSFERASE < 6 U/L (0-55); ALBUMIN 2.2 GM/DL (3.2-4.5); ANION GAP 5 MMOL/L (5-14); ASPARTATE AMINO TRANSFERASE 23 U/L (5-34); BILIRUBIN,TOTAL 0.4 MG/DL (0.1-1.0); BLOOD UREA NITROGEN 22 MG/DL (7-18); BUN/CREATININE RATIO 32; CALCIUM 9.7 MG/DL (8.5-10.1); CARBON DIOXIDE 26 MMOL/L (21-32); CHLORIDE 111 MMOL/L (98-107); CREATININE SERUM 0.68 MG/DL (0.60-1.30); GFR ESTIMATED > 60; GLUCOSE 77 MG/DL (70-105); MAGNESIUM 1.3 MG/DL (1.8-2.4); POTASSIUM 3.1 MMOL/L (3.6-5.0); SODIUM 142 MMOL/L (135-145); TOTAL PROTEIN 3.9 GM/DL (6.4-8.2)
[2017-09-06] MEDS: LEVOTHYROXINE 100 MCG (LEVOTHROID) TAB PO SCH (06:03)
[2017-09-06] MEDS: predniSONE 20 MG TAB PO SCH (06:03)
[2017-09-06] MEDS: FUROSEMIDE 40 MG/4 ML INJ (LASIX) IVP SCH ×2 (06:03→18:42)
[2017-09-06] MEDS: LACTOBACILLUS Acidoph/Bulgar (LACTINEX/FLORANEX) TAB PO SCH (08:20)
[2017-09-06] MEDS: CARVEDILOL 12.5 MG (COREG) TABLET PO SCH ×2 (08:20→20:13)
[2017-09-06] MEDS: ASPIRIN E.C. 81 MG (ECOTRIN) TAB PO SCH (08:21)
[2017-09-06] MEDS: MULTIVIT W/MINERALS TAB (THERAGRAN M) PO SCH (08:21)
[2017-09-06] MEDS: KCL 20 MEQ TAB (K-DUR) PO SCH (08:21)
[2017-09-06] MEDS: ISOSORBIDE MONONITRATE 30 MG (IMDUR) TAB PO SCH ×2 (08:21→20:12)
[2017-09-06] MEDS: VENlafaxine XR 75 MG (EFFEXOR XR) CAP PO SCH ×2 (08:21→20:12)
[2017-09-06] MEDS: CYANOCOBALAMIN 500 MCG TAB (VITAMIN B-12) PO SCH (08:21)
[2017-09-06] MEDS: PANTOPRAZOLE 40 MG (PROTONIX) TAB PO SCH (08:22)
[2017-09-06] MEDS: MENTHOL/ZINC OXIDE (CALMOSEPTINE) 113 GM TUBE TOP SCH ×2 (08:22→20:14)
[2017-09-06] MEDS: RT-ADVAIR HFA 115/21 MCG PER PUFF IH SCH ×2 (08:56→19:09)
--- NOTE | 2017-09-06 10:16 | Physical Therapy Daily Note ---
PT Daily Note-Current Subjective Pt. in bed and agrees to therapy, she denies any pain or issues. Mental Status Patient Orientation: Person, Place, Time, Situation Attachments: IV Transfers Functional [place] Measure 0=Not Assessed/NA 4=Minimal Assistance 1=Total Assistance 5=Supervision or Setup 2=Maximal Assistance 6=Modified [place] 3=Moderate Assistance 7=Complete IndependenceIRFPAI Quality Coding Scale 6 Independent with activity with or without an assistive device 5 Patient requires set up or clean up by helper. Patient completes activity by themselves 4 Supervision or touching assist (CGA). [place] provide cues , steadying assist 3 The helper provides less than half the effort to complete the activity 2 The helper provides more than half the effort to complete the activity 1 Dependent. The helper does all the effort to complete an activity 7 Patient refused to complete or attempt activity 9 The patient did not perform the activity before the current illness or injury 88 Not attempted due to Medical conditions or safety concerns Transfers (B, C, W/C) (FIM): 4 Supine to/from Sit: 5 Sit to/from Stand: 4 Gait Training Gait (FIM): 1 Distance (FIM): 1=up to 49 ft Distance: 5 ft Gait Level of Assist: 4 Gait Persons Needed: 1 Gait Assistive Device: FWW Treatments transfers Assessment Current Status: Good Progress Pt. did well with transfers and ambulated bed to chair in room needing only CGA. Pt. up in chair post session with call light and all needs met, O2 in situ. PT Stock Unloader Goals Correction Goals PT Stock Unloader Goals Time Frame: Sep 19, 2017 Transfers (B,C,W/C) (FIM): 5 Sit to Lying (QC): 4 Lying-Sitting on Side/Bed(QC): 4 Sit to Stand (QC): 4 Rollin Chair/Uif-iv-Cnsos Xfer(QC): 4 Does the Patient Walk: Yes Gait (FIM): 1 Gait distance (FIM): 1=up to 49 ft (25') Distance: 25' Walk 50ft with 2 Turns (QC): 9 Walk 150 ft (QC): 9 Gait Level of Assist: 5 Gait Assistive Device: FWW PT Plan Treatment/Plan Treatment Plan: Continue Plan of Care Treatment Plan: Bed Mobility, Education, Functional Activity Emily, Functional Strength, Gait, Safety, Therapeutic Exercise, Transfers Treatment Duration: Sep 19, 2017 Frequency: 6 times per week Estimated Hrs Per Day: .25 hour per day Patient and/or Family Agrees t: Yes Time/GCodes Time In: 830 Time Out: 845 Total Billed Treatment Time: 15 Total Billed Treatment 1, FA 15' BRANDIE MELO PT Sep 06, 2017 10:16
--- NOTE | 2017-09-06 10:44 | Progress Note-Standard ---
Standard Progress Note Progress Notes/Assess & Plan Date Seen by Provider: Sep 06, 2017 Time Seen by Provider: 10:39 Progress/Assessment & Plan 67-year-old female with recurrent hypercalcemia. Bronchoscopy with FNA of mediastinal lymph nodes showing B-cell neoplasm. Status post PET scan with evidence of renal and splenic involvement as well as mediastinal adenopathy. Completed core needle biopsy of kidney on 09/04/2017. Initial studies showed BCL -2 and BCL 6 mutation. C-MYC requested to rule out triple hit lymphoma but the results are pending. Patient is doing well and her mentation is clear today. She complained of feeling tired. Exam stable. Laboratory Tests 09/06/17 05:03: White Blood Count 9.5, Red Blood Count 2.43L, Hemoglobin 7.9L, Hematocrit 25L, Mean Corpuscular Volume 102H, Mean Corpuscular Hemoglobin 33, Mean Corpuscular Hemoglobin Concent 32, Red Cell Distribution Width 19.3H, Platelet Count 140, Mean Platelet Volume 10.0, Sodium Level 142, Potassium Level 3.1L, Chloride Level 111H, Carbon Dioxide Level 26, Anion Gap 5, Blood Urea Nitrogen 22H, Creatinine 0.68, Estimat Glomerular Filtration Rate > 60, BUN/Creatinine Ratio 32, Glucose Level 77, Calcium Level 9.7, Magnesium Level 1.3L, Total Bilirubin 0.4, Aspartate Amino Transf (AST/SGOT) 23, Alanine Aminotransferase (ALT/SGPT) < 6, Alkaline Phosphatase 86, Total Protein 3.9L, Albumin 2.2L I will repeat a CBC tomorrow as the hemoglobin level has dropped. Await final pathology report before deciding on treatment options. Will follow patient with you. DYLAN CRAWFORD Sep 06, 2017 10:44
--- NOTE | 2017-09-06 11:28 | Progress Note-Hospitalist ---
Subjective HPI/CC On Admission Date Seen by Provider: Sep 06, 2017 Time Seen by Provider: 10:55 Subjective/Events-last exam patient is sitting up knows me and is without complaint. She has obviously lost weight since last time I saw her about 3 weeks ago. Other than weakness she is doing okay Review of Systems Neurological: Weakness Objective Exam Vital Signs Vital Sign - Last 12Hours 09/05/17 12:00 Temp 99.1 Pulse 66 Resp 24 B/P (MAP) 133/71 Pulse Ox 96 O2 Delivery Nasal Cannula O2 Flow Rate 2.00 Capillary Refill : General Appearance: Chronically ill HEENT: Other (poor dentition.) Respiratory: Lungs Clear, Normal Breath Sounds Cardiovascular: Regular Rate, Rhythm, Systolic Murmur (02/03) Gastrointestinal: Soft Extremity: No Calf Tenderness Neurologic/Psychiatric: Alert, Oriented x3, Depressed Affect Results/Procedures Lab Laboratory Tests 09/07/17 05:35 Assessment/Plan Assessment and Plan Assess & Plan/Chief Complaint 1. B-cell neoplasm speciation pending 2. Hypercalcemia-currently controlled 3. 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 Anemia we'll Hemoccult stools Poor prognosis overall ALE CHACON MD Sep 06, 2017 11:28 am
[2017-09-06] MEDS: RIVAROXABAN 20 MG TABLET (XARELTO) PO SCH (18:42)
[2017-09-06] MEDS: OMEGA 3 (FISH OIL) 1000 MG CAP PO SCH (20:12)
[2017-09-06] MEDS: amLODIPine 5 MG (NORVASC) TAB PO SCH (20:12)
[2017-09-06] MEDS: SIMvastatin 40 MG (ZOCOR) TAB PO SCH (20:13)
[2017-09-07] MEDS: RT-ALBUTEROL/IPRATROPIUM 3 ML (DUONEB) VIAL IH SCH ×5 (02:00→18:59)
[2017-09-07] MEDS: NS IV 1000 ML 1,000 ML IV SCH ×3 (04:05→23:47)
[2017-09-07 04:30] VITALS: BP 159/72
[2017-09-07 05:40] LABS: BASOPHILS % (AUTO) 0 % (0-10); EOSINOPHILS # (AUTO) 0.1 10^3/uL (0.0-0.3); EOSINOPHILS % (AUTO) 1 % (0-10); LYMPHOCYTES # (AUTO) 2.1 X 10^3 (1.0-4.0); LYMPHOCYTES % (AUTO) 21 % (12-44); MEAN CORPUSCULAR HEMOGLOBIN 33 PG (25-34); MEAN CORPUSCULAR HGB CONC 32 G/DL (32-36); MEAN CORPUSCULAR VOLUME 103 FL (80-99); MEAN PLATELET VOLUME 9.7 FL (7.4-10.4); MONOCYTES # (AUTO) 1.4 X 10^3 (0.0-1.0); MONOCYTES % (AUTO) 14 % (0-12); NEUTROPHILS # (AUTO) 6.1 X 10^3 (1.8-7.8); NEUTROPHILS % (AUTO) 63 % (42-75); PLATELET COUNT 150 10^3/uL (130-400); RED BLOOD COUNT 2.39 10^6/uL (4.35-5.85); RED CELL DISTRIBUTION WIDTH 19.3 % (10.0-14.5); WHITE BLOOD COUNT 9.7 10^3/uL (4.3-11.0)
[2017-09-07 06:00] LABS: ANION GAP 6 MMOL/L (5-14); BLOOD UREA NITROGEN 22 MG/DL (7-18); BUN/CREATININE RATIO 31; CALCIUM 10.3 MG/DL (8.5-10.1); CARBON DIOXIDE 26 MMOL/L (21-32); CHLORIDE 111 MMOL/L (98-107); CREATININE SERUM 0.71 MG/DL (0.60-1.30); GFR ESTIMATED > 60; GLUCOSE 75 MG/DL (70-105); POTASSIUM 2.9 MMOL/L (3.6-5.0); SODIUM 143 MMOL/L (135-145)
[2017-09-07] MEDS: FUROSEMIDE 40 MG/4 ML INJ (LASIX) IVP SCH (06:09)
[2017-09-07] MEDS: predniSONE 20 MG TAB PO SCH (06:09)
[2017-09-07] MEDS: LEVOTHYROXINE 100 MCG (LEVOTHROID) TAB PO SCH (06:09)
[2017-09-07 08:20] VITALS: BP 143/76
[2017-09-07] MEDS: MULTIVIT W/MINERALS TAB (THERAGRAN M) PO SCH (08:51)
[2017-09-07] MEDS: VENlafaxine XR 75 MG (EFFEXOR XR) CAP PO SCH ×2 (08:51→21:44)
[2017-09-07] MEDS: ISOSORBIDE MONONITRATE 30 MG (IMDUR) TAB PO SCH ×2 (08:51→21:43)
[2017-09-07] MEDS: CARVEDILOL 12.5 MG (COREG) TABLET PO SCH ×2 (08:51→21:44)
[2017-09-07] MEDS: ASPIRIN E.C. 81 MG (ECOTRIN) TAB PO SCH (08:51)
[2017-09-07] MEDS: KCL 20 MEQ TAB (K-DUR) PO SCH ×4 (08:52→21:47)
[2017-09-07] MEDS: PANTOPRAZOLE 40 MG (PROTONIX) TAB PO SCH (08:52)
[2017-09-07] MEDS: MENTHOL/ZINC OXIDE (CALMOSEPTINE) 113 GM TUBE TOP SCH ×2 (08:52→21:45)
[2017-09-07] MEDS: LACTOBACILLUS Acidoph/Bulgar (LACTINEX/FLORANEX) TAB PO SCH (08:52)
[2017-09-07] MEDS: CYANOCOBALAMIN 500 MCG TAB (VITAMIN B-12) PO SCH (08:52)
[2017-09-07] MEDS: RT-ADVAIR HFA 115/21 MCG PER PUFF IH SCH ×2 (09:50→18:59)
--- NOTE | 2017-09-07 09:55 | Progress Note-Hospitalist ---
Subjective HPI/CC On Admission Date Seen by Provider: Sep 07, 2017 Time Seen by Provider: 09:00 Subjective/Events-last exam patient is up sitting in her chair looking forward to her shower this morning. She had had increased pedal edema yesterday and so her IV fluids of been decreased but now her calcium is starting to go up. This is been discussed with Dr. Cobian who requests that we increase IV fluid rate up again and just decreased in frequency of Lasix. Hemoglobin is 7.9 but we'll hold on a transfusion at this point. Review of Systems Cardiovascular: Edema Neurological: Weakness Objective Exam Vital Signs Vital Sign - Last 12Hours 09/05/17 12:00 Temp 99.1 Pulse 66 Resp 24 B/P (MAP) 133/71 Pulse Ox 96 O2 Delivery Nasal Cannula O2 Flow Rate 2.00 Capillary Refill : General Appearance: Chronically ill HEENT: Other (poor dentition) Respiratory: Lungs Clear, No Accessory Muscle Use, No Respiratory Distress Cardiovascular: Regular Rate, Rhythm, Systolic Murmur (02/03) Gastrointestinal: Non Tender, Soft Rectal: Deferred Extremity: Pedal Edema Neurologic/Psychiatric: Alert, Oriented x3, Normal Mood/Affect Skin: Pallor Results/Procedures Lab Laboratory Tests 09/07/17 05:35 Assessment/Plan Assessment and Plan Assess & Plan/Chief Complaint 1. B-cell neoplasm speciation pending 2. Hypercalcemia-climbing, will increase her IV fluid rate to 150 mL an hour decrease the Lasix to only once a day 3. 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 Anemia we'll Hemoccult stools Poor prognosis overall ALE CHACON MD Sep 07, 2017 9:55 am
[2017-09-07] MEDS ORDERED: INFLUENZA TRIvalent 2017-2018 0.5 ML/45 MCG SYR IM ONE (11:00)
[2017-09-07 16:00] VITALS: BP 149/75
[2017-09-07] MEDS: RIVAROXABAN 20 MG TABLET (XARELTO) PO SCH (17:28)
[2017-09-07 21:40] VITALS: BP 178/76
[2017-09-07] MEDS: amLODIPine 5 MG (NORVASC) TAB PO SCH (21:44)
[2017-09-07] MEDS: SIMvastatin 40 MG (ZOCOR) TAB PO SCH (21:44)
[2017-09-07] MEDS: OMEGA 3 (FISH OIL) 1000 MG CAP PO SCH (21:44)
[2017-09-08] VITALS: BP 175/84
[2017-09-08] MEDS: RT-ALBUTEROL/IPRATROPIUM 3 ML (DUONEB) VIAL IH SCH ×4 (02:07→18:20)
[2017-09-08 06:31] VITALS: BP 175/84
[2017-09-08] MEDS: FUROSEMIDE 40 MG/4 ML INJ (LASIX) IVP SCH (06:50)
[2017-09-08] MEDS: LEVOTHYROXINE 100 MCG (LEVOTHROID) TAB PO SCH (06:52)
[2017-09-08] MEDS: predniSONE 20 MG TAB PO SCH (06:52)
[2017-09-08] MEDS: KCL 20 MEQ TAB (K-DUR) PO SCH ×4 (06:52→20:19)
[2017-09-08] MEDS: NS IV 1000 ML 1,000 ML IV SCH ×4 (06:59→22:41)
[2017-09-08 07:02] LABS: RED BLOOD COUNT 2.57 10^6/uL (4.35-5.85); RED CELL DISTRIBUTION WIDTH 19.4 % (10.0-14.5); WHITE BLOOD COUNT 11.7 10^3/uL (4.3-11.0)
[2017-09-08 07:21] LABS: ALANINE AMINOTRANSFERASE 6 U/L (0-55); ALBUMIN 2.3 GM/DL (3.2-4.5); ANION GAP 5 MMOL/L (5-14); ASPARTATE AMINO TRANSFERASE 30 U/L (5-34); BILIRUBIN,TOTAL 0.4 MG/DL (0.1-1.0); BLOOD UREA NITROGEN 18 MG/DL (7-18); BUN/CREATININE RATIO 26; CALCIUM 11.2 MG/DL (8.5-10.1); CARBON DIOXIDE 25 MMOL/L (21-32); CHLORIDE 112 MMOL/L (98-107); GFR ESTIMATED > 60; GLUCOSE 64 MG/DL (70-105); POTASSIUM 3.9 MMOL/L (3.6-5.0); SODIUM 142 MMOL/L (135-145); TOTAL PROTEIN 4.1 GM/DL (6.4-8.2)
[2017-09-08] MEDS: PANTOPRAZOLE 40 MG (PROTONIX) TAB PO SCH (08:59)
[2017-09-08] MEDS: CARVEDILOL 12.5 MG (COREG) TABLET PO SCH ×2 (08:59→20:19)
[2017-09-08] MEDS: ISOSORBIDE MONONITRATE 30 MG (IMDUR) TAB PO SCH ×2 (08:59→20:19)
[2017-09-08] MEDS: LACTOBACILLUS Acidoph/Bulgar (LACTINEX/FLORANEX) TAB PO SCH (08:59)
[2017-09-08] MEDS: MENTHOL/ZINC OXIDE (CALMOSEPTINE) 113 GM TUBE TOP SCH ×2 (08:59→20:19)
[2017-09-08] MEDS: VENlafaxine XR 75 MG (EFFEXOR XR) CAP PO SCH ×2 (08:59→20:19)
[2017-09-08] MEDS ORDERED: POLYETHYLENE GLYCOL 17 GM (MIRALAX) PACK PO ONE (09:00)
[2017-09-08] MEDS: CYANOCOBALAMIN 500 MCG TAB (VITAMIN B-12) PO SCH (09:00)
[2017-09-08] MEDS ORDERED: FUROSEMIDE 40 MG/4 ML INJ (LASIX) IVP ONE (09:00)
[2017-09-08] MEDS: ASPIRIN E.C. 81 MG (ECOTRIN) TAB PO SCH (09:00)
--- NOTE | 2017-09-08 09:03 | Progress Note (SOAP) ---
Subjective Date Seen by Provider: Sep 08, 2017 Time Seen by Provider: 08:10 Subjective/Events-last exam PT IS A 67 Y/O FEMALE WHO IS KNOWN TO ME FROM PREVIOUS HOSPITALIZATIONS AND CLINIC VISITS. SHE HAS PRELIMINARY DX OF LYMPHOMA - WAITING ON FINAL PATHOLOGY REPORT FROM RENAL BIOPSY. SHE STATES THAT SHE IS FEELING FATIGUED, HAS SOME CONFUSION PER HER DPOA. DANIELA REPORTS NO BOWEL MOVEMENT FOR SEVERAL DAYS AND HER LEGS ARE SWOLLEN. Review of Systems General: Fatigue, Malaise HEENT: No Head Aches Pulmonary: Dyspnea, No Cough Cardiovascular: Edema, No: Chest Pain, Palpitations Gastrointestinal: No: Nausea, Abdominal Pain Genitourinary: No Dysuria Musculoskeletal: leg pain Neurological: Weakness, Confusion (INTERMITTENT) Objective Exam Vital Signs Date Time Temp Pulse Resp B/P (MAP) Pulse Ox O2 Delivery O2 Flow Rate FiO2 09/08/17 06:31 97.5 72 18 175/84 95 Nasal Cannula 2.00 09/08/17 02:07 92 Room Air 2.00 09/08/17 00:00 97.5 72 18 175/84 95 Nasal Cannula 2.00 09/07/17 21:40 88 178/76 09/07/17 21:00 Nasal Cannula 2.00 09/07/17 18:59 90 Room Air 09/07/17 16:00 97.9 77 18 149/75 97 Nasal Cannula 2.00 09/07/17 15:24 95 Nasal Cannula 1.50 09/07/17 09:52 93 Nasal Cannula 2.00 Capillary Refill : General Appearance: No Apparent Distress, WD/WN HEENT: PERRL/EOMI Neck: Full Range of Motion, Supple Respiratory: Chest Non Tender, Crackles (IN BASES BILATERALLY), Decreased Breath Sounds Cardiovascular: Regular Rate, Rhythm, Systolic Murmur (II/) Gastrointestinal: normal bowel sounds, non tender, soft, no organomegaly, no pulsatile mass Extremity: Normal Capillary Refill, Pedal Edema (2+) Neurologic/Psychiatric: Alert, Normal Mood/Affect Skin: Warm/Dry Lymphatic: No Adenopathy Results Lab Laboratory Tests 09/08/17 06:50: White Blood Count 11.7H, Red Blood Count 2.57L, Hemoglobin 8.4L, Hematocrit 27L , Mean Corpuscular Volume 104H, Mean Corpuscular Hemoglobin 33, Mean Corpuscular Hemoglobin Concent 32, Red Cell Distribution Width 19.4H, Platelet Count 165, Mean Platelet Volume 10.0, Sodium Level 142, Potassium Level 3.9, Chloride Level 112H, Carbon Dioxide Level 25, Anion Gap 5, Blood Urea Nitrogen 18, Creatinine 0.70, Estimat Glomerular Filtration Rate > 60, BUN/Creatinine Ratio 26, Glucose Level 64L, Calcium Level 11.2H, Magnesium Level 1.3L, Total Bilirubin 0.4, Aspartate Amino Transf (AST/SGOT) 30, Alanine Aminotransferase ( ALT/SGPT) 6, Alkaline Phosphatase 84, Total Protein 4.1L, Albumin 2.3L Assessment/Plan Assessment/Plan Assess & Plan/Chief Complaint HYPERCALCEMIA CONFUSION LYMPHOMA HYPOTHYROID HX OF PULMONARY EMBOLISM CHRONIC ANTICOAGULATION HYPERCALCEMIA -ON FLUIDS, LASIX, FOSAMAX. CALCIUM LEVEL UP TODAY - CORRECTED CALCIUM WAS 12.5 THIS MORNING. WILL REPEAT LABS TOMORROW - EXTRA LASIX TODAY - HER MULTIVITAMIN STOPPED TODAY. CONFUSION - INTERMINTTENT. LYMPHOMA - MONITOR SYMPTOMS - CONSULT TO DR. CRAWFORD - WE DISCUSSED HER DIAGNOSIS - HE FEELS LIKE MORE TISSUE IS NEEDED FOR A THOROUGH DIAGNOSIS OF LYMPHOMA. RENAL BIOPSY - WAITING ON FINAL PATHOLOGY REPORT - WILL LOOK FOR REPORT THIS WEEK HYPOTHYROID - RESUMED HOME MEDICATION HYPOMAGNESEMIA - CHECK LEVEL TOMORROW. HX OF PULMONARY EMBOLISM WITH CHRONIC ANTICOAGULATION - RESUMED XARELTO - DVT PROPHYLAXIS WITH XARELTO AND SCD'S GI PROPHYLAXIS WILL BE WITH PROTONIX. I HAVE DISCUSSED WITH HER DPOA - UPON DISCHARGE, DANIELA WILL GO TO [facility] AND POSSIBLY GO TO ASSISTED LIVING AFTER IMPROVED STRENGTHENING AT [facility]. Clinical Quality Measures DVT/VTE Risk/Contraindication: Risk Factor Score Per Nursin SAM CINTRON MD Sep 08, 2017 09:03
[2017-09-08] MEDS: RT-ADVAIR HFA 115/21 MCG PER PUFF IH SCH ×2 (09:36→18:20)
--- NOTE | 2017-09-08 11:54 | Physical Therapy Daily Note ---
PT Daily Note-Current Subjective Patient agrees to PT. No c/o at this time. Pain Numeric Pain Scale: 0-No Pain Location: No Pain Reported Mental Status Patient Orientation: Person, Time, Situation Transfers Functional [place] Measure 0=Not Assessed/NA 4=Minimal Assistance 1=Total Assistance 5=Supervision or Setup 2=Maximal Assistance 6=Modified [place] 3=Moderate Assistance 7=Complete IndependenceIRFPAI Quality Coding Scale 6 Independent with activity with or without an assistive device 5 Patient requires set up or clean up by helper. Patient completes activity by themselves 4 Supervision or touching assist (CGA). [place] provide cues , steadying assist 3 The helper provides less than half the effort to complete the activity 2 The helper provides more than half the effort to complete the activity 1 Dependent. The helper does all the effort to complete an activity 7 Patient refused to complete or attempt activity 9 The patient did not perform the activity before the current illness or injury 88 Not attempted due to Medical conditions or safety concerns Transfers (B, C, W/C) (FIM): 5 Scootin Sit to/from Stand: 5 Sit to Stand (QC): 4 Gait Training Does the Patient Walk?: Yes Gait (FIM): 4 Distance (FIM): 3=150 ft Distance: 200' Walk 50 ft with 2 Turns(QC): 3 Walk 150 ft (QC): 3 Gait Level of Assist: 4 Gait Persons Needed: 1 Gait Assistive Device: FWW extended UE's with use of FWW/skilled verbal instruction for use Exercises Seated Therapy Exercises: Ankle pumps, Long arc quads Seated Reps: 15 Assessment Patient improving with gross motor skills. Patient did demonstrate ability to toilet self after treatment. PT Assisted Goals Farmworker Grain Goals PT Assisted Goals Time Frame: Sep 19, 2017 Transfers (B,C,W/C) (FIM): 5 Sit to Lying (QC): 4 Lying-Sitting on Side/Bed(QC): 4 Sit to Stand (QC): 4 Rollin Chair/Ljc-un-Mhymt Xfer(QC): 4 Does the Patient Walk: Yes Gait (FIM): 1 Gait distance (FIM): 1=up to 49 ft (25') Distance: 25' Walk 50ft with 2 Turns (QC): 9 Walk 150 ft (QC): 9 Gait Level of Assist: 5 Gait Assistive Device: FWW PT Plan Treatment/Plan Treatment Plan: Continue Plan of Care Treatment Plan: Bed Mobility, Education, Functional Activity Emily, Functional Strength, Gait, Safety, Therapeutic Exercise, Transfers Treatment Duration: Sep 19, 2017 Frequency: 6 times per week Estimated Hrs Per Day: .25 hour per day Patient and/or Family Agrees t: Yes Time/GCodes Time In: 1137 Time Out: 1152 Total Billed Treatment Time: 15 Total Billed Treatment 1 visit FA 15 min ALISON BOBBY PT Sep 08, 2017 11:54
--- NOTE | 2017-09-08 14:35 | Occupational Ther Daily Note ---
OT Current Status-Daily Note Subjective Pt sleeping in bed. Woke easily to name. Pt agreed to therapy. No c/o pain. Mental Status/Objective Patient Orientation: Person, Place Functional [place] Measure 0=Not Assessed/NA 4=Minimal Assistance 1=Total Assistance 5=Supervision or Setup 2=Maximal Assistance 6=Modified [place] 3=Moderate Assistance 7=Complete [place] ADL-Treatment Pt was able to go from supine to sitting with HOB raised and bed rails. Pt then ambulated with CGA using FWW to bathroom. Pt was able to manipulate hospital gown and underwear with CGA using grabbar to steady. Pt able to cleanse self sitting on toilet, CGA in standing to manipulate clothing. Min A to go from sitting to standing from toilet. Pt used cleansing clothe to wash hands. Pt ambulated back to bed with CGA using FWW. Pt completed own bed mobility. After therapy, pt lying in bed with call light/phone in reach. All needs met in room. Functional [place] Measure 0=Not Assessed/NA 4=Minimal Assistance 1=Total Assistance 5=Supervision or Setup 2=Maximal Assistance 6=Modified [place] 3=Moderate Assistance 7=Complete IndependenceIRFPAI Quality Coding Scale 6 Independent with activity with or without an assistive device 5 Patient requires set up or clean up by helper. Patient completes activity by themselves 4 Supervision or touching assist (CGA). [place] provide cues , steadying assist 3 The helper provides less than half the effort to complete the activity 2 The helper provides more than half the effort to complete the activity 1 Dependent. The helper does all the effort to complete an activity 7 Patient refused to complete or attempt activity 9 The patient did not perform the activity before the current illness or injury 88 Not attempted due to Medical conditions or safety concerns Toileting (FIM): 4 Toileting Hygiene (QC): 4 Transfers (B, C, W/C) (FIM): 4 Toilet/Commode Transfer (FIM): 4 Toilet Transfer (QC): 3 OT Short Term Goals Short Term Goals 1=Demonstrate adherence to instructed precautions during ADL tasks. 2=Patient will verbalize/demonstrate understanding of assistive devices/ modifications for ADL. 3=Patient will improve strength/tolerance for activity to enable patient to perform ADL's. OT Dredge Pump Operator Goals Senior Care Goals Time Frame: Sep 19, 2017 Eating (FIM): 5 Eating (QC): 5 Groomin Oral Hygiene (QC): 5 Upper Body Dressing(FIM): 5 Lower Body Dressing(FIM): 4 Toileting(FIM): 4 Toileting Hygiene (QC): 4 Toilet/Commode Transfer(FIM): 5 Toilet/Commode Transfer (QC): 4 Additional Goals: 1-Demonstrate ADL Tasks, 2-Verbalize Understanding, 3- ImproveStrength/Emily 1=Demonstrate adherence to instructed precautions during ADL tasks. 2=Patient will verbalize/demonstrate understanding of assistive devices/ modifications for ADL. 3=Patient will improve strength/tolerance for activity to enable patient to perform ADL's. OT Education/Plan Problem List/Assessment Pt demonstrates decreased ADL functioning, strength, mobility, and activity tolerance. Pt to benefit from skilled OT intervention for ADL training, transfers, strengthening, and safety education to improve level of independence and allow safe discharge plan. Discharge Recommendations Plan/Recommendations: Continue POC Treatment Plan/Plan of Care Patient would benefit from OT for education, treatment and training to promote independence in ADL's, mobility, safety and/or upper extremity function for ADL' s. Plan of Care: ADL Retraining, Functional Mobility, UE Funct Exercise/Act Treatment Duration: Sep 19, 2017 Frequency: 5 times per week Estimated Hrs Per Day: .25 hour per day Rehab Potential: Fair Time/GCodes Start Time: 13:55 Stop Time: 14:10 Total Time Billed (hr/min): 15 Billed Treatment Time 1 visit-FA 1 (15 min) HALIMA KERNS Sep 08, 2017 14:35
[2017-09-08] MEDS ORDERED: FUROSEMIDE 40 MG/4 ML INJ (LASIX) IVP NR (16:00)
[2017-09-08] MEDS: RIVAROXABAN 20 MG TABLET (XARELTO) PO SCH (17:06)
[2017-09-08 17:34] VITALS: BP 162/79
[2017-09-08 20:15] VITALS: BP 154/84
[2017-09-08] MEDS: SIMvastatin 40 MG (ZOCOR) TAB PO SCH (20:19)
[2017-09-08] MEDS: amLODIPine 5 MG (NORVASC) TAB PO SCH (20:19)
[2017-09-08] MEDS: OMEGA 3 (FISH OIL) 1000 MG CAP PO SCH (20:19)
[2017-09-09] MEDS: RT-ALBUTEROL/IPRATROPIUM 3 ML (DUONEB) VIAL IH SCH ×4 (02:22→20:20)
[2017-09-09] MEDS: NS IV 1000 ML 1,000 ML IV SCH ×3 (05:22→17:35)
[2017-09-09] MEDS: KCL 20 MEQ TAB (K-DUR) PO SCH ×4 (06:00→20:06)
[2017-09-09] MEDS: FUROSEMIDE 40 MG/4 ML INJ (LASIX) IVP SCH (06:00)
[2017-09-09] MEDS: LEVOTHYROXINE 100 MCG (LEVOTHROID) TAB PO SCH (06:00)
[2017-09-09] MEDS: predniSONE 20 MG TAB PO SCH (06:00)
[2017-09-09 06:12] VITALS: BP 153/83
[2017-09-09] MEDS: PANTOPRAZOLE 40 MG (PROTONIX) TAB PO SCH (09:10)
[2017-09-09] MEDS: LACTOBACILLUS Acidoph/Bulgar (LACTINEX/FLORANEX) TAB PO SCH (09:10)
[2017-09-09] MEDS: CARVEDILOL 12.5 MG (COREG) TABLET PO SCH ×2 (09:11→20:06)
[2017-09-09] MEDS: ISOSORBIDE MONONITRATE 30 MG (IMDUR) TAB PO SCH ×2 (09:11→20:06)
[2017-09-09] MEDS: CYANOCOBALAMIN 500 MCG TAB (VITAMIN B-12) PO SCH (09:11)
[2017-09-09] MEDS: ASPIRIN E.C. 81 MG (ECOTRIN) TAB PO SCH (09:11)
[2017-09-09] MEDS: VENlafaxine XR 75 MG (EFFEXOR XR) CAP PO SCH ×2 (09:11→20:06)
[2017-09-09] MEDS: MENTHOL/ZINC OXIDE (CALMOSEPTINE) 113 GM TUBE TOP SCH ×2 (09:12→20:07)
[2017-09-09] MEDS: RT-ADVAIR HFA 115/21 MCG PER PUFF IH SCH ×2 (09:18→20:20)
--- NOTE | 2017-09-09 09:57 | Occupational Ther Daily Note ---
OT Current Status-Daily Note Subjective Pt alert, lying in bed. Nrsg present in room. Pt requests shower today. No c/ o pain at this time. Mental Status/Objective Patient Orientation: Person, Place, Situation Functional [place] Measure 0=Not Assessed/NA 4=Minimal Assistance 1=Total Assistance 5=Supervision or Setup 2=Maximal Assistance 6=Modified [place] 3=Moderate Assistance 7=Complete [place] Attachments: IV, Oxygen PICC ADL-Treatment Pt was able to go from supine to sitting EOB with HOB raised by self. Pt ambulated to bathroom with CGA and verbal cues to avoid tubing. Pt transferred to toilet with CGA using FWW and grabbars. Pt was able to manipulate hospital gown and briefs then cleanse self in standing using FWW and CGA. Pt transferred to shower using FWW, grabbars and shower bench with CGA. SBA for bathing, using grabbars when standing to bathe buttocks. Pt required verbal cues that pt had already cleansed areas. Pt was able to dry body by self. Pt doffed/donned socks by self after set up. Pt was able to don underwear with CGA in standing to hike over hips, initiated over feet by self. Pt manipulated hospital gown to don and doff, pulled over head. After therapy, pt sitting in recliner with call light/phone in reach. All needs met in room. Functional [place] Measure 0=Not Assessed/NA 4=Minimal Assistance 1=Total Assistance 5=Supervision or Setup 2=Maximal Assistance 6=Modified [place] 3=Moderate Assistance 7=Complete IndependenceIRFPAI Quality Coding Scale 6 Independent with activity with or without an assistive device 5 Patient requires set up or clean up by helper. Patient completes activity by themselves 4 Supervision or touching assist (CGA). [place] provide cues , steadying assist 3 The helper provides less than half the effort to complete the activity 2 The helper provides more than half the effort to complete the activity 1 Dependent. The helper does all the effort to complete an activity 7 Patient refused to complete or attempt activity 9 The patient did not perform the activity before the current illness or injury 88 Not attempted due to Medical conditions or safety concerns Bathing (FIM): 4 (CGA) Bathing Location: L Arm, R Arm, L Upper Leg, R Upper Leg, L Lower Leg ( including foot), R Lower Leg (including foot), Chest, Abdomen, Buttocks, Perineal Area Lower Body Dressing (FIM): 4 (CGA) Toileting (FIM): 4 (CGA) Toileting Hygiene (QC): 4 (CGA) Transfers (B, C, W/C) (FIM): 4 (CGA) Toilet/Commode Transfer (FIM): 4 (CGA) Toilet Transfer (QC): 4 (CGA) Shower Transfer(FIM): 4 (CGA) OT Short Term Goals Short Term Goals 1=Demonstrate adherence to instructed precautions during ADL tasks. 2=Patient will verbalize/demonstrate understanding of assistive devices/ modifications for ADL. 3=Patient will improve strength/tolerance for activity to enable patient to perform ADL's. OT Computer Engineering Professor Goals Computer Engineering Professor Goals Time Frame: Sep 19, 2017 Eating (FIM): 5 Eating (QC): 5 Groomin Oral Hygiene (QC): 5 Upper Body Dressing(FIM): 5 Lower Body Dressing(FIM): 4 Toileting(FIM): 4 Toileting Hygiene (QC): 4 Toilet/Commode Transfer(FIM): 5 Toilet/Commode Transfer (QC): 4 Additional Goals: 1-Demonstrate ADL Tasks, 2-Verbalize Understanding, 3- ImproveStrength/Emily 1=Demonstrate adherence to instructed precautions during ADL tasks. 2=Patient will verbalize/demonstrate understanding of assistive devices/ modifications for ADL. 3=Patient will improve strength/tolerance for activity to enable patient to perform ADL's. OT Education/Plan Problem List/Assessment Pt demonstrates decreased ADL functioning, strength, mobility, and activity tolerance. Pt to benefit from skilled OT intervention for ADL training, transfers, strengthening, and safety education to improve level of independence and allow safe discharge plan. Discharge Recommendations Plan/Recommendations: Continue POC Treatment Plan/Plan of Care Patient would benefit from OT for education, treatment and training to promote independence in ADL's, mobility, safety and/or upper extremity function for ADL' s. Plan of Care: ADL Retraining, Functional Mobility, UE Funct Exercise/Act Treatment Duration: Sep 19, 2017 Frequency: 5 times per week Estimated Hrs Per Day: .25 hour per day Rehab Potential: Fair Time/GCodes Start Time: 09:39 Stop Time: 10:39 Total Time Billed (hr/min): 60 Billed Treatment Time 1 visit-ADL 4 (60 min) HALIMA KERNS Sep 09, 2017 09:57
--- NOTE | 2017-09-09 11:36 | Physical Therapy Daily Note ---
PT Daily Note-Current Subjective Patient is agreeable to participate with PT. Pain Numeric Pain Scale: 0-No Pain Location: No Pain Reported Mental Status Patient Orientation: Person, Time, Situation Attachments: Oxygen, IV Transfers Functional [place] Measure 0=Not Assessed/NA 4=Minimal Assistance 1=Total Assistance 5=Supervision or Setup 2=Maximal Assistance 6=Modified [place] 3=Moderate Assistance 7=Complete IndependenceIRFPAI Quality Coding Scale 6 Independent with activity with or without an assistive device 5 Patient requires set up or clean up by helper. Patient completes activity by themselves 4 Supervision or touching assist (CGA). [place] provide cues , steadying assist 3 The helper provides less than half the effort to complete the activity 2 The helper provides more than half the effort to complete the activity 1 Dependent. The helper does all the effort to complete an activity 7 Patient refused to complete or attempt activity 9 The patient did not perform the activity before the current illness or injury 88 Not attempted due to Medical conditions or safety concerns Transfers (B, C, W/C) (FIM): 5 Scootin Roll Left to Right (QC): 4 Supine to/from Sit: 5 Sit to/from Stand: 5 Sit to Lying (QC): 4 Sit to Stand (QC): 4 Chair/[id number]-tb-Rzcjs Xfer(QC): 4 Bed to/from Chair: 4 Gait Training Does the Patient Walk?: Yes Gait (FIM): 5 Distance (FIM): 3=150 ft Distance: 350' Walk 50 ft with 2 Turns(QC): 4 Walk 150 ft (QC): 4 Gait Level of Assist: 5 Gait Persons Needed: 1 Gait Assistive Device: FWW extended UE's with use of FWW; corrected with skilled verbal instruction Exercises Supine Ex: Ankle pumps, Quad Set, Heel Slides Supine Reps: 15 Seated Therapy Exercises: Ankle pumps, Long arc quads Seated Reps: 25 Assessment Patient much improved with gross motor skills. PT to continue with POC. PT Mcfp Goals Mcfp Goals PT Mcfp Goals Time Frame: Sep 19, 2017 Transfers (B,C,W/C) (FIM): 5 Sit to Lying (QC): 4 Lying-Sitting on Side/Bed(QC): 4 Sit to Stand (QC): 4 Rollin Chair/Czg-uq-Wofqr Xfer(QC): 4 Does the Patient Walk: Yes Gait (FIM): 1 Gait distance (FIM): 1=up to 49 ft (25') Distance: 25' Walk 50ft with 2 Turns (QC): 9 Walk 150 ft (QC): 9 Gait Level of Assist: 5 Gait Assistive Device: FWW PT Plan Treatment/Plan Treatment Plan: Continue Plan of Care Treatment Plan: Bed Mobility, Education, Functional Activity Emily, Functional Strength, Gait, Safety, Therapeutic Exercise, Transfers Treatment Duration: Sep 19, 2017 Frequency: 6 times per week Estimated Hrs Per Day: .25 hour per day Patient and/or Family Agrees t: Yes Time/GCodes Time In: 1105 Time Out: 1128 Total Billed Treatment Time: 23 Total Billed Treatment 1 visit GT 13 min EX 10 min ALISON BOBBY PT Sep 09, 2017 11:36
[2017-09-09] MEDS: RIVAROXABAN 20 MG TABLET (XARELTO) PO SCH (17:33)
--- NOTE | 2017-09-09 17:59 | Progress Note-Standard ---
Standard Progress Note Progress Notes/Assess & Plan Date Seen by Provider: Sep 09, 2017 Time Seen by Provider: 17:54 Progress/Assessment & Plan 67-year-old female with recurrent hypercalcemia. Bronchoscopy with FNA of mediastinal lymph nodes showing B-cell neoplasm. Status post PET scan with evidence of renal and splenic involvement as well as mediastinal adenopathy. Completed core needle biopsy of kidney on 09/04/2017. Pathology report pending. 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 C-MYC requested to rule out triple hit lymphoma but the results are pending. Patient is weaker today and her mentation continues to be clear. Calcium level increasing. Recheck in AM. Start patient on allopurinol 100 mg daily in preparation for chemotherapy. Will decide on chemo regimen once final pathology available. Have discussed the case with Dr. Cole in Pathology dept. DYLAN CRAWFORD Sep 09, 2017 17:59
[2017-09-09 18:00] VITALS: BP 158/88
[2017-09-09] MEDS: ALLOPURINOL 100 MG (ZYLOPRIM) TAB PO SCH (18:27)
[2017-09-09 20:04] VITALS: BP 149/75
[2017-09-09] MEDS: SIMvastatin 40 MG (ZOCOR) TAB PO SCH (20:06)
[2017-09-09] MEDS: amLODIPine 5 MG (NORVASC) TAB PO SCH (20:06)
[2017-09-09] MEDS: OMEGA 3 (FISH OIL) 1000 MG CAP PO SCH (20:06)
[2017-09-09] MEDS ORDERED: MAGNESIUM 1 GM/100 ML IVPB 200 ML IV ONE (21:48)
--- NOTE | 2017-09-09 21:52 | Progress Note (SOAP) ---
Subjective Date Seen by Provider: Sep 09, 2017 Time Seen by Provider: 08:35 Subjective/Events-last exam Fwup hypercalcemia, lymphoma, edema, fatigue, hypomagnesemia, fatigue. Legs not as swollen today. Still weak. Objective Exam Vital Signs Date Time Temp Pulse Resp B/P (MAP) Pulse Ox O2 Delivery O2 Flow Rate FiO2 09/09/17 20:21 96 Nasal Cannula 2.00 09/09/17 20:04 75 149/75 09/09/17 18:00 98.9 76 20 158/88 93 Room Air 09/09/17 15:49 92 Nasal Cannula 2.00 09/09/17 09:18 94 Nasal Cannula 2.00 09/09/17 06:12 97.9 70 16 153/83 96 Room Air 09/09/17 02:23 95 Nasal Cannula 2.00 I & O 09/10/17 07:00 Intake Total 2460 ml Output Total 600 ml Balance 1860 ml Capillary Refill : General Appearance: No Apparent Distress Neck: Supple Respiratory: Lungs Clear, Decreased Breath Sounds Cardiovascular: Regular Rate, Rhythm Gastrointestinal: normal bowel sounds, non tender, soft Extremity: Non Tender, No Calf Tenderness, Pedal Edema Neurologic/Psychiatric: Alert, Oriented x3 Assessment/Plan Assessment/Plan Assess & Plan/Chief Complaint 1. Hypercalcemia--recheck in AM, may needs meds 2. Lymphoma--awaiting final pathology on kidney biopsy 3. Edema--improved with extra lasix dose 4. Hypomagnesemia--replace magnesium 5. Weakness/Fatigue--continue PT/OT 6. Anemia--monitor H/H Clinical Quality Measures DVT/VTE Risk/Contraindication: Risk Factor Score Per Nursin JONO MARTINEZ DO Sep 09, 2017 21:52
[2017-09-09] MEDS: MAGNESIUM 1 GM/100 ML IVPB 100 ML IV SCH ×2 (21:57→23:08)
[2017-09-10 00:20] VITALS: BP 170/85
[2017-09-10] MEDS: NS IV 1000 ML 1,000 ML IV SCH ×4 (01:20→20:07)
[2017-09-10] MEDS: RT-ALBUTEROL/IPRATROPIUM 3 ML (DUONEB) VIAL IH SCH ×4 (03:18→19:59)
[2017-09-10 04:29] VITALS: BP 170/72
[2017-09-10] MEDS: predniSONE 20 MG TAB PO SCH (06:05)
[2017-09-10] MEDS: KCL 20 MEQ TAB (K-DUR) PO SCH ×4 (06:05→20:08)
[2017-09-10] MEDS: FUROSEMIDE 40 MG/4 ML INJ (LASIX) IVP SCH (06:05)
[2017-09-10] MEDS: LEVOTHYROXINE 100 MCG (LEVOTHROID) TAB PO SCH (06:05)
[2017-09-10 06:19] LABS: BASOPHILS % (AUTO) 0 % (0-10); EOSINOPHILS # (AUTO) 0.2 10^3/uL (0.0-0.3); EOSINOPHILS % (AUTO) 1 % (0-10); LYMPHOCYTES # (AUTO) 3.8 X 10^3 (1.0-4.0); LYMPHOCYTES % (AUTO) 26 % (12-44); MEAN CORPUSCULAR HEMOGLOBIN 33 PG (25-34); MEAN CORPUSCULAR HGB CONC 31 G/DL (32-36); MEAN CORPUSCULAR VOLUME 106 FL (80-99); MEAN PLATELET VOLUME 9.8 FL (7.4-10.4); MONOCYTES # (AUTO) 2.2 X 10^3 (0.0-1.0); MONOCYTES % (AUTO) 16 % (0-12); NEUTROPHILS # (AUTO) 8.1 X 10^3 (1.8-7.8); NEUTROPHILS % (AUTO) 57 % (42-75); PLATELET COUNT 191 10^3/uL (130-400); RED BLOOD COUNT 2.52 10^6/uL (4.35-5.85); RED CELL DISTRIBUTION WIDTH 19.7 % (10.0-14.5); WHITE BLOOD COUNT 14.3 10^3/uL (4.3-11.0)
[2017-09-10 06:38] LABS: ALANINE AMINOTRANSFERASE 7 U/L (0-55); ALBUMIN 2.3 GM/DL (3.2-4.5); ANION GAP 3 MMOL/L (5-14); ASPARTATE AMINO TRANSFERASE 32 U/L (5-34); BILIRUBIN,TOTAL 0.4 MG/DL (0.1-1.0); BLOOD UREA NITROGEN 19 MG/DL (7-18); BUN/CREATININE RATIO 27; CALCIUM 12.6 MG/DL (8.5-10.1); CARBON DIOXIDE 28 MMOL/L (21-32); CHLORIDE 110 MMOL/L (98-107); CREATININE SERUM 0.71 MG/DL (0.60-1.30); GFR ESTIMATED > 60; GLUCOSE 70 MG/DL (70-105); MAGNESIUM 1.7 MG/DL (1.8-2.4); POTASSIUM 4.6 MMOL/L (3.6-5.0); SODIUM 141 MMOL/L (135-145)
[2017-09-10] MEDS ORDERED: NS IV 1000 ML 1,000 ML IV SCH (08:00)
--- NOTE | 2017-09-10 08:10 | Progress Note (SOAP) ---
Subjective Date Seen by Provider: Sep 10, 2017 Time Seen by Provider: 08:12 Subjective/Events-last exam PT STATES THAT SHE IS FEELING FATIGUED, SHE HAS SHORTNESS OF BREATH TODAY AND SOME SWELLING OF HER LEGS. SHE REPORTS THAT SHE IS OTHERWISE FEELING FAIRLY GOOD TODAY. Review of Systems General: Fatigue HEENT: No Head Aches Pulmonary: Dyspnea, No Cough Gastrointestinal: No: Nausea, Abdominal Pain Genitourinary: No Dysuria Neurological: Weakness, Confusion (INTERMITTENT) Objective Exam Vital Signs Date Time Temp Pulse Resp B/P (MAP) Pulse Ox O2 Delivery O2 Flow Rate FiO2 09/10/17 04:29 97.9 60 20 170/72 96 Nasal Cannula 3.00 09/10/17 03:18 95 Nasal Cannula 2.00 09/10/17 00:20 97.8 78 20 170/85 94 Nasal Cannula 3.00 09/09/17 21:00 Nasal Cannula 2.00 09/09/17 20:21 96 Nasal Cannula 2.00 09/09/17 20:04 75 149/75 09/09/17 18:00 98.9 76 20 158/88 93 Room Air 09/09/17 15:49 92 Nasal Cannula 2.00 09/09/17 09:18 94 Nasal Cannula 2.00 Capillary Refill : General Appearance: No Apparent Distress, WD/WN HEENT: PERRL/EOMI, Pharynx Normal Neck: Full Range of Motion, Supple Respiratory: Chest Non Tender, Lungs Clear Cardiovascular: Regular Rate, Rhythm, Systolic Murmur (II/) Gastrointestinal: normal bowel sounds, soft Extremity: Pedal Edema (2+) Neurologic/Psychiatric: Alert, Normal Mood/Affect Skin: Warm/Dry Results Lab Laboratory Tests 09/10/17 06:03: White Blood Count 14.3H, Red Blood Count 2.52L, Hemoglobin 8.2L, Hematocrit 27L , Mean Corpuscular Volume 106H, Mean Corpuscular Hemoglobin 33, Mean Corpuscular Hemoglobin Concent 31L, Red Cell Distribution Width 19.7H, Platelet Count 191, Mean Platelet Volume 9.8, Neutrophils (%) (Auto) 57, Lymphocytes (%) (Auto) 26, Monocytes (%) (Auto) 16H, Eosinophils (%) (Auto) 1, Basophils (%) ( Auto) 0, Neutrophils # (Auto) 8.1H, Lymphocytes # (Auto) 3.8, Monocytes # (Auto ) 2.2H, Eosinophils # (Auto) 0.2, Basophils # (Auto) 0.0, Sodium Level 141, Potassium Level 4.6, Chloride Level 110H, Carbon Dioxide Level 28, Anion Gap 3L , Blood Urea Nitrogen 19H, Creatinine 0.71, Estimat Glomerular Filtration Rate > 60, BUN/Creatinine Ratio 27, Glucose Level 70, Calcium Level 12.6H, Magnesium Level 1.7L, Total Bilirubin 0.4, Aspartate Amino Transf (AST/SGOT) 32, Alanine Aminotransferase (ALT/SGPT) 7, Alkaline Phosphatase 96, Total Protein 4.0L, Albumin 2.3L Assessment/Plan Assessment/Plan Assess & Plan/Chief Complaint HYPERCALCEMIA CONFUSION LYMPHOMA HYPOTHYROID HX OF PULMONARY EMBOLISM CHRONIC ANTICOAGULATION HYPERCALCEMIA -ON FLUIDS, LASIX, FOSAMAX. CALCIUM LEVEL UP TODAY - CALCIUM WAS 12.6 THIS MORNING - UP FROM YESTERDAY. WILL REPEAT LABS TOMORROW - EXTRA BOLUS OF FLUID TODAY. CONFUSION - INTERMINTTENT. LYMPHOMA - MONITOR SYMPTOMS - CONSULT TO DR. CRAWFORD - WE DISCUSSED HER DIAGNOSIS - HE FEELS LIKE MORE TISSUE IS NEEDED FOR A THOROUGH DIAGNOSIS OF LYMPHOMA. RENAL BIOPSY - WAITING ON FINAL PATHOLOGY REPORT - WILL LOOK FOR REPORT TODAY FROM PATHOLOGIST - HE WILL DISCUSS WITH DPOA. HYPOTHYROID - RESUMED HOME MEDICATION HYPOMAGNESEMIA - CHECK LEVEL TOMORROW. REPLENISH IV TODAY HX OF PULMONARY EMBOLISM WITH CHRONIC ANTICOAGULATION - RESUMED XARELTO - DVT PROPHYLAXIS WITH XARELTO AND SCD'S GI PROPHYLAXIS WILL BE WITH PROTONIX. I HAVE DISCUSSED WITH HER DPOA - UPON DISCHARGE, DANIELA WILL GO TO [facility] AND POSSIBLY GO TO ASSISTED LIVING AFTER IMPROVED STRENGTHENING AT [facility]. Clinical Quality Measures DVT/VTE Risk/Contraindication: Risk Factor Score Per Nursin SAM CINTRON MD Sep 10, 2017 08:10
[2017-09-10] MEDS: RT-ADVAIR HFA 115/21 MCG PER PUFF IH SCH ×2 (08:54→20:00)
[2017-09-10] MEDS: CARVEDILOL 12.5 MG (COREG) TABLET PO SCH ×2 (09:41→20:07)
[2017-09-10] MEDS: ASPIRIN E.C. 81 MG (ECOTRIN) TAB PO SCH (09:42)
[2017-09-10] MEDS: PANTOPRAZOLE 40 MG (PROTONIX) TAB PO SCH (09:42)
[2017-09-10] MEDS: VENlafaxine XR 75 MG (EFFEXOR XR) CAP PO SCH ×2 (09:42→20:07)
[2017-09-10] MEDS: amLODIPine 5 MG (NORVASC) TAB PO SCH ×2 (09:42→20:07)
[2017-09-10] MEDS: CYANOCOBALAMIN 500 MCG TAB (VITAMIN B-12) PO SCH (09:42)
[2017-09-10] MEDS: LACTOBACILLUS Acidoph/Bulgar (LACTINEX/FLORANEX) TAB PO SCH (09:42)
[2017-09-10] MEDS: ISOSORBIDE MONONITRATE 30 MG (IMDUR) TAB PO SCH ×2 (09:42→20:07)
[2017-09-10] MEDS: MENTHOL/ZINC OXIDE (CALMOSEPTINE) 113 GM TUBE TOP SCH ×2 (09:43→20:08)
[2017-09-10] MEDS: ALLOPURINOL 100 MG (ZYLOPRIM) TAB PO SCH ×2 (09:57→17:07)
--- NOTE | 2017-09-10 10:30 | Physical Therapy Daily Note ---
PT Daily Note-Current Subjective Pt reports that she is feeling tired today. She had an early start to her day. Mental Status Patient Orientation: Person, Situation Attachments: Oxygen, IV Transfers Functional [place] Measure 0=Not Assessed/NA 4=Minimal Assistance 1=Total Assistance 5=Supervision or Setup 2=Maximal Assistance 6=Modified [place] 3=Moderate Assistance 7=Complete IndependenceIRFPAI Quality Coding Scale 6 Independent with activity with or without an assistive device 5 Patient requires set up or clean up by helper. Patient completes activity by themselves 4 Supervision or touching assist (CGA). [place] provide cues , steadying assist 3 The helper provides less than half the effort to complete the activity 2 The helper provides more than half the effort to complete the activity 1 Dependent. The helper does all the effort to complete an activity 7 Patient refused to complete or attempt activity 9 The patient did not perform the activity before the current illness or injury 88 Not attempted due to Medical conditions or safety concerns Transfers (B, C, W/C) (FIM): 4 (assist for handplacement and forward weight shift for sit to stand) Gait Training Gait (FIM): 3 Distance: 90 Gait Level of Assist: 4 Gait Persons Needed: 1 Gait Assistive Device: FWW Walked distances of 60ft with FWW, standing rest, then 90ft FWW. Verbal cues to stay inside the walker for support and balance, especially during turns. Pt easily fatigued this session. Assessment Patient gait stability and activity tolerance was less today as compared to yesterday. Pt will benefit from continued therapy. PT Corporate Account Executive Goals Corporate Account Executive Goals PT Corporate Account Executive Goals Time Frame: Sep 19, 2017 Transfers (B,C,W/C) (FIM): 5 Sit to Lying (QC): 4 Lying-Sitting on Side/Bed(QC): 4 Sit to Stand (QC): 4 Rollin Chair/Eyj-sv-Paveh Xfer(QC): 4 Does the Patient Walk: Yes Gait (FIM): 1 Gait distance (FIM): 1=up to 49 ft (25') Distance: 25' Walk 50ft with 2 Turns (QC): 9 Walk 150 ft (QC): 9 Gait Level of Assist: 5 Gait Assistive Device: FWW PT Plan Problem List Problem List: Activity Tolerance, Functional Strength, Safety, Gait Treatment/Plan Treatment Plan: Continue Plan of Care Treatment Plan: Bed Mobility, Education, Functional Activity Emliy, Functional Strength, Gait, Safety, Therapeutic Exercise, Transfers Treatment Duration: Sep 19, 2017 Frequency: 6 times per week Estimated Hrs Per Day: .25 hour per day Patient and/or Family Agrees t: Yes Time/GCodes Time In: 915 Time Out: 938 Total Billed Treatment Time: 23 Total Billed Treatment visit, gait 18 min, functional activity 5 min G Codes Necessary: No LASHANDA LANE PT Sep 10, 2017 10:30
--- NOTE | 2017-09-10 11:22 | Occupational Ther Daily Note ---
OT Current Status-Daily Note Subjective Pt asleep in bed. Visitor present in room. Attempted to wake pt, pt opened eyes then closed them back. Pt mumbled something and opened eyes then closed again. Mental Status/Objective Patient Orientation: Unable to Assess Functional [place] Measure 0=Not Assessed/NA 4=Minimal Assistance 1=Total Assistance 5=Supervision or Setup 2=Maximal Assistance 6=Modified [place] 3=Moderate Assistance 7=Complete [place] Attachments: IV, Oxygen ADL-Treatment Functional [place] Measure 0=Not Assessed/NA 4=Minimal Assistance 1=Total Assistance 5=Supervision or Setup 2=Maximal Assistance 6=Modified [place] 3=Moderate Assistance 7=Complete IndependenceIRFPAI Quality Coding Scale 6 Independent with activity with or without an assistive device 5 Patient requires set up or clean up by helper. Patient completes activity by themselves 4 Supervision or touching assist (CGA). [place] provide cues , steadying assist 3 The helper provides less than half the effort to complete the activity 2 The helper provides more than half the effort to complete the activity 1 Dependent. The helper does all the effort to complete an activity 7 Patient refused to complete or attempt activity 9 The patient did not perform the activity before the current illness or injury 88 Not attempted due to Medical conditions or safety concerns Other Treatment APROM to B UE's. Pt kept eyes closed though did attempt to move arms with exercises. Continued to attempt to wake pt throughout treatment, only would open eyes and mumble. Nrsg came in and attempted also. Left pt in care of nrsg. Visitor present. Call light/phone in reach, pt lying in bed. All needs met in room. OT Short Term Goals Short Term Goals 1=Demonstrate adherence to instructed precautions during ADL tasks. 2=Patient will verbalize/demonstrate understanding of assistive devices/ modifications for ADL. 3=Patient will improve strength/tolerance for activity to enable patient to perform ADL's. OT Nursing Home Goals Nursing Home Goals Time Frame: Sep 19, 2017 Eating (FIM): 5 Eating (QC): 5 Groomin Oral Hygiene (QC): 5 Upper Body Dressing(FIM): 5 Lower Body Dressing(FIM): 4 Toileting(FIM): 4 Toileting Hygiene (QC): 4 Toilet/Commode Transfer(FIM): 5 Toilet/Commode Transfer (QC): 4 Additional Goals: 1-Demonstrate ADL Tasks, 2-Verbalize Understanding, 3- ImproveStrength/Emily 1=Demonstrate adherence to instructed precautions during ADL tasks. 2=Patient will verbalize/demonstrate understanding of assistive devices/ modifications for ADL. 3=Patient will improve strength/tolerance for activity to enable patient to perform ADL's. OT Education/Plan Problem List/Assessment Pt demonstrates decreased ADL functioning, strength, mobility, and activity tolerance. Pt to benefit from skilled OT intervention for ADL training, transfers, strengthening, and safety education to improve level of independence and allow safe discharge plan. Discharge Recommendations Plan/Recommendations: Continue POC Treatment Plan/Plan of Care Patient would benefit from OT for education, treatment and training to promote independence in ADL's, mobility, safety and/or upper extremity function for ADL' s. Plan of Care: ADL Retraining, Functional Mobility, UE Funct Exercise/Act Treatment Duration: Sep 19, 2017 Frequency: 5 times per week Estimated Hrs Per Day: .25 hour per day Rehab Potential: Fair Time/GCodes Start Time: 11:10 Stop Time: 11:25 Total Time Billed (hr/min): 15 Billed Treatment Time 1 visit-EX 1 (15 min) HALIMA KERNS Sep 10, 2017 11:22
[2017-09-10] MEDS ORDERED: PAMIDRONATE INJECTION 60 MG in NS (IVPB) 250 ML IV NR (13:00)
--- NOTE | 2017-09-10 13:03 | Progress Note-Standard ---
Standard Progress Note Progress Notes/Assess & Plan Date Seen by Provider: Sep 10, 2017 Time Seen by Provider: 12:51 Progress/Assessment & Plan 67-year-old female with recurrent hypercalcemia. Bronchoscopy with FNA of mediastinal lymph nodes showing B-cell neoplasm. Status post PET scan with evidence of renal and splenic involvement as well as mediastinal adenopathy. Completed core needle biopsy of kidney on 09/04/2017. 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 Response rates are significantly lower with standard dose chemotherapy in this cohort. Usually aggressive treatments like Hyper C VAD type regimens or bone marrow transplant is the treatment of choice. Because of her age and poor performance status, she is not a candidate for this. I discussed these with the patient and her DPOA for healthcare, Bernie De León today and answered their questions. Both of them wanted to proceed with standard chemotherapy which is CHOP plus Rituxan regimen. I will obtain a hepatitis panel before starting Rituxan. Planning on starting chemotherapy tomorrow 09/11/2017 with appropriate premedications. Patient is weaker and more somnolent today. Her mentation continues to be clear. Laboratory Tests 09/10/17 06:03: White Blood Count 14.3H, Red Blood Count 2.52L, Hemoglobin 8.2L, Hematocrit 27L , Mean Corpuscular Volume 106H, Mean Corpuscular Hemoglobin 33, Mean Corpuscular Hemoglobin Concent 31L, Red Cell Distribution Width 19.7H, Platelet Count 191, Mean Platelet Volume 9.8, Neutrophils (%) (Auto) 57, Lymphocytes (%) (Auto) 26, Monocytes (%) (Auto) 16H, Eosinophils (%) (Auto) 1, Basophils (%) ( Auto) 0, Neutrophils # (Auto) 8.1H, Lymphocytes # (Auto) 3.8, Monocytes # (Auto ) 2.2H, Eosinophils # (Auto) 0.2, Basophils # (Auto) 0.0, Sodium Level 141, Potassium Level 4.6, Chloride Level 110H, Carbon Dioxide Level 28, Anion Gap 3L , Blood Urea Nitrogen 19H, Creatinine 0.71, Estimat Glomerular Filtration Rate > 60, BUN/Creatinine Ratio 27, Glucose Level 70, Calcium Level 12.6H, Magnesium Level 1.7L, Total Bilirubin 0.4, Aspartate Amino Transf (AST/SGOT) 32, Alanine Aminotransferase (ALT/SGPT) 7, Alkaline Phosphatase 96, Total Protein 4.0L, Albumin 2.3L 09/10/17 12:50: A/P: 1. Diffuse large B cell non-Hodgkin's lymphoma, stage IV with involvement of kidney. Triple hit with BCL-2, BCL 6 and C MYC positivity which is a poor prognostic marker. 2. Worsening hypercalcemia due to above. Patient received bolus of normal saline earlier today. I will administer pamidronate 60 mg IV today to control the calcium level. The corrected calcium is approximately 14 today. 3. I will obtain a hepatitis panel before administrating Rituxan. Her cardiac function was normal by the echocardiogram done on 08/29/2017 with LVEF of 50-55 percent. 4. We'll start her on chemotherapy with CHOP R regimen on 09/11/2017 with appropriate premedications. 5. Dr. Rodriguez covering for me until Friday09/15/2017. DYLAN CRAWFORD Sep 10, 2017 13:03
[2017-09-10] MEDS: RIVAROXABAN 20 MG TABLET (XARELTO) PO SCH (17:07)
[2017-09-10 17:45] VITALS: BP 153/72
[2017-09-10] MEDS: OMEGA 3 (FISH OIL) 1000 MG CAP PO SCH (20:07)
[2017-09-10] MEDS: SIMvastatin 40 MG (ZOCOR) TAB PO SCH (20:08)
[2017-09-11] MEDS: NS IV 1000 ML 1,000 ML IV SCH ×3 (02:51→16:58)
[2017-09-11] MEDS: RT-ALBUTEROL/IPRATROPIUM 3 ML (DUONEB) VIAL IH SCH ×4 (02:56→21:16)
[2017-09-11] MEDS: LEVOTHYROXINE 100 MCG (LEVOTHROID) TAB PO SCH (05:39)
[2017-09-11] MEDS: KCL 20 MEQ TAB (K-DUR) PO SCH ×4 (05:39→21:11)
[2017-09-11 05:50] LABS: RED BLOOD COUNT 2.54 10^6/uL (4.35-5.85); WHITE BLOOD COUNT 16.7 10^3/uL (4.3-11.0)
[2017-09-11 06:00] VITALS: BP 156/77
[2017-09-11 06:14] LABS: ALANINE AMINOTRANSFERASE 8 U/L (0-55); ALBUMIN 2.2 GM/DL (3.2-4.5); ANION GAP 4 MMOL/L (5-14); ASPARTATE AMINO TRANSFERASE 35 U/L (5-34); BILIRUBIN,TOTAL 0.3 MG/DL (0.1-1.0); BLOOD UREA NITROGEN 21 MG/DL (7-18); BUN/CREATININE RATIO 30; CALCIUM 12.8 MG/DL (8.5-10.1); CARBON DIOXIDE 24 MMOL/L (21-32); CHLORIDE 112 MMOL/L (98-107); CREATININE SERUM 0.69 MG/DL (0.60-1.30); GFR ESTIMATED > 60; GLUCOSE 68 MG/DL (70-105); POTASSIUM 4.9 MMOL/L (3.6-5.0); SODIUM 140 MMOL/L (135-145); TOTAL PROTEIN 3.8 GM/DL (6.4-8.2)
[2017-09-11] MEDS ORDERED: [UNRECOGNIZED DRUG - OTHER] IV SCH (07:00)
[2017-09-11] MEDS ORDERED: FOSAPREPITANT DIMEGLUMINE 150 MG in NS (IVPB) CANCER CENTER ONLY 150 ML IV SCH (07:00)
[2017-09-11] MEDS ORDERED: CYCLOPHOSPHAMIDE INJECTION 1,000 MG in NS (IVPB) CANCER CENTER 250 ML IV SCH (07:00)
[2017-09-11] MEDS ORDERED: NS IV SCH (07:00)
[2017-09-11] MEDS ORDERED: RITUXIMAB FOR IV SCH (07:00)
[2017-09-11] MEDS ORDERED: RITUXIMAB IV SCH (07:00)
[2017-09-11] MEDS ORDERED: DOXORUBICIN HCL IV SCH (07:00)
[2017-09-11] MEDS ORDERED: PALONOSETRON 0.25 MG, DEXAMETHASONE 10 MG/NS 50 ML IVPB IV PRN ×3 (07:00)
[2017-09-11] MEDS ORDERED: vinCRIStine SULFATE 2 MG in NS (IVPB) CANCER CENTER 50 ML IV SCH (07:00)
[2017-09-11] MEDS: ALLOPURINOL 100 MG (ZYLOPRIM) TAB PO SCH ×2 (07:47→18:30)
[2017-09-11] MEDS: ASPIRIN E.C. 81 MG (ECOTRIN) TAB PO SCH (08:29)
[2017-09-11] MEDS: VENlafaxine XR 75 MG (EFFEXOR XR) CAP PO SCH ×2 (08:29→21:11)
[2017-09-11] MEDS: PANTOPRAZOLE 40 MG (PROTONIX) TAB PO SCH (08:30)
[2017-09-11] MEDS: predniSONE 20 MG TAB PO SCH (08:30)
[2017-09-11] MEDS: CARVEDILOL 12.5 MG (COREG) TABLET PO SCH ×2 (08:30→21:12)
[2017-09-11] MEDS: LACTOBACILLUS Acidoph/Bulgar (LACTINEX/FLORANEX) TAB PO SCH (08:30)
[2017-09-11] MEDS: ISOSORBIDE MONONITRATE 30 MG (IMDUR) TAB PO SCH ×2 (08:30→21:11)
[2017-09-11] MEDS: amLODIPine 5 MG (NORVASC) TAB PO SCH ×2 (08:30→21:11)
[2017-09-11] MEDS: CYANOCOBALAMIN 500 MCG TAB (VITAMIN B-12) PO SCH (08:30)
[2017-09-11] MEDS: MENTHOL/ZINC OXIDE (CALMOSEPTINE) 113 GM TUBE TOP SCH ×2 (08:31→21:12)
[2017-09-11] MEDS ORDERED: NS IV 1000 ML (CANCER CTR) 1,000 ML ONE (08:43)
[2017-09-11] MEDS: RT-ADVAIR HFA 115/21 MCG PER PUFF IH SCH ×2 (08:45→21:16)
--- NOTE | 2017-09-11 08:51 | Progress Note (SOAP) ---
Subjective Date Seen by Provider: Sep 11, 2017 Time Seen by Provider: 08:45 Subjective/Events-last exam PT REPORTS THAT SHE IS FEELING FATIGUED THIS MORNING. SHE REPORTS THAT SHE IS HAVING SHORTNESS OF BREATH, LEGS ARE SWELLING. Review of Systems General: No Chills, Fatigue Pulmonary: Dyspnea, No Cough Cardiovascular: No: Chest Pain Gastrointestinal: No: Nausea, Abdominal Pain Neurological: Weakness, Confusion Objective Exam Vital Signs Date Time Temp Pulse Resp B/P (MAP) Pulse Ox O2 Delivery O2 Flow Rate FiO2 09/11/17 08:47 Nasal Cannula 3.00 09/11/17 06:00 98.1 67 20 156/77 94 Nasal Cannula 3.00 09/10/17 21:00 Nasal Cannula 3.00 09/10/17 20:07 95 Nasal Cannula 3.00 09/10/17 20:00 93 Nasal Cannula 3.00 09/10/17 17:45 98.7 66 20 153/72 93 Nasal Cannula 3.00 09/10/17 15:06 94 Nasal Cannula 2.00 09/10/17 09:00 Nasal Cannula 3.00 09/10/17 08:58 97 Nasal Cannula 2.00 Capillary Refill : General Appearance: WD/WN, Other (CONFUSED TODAY - GROGGY) HEENT: PERRL/EOMI, Pharynx Normal Neck: Full Range of Motion, Supple Respiratory: Chest Non Tender, Lungs Clear, Normal Breath Sounds Cardiovascular: Regular Rate, Rhythm, Other (EDEMA BILATERAL LOWER LEGS) Gastrointestinal: normal bowel sounds, non tender, soft Extremity: Normal Capillary Refill Neurologic/Psychiatric: Alert, Other (ORIENTED OT PERSON, NOT PLACE OR TIME) Skin: Warm/Dry Results Lab Laboratory Tests 09/10/17 12:50: 09/11/17 05:40: White Blood Count 16.7H, Red Blood Count 2.54L, Hemoglobin 8.3L, Hematocrit 27L , Mean Corpuscular Volume 106H, Mean Corpuscular Hemoglobin 33, Mean Corpuscular Hemoglobin Concent 31L, Red Cell Distribution Width 20.0H, Platelet Count 213, Mean Platelet Volume 10.0, Sodium Level 140, Potassium Level 4.9, Chloride Level 112H, Carbon Dioxide Level 24, Anion Gap 4L, Blood Urea Nitrogen 21H, Creatinine 0.69, Estimat Glomerular Filtration Rate > 60, BUN/Creatinine Ratio 30, Glucose Level 68L, Calcium Level 12.8H, Total Bilirubin 0.3, Aspartate Amino Transf (AST/SGOT) 35H, Alanine Aminotransferase (ALT/SGPT) 8, Alkaline Phosphatase 93, Total Protein 3.8L, Albumin 2.2L Assessment/Plan Assessment/Plan Assess & Plan/Chief Complaint HYPERCALCEMIA CONFUSION LYMPHOMA HYPOTHYROID HX OF PULMONARY EMBOLISM CHRONIC ANTICOAGULATION EDEMA HYPOMAGNESEMIA HYPERCALCEMIA -ON FLUIDS, LASIX, FOSAMAX. CALCIUM LEVEL UP TODAY - CALCIUM WAS 12.8 THIS MORNING - UP FROM 12.6 YESTERDAY. CORRECTED CALCIUM IS 14.2 - CONTINUE WITH FLUIDS AT HIGH DOSE, SERIAL LABS FOR CALCIUM LEVEL. CONFUSION - INTERMITTENT.- BUT WORSE TODAY COMPARED TO YESTERDAY LYMPHOMA - CONSULT TO DR. CRAWFORD - WE DISCUSSED HER DIAGNOSIS -FINAL PATHOLOGY REVEALED DIFFUSE LARGE B CELL LYMPHOMA WITH HIGH PROLIFERATIVE RATE - NON- GERMINAL CENTER OF B CELL ORIGIN. PT TO START CHEMOTHERAPY TODAY. - PER DR. CRAWFORD - TREATMENT FOLLOWS: RITUXAN AND CHOP R REGIMEN HYPOTHYROID - RESUMED HOME MEDICATION HYPOMAGNESEMIA - CHECK LEVEL TOMORROW. REPLENISH IV TODAY HX OF PULMONARY EMBOLISM WITH CHRONIC ANTICOAGULATION - RESUMED XARELTO - DVT PROPHYLAXIS WITH XARELTO AND SCD'S GI PROPHYLAXIS WILL BE WITH PROTONIX. I HAVE DISCUSSED WITH HER DPOA - UPON DISCHARGE, DANIELA WILL GO TO [facility] AND POSSIBLY GO TO ASSISTED LIVING AFTER IMPROVED STRENGTHENING AT [facility]. Clinical Quality Measures DVT/VTE Risk/Contraindication: Risk Factor Score Per Nursin SAM CINTRON MD Sep 11, 2017 08:51
[2017-09-11 11:28] LABS: BILIRUBIN,URINE NEGATIVE (NEGATIVE); KETONES,URINE NEGATIVE (NEGATIVE); LEUKOCYTE ESTERASE ,URINE 1+ (NEGATIVE); NITRITE,URINE NEGATIVE (NEGATIVE); PH,URINE 5 (5-9); PROTEIN,URINE 2+ (NEGATIVE); UROBILINOGEN,URINE NORMAL (NORMAL)
[2017-09-11 11:43] LABS: SQUAMOUS EPITHELIAL CELL,UR RARE /HPF; WBC,URINE 0-2 /HPF
--- NOTE | 2017-09-11 11:55 | Physical Therapy Progress Note ---
Therapy Progress Note Patient is displaying extreme lethargy and the inability to remain awake to safely perform therapy. Patient also began chemotherapy on this date. PT to resume in ALISON Majano PT Sep 11, 2017 11:54
--- NOTE | 2017-09-11 15:05 | Occupational Ther Daily Note ---
OT Current Status-Daily Note Subjective Pt is very lethargic and has difficulty remaining awake during treatment session. Patient started chemotherapy on this date. Visitor present in room. Mental Status/Objective Functional [place] Measure 0=Not Assessed/NA 4=Minimal Assistance 1=Total Assistance 5=Supervision or Setup 2=Maximal Assistance 6=Modified [place] 3=Moderate Assistance 7=Complete [place] ADL-Treatment Functional [place] Measure 0=Not Assessed/NA 4=Minimal Assistance 1=Total Assistance 5=Supervision or Setup 2=Maximal Assistance 6=Modified [place] 3=Moderate Assistance 7=Complete IndependenceIRFPAI Quality Coding Scale 6 Independent with activity with or without an assistive device 5 Patient requires set up or clean up by helper. Patient completes activity by themselves 4 Supervision or touching assist (CGA). [place] provide cues , steadying assist 3 The helper provides less than half the effort to complete the activity 2 The helper provides more than half the effort to complete the activity 1 Dependent. The helper does all the effort to complete an activity 7 Patient refused to complete or attempt activity 9 The patient did not perform the activity before the current illness or injury 88 Not attempted due to Medical conditions or safety concerns Other Treatment Completed 6 APROM exercises to B UE's. Pt was more understandable with yes/no questions today though continues to mumble and verbalize quietly. Pt would complete active movement with B UE about every 3rd rep with UE ROM. After therapy, pt lying in bed on R side. Visitor present in room. Call light/phone in reach. All needs met in room. OT Short Term Goals Short Term Goals 1=Demonstrate adherence to instructed precautions during ADL tasks. 2=Patient will verbalize/demonstrate understanding of assistive devices/ modifications for ADL. 3=Patient will improve strength/tolerance for activity to enable patient to perform ADL's. OT Prison Goals Snuff Grinder And Screener Goals Time Frame: Sep 19, 2017 Eating (FIM): 5 Eating (QC): 5 Groomin Oral Hygiene (QC): 5 Upper Body Dressing(FIM): 5 Lower Body Dressing(FIM): 4 Toileting(FIM): 4 Toileting Hygiene (QC): 4 Toilet/Commode Transfer(FIM): 5 Toilet/Commode Transfer (QC): 4 Additional Goals: 1-Demonstrate ADL Tasks, 2-Verbalize Understanding, 3- ImproveStrength/Emily 1=Demonstrate adherence to instructed precautions during ADL tasks. 2=Patient will verbalize/demonstrate understanding of assistive devices/ modifications for ADL. 3=Patient will improve strength/tolerance for activity to enable patient to perform ADL's. OT Education/Plan Problem List/Assessment Pt demonstrates decreased ADL functioning, strength, mobility, and activity tolerance. Pt to benefit from skilled OT intervention for ADL training, transfers, strengthening, and safety education to improve level of independence and allow safe discharge plan. Discharge Recommendations Plan/Recommendations: Continue POC Treatment Plan/Plan of Care Patient would benefit from OT for education, treatment and training to promote independence in ADL's, mobility, safety and/or upper extremity function for ADL' s. Plan of Care: ADL Retraining, Functional Mobility, UE Funct Exercise/Act Treatment Duration: Sep 19, 2017 Frequency: 5 times per week Estimated Hrs Per Day: .25 hour per day Rehab Potential: Fair Time/GCodes Start Time: 14:35 Stop Time: 14:50 Total Time Billed (hr/min): 15 Billed Treatment Time 1 visit-EX 1 (15 min) HALIMA KERNS Sep 11, 2017 15:05
[2017-09-11] MEDS: RIVAROXABAN 20 MG TABLET (XARELTO) PO SCH (16:58)
[2017-09-11 17:18] VITALS: BP 84/47
[2017-09-11] MEDS: SIMvastatin 40 MG (ZOCOR) TAB PO SCH (21:12)
[2017-09-11] MEDS: OMEGA 3 (FISH OIL) 1000 MG CAP PO SCH (21:12)
[2017-09-11] MEDS ORDERED: NS IV 500 ML 500 ML ONE (21:50)
[2017-09-11] MEDS ORDERED: NS IV 500 ML 500 ML IV SCH (22:00)
[2017-09-11] MEDS ORDERED: FUROSEMIDE 40 MG/4 ML INJ (LASIX) IVP ONE (22:15)
[2017-09-12] VITALS: BP 101/64
[2017-09-12] MEDS ORDERED: FUROSEMIDE 40 MG/4 ML INJ (LASIX) IVP ONE (01:15)
[2017-09-12] MEDS: RT-ALBUTEROL/IPRATROPIUM 3 ML (DUONEB) VIAL IH SCH ×4 (02:27→21:00)
[2017-09-12] MEDS: NS IV 1000 ML 1,000 ML IV SCH ×3 (02:38→21:20)
[2017-09-12 04:25] VITALS: BP 123/57
[2017-09-12] MEDS: KCL 20 MEQ TAB (K-DUR) PO SCH (06:42)
[2017-09-12] MEDS: FUROSEMIDE 40 MG/4 ML INJ (LASIX) IVP SCH (06:42)
[2017-09-12] MEDS: LEVOTHYROXINE 100 MCG (LEVOTHROID) TAB PO SCH (06:42)
[2017-09-12] MEDS: RT-ADVAIR HFA 115/21 MCG PER PUFF IH SCH ×2 (07:18→20:00)
[2017-09-12 07:31] VITALS: BP 121/62
--- NOTE | 2017-09-12 08:52 | Progress Note (SOAP) ---
Subjective Date Seen by Provider: Sep 12, 2017 Time Seen by Provider: 08:55 Subjective/Events-last exam PT CONFUSED THIS MORNING. SHE HAD A BAD NIGHT LAST-NIGHT- HER BLOOD PRESSURE WAS LOW, AND SHE HAD INCREASED SHORTNESS OF BREATH/INCREASED WORK OF BREATHING. Review of Systems General: Fatigue, Malaise HEENT: No Head Aches Pulmonary: Dyspnea Cardiovascular: No: Chest Pain, Palpitations Gastrointestinal: No: Vomiting Neurological: Weakness, Confusion CONFUSED, UNABLE TO ANSWER QUESTIONS Objective Exam Vital Signs Date Time Temp Pulse Resp B/P (MAP) Pulse Ox O2 Delivery O2 Flow Rate FiO2 09/12/17 07:31 97.5 47 16 121/62 95 Nasal Cannula 5.00 09/12/17 07:20 94 Nasal Cannula 5.00 09/12/17 07:18 94 Nasal Cannula 5.00 09/12/17 04:25 97.7 48 18 123/57 91 Nasal Cannula 5.00 09/12/17 02:27 94 Nasal Cannula 5.00 09/12/17 00:00 97.3 45 14 101/64 95 Nasal Cannula 5.00 09/11/17 21:16 85 Nasal Cannula 3.00 09/11/17 21:00 98 Nasal Cannula 5.00 09/11/17 17:18 96.4 45 20 84/47 91 Nasal Cannula 3.00 09/11/17 16:00 98.1 Capillary Refill : General Appearance: WD/WN, Mild Distress HEENT: PERRL/EOMI Neck: Supple Respiratory: Chest Non Tender, Crackles (IN BASES BILATERALLY), Decreased Breath Sounds Cardiovascular: Regular Rate, Rhythm, Systolic Murmur (II/ CINTHIA) Gastrointestinal: normal bowel sounds, non tender, soft Extremity: Pedal Edema (UP TO ABDOMEN - WORSE ON RIGHT THAN LEFT) Neurologic/Psychiatric: Disoriented x3 (OPENS EYES TO VOICE) Skin: Warm/Dry Lymphatic: No Adenopathy Results Lab Laboratory Tests 09/11/17 11:15: Urine Color YELLOW, Urine Clarity SLIGHTLY CLOUDY, Urine pH 5, Urine Specific [place] 1.015L, Urine Protein 2+H, Urine Glucose (UA) NEGATIVE, Urine Ketones NEGATIVE, Urine Nitrite NEGATIVE, Urine Bilirubin NEGATIVE, Urine Urobilinogen NORMAL, Urine Leukocyte Esterase 1+H, Urine RBC (Auto) NEGATIVE, Urine RBC RARE , Urine WBC 0-2, Urine Squamous Epithelial Cells RARE, Urine Crystals NONE, Urine Amorphous Sediment MOD ALIE URATESH, Urine Bacteria FEWH, Urine Casts NONE , Urine Mucus NEGATIVE, Urine Culture Indicated NO Assessment/Plan Assessment/Plan Assess & Plan/Chief Complaint HYPERCALCEMIA CONFUSION LYMPHOMA HYPOTHYROID HX OF PULMONARY EMBOLISM CHRONIC ANTICOAGULATION EDEMA HYPOMAGNESEMIA HYPERKALEMIA HYPERCALCEMIA -ON FLUIDS, LASIX, FOSAMAX. CALCIUM LEVEL UP TODAY - CALCIUM WAS 12.8 YESTERDAY MORNING - CORRECTED CALCIUM WAS 14.2 - DOWN TO A CALCIUM LEVEL 11.7 - WITH CORRECTED CALCIUM OF 12.9 - CHANGE FLUIDS TO D5/12 NORMAL, MONITOR LABS TOMORROW- PT HAS SERIAL LABS SCHEDULED. CONFUSION - INTERMITTENT.- BUT WORSE TODAY COMPARED TO YESTERDAY. LYMPHOMA - CONSULT TO DR. CRAWFORD - WE DISCUSSED HER DIAGNOSIS -FINAL PATHOLOGY REVEALED DIFFUSE LARGE B CELL LYMPHOMA WITH HIGH PROLIFERATIVE RATE - NON- GERMINAL CENTER OF B CELL ORIGIN. PT TO STARTED CHEMOTHERAPY. - PER DR. CRAWFORD - TREATMENT FOLLOWS: RITUXAN AND CHOP R REGIMEN - DR. DIEHL FELT LIKE PT WAS TOO WEAK FOR RITUXAN THERAPY TODAY. HYPOTHYROID - RESUMED HOME MEDICATION HYPOMAGNESEMIA - CHECK LEVEL TOMORROW. REPLENISH IV TODAY. HYPERKALEMIA - FLUIDS TODAY. CHECK LABS TOMORROW. HX OF PULMONARY EMBOLISM WITH CHRONIC ANTICOAGULATION - RESUMED XARELTO - DVT PROPHYLAXIS WITH XARELTO AND SCD'S GI PROPHYLAXIS WILL BE WITH PROTONIX. I HAVE DISCUSSED WITH HER DPOA - PT MADE DNR/DNI - PLAN IF PT HAS IMPROVEMENT IN HER SYMPTOMS WITH CHEMOTHERAPY - UPON DISCHARGE, DANIELA WILL GO TO [facility] AND POSSIBLY GO TO ASSISTED LIVING AFTER IMPROVED STRENGTHENING AT [facility]. Clinical Quality Measures DVT/VTE Risk/Contraindication: Risk Factor Score Per Nursin SAM CINTRON MD Sep 12, 2017 08:52
[2017-09-12] MEDS: MENTHOL/ZINC OXIDE (CALMOSEPTINE) 113 GM TUBE TOP SCH ×2 (09:12→22:24)
[2017-09-12 09:26] LABS: MEAN PLATELET VOLUME 10.3 FL (7.4-10.4); RED BLOOD COUNT 2.46 10^6/uL (4.35-5.85); RED CELL DISTRIBUTION WIDTH 19.8 % (10.0-14.5); WHITE BLOOD COUNT 12.6 10^3/uL (4.3-11.0)
[2017-09-12 09:43] LABS: ALANINE AMINOTRANSFERASE 12 U/L (0-55); ALBUMIN 2.4 GM/DL (3.2-4.5); ANION GAP 5 MMOL/L (5-14); ASPARTATE AMINO TRANSFERASE 48 U/L (5-34); BILIRUBIN,TOTAL 0.3 MG/DL (0.1-1.0); BLOOD UREA NITROGEN 51 MG/DL (7-18); BUN/CREATININE RATIO 60; CALCIUM 11.7 MG/DL (8.5-10.1); CARBON DIOXIDE 23 MMOL/L (21-32); CHLORIDE 112 MMOL/L (98-107); CREATININE SERUM 0.85 MG/DL (0.60-1.30); GFR ESTIMATED > 60; GLUCOSE 115 MG/DL (70-105); SODIUM 140 MMOL/L (135-145)
[2017-09-12 09:45] LABS: POTASSIUM 6.8 MMOL/L (3.6-5.0)
--- NOTE | 2017-09-12 10:12 | Physical Therapy Progress Note ---
Therapy Progress Note PT on hold secondary to decline in medical status. RN reports no PT on this date. PT will continue to monitor patient medical status. ALISON BOBBY PT Sep 12, 2017 10:12
--- NOTE | 2017-09-12 11:42 | Oncology Progress Note ---
Subjective Time Seen by Provider: 09:30 Subjective/Events-last exam Cover for Dr Jordan. Pt had mini-CHOP chemo yesterday and took a down turn last night. She became hypotensive BP down to 80/40 last night from her normal baseline 140/90. She is less alert per family. Dr Goldberg and family had a discussion yesterday and made a decision of DNR. This morning patient is slightly better. BP 110/60 range. Response to her name but not be able to carry any meaningful conversation. Pt is supposed to get her Rituxan treatment per Dr Jordan order. After I discussed with her POA, Bernie, we both agreed that the best for the patient at this point is to hold off Rituxan. Pertinent history: 67-year-old female with recurrent hypercalcemia. Bronchoscopy with FNA of mediastinal lymph nodes showing B-cell neoplasm. Status post PET scan with evidence of renal and splenic involvement as well as mediastinal adenopathy. Completed core needle biopsy of kidney on 09/04/2017. 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 Response rates are significantly lower with standard dose chemotherapy in this cohort. Usually aggressive treatments like Hyper C VAD type regimens or bone marrow transplant is the treatment of choice. Because of her age and poor performance status, she is not a candidate for this. I discussed these with the patient and her DPOA for healthcare, Bernie De León today and answered their questions. Both of them wanted to proceed with standard chemotherapy which is CHOP plus Rituxan regimen. Data Review Labs Laboratory Tests 09/14/17 05:03 Laboratory Tests 09/12/17 09:08: White Blood Count 12.6H, Red Blood Count 2.46L, Hemoglobin 8.2L, Hematocrit 26L , Mean Corpuscular Volume 105H, Red Cell Distribution Width 19.8H, Potassium Level 6.8*H, Chloride Level 112H, Blood Urea Nitrogen 51H, Glucose Level 115H, Calcium Level 11.7H, Aspartate Amino Transf (AST/SGOT) 48H, Total Protein 4.0L, Albumin 2.4L 09/12/17 17:11: Potassium Level 6.3H, Chloride Level 110H, Blood Urea Nitrogen 52H, Glucose Level 133H, Calcium Level 11.1H, Uric Acid 11.6H, Phosphorus Level 7.1H 10/14/17 06:00: Red Blood Count 2.59L, Hemoglobin 8.5L, Hematocrit 27L, Mean Corpuscular Volume 104H, Red Cell Distribution Width 19.7H, Chloride Level 109H, Blood Urea Nitrogen 50H, Calcium Level 10.4H, Total Protein 4.2L, Albumin 2.4L, Uric Acid 12.3H, Phosphorus Level 6.3H 09/14/17 05:03: Red Blood Count 2.47L, Hemoglobin 8.1L, Hematocrit 26L, Mean Corpuscular Volume 104H, Red Cell Distribution Width 19.2H, Chloride Level 109H, Blood Urea Nitrogen 40H, Glucose Level 123H, Total Protein 3.4L, Albumin 2.3L, Neutrophils (%) (Auto) 91H, Lymphocytes (%) (Auto) 5L, Lymphocytes # (Auto) 0.3L, Magnesium Level 1.4L Physical Exam Vital Signs Vital Sign - Last 12Hours 09/08/17 00:00 Temp 97.5 Pulse 72 Resp 18 B/P (MAP) 175/84 Pulse Ox 95 O2 Delivery Nasal Cannula O2 Flow Rate 2.00 Capillary Refill : General Appearance: No Apparent Distress, Chronically ill Neck: Non Tender, Supple Respiratory: No Accessory Muscle Use, No Respiratory Distress, Crackles Cardiovascular: Regular Rate, Rhythm, Systolic Murmur Gastrointestinal: Non Tender, Soft Extremity: Pedal Edema (edema both hands and legs up to thighs), Swelling Neurologic/Psychiatric: Other (response to her name by open her eyes. not able to carry converstation. Said no pain) Impression & Plan Impression & Plan A/P: 1. Diffuse large B cell non-Hodgkin's lymphoma, stage IV with involvement of kidney. Triple hit with BCL-2, BCL 6 and C MYC positivity which is a poor prognostic marker. s/p CHOP yesterday tolerated poorly with hypotensive and desat O2. Will hold off her Rituxan today. 2. Hyperkalemia, K 6.8 possible tumor lysis. Pt was also on K pills as of yesterday. Dr Goldberg stopped KCL PO and gave her Lasix 40mg IV this morning. Will repeat BMP with Mg and Phos this afternoon. If K still high and BP is OK, we may need to repeat Lasix again along with IVF. 3. Her cardiac function was normal by the echocardiogram done on 08/29/2017 with LVEF of 50-55 percent. However, she had severe valve disease with a loud systolic murmur which may affect the EF readings. 4. Worsening hypercalcemia due to above. Patient received bolus of normal saline earlier and pamidronate 60 mg IV this week to control the calcium level. 5. Pt is DNR. Clinical Quality Measures DVT/VTE Risk/Contraindication: Risk Factor Score Per Nursin RAQUEL DIEHL MD Sep 12, 2017 11:42
[2017-09-12 12:00] VITALS: BP 109/55
[2017-09-12] MEDS: ASPIRIN E.C. 81 MG (ECOTRIN) TAB PO SCH (12:20)
[2017-09-12] MEDS: predniSONE 20 MG TAB PO SCH (12:20)
[2017-09-12] MEDS: ALLOPURINOL 100 MG (ZYLOPRIM) TAB PO SCH ×2 (12:20→17:54)
[2017-09-12] MEDS: ISOSORBIDE MONONITRATE 30 MG (IMDUR) TAB PO SCH ×2 (12:21→22:03)
[2017-09-12] MEDS: LACTOBACILLUS Acidoph/Bulgar (LACTINEX/FLORANEX) TAB PO SCH (12:21)
[2017-09-12] MEDS: VENlafaxine XR 75 MG (EFFEXOR XR) CAP PO SCH ×2 (12:21→22:03)
[2017-09-12] MEDS: PANTOPRAZOLE 40 MG (PROTONIX) TAB PO SCH (12:21)
[2017-09-12] MEDS: CYANOCOBALAMIN 500 MCG TAB (VITAMIN B-12) PO SCH (12:22)
[2017-09-12] MEDS: D5 1/2 NS 1000 ML IV SOLUTION 1,000 ML IV SCH ×2 (12:32→21:35)
--- NOTE | 2017-09-12 13:53 | Occupational Ther Daily Note ---
OT Current Status-Daily Note Subjective Pt sleeping in bed, difficult to arouse. Friend present in room. Nrsg was okay with FAM completing UE PROM. Mental Status/Objective Patient Orientation: Unable to Assess Functional [place] Measure 0=Not Assessed/NA 4=Minimal Assistance 1=Total Assistance 5=Supervision or Setup 2=Maximal Assistance 6=Modified [place] 3=Moderate Assistance 7=Complete [place] ADL-Treatment Functional [place] Measure 0=Not Assessed/NA 4=Minimal Assistance 1=Total Assistance 5=Supervision or Setup 2=Maximal Assistance 6=Modified [place] 3=Moderate Assistance 7=Complete IndependenceIRFPAI Quality Coding Scale 6 Independent with activity with or without an assistive device 5 Patient requires set up or clean up by helper. Patient completes activity by themselves 4 Supervision or touching assist (CGA). [place] provide cues , steadying assist 3 The helper provides less than half the effort to complete the activity 2 The helper provides more than half the effort to complete the activity 1 Dependent. The helper does all the effort to complete an activity 7 Patient refused to complete or attempt activity 9 The patient did not perform the activity before the current illness or injury 88 Not attempted due to Medical conditions or safety concerns Other Treatment Pt did answer questions and opened eyes for a second then closed. 7 UE APROM exercises, pt actively moved 3x's out of 10 each exercise. Pt was able to answer questions more appropriately today and did smile and shook head yes/no to visitor. After therapy, pt lying in bed with call light/phone in reach. Increased edema noted in R hand. All needs met in room. OT Short Term Goals Short Term Goals 1=Demonstrate adherence to instructed precautions during ADL tasks. 2=Patient will verbalize/demonstrate understanding of assistive devices/ modifications for ADL. 3=Patient will improve strength/tolerance for activity to enable patient to perform ADL's. OT Fpc Goals Bottle Hop Goals Time Frame: Sep 19, 2017 Eating (FIM): 5 Eating (QC): 5 Groomin Oral Hygiene (QC): 5 Upper Body Dressing(FIM): 5 Lower Body Dressing(FIM): 4 Toileting(FIM): 4 Toileting Hygiene (QC): 4 Toilet/Commode Transfer(FIM): 5 Toilet/Commode Transfer (QC): 4 Additional Goals: 1-Demonstrate ADL Tasks, 2-Verbalize Understanding, 3- ImproveStrength/Emily 1=Demonstrate adherence to instructed precautions during ADL tasks. 2=Patient will verbalize/demonstrate understanding of assistive devices/ modifications for ADL. 3=Patient will improve strength/tolerance for activity to enable patient to perform ADL's. OT Education/Plan Problem List/Assessment Pt demonstrates decreased ADL functioning, strength, mobility, and activity tolerance. Pt to benefit from skilled OT intervention for ADL training, transfers, strengthening, and safety education to improve level of independence and allow safe discharge plan. Discharge Recommendations Plan/Recommendations: Continue POC Treatment Plan/Plan of Care Patient would benefit from OT for education, treatment and training to promote independence in ADL's, mobility, safety and/or upper extremity function for ADL' s. Plan of Care: ADL Retraining, Functional Mobility, UE Funct Exercise/Act Treatment Duration: Sep 19, 2017 Frequency: 5 times per week Estimated Hrs Per Day: .25 hour per day Rehab Potential: Fair Time/GCodes Start Time: 09:45 Stop Time: 09:56 Total Time Billed (hr/min): 15 Billed Treatment Time 1 visit-EX 1 (15 min) HALIMA KERNS Sep 12, 2017 13:53
[2017-09-12] MEDS ORDERED: FUROSEMIDE 40 MG/4 ML INJ (LASIX) IVP NR ×2 (14:00→22:00)
[2017-09-12 16:23] VITALS: BP 106/56
[2017-09-12 17:35] LABS: MAGNESIUM 1.8 MG/DL (1.8-2.4); PHOSPHORUS 7.1 MG/DL (2.3-4.7); URIC ACID 11.6 MG/DL (2.6-7.2)
[2017-09-12] MEDS: RIVAROXABAN 20 MG TABLET (XARELTO) PO SCH (17:54)
[2017-09-12 18:02] LABS: ANION GAP 7 MMOL/L (5-14); BLOOD UREA NITROGEN 52 MG/DL (7-18); BUN/CREATININE RATIO 59; CALCIUM 11.1 MG/DL (8.5-10.1); CARBON DIOXIDE 23 MMOL/L (21-32); CHLORIDE 110 MMOL/L (98-107); CREATININE SERUM 0.88 MG/DL (0.60-1.30); GFR ESTIMATED > 60; GLUCOSE 133 MG/DL (70-105); POTASSIUM 6.3 MMOL/L (3.6-5.0); SODIUM 140 MMOL/L (135-145)
[2017-09-12 19:50] VITALS: BP 163/80
[2017-09-12] MEDS: OMEGA 3 (FISH OIL) 1000 MG CAP PO SCH (22:03)
[2017-09-12] MEDS: SIMvastatin 40 MG (ZOCOR) TAB PO SCH (22:03)
[2017-09-13] VITALS: BP 134/69
[2017-09-13] MEDS: NS IV 1000 ML 1,000 ML IV SCH ×6 (02:24→23:05)
[2017-09-13] MEDS: RT-ALBUTEROL/IPRATROPIUM 3 ML (DUONEB) VIAL IH SCH ×4 (02:34→20:56)
[2017-09-13 04:00] VITALS: BP 129/53
[2017-09-13] MEDS: FUROSEMIDE 40 MG/4 ML INJ (LASIX) IVP SCH (06:04)
[2017-09-13] MEDS: LEVOTHYROXINE 100 MCG (LEVOTHROID) TAB PO SCH (06:04)
[2017-09-13 06:19] LABS: MEAN PLATELET VOLUME 10.2 FL (7.4-10.4); RED BLOOD COUNT 2.59 10^6/uL (4.35-5.85); RED CELL DISTRIBUTION WIDTH 19.7 % (10.0-14.5); WHITE BLOOD COUNT 9.2 10^3/uL (4.3-11.0)
[2017-09-13 06:58] LABS: ALANINE AMINOTRANSFERASE 8 U/L (0-55); ALBUMIN 2.4 GM/DL (3.2-4.5); ANION GAP 9 MMOL/L (5-14); ASPARTATE AMINO TRANSFERASE 29 U/L (5-34); BILIRUBIN,TOTAL 0.3 MG/DL (0.1-1.0); BLOOD UREA NITROGEN 50 MG/DL (7-18); BUN/CREATININE RATIO 66; CALCIUM 10.4 MG/DL (8.5-10.1); CARBON DIOXIDE 23 MMOL/L (21-32); CHLORIDE 109 MMOL/L (98-107); CREATININE SERUM 0.76 MG/DL (0.60-1.30); GFR ESTIMATED > 60; GLUCOSE 101 MG/DL (70-105); MAGNESIUM 1.8 MG/DL (1.8-2.4); PHOSPHORUS 6.3 MG/DL (2.3-4.7); SODIUM 141 MMOL/L (135-145); TOTAL PROTEIN 4.2 GM/DL (6.4-8.2); URIC ACID 12.3 MG/DL (2.6-7.2)
[2017-09-13 08:00] VITALS: BP 151/77
[2017-09-13] MEDS: ALLOPURINOL 100 MG (ZYLOPRIM) TAB PO SCH (08:00)
[2017-09-13] MEDS: CARVEDILOL 12.5 MG (COREG) TABLET PO SCH (08:25)
[2017-09-13] MEDS: amLODIPine 5 MG (NORVASC) TAB PO SCH (08:25)
[2017-09-13] MEDS ORDERED: NS IV 1000 ML 1,000 ML IV SCH (08:30)
--- NOTE | 2017-09-13 08:30 | Oncology Progress Note ---
Subjective Time Seen by Provider: 08:10 Subjective/Events-last exam Still lethargic Good UOP 2300 over night. K down from 6.8 to 5 this Am Data Review Labs Laboratory Tests 09/12/17 09:08 09/12/17 17:11 09/13/17 06:00 Laboratory Tests 09/10/17 12:50: 09/11/17 05:40: White Blood Count 16.7H, Red Blood Count 2.54L, Hemoglobin 8.3L, Hematocrit 27L , Mean Corpuscular Volume 106H, Mean Corpuscular Hemoglobin Concent 31L, Red Cell Distribution Width 20.0H, Chloride Level 112H, Anion Gap 4L, Blood Urea Nitrogen 21H, Glucose Level 68L, Calcium Level 12.8H, Aspartate Amino Transf ( AST/SGOT) 35H, Total Protein 3.8L, Albumin 2.2L 09/11/17 11:15: Urine Specific [place] 1.015L, Urine Protein 2+H, Urine Leukocyte Esterase 1+H, Urine Amorphous Sediment MOD ALIE URATESH, Urine Bacteria FEWH 09/12/17 09:08: White Blood Count 12.6H, Red Blood Count 2.46L, Hemoglobin 8.2L, Hematocrit 26L , Mean Corpuscular Volume 105H, Red Cell Distribution Width 19.8H, Chloride Level 112H, Blood Urea Nitrogen 51H, Glucose Level 115H, Calcium Level 11.7H, Aspartate Amino Transf (AST/SGOT) 48H, Total Protein 4.0L, Albumin 2.4L, Potassium Level 6.8*H 09/12/17 17:11: Potassium Level 6.3H, Chloride Level 110H, Blood Urea Nitrogen 52H, Glucose Level 133H, Uric Acid 11.6H, Calcium Level 11.1H, Phosphorus Level 7.1H 09/13/17 06:00: Chloride Level 109H, Blood Urea Nitrogen 50H, Uric Acid 12.3H, Calcium Level 10.4H, Phosphorus Level 6.3H, Red Blood Count 2.59L, Hemoglobin 8.5L, Hematocrit 27L, Mean Corpuscular Volume 104H, Red Cell Distribution Width 19.7H , Total Protein 4.2L, Albumin 2.4L Physical Exam Vital Signs Vital Sign - Last 12Hours 09/07/17 04:30 Temp 98.3 Pulse 63 Resp 16 B/P (MAP) 159/72 Pulse Ox 93 O2 Delivery Nasal Cannula O2 Flow Rate 2.00 Capillary Refill : General Appearance: Other (only responded to her name and then back to sleep. Lethargic) HEENT: PERRL/EOMI Neck: Non Tender, Supple Respiratory: No Accessory Muscle Use, No Respiratory Distress Cardiovascular: Regular Rate, Rhythm, Systolic Murmur Gastrointestinal: Non Tender, Soft Extremity: Pedal Edema, Swelling Impression & Plan Impression & Plan A/P: 1. Diffuse large B cell non-Hodgkin's lymphoma, stage IV with involvement of kidney. Triple hit with BCL-2, BCL 6 and C MYC positivity which is a poor prognostic marker. s/p CHOP yesterday tolerated poorly with hypotensive and desat O2. Will hold off her Rituxan today. 2. Hyperkalemia from tumor lysis on treatment, K much improved from 6.8 to 5 today. If BP is OK, we may need to repeat Lasix again along with IVF at 200ml/ hr. 3. Her cardiac function was normal by the echocardiogram done on 08/29/2017 with LVEF of 50-55 percent. However, she had severe valve disease with a loud systolic murmur which may affect the EF readings. 4. Worsening hypercalcemia due to above. Patient received bolus of normal saline earlier and pamidronate 60 mg IV this week to control the calcium level. 5. Pt is DNR. 6. Will hold off PO meds for now. Clinical Quality Measures DVT/VTE Risk/Contraindication: Risk Factor Score Per Nursin RAQUEL DIEHL MD Sep 13, 2017 08:29
[2017-09-13] MEDS: ALLOPURINOL 300 MG (ZYLOPRIM) TAB PO SCH ×3 (09:00→18:08)
[2017-09-13] MEDS: RT-ADVAIR HFA 115/21 MCG PER PUFF IH SCH ×2 (09:11→20:56)
--- NOTE | 2017-09-13 09:31 | Physical Therapy Progress Note ---
Therapy Progress Note RN requested hold PT this date. ROME PETTY DPT Sep 13, 2017 09:31
[2017-09-13] MEDS: MENTHOL/ZINC OXIDE (CALMOSEPTINE) 113 GM TUBE TOP SCH ×2 (09:50→22:25)
[2017-09-13] MEDS ORDERED: RASBURICASE IV SCH (10:00)
[2017-09-13] MEDS ORDERED: NS IV SCH (10:00)
[2017-09-13 12:00] VITALS: BP 149/74
--- NOTE | 2017-09-13 12:49 | Progress Note-Hospitalist ---
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 Rodriguez has seen pt PO meds on hold Elitek was given and pt did well Dr. Rodriguez will not give more Lasix unless she is under 100 Patient Interview: Pt states she is doing better and is breathing okay Pt states she does not feel like eating Physical exam stable. Pt denies experiencing pain Pt was encouraged to drink her Ensure AFVSS, Pleasant, declined since last seen by this examiner RRR w/murmur, CTAB no rales noted No edema Assessment: Hypercalcemia with severe confusion and hallucinations that have waxed and waned during hospital course Lymphoma unable to withstand treatment Elevated uric acid on aggressive IVF and Lasix Plan: Encourage ingestion of Ensure Monitor pt Poor prognosis Check labs in am Scribed by Daria Benavidez under the direct supervision of Dr. Hussein. KINDRA HUSSEIN DO Sep 13, 2017 12:49
[2017-09-13 15:55] VITALS: BP 128/69
[2017-09-13] MEDS ORDERED: ALLOPURINOL 300 MG (ZYLOPRIM) TAB PO SCH (18:00)
[2017-09-13 20:55] VITALS: BP 132/68
[2017-09-14] VITALS: BP 156/80
[2017-09-14] MEDS: RT-ALBUTEROL/IPRATROPIUM 3 ML (DUONEB) VIAL IH SCH ×4 (03:17→21:43)
[2017-09-14 03:30] VITALS: BP 149/73
[2017-09-14] MEDS: NS IV 1000 ML 1,000 ML IV SCH ×4 (04:03→20:13)
[2017-09-14 05:28] LABS: BASOPHILS % (AUTO) 0 % (0-10); EOSINOPHILS # (AUTO) 0.1 10^3/uL (0.0-0.3); EOSINOPHILS % (AUTO) 1 % (0-10); LYMPHOCYTES # (AUTO) 0.3 X 10^3 (1.0-4.0); LYMPHOCYTES % (AUTO) 5 % (12-44); MEAN CORPUSCULAR HEMOGLOBIN 33 PG (25-34); MEAN CORPUSCULAR HGB CONC 32 G/DL (32-36); MEAN CORPUSCULAR VOLUME 104 FL (80-99); MEAN PLATELET VOLUME 10.1 FL (7.4-10.4); MONOCYTES # (AUTO) 0.2 X 10^3 (0.0-1.0); MONOCYTES % (AUTO) 3 % (0-12); NEUTROPHILS # (AUTO) 5.3 X 10^3 (1.8-7.8); NEUTROPHILS % (AUTO) 91 % (42-75); PLATELET COUNT 183 10^3/uL (130-400); RED BLOOD COUNT 2.47 10^6/uL (4.35-5.85); RED CELL DISTRIBUTION WIDTH 19.2 % (10.0-14.5); WHITE BLOOD COUNT 5.8 10^3/uL (4.3-11.0)
[2017-09-14 05:47] LABS: ALANINE AMINOTRANSFERASE 7 U/L (0-55); ALBUMIN 2.3 GM/DL (3.2-4.5); ANION GAP 7 MMOL/L (5-14); ASPARTATE AMINO TRANSFERASE 20 U/L (5-34); BILIRUBIN,TOTAL 0.3 MG/DL (0.1-1.0); BLOOD UREA NITROGEN 40 MG/DL (7-18); BUN/CREATININE RATIO 59; CALCIUM 8.9 MG/DL (8.5-10.1); CARBON DIOXIDE 26 MMOL/L (21-32); CHLORIDE 109 MMOL/L (98-107); CREATININE SERUM 0.68 MG/DL (0.60-1.30); GFR ESTIMATED > 60; GLUCOSE 123 MG/DL (70-105); MAGNESIUM 1.4 MG/DL (1.8-2.4); PHOSPHORUS 4.7 MG/DL (2.3-4.7); POTASSIUM 4.1 MMOL/L (3.6-5.0); SODIUM 142 MMOL/L (135-145); TOTAL PROTEIN 3.4 GM/DL (6.4-8.2)
[2017-09-14] MEDS: FUROSEMIDE 40 MG/4 ML INJ (LASIX) IVP SCH (06:20)
[2017-09-14] MEDS: RT-ADVAIR HFA 115/21 MCG PER PUFF IH SCH ×2 (07:19→21:43)
[2017-09-14 08:00] VITALS: BP 130/73
[2017-09-14] MEDS: ALLOPURINOL 300 MG (ZYLOPRIM) TAB PO SCH (09:28)
[2017-09-14] MEDS: CARVEDILOL 12.5 MG (COREG) TABLET PO SCH ×2 (10:03→20:08)
[2017-09-14] MEDS: amLODIPine 5 MG (NORVASC) TAB PO SCH ×2 (10:03→20:08)
[2017-09-14] MEDS: MENTHOL/ZINC OXIDE (CALMOSEPTINE) 113 GM TUBE TOP SCH ×2 (10:04→20:09)
[2017-09-14 12:00] VITALS: BP 128/67
--- NOTE | 2017-09-14 13:01 | Progress Note-Hospitalist ---
Progress Note Progress Notes/Assess & Plan Date Seen 09/14/17 Time Seen by Provider: 12:10 Diagonsis/Assessment & Plan Chart Review: No fever Vitals stable Now on high flow nasal canula O2 supplementation WBC 5.9 Hbg 8.1 CMP reveals uric acid 4.0, Ca++ 8.9, albumin 2.3 Patient Interview: Pt states she is doing well Labs look good and this was discussed; Ca ++ good Pt states she has been eating Pt denies having BMs Physical exam stable. Pt denies much pain, but experiences some occasionally I informed the pt that Dr. Goldberg will return tomorrow and I will recheck labs in am AFVSS, Pleasant, improved but still very declined RRR w/murmur, CTAB no rales noted Noted 2+ edema of lower legs Assessment: Hypercalcemia with severe confusion and hallucinations that have waxed and waned during hospital course Lymphoma unable to withstand treatment Elevated uric acid on aggressive IVF and Lasix with much improved levels today Plan: Encourage ingestion of Ensure Monitor pt Poor prognosis Check labs in am AM labs Scribed by Daria Benavidez under the direct supervision of Dr. Hussein. KINDRA HUSSEIN DO Sep 14, 2017 13:01
--- NOTE | 2017-09-14 14:19 | Oncology Progress Note ---
Subjective Time Seen by Provider: 14:00 Subjective/Events-last exam Pt is feeling better. She is up and eating. She is able to carry meaningful conversation. O2 Sat improved from 90% on 5L NC to 92% on 4L NC. UOP over 100/hr last 24 hrs. (In 7100ml, out 7900ml over 24hr) She had a dose of Rasburicase 7.5mg IV yesterday for hyperuricemia. Data Review Labs Laboratory Tests 09/14/17 05:03 Laboratory Tests 09/12/17 09:08: White Blood Count 12.6H, Red Blood Count 2.46L, Hemoglobin 8.2L, Hematocrit 26L , Mean Corpuscular Volume 105H, Red Cell Distribution Width 19.8H, Potassium Level 6.8*H, Chloride Level 112H, Blood Urea Nitrogen 51H, Glucose Level 115H, Calcium Level 11.7H, Aspartate Amino Transf (AST/SGOT) 48H, Total Protein 4.0L, Albumin 2.4L 09/12/17 17:11: Potassium Level 6.3H, Chloride Level 110H, Blood Urea Nitrogen 52H, Glucose Level 133H, Calcium Level 11.1H, Uric Acid 11.6H, Phosphorus Level 7.1H 09/13/17 06:00: Red Blood Count 2.59L, Hemoglobin 8.5L, Hematocrit 27L, Mean Corpuscular Volume 104H, Red Cell Distribution Width 19.7H, Chloride Level 109H, Blood Urea Nitrogen 50H, Calcium Level 10.4H, Total Protein 4.2L, Albumin 2.4L, Uric Acid 12.3H, Phosphorus Level 6.3H 09/14/17 05:03: Red Blood Count 2.47L, Hemoglobin 8.1L, Hematocrit 26L, Mean Corpuscular Volume 104H, Red Cell Distribution Width 19.2H, Chloride Level 109H, Blood Urea Nitrogen 40H, Glucose Level 123H, Total Protein 3.4L, Albumin 2.3L, Neutrophils (%) (Auto) 91H, Lymphocytes (%) (Auto) 5L, Lymphocytes # (Auto) 0.3L, Magnesium Level 1.4L Physical Exam Vital Signs Vital Sign - Last 12Hours 09/08/17 00:00 Temp 97.5 Pulse 72 Resp 18 B/P (MAP) 175/84 Pulse Ox 95 O2 Delivery Nasal Cannula O2 Flow Rate 2.00 Capillary Refill : Less Than 3 Seconds General Appearance: No Apparent Distress HEENT: PERRL/EOMI Neck: Non Tender, Supple Respiratory: Lungs Clear, No Accessory Muscle Use, No Respiratory Distress Cardiovascular: Regular Rate, Rhythm, No JVD, Systolic Murmur Gastrointestinal: Non Tender, Soft Extremity: Swelling Neurologic/Psychiatric: Alert, Oriented x3 Impression & Plan Impression & Plan A/P: 1. Diffuse large B cell non-Hodgkin's lymphoma, stage IV with involvement of kidney. Triple hit with BCL-2, BCL 6 and C MYC positivity which is a poor prognostic marker. s/p CHOP 09/11/17 complicated with hypotensive and desat O2 and tumor lysis syndrome. Her Rituxan was not given due to the acute complications. She only had 1/5 days of Prednisone. Pt was not alert enough to take any oral meds over last 3 days. I do not think we need to do any Prednisone catch up at this point. 2. Tumor lysis syndrome with hyperkalemia 6.8, hyperuricemia 12.7, hyperphospheremia 7.1 have been treated with aggressive IVF along with Lasix, Rasburicase IV, Allopurinol. All the lab numbers improved to normal today. Will change hourly monitoring urine out put to every shift accurate I/O. Will continue IVF NS at 200ml/hr through tomorrow Am. 3. Her cardiac function was normal by the echocardiogram done on 08/29/2017 with LVEF of 50-55 percent. However, she had severe valve disease with a loud systolic murmur which may affect the EF readings. 4. Hypercalcemia due to malignancy, s/p IVF, IV pamidronate and chemo. Now resolved. Ca++ 8.9 today. Pt is alert and orientated x3. 5. Pt is DNR. 6. Will resume PO except BP meds. Dr Goldberg to decide her BP meds on Friday. Clinical Quality Measures DVT/VTE Risk/Contraindication: Risk Factor Score Per Nursin RAQUEL DIEHL MD Sep 14, 2017 14:19
[2017-09-14] MEDS: MAGNESIUM 1 GM/100 ML IVPB 100 ML IV SCH ×3 (14:53→17:07)
[2017-09-14 15:58] VITALS: BP 106/59
[2017-09-14 19:28] VITALS: BP 128/62
[2017-09-14] MEDS: VENlafaxine XR 75 MG (EFFEXOR XR) CAP PO SCH (20:08)
[2017-09-15 00:22] VITALS: BP 122/58
[2017-09-15] MEDS: NS IV 1000 ML 1,000 ML IV SCH ×4 (01:14→16:19)
[2017-09-15] MEDS: RT-ALBUTEROL/IPRATROPIUM 3 ML (DUONEB) VIAL IH SCH ×4 (02:38→21:19)
[2017-09-15] MEDS: LEVOTHYROXINE 100 MCG (LEVOTHROID) TAB PO SCH (06:02)
[2017-09-15] MEDS: FUROSEMIDE 40 MG/4 ML INJ (LASIX) IVP SCH (06:03)
[2017-09-15 06:16] LABS: MEAN PLATELET VOLUME 10.4 FL (7.4-10.4); RED BLOOD COUNT 2.2 10^6/uL (4.35-5.85); RED CELL DISTRIBUTION WIDTH 18.8 % (10.0-14.5); WHITE BLOOD COUNT 5.2 10^3/uL (4.3-11.0)
[2017-09-15 06:35] LABS: ALANINE AMINOTRANSFERASE 6 U/L (0-55); ANION GAP 6 MMOL/L (5-14); ASPARTATE AMINO TRANSFERASE 15 U/L (5-34); BILIRUBIN,TOTAL 0.3 MG/DL (0.1-1.0); BLOOD UREA NITROGEN 31 MG/DL (7-18); BUN/CREATININE RATIO 54; CALCIUM 7.8 MG/DL (8.5-10.1); CARBON DIOXIDE 29 MMOL/L (21-32); CHLORIDE 108 MMOL/L (98-107); CREATININE SERUM 0.57 MG/DL (0.60-1.30); GFR ESTIMATED > 60; GLUCOSE 113 MG/DL (70-105); MAGNESIUM 1.3 MG/DL (1.8-2.4); POTASSIUM 3.7 MMOL/L (3.6-5.0); SODIUM 143 MMOL/L (135-145); TOTAL PROTEIN 3.5 GM/DL (6.4-8.2)
[2017-09-15 08:00] VITALS: BP 108/65
--- NOTE | 2017-09-15 08:39 | Progress Note (SOAP) ---
Subjective Date Seen by Provider: Sep 15, 2017 Time Seen by Provider: 09:00 Subjective/Events-last exam PT REPORTS THAT SHE IS FEELING BETTER TODAY. SHE REPORTS THAT SHE IS NOT HAVING ANY PAIN, NO DIZZINESS. FAMILY- BROTHER- AT BEDSIDE. HE REPORTS THAT HE THINKS THAT DANIELA IS DOING BETTER TODAY. MAGALY - DPOA - STATES THAT DANIELA SEEMS TO HAVE MORE ENERGY TODAY. Review of Systems General: Fatigue HEENT: No Head Aches, No Dysphasia Pulmonary: Dyspnea, No Cough Cardiovascular: No: Chest Pain, Palpitations Gastrointestinal: No: Nausea, Abdominal Pain Neurological: Weakness, No: Confusion Objective Exam Vital Signs Date Time Temp Pulse Resp B/P (MAP) Pulse Ox O2 Delivery O2 Flow Rate FiO2 09/15/17 08:00 97.8 97 20 108/65 95 Nasal Cannula 4.50 09/15/17 02:39 97 Nasal Cannula 4.00 09/15/17 00:22 99.8 84 14 122/58 96 Nasal Cannula 3.50 09/14/17 21:44 99 Nasal Cannula 4.00 09/14/17 20:20 Nasal Cannula 3.50 09/14/17 19:28 99.0 93 20 128/62 93 Nasal Cannula 3.50 09/14/17 15:58 99.8 89 20 106/59 93 Nasal Cannula 3.50 09/14/17 14:48 94 Nasal Cannula 4.00 09/14/17 12:00 99.5 98 22 128/67 96 High Flow N/C 5.00 Capillary Refill : Less Than 3 Seconds General Appearance: No Apparent Distress, WD/WN HEENT: PERRL/EOMI Neck: Full Range of Motion, Supple Respiratory: Chest Non Tender, Decreased Breath Sounds (IN BASES BILATERALLY) Cardiovascular: Regular Rate, Rhythm, Systolic Murmur (II/) Gastrointestinal: normal bowel sounds, non tender, soft Extremity: Pedal Edema (TRACE) Neurologic/Psychiatric: Alert, Oriented x3, Normal Mood/Affect Skin: Warm/Dry Lymphatic: No Adenopathy Results Lab Laboratory Tests 09/15/17 06:00: White Blood Count 5.2, Red Blood Count 2.20L, Hemoglobin 7.3L, Hematocrit 23L, Mean Corpuscular Volume 106H, Mean Corpuscular Hemoglobin 33, Mean Corpuscular Hemoglobin Concent 32, Red Cell Distribution Width 18.8H, Platelet Count 134, Mean Platelet Volume 10.4, Sodium Level 143, Potassium Level 3.7, Chloride Level 108H, Carbon Dioxide Level 29, Anion Gap 6, Blood Urea Nitrogen 31H, Creatinine 0.57L, Estimat Glomerular Filtration Rate > 60, BUN/Creatinine Ratio 54, Glucose Level 113H, Calcium Level 7.8L, Magnesium Level 1.3L, Total Bilirubin 0.3, Aspartate Amino Transf (AST/SGOT) 15, Alanine Aminotransferase ( ALT/SGPT) 6, Alkaline Phosphatase 98, Total Protein 3.5L, Albumin 2.0L Assessment/Plan Assessment/Plan Assess & Plan/Chief Complaint HYPERCALCEMIA CONFUSION LYMPHOMA HYPOTHYROID HX OF PULMONARY EMBOLISM CHRONIC ANTICOAGULATION EDEMA HYPOMAGNESEMIA HYPERKALEMIA ANEMIA ANEMIA - MONITOR H AND H - IF DROPPING FURTHER, WILL HAVE TO GIVE BLOOD TRANSFUSION - HYPERCALCEMIA -ON FLUIDS, LASIX, FOSAMAX. CALCIUM LEVEL IMPROVED - CONTINUE TO MONITOR LABS. PT HAS SERIAL LABS SCHEDULED. CONFUSION - IMPROVED FROM LAST FRIDAY - MONITOR SYMPTOMS CLOSELY - SUPPORTIVE CARE. LYMPHOMA - CONSULT TO DR. CRAWFORD - WE DISCUSSED HER DIAGNOSIS -FINAL PATHOLOGY REVEALED DIFFUSE LARGE B CELL LYMPHOMA WITH HIGH PROLIFERATIVE RATE - NON- GERMINAL CENTER OF B CELL ORIGIN. PT TO STARTED CHEMOTHERAPY. - PER DR. CRAWFORD - TREATMENT FOLLOWS: RITUXAN AND CHOP R REGIMEN --HOWEVER PT WAS TOO WEAK FOR RITUXAN - WILL WAIT ON HIS INPUT TODAY. HYPOTHYROID - RESUMED HOME MEDICATION HYPOMAGNESEMIA - MONITOR SERIAL MAGNESIUM LEVELS. HYPERKALEMIA - RESOLVED. HX OF PULMONARY EMBOLISM WITH CHRONIC ANTICOAGULATION - RESUMED XARELTO - DVT PROPHYLAXIS WITH XARELTO AND SCD'S GI PROPHYLAXIS WILL BE WITH PROTONIX. I HAVE DISCUSSED WITH HER DPOA - PT MADE DNR/DNI - PLAN IS FOLLOWS: IF PT HAS IMPROVEMENT IN HER SYMPTOMS WITH CHEMOTHERAPY - UPON DISCHARGE, DANIELA WILL GO TO [facility] AND POSSIBLY GO TO ASSISTED LIVING AFTER IMPROVED STRENGTHENING AT [facility]. Clinical Quality Measures DVT/VTE Risk/Contraindication: Risk Factor Score Per Nursin SAM CINTRON MD Sep 15, 2017 8:39 am
[2017-09-15] MEDS: MENTHOL/ZINC OXIDE (CALMOSEPTINE) 113 GM TUBE TOP SCH ×2 (08:46→21:45)
[2017-09-15] MEDS: CARVEDILOL 12.5 MG (COREG) TABLET PO SCH ×2 (08:46→21:45)
[2017-09-15] MEDS: amLODIPine 5 MG (NORVASC) TAB PO SCH ×2 (08:46→21:45)
[2017-09-15] MEDS: ALLOPURINOL 300 MG (ZYLOPRIM) TAB PO SCH (08:46)
[2017-09-15] MEDS: PANTOPRAZOLE 40 MG (PROTONIX) TAB PO SCH (08:46)
[2017-09-15] MEDS: VENlafaxine XR 75 MG (EFFEXOR XR) CAP PO SCH ×2 (08:46→21:46)
[2017-09-15] MEDS: MAGNESIUM 1 GM/100 ML IVPB 100 ML IV SCH ×4 (08:50→12:41)
[2017-09-15] MEDS: RT-ADVAIR HFA 115/21 MCG PER PUFF IH SCH ×2 (09:37→21:20)
--- NOTE | 2017-09-15 11:24 | Physical Therapy Daily Note ---
PT Daily Note-Current Subjective Patient request toilet use for BM. Pain Numeric Pain Scale: 0-No Pain Location: No Pain Reported Mental Status Patient Orientation: Normal For Age Attachments: Oxygen, [place] Catheter, IV Transfers Functional [place] Measure 0=Not Assessed/NA 4=Minimal Assistance 1=Total Assistance 5=Supervision or Setup 2=Maximal Assistance 6=Modified [place] 3=Moderate Assistance 7=Complete IndependenceIRFPAI Quality Coding Scale 6 Independent with activity with or without an assistive device 5 Patient requires set up or clean up by helper. Patient completes activity by themselves 4 Supervision or touching assist (CGA). [place] provide cues , steadying assist 3 The helper provides less than half the effort to complete the activity 2 The helper provides more than half the effort to complete the activity 1 Dependent. The helper does all the effort to complete an activity 7 Patient refused to complete or attempt activity 9 The patient did not perform the activity before the current illness or injury 88 Not attempted due to Medical conditions or safety concerns Transfers (B, C, W/C) (FIM): 4 Scootin Roll Left to Right (QC): 4 Supine to/from Sit: 5 Sit to/from Stand: 4 Sit to Lying (QC): 4 Sit to Stand (QC): 3 Chair/Dep-ry-Yugnj Xfer(QC): 3 Gait Training Does the Patient Walk?: Yes Gait (FIM): 4 Distance (FIM): 3=150 ft Distance: 275' Walk 50 ft with 2 Turns(QC): 3 Walk 150 ft (QC): 3 Gait Level of Assist: 4 Gait Persons Needed: 1 Gait Assistive Device: FWW CGA with use of gait belt for safety; functional gait sequence Exercises Seated Therapy Exercises: Ankle pumps, Long arc quads Seated Reps: 25 Assessment Patient is alert and highly functional on this date. PT to continue to address functional mobility. PT [facility] Goals Electrical Power Station Technician Goals PT [facility] Goals Time Frame: Sep 19, 2017 Transfers (B,C,W/C) (FIM): 5 Sit to Lying (QC): 4 Lying-Sitting on Side/Bed(QC): 4 Sit to Stand (QC): 4 Rollin Chair/Qfr-sn-Sczpu Xfer(QC): 4 Does the Patient Walk: Yes Gait (FIM): 1 Gait distance (FIM): 1=up to 49 ft (25') Distance: 25' Walk 50ft with 2 Turns (QC): 9 Walk 150 ft (QC): 9 Gait Level of Assist: 5 Gait Assistive Device: FWW PT Plan Treatment/Plan Treatment Plan: Continue Plan of Care Treatment Plan: Bed Mobility, Education, Functional Activity Emily, Functional Strength, Gait, Safety, Therapeutic Exercise, Transfers Treatment Duration: Sep 19, 2017 Frequency: 6 times per week Estimated Hrs Per Day: .25 hour per day Patient and/or Family Agrees t: Yes Time/GCodes Time In: 1016 Time Out: 1043 Total Billed Treatment Time: 27 Total Billed Treatment 1 visit GT 15 min EX 12 min ALISON BOBBY PT Sep 15, 2017 11:24
--- NOTE | 2017-09-15 13:25 | Occupational Ther Daily Note ---
OT Current Status-Daily Note Subjective Pt alert, sitting on the BSC. Pt agreed to therapy. No c/o pain at this time. Mental Status/Objective Patient Orientation: Person, Place, Time, Situation Functional [place] Measure 0=Not Assessed/NA 4=Minimal Assistance 1=Total Assistance 5=Supervision or Setup 2=Maximal Assistance 6=Modified [place] 3=Moderate Assistance 7=Complete [place] Attachments: Chap[place] Catheter, IV, Oxygen ADL-Treatment Pt sitting on the BSC. Pt required mod A to go from sit to stand. Then mod A when standing to cleanse self due to pt unable to hold self up with LE's when bending over to wipe self. CGA using FWW to ambulate from BSC to bed. Pt was able to complete bed mobility using bed rails. After therapy, pt lying in bed with call light and phone. Nrsg present in room. All needs met in room. Functional [place] Measure 0=Not Assessed/NA 4=Minimal Assistance 1=Total Assistance 5=Supervision or Setup 2=Maximal Assistance 6=Modified [place] 3=Moderate Assistance 7=Complete IndependenceIRFPAI Quality Coding Scale 6 Independent with activity with or without an assistive device 5 Patient requires set up or clean up by helper. Patient completes activity by themselves 4 Supervision or touching assist (CGA). [place] provide cues , steadying assist 3 The helper provides less than half the effort to complete the activity 2 The helper provides more than half the effort to complete the activity 1 Dependent. The helper does all the effort to complete an activity 7 Patient refused to complete or attempt activity 9 The patient did not perform the activity before the current illness or injury 88 Not attempted due to Medical conditions or safety concerns Toileting (FIM): 3 Toileting Hygiene (QC): 3 Transfers (B, C, W/C) (FIM): 4 Toilet/Commode Transfer (FIM): 4 Toilet Transfer (QC): 3 OT Short Term Goals Short Term Goals 1=Demonstrate adherence to instructed precautions during ADL tasks. 2=Patient will verbalize/demonstrate understanding of assistive devices/ modifications for ADL. 3=Patient will improve strength/tolerance for activity to enable patient to perform ADL's. OT Blogs Manager Goals [facility] Goals Time Frame: Sep 19, 2017 Eating (FIM): 5 Eating (QC): 5 Groomin Oral Hygiene (QC): 5 Upper Body Dressing(FIM): 5 Lower Body Dressing(FIM): 4 Toileting(FIM): 4 Toileting Hygiene (QC): 4 Toilet/Commode Transfer(FIM): 5 Toilet/Commode Transfer (QC): 4 Additional Goals: 1-Demonstrate ADL Tasks, 2-Verbalize Understanding, 3- ImproveStrength/Emily 1=Demonstrate adherence to instructed precautions during ADL tasks. 2=Patient will verbalize/demonstrate understanding of assistive devices/ modifications for ADL. 3=Patient will improve strength/tolerance for activity to enable patient to perform ADL's. OT Education/Plan Problem List/Assessment Pt demonstrates decreased ADL functioning, strength, mobility, and activity tolerance. Pt to benefit from skilled OT intervention for ADL training, transfers, strengthening, and safety education to improve level of independence and allow safe discharge plan. Discharge Recommendations Plan/Recommendations: Continue POC Treatment Plan/Plan of Care Patient would benefit from OT for education, treatment and training to promote independence in ADL's, mobility, safety and/or upper extremity function for ADL' s. Plan of Care: ADL Retraining, Functional Mobility, UE Funct Exercise/Act Treatment Duration: Sep 19, 2017 Frequency: 5 times per week Estimated Hrs Per Day: .25 hour per day Rehab Potential: Fair Time/GCodes Start Time: 12:55 Stop Time: 13:10 Total Time Billed (hr/min): 15 Billed Treatment Time 1 visit-FA 1 (15 min) HALIMA KERNS Sep 15, 2017 13:25
[2017-09-15 16:00] VITALS: BP 120/69
--- NOTE | 2017-09-15 16:42 | Progress Note-Standard ---
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 Status post chemotherapy which is CHOP plus Rituxan regimen on 09/11/2017 with tumor lysis syndrome which has responded to rasburicase. Patient did not receive Rituxan or prednisone on days 2 through 5. She also did not receive the growth factors. She is back to her usual self and is eating and drinking normally. Today I will decrease the IV fluids to 100 mL per hour and discontinue the IV Lasix. Continue physical therapy and strengthening. If the hemoglobin drops below 8, I would recommend transfusion mainly because of her weakness. significant hypomagnesemia which is being replaced. Monitor labwork serially. Will follow patient with you. I will discontinue alendronate as the hypercalcemia should be controlled by treating the lymphoma. Laboratory Tests 09/15/17 06:00 09/15/17 13:10 A/P: 1. Diffuse large B cell non-Hodgkin's lymphoma, stage IV with involvement of kidney. Triple hit with BCL-2, BCL 6 and C MYC positivity. 2. Hypercalcemia due to above. this has normalized now and continue to monitor. 3. status post chemotherapy with CHOPR regimen on 09/11/2017 with tumor lysis syndrome. Status post rasburicase administration with resolution. 4. I will withhold Rituxan during the first course and we will administrate with the second course. 5. I will decrease IV fluids, DC Lasix and DC alendronate. 6. Hypomagnesemia, being replaced parenterally. Monitor serially. 7. Anemia, if worsening she will need transfusion to maintain hemoglobin more than 8 g/dL. 8. Deconditioning. Continue aggressive physical therapy and strengthening exercises. DYLAN CRAWFORD Sep 15, 2017 16:42
[2017-09-16] VITALS (9 sets, daily range): BP systolic 110–156; BP diastolic 58–76
[2017-09-16] MEDS: NS IV 1000 ML 1,000 ML IV SCH ×2 (02:06→13:09)
[2017-09-16] MEDS: RT-ALBUTEROL/IPRATROPIUM 3 ML (DUONEB) VIAL IH SCH ×4 (04:03→19:10)
[2017-09-16] MEDS: LEVOTHYROXINE 100 MCG (LEVOTHROID) TAB PO SCH (05:38)
[2017-09-16 05:49] LABS: MEAN PLATELET VOLUME 10.3 FL (7.4-10.4); RED BLOOD COUNT 2.06 10^6/uL (4.35-5.85); RED CELL DISTRIBUTION WIDTH 18.5 % (10.0-14.5)
[2017-09-16 06:23] LABS: ALANINE AMINOTRANSFERASE 6 U/L (0-55); ALBUMIN 2.1 GM/DL (3.2-4.5); ANION GAP 7 MMOL/L (5-14); ASPARTATE AMINO TRANSFERASE 17 U/L (5-34); BILIRUBIN,TOTAL 0.4 MG/DL (0.1-1.0); BLOOD UREA NITROGEN 30 MG/DL (7-18); BUN/CREATININE RATIO 55; CALCIUM 7.5 MG/DL (8.5-10.1); CARBON DIOXIDE 28 MMOL/L (21-32); CHLORIDE 107 MMOL/L (98-107); CREATININE SERUM 0.55 MG/DL (0.60-1.30); GFR ESTIMATED > 60; GLUCOSE 107 MG/DL (70-105); POTASSIUM 3.7 MMOL/L (3.6-5.0); SODIUM 142 MMOL/L (135-145); TOTAL PROTEIN 3.7 GM/DL (6.4-8.2)
--- NOTE | 2017-09-16 08:23 | Progress Note (SOAP) ---
Subjective Date Seen by Provider: Sep 16, 2017 Time Seen by Provider: 08:45 Subjective/Events-last exam PT REPORTS THAT SHE IS "SORRY" FOR HAVING TO GO TO THE BASEMENT. HER BROTHER IS SITTING BESIDE HER - REPORT THAT SHE HAS BEEN CONFUSED THIS MORNING. DANIELA DENIES CHEST PAIN, SHORTNESS OF BREATH, ABDOMINAL PAIN. SHE REPORTS A BOWEL MOVEMENT, "IN THE BASEMENT" YESTERDAY. Review of Systems General: Fatigue, Malaise HEENT: No Dysphasia, No Sore Throat Pulmonary: Dyspnea, No Cough Cardiovascular: No: Chest Pain Gastrointestinal: No: Nausea, Abdominal Pain Genitourinary: No Dysuria Neurological: Weakness, Confusion Objective Exam Vital Signs Date Time Temp Pulse Resp B/P (MAP) Pulse Ox O2 Delivery O2 Flow Rate FiO2 09/16/17 04:04 95 Nasal Cannula 4.00 09/16/17 00:45 98.5 86 16 122/68 97 Nasal Cannula 4.50 09/15/17 21:21 98 Nasal Cannula 4.00 09/15/17 20:15 Nasal Cannula 3.50 09/15/17 16:00 98.8 114 20 120/69 94 Nasal Cannula 4.50 09/15/17 15:16 93 Nasal Cannula 4.00 09/15/17 09:35 93 Nasal Cannula 4.00 09/15/17 09:00 Nasal Cannula 3.50 Capillary Refill : Less Than 3 Seconds General Appearance: WD/WN HEENT: PERRL/EOMI Neck: Supple Respiratory: Chest Non Tender, Decreased Breath Sounds Cardiovascular: Regular Rate, Rhythm, Systolic Murmur Gastrointestinal: normal bowel sounds, non tender, soft, no organomegaly Extremity: Pedal Edema Neurologic/Psychiatric: Alert, Other (ORIENTED TO PERSON, NOT PLACE OR TIME) Skin: Warm/Dry Results Lab Laboratory Tests 09/15/17 13:10: Hemoglobin 8.0L, Hematocrit 25L 09/16/17 05:38: Hemoglobin 6.7*L, Hematocrit 22L, White Blood Count 5.0, Red Blood Count 2.06L, Mean Corpuscular Volume 105H, Mean Corpuscular Hemoglobin 33, Mean Corpuscular Hemoglobin Concent 31L, Red Cell Distribution Width 18.5H, Platelet Count 114L, Mean Platelet Volume 10.3, Sodium Level 142, Potassium Level 3.7, Chloride Level 107, Carbon Dioxide Level 28, Anion Gap 7, Blood Urea Nitrogen 30H, Creatinine 0.55L, Estimat Glomerular Filtration Rate > 60, BUN/Creatinine Ratio 55, Glucose Level 107H, Calcium Level 7.5L, Total Bilirubin 0.4, Aspartate Amino Transf (AST/SGOT) 17, Alanine Aminotransferase (ALT/SGPT) 6, Alkaline Phosphatase 105, Total Protein 3.7L, Albumin 2.1L Assessment/Plan Assessment/Plan Assess & Plan/Chief Complaint HYPERCALCEMIA CONFUSION LYMPHOMA HYPOTHYROID HX OF PULMONARY EMBOLISM CHRONIC ANTICOAGULATION EDEMA HYPOMAGNESEMIA HYPERKALEMIA ANEMIA ANEMIA - HGB DROPPED TO 6.9 THIS MORNING - TRANSFUSION OF 2 UNITS PLANNED FOR TODAY. - CHECK LABS IN MORNING . HYPERCALCEMIA - CALCIUM LEVEL IMPROVED - CONTINUE TO MONITOR LABS. PT HAS SERIAL LABS SCHEDULED. CONFUSION - WORSENING - SUSPECT DUE TO HER ANEMIA - MONITOR SYMPTOMS CLOSELY - SUPPORTIVE CARE. LYMPHOMA - CONSULT TO DR. CRAWFORD - WE DISCUSSED HER DIAGNOSIS -FINAL PATHOLOGY REVEALED DIFFUSE LARGE B CELL LYMPHOMA WITH HIGH PROLIFERATIVE RATE - NON- GERMINAL CENTER OF B CELL ORIGIN. PT TO STARTED CHEMOTHERAPY. - PER DR. CRAWFORD - TREATMENT FOLLOWS: RITUXAN AND CHOP R REGIMEN --HOWEVER PT WAS TOO WEAK FOR RITUXAN - WILL WAIT ON HIS INPUT TODAY. HYPOTHYROID - RESUMED HOME MEDICATION HYPOMAGNESEMIA - MONITOR SERIAL MAGNESIUM LEVELS. HYPERKALEMIA - RESOLVED. HX OF PULMONARY EMBOLISM WITH CHRONIC ANTICOAGULATION - RESUMED XARELTO -THIS WAS PUT ON HOLD ON 09/13/17 - DUE TO DROP IN HGB - WILL RESUME TOMORROW IF HGB IS STABLE, CHECK STOOLS. DVT PROPHYLAXIS WITH XARELTO (CURRENTLY ON HOLD) AND SCD'S GI PROPHYLAXIS WILL BE WITH PROTONIX. I HAVE DISCUSSED WITH HER DPOA - PT MADE DNR/DNI - PLAN IS FOLLOWS: IF PT HAS IMPROVEMENT IN HER SYMPTOMS WITH CHEMOTHERAPY - UPON DISCHARGE, DANIELA WILL GO TO [facility] AND POSSIBLY GO TO ASSISTED LIVING AFTER IMPROVED STRENGTHENING AT [facility]. Clinical Quality Measures DVT/VTE Risk/Contraindication: Risk Factor Score Per Nursin SAM CINTRON MD Sep 16, 2017 8:23 am
[2017-09-16] MEDS ORDERED: ACETAMINOPHEN 325 MG TABLET/CAPLET (TYLENOL) PO NR (08:30)
[2017-09-16] MEDS ORDERED: diphenhydrAMINE 25 MG TAB (BENADRYL) PO NR (08:30)
[2017-09-16] MEDS: RT-ADVAIR HFA 115/21 MCG PER PUFF IH SCH ×2 (08:54→19:10)
[2017-09-16] MEDS: VENlafaxine XR 75 MG (EFFEXOR XR) CAP PO SCH ×2 (10:01→21:23)
[2017-09-16] MEDS: CARVEDILOL 12.5 MG (COREG) TABLET PO SCH ×2 (10:01→21:23)
[2017-09-16] MEDS: amLODIPine 5 MG (NORVASC) TAB PO SCH ×2 (10:01→21:23)
[2017-09-16] MEDS: PANTOPRAZOLE 40 MG (PROTONIX) TAB PO SCH (10:01)
[2017-09-16] MEDS: ALLOPURINOL 300 MG (ZYLOPRIM) TAB PO SCH (10:02)
--- NOTE | 2017-09-16 11:11 | Physical Therapy Daily Note ---
PT Daily Note-Current Subjective Patient agrees to exercises. Pain Numeric Pain Scale: 0-No Pain Location: No Pain Reported Appearance Hgb 6.7 Mental Status Patient Orientation: Normal For Age Attachments: Oxygen, Chapin Catheter, IV Transfers Functional [place] Measure 0=Not Assessed/NA 4=Minimal Assistance 1=Total Assistance 5=Supervision or Setup 2=Maximal Assistance 6=Modified [place] 3=Moderate Assistance 7=Complete IndependenceIRFPAI Quality Coding Scale 6 Independent with activity with or without an assistive device 5 Patient requires set up or clean up by helper. Patient completes activity by themselves 4 Supervision or touching assist (CGA). [place] provide cues , steadying assist 3 The helper provides less than half the effort to complete the activity 2 The helper provides more than half the effort to complete the activity 1 Dependent. The helper does all the effort to complete an activity 7 Patient refused to complete or attempt activity 9 The patient did not perform the activity before the current illness or injury 88 Not attempted due to Medical conditions or safety concerns Exercises Supine Ex: Ankle pumps, Quad Set, Heel Slides, Hip abd/add Supine Reps: 15 (2 sets) Assessment Patient limited to exercises only on this date due to critical Hgb. Patient to receive 2 units PRBC on this date. PT Critical Care Unit Nurse Goals [facility] Goals PT Critical Care Unit Nurse Goals Time Frame: Sep 19, 2017 Transfers (B,C,W/C) (FIM): 5 Sit to Lying (QC): 4 Lying-Sitting on Side/Bed(QC): 4 Sit to Stand (QC): 4 Rollin Chair/Trt-ol-Aqeqq Xfer(QC): 4 Does the Patient Walk: Yes Gait (FIM): 1 Gait distance (FIM): 1=up to 49 ft (25') Distance: 25' Walk 50ft with 2 Turns (QC): 9 Walk 150 ft (QC): 9 Gait Level of Assist: 5 Gait Assistive Device: FWW PT Plan Treatment/Plan Treatment Plan: Continue Plan of Care Treatment Plan: Bed Mobility, Education, Functional Activity Emily, Functional Strength, Gait, Safety, Therapeutic Exercise, Transfers Treatment Duration: Sep 19, 2017 Frequency: 6 times per week Estimated Hrs Per Day: .25 hour per day Patient and/or Family Agrees t: Yes Time/GCodes Time In: 1021 Time Out: 1036 Total Billed Treatment Time: 15 Total Billed Treatment 1 visit EX 15 min ALISON BOBBY PT Sep 16, 2017 11:11
--- NOTE | 2017-09-16 11:58 | Occupational Ther Daily Note ---
OT Current Status-Daily Note Subjective Pt lying in bed and alert. Pt appears increased fatigue today. Pt did agree to work with OT. No c/o pain at this time. Mental Status/Objective Patient Orientation: Person, Place, Time, Situation Functional [place] Measure 0=Not Assessed/NA 4=Minimal Assistance 1=Total Assistance 5=Supervision or Setup 2=Maximal Assistance 6=Modified [place] 3=Moderate Assistance 7=Complete [place] Attachments: IV, Oxygen ADL-Treatment Functional [place] Measure 0=Not Assessed/NA 4=Minimal Assistance 1=Total Assistance 5=Supervision or Setup 2=Maximal Assistance 6=Modified [place] 3=Moderate Assistance 7=Complete IndependenceIRFPAI Quality Coding Scale 6 Independent with activity with or without an assistive device 5 Patient requires set up or clean up by helper. Patient completes activity by themselves 4 Supervision or touching assist (CGA). [place] provide cues , steadying assist 3 The helper provides less than half the effort to complete the activity 2 The helper provides more than half the effort to complete the activity 1 Dependent. The helper does all the effort to complete an activity 7 Patient refused to complete or attempt activity 9 The patient did not perform the activity before the current illness or injury 88 Not attempted due to Medical conditions or safety concerns Grooming (FIM): 5 (Pt able to complete grooming with set up. Pt has decreased ROM of R shldr so brings head down to R hand then moves head back and forth to cleanse teeth. ) Oral Hygiene (QC): 4 Pt the completed AROM with UE for shldr. L UE moves WFL and R UE only to 90 degrees shldr flexion. Pt fatigued easily today. After therapy, pt lying in bed with call light/phone in reach. All needs met in room. OT Short Term Goals Short Term Goals 1=Demonstrate adherence to instructed precautions during ADL tasks. 2=Patient will verbalize/demonstrate understanding of assistive devices/ modifications for ADL. 3=Patient will improve strength/tolerance for activity to enable patient to perform ADL's. OT [facility] Goals Mental Health Counselor Goals Time Frame: Sep 19, 2017 Eating (FIM): 5 Eating (QC): 5 Groomin Oral Hygiene (QC): 5 Upper Body Dressing(FIM): 5 Lower Body Dressing(FIM): 4 Toileting(FIM): 4 Toileting Hygiene (QC): 4 Toilet/Commode Transfer(FIM): 5 Toilet/Commode Transfer (QC): 4 Additional Goals: 1-Demonstrate ADL Tasks, 2-Verbalize Understanding, 3- ImproveStrength/Emily 1=Demonstrate adherence to instructed precautions during ADL tasks. 2=Patient will verbalize/demonstrate understanding of assistive devices/ modifications for ADL. 3=Patient will improve strength/tolerance for activity to enable patient to perform ADL's. OT Education/Plan Problem List/Assessment Pt demonstrates decreased ADL functioning, strength, mobility, and activity tolerance. Pt to benefit from skilled OT intervention for ADL training, transfers, strengthening, and safety education to improve level of independence and allow safe discharge plan. Discharge Recommendations Plan/Recommendations: Continue POC Treatment Plan/Plan of Care Patient would benefit from OT for education, treatment and training to promote independence in ADL's, mobility, safety and/or upper extremity function for ADL' s. Plan of Care: ADL Retraining, Functional Mobility, UE Funct Exercise/Act Treatment Duration: Sep 19, 2017 Frequency: 5 times per week Estimated Hrs Per Day: .25 hour per day Rehab Potential: Fair Time/GCodes Start Time: 11:15 Stop Time: 11:30 Total Time Billed (hr/min): 15 Billed Treatment Time 1 visit-FA 1 (15 min) HALIMA KERNS Sep 16, 2017 11:58
[2017-09-16] MEDS ORDERED: FUROSEMIDE 40 MG/4 ML INJ (LASIX) IVP NR (12:00)
[2017-09-16] MEDS: MENTHOL/ZINC OXIDE (CALMOSEPTINE) 113 GM TUBE TOP SCH ×3 (13:02→21:25)
--- NOTE | 2017-09-16 17:15 | Progress Note-Standard ---
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 Status post chemotherapy which is CHOP plus Rituxan regimen on 09/11/2017 with tumor lysis syndrome which has responded to rasburicase. Patient did not receive Rituxan or prednisone on days 2 through 5. She also did not receive the growth factors. She is tearful today because of nightmares. She denied any new problems or symptoms. She mentioned that she is feeling better this afternoon. Eating fairly. Physical examination showed an elderly female, awake and answering questions fairly. No JVD. Lungs fairly clear without wheezes or rales. Extremities with no edema. Rest of the exam stable. Laboratory Tests 09/16/17 05:38 A/P: 1. Diffuse large B cell non-Hodgkin's lymphoma, stage IV with involvement of kidney. Triple hit with BCL-2, BCL 6 and C MYC positivity. 2. Hypercalcemia due to above. this has normalized now and continue to monitor. 3. Status post chemotherapy with CHOPR regimen on 09/11/2017 with tumor lysis syndrome. Status post rasburicase administration with resolution. 4. I will withhold Rituxan during the first course and we will administrate with the second course. 5. Anemia, most likely due to GI bleeding. Patient received 2 units of packed red blood cells today. Recheck lab work tomorrow morning. 6. Nightmares, I will discontinue fentanyl. 7. Deconditioning. Continue physical therapy and strengthening exercises. DYLAN CRAWFORD Sep 16, 2017 17:15
[2017-09-17 00:45] VITALS: BP 132/66
[2017-09-17] MEDS: NS IV 1000 ML 1,000 ML IV SCH ×4 (01:17→21:04)
[2017-09-17] MEDS: RT-ALBUTEROL/IPRATROPIUM 3 ML (DUONEB) VIAL IH SCH ×4 (02:24→20:33)
[2017-09-17 04:55] LABS: BASOPHILS % (AUTO) 0 % (0-10); EOSINOPHILS % (AUTO) 0 % (0-10); LYMPHOCYTES # (AUTO) 0.4 X 10^3 (1.0-4.0); LYMPHOCYTES % (AUTO) 11 % (12-44); MEAN CORPUSCULAR HEMOGLOBIN 32 PG (25-34); MEAN CORPUSCULAR HGB CONC 32 G/DL (32-36); MEAN CORPUSCULAR VOLUME 99 FL (80-99); MEAN PLATELET VOLUME 10.2 FL (7.4-10.4); MONOCYTES % (AUTO) 1 % (0-12); NEUTROPHILS # (AUTO) 3.2 X 10^3 (1.8-7.8); NEUTROPHILS % (AUTO) 88 % (42-75); PLATELET COUNT 102 10^3/uL (130-400); RED BLOOD COUNT 2.68 10^6/uL (4.35-5.85); RED CELL DISTRIBUTION WIDTH 19.1 % (10.0-14.5); WHITE BLOOD COUNT 3.6 10^3/uL (4.3-11.0)
[2017-09-17 05:13] LABS: ALANINE AMINOTRANSFERASE 7 U/L (0-55); ALBUMIN 2.2 GM/DL (3.2-4.5); ANION GAP 8 MMOL/L (5-14); ASPARTATE AMINO TRANSFERASE 16 U/L (5-34); BILIRUBIN,TOTAL 0.5 MG/DL (0.1-1.0); BLOOD UREA NITROGEN 21 MG/DL (7-18); BUN/CREATININE RATIO 43; CALCIUM 7.2 MG/DL (8.5-10.1); CARBON DIOXIDE 30 MMOL/L (21-32); CHLORIDE 104 MMOL/L (98-107); CREATININE SERUM 0.49 MG/DL (0.60-1.30); GFR ESTIMATED > 60; GLUCOSE 89 MG/DL (70-105); POTASSIUM 3.6 MMOL/L (3.6-5.0); SODIUM 142 MMOL/L (135-145); TOTAL PROTEIN 3.6 GM/DL (6.4-8.2); URIC ACID 2.4 MG/DL (2.6-7.2)
[2017-09-17] MEDS: LEVOTHYROXINE 100 MCG (LEVOTHROID) TAB PO SCH (06:17)
[2017-09-17 08:14] VITALS: BP 147/67
[2017-09-17] MEDS: RT-ADVAIR HFA 115/21 MCG PER PUFF IH SCH ×2 (08:36→20:33)
--- NOTE | 2017-09-17 08:42 | Progress Note (SOAP) ---
Subjective Date Seen by Provider: Sep 17, 2017 Time Seen by Provider: 08:40 Subjective/Events-last exam PT IS A 67 Y/O FEMALE WHO IS WELL KNOWN TO ME FROM CLINIC. SHE HAS INTERMITTENT CONFUSION. HER BROTHER IS IN THE ROOM TODAY. HE REPORTS THAT SHE HAS BEEN HAVING SOME TEARFULNESS. SHE REPORTS THAT SHE IS MISSING HER DOGS. Review of Systems General: Fatigue, Malaise HEENT: No Head Aches, No Dysphasia, No Sore Throat Pulmonary: Dyspnea, No Cough Cardiovascular: No: Chest Pain, Palpitations Gastrointestinal: No: Nausea, Abdominal Pain, Diarrhea Neurological: Weakness, Confusion Objective Exam Vital Signs Date Time Temp Pulse Resp B/P (MAP) Pulse Ox O2 Delivery O2 Flow Rate FiO2 09/17/17 08:38 97 Nasal Cannula 4.00 09/17/17 08:36 97 Nasal Cannula 4.00 09/17/17 08:14 99.2 81 20 147/67 97 Nasal Cannula 4.00 09/17/17 02:24 97 Nasal Cannula 4.00 09/17/17 00:45 100.0 82 18 132/66 95 Nasal Cannula 4.00 09/16/17 20:50 Nasal Cannula 3.50 09/16/17 20:45 88 156/76 09/16/17 19:16 Nasal Cannula 4.00 09/16/17 19:11 94 Nasal Cannula 4.00 09/16/17 16:55 98.2 89 22 110/60 Nasal Cannula 4.00 09/16/17 16:02 98.6 87 18 122/62 95 Nasal Cannula 4.50 09/16/17 14:45 94 Nasal Cannula 4.00 09/16/17 13:45 97.8 80 20 118/62 98 Nasal Cannula 4.00 09/16/17 13:20 98.5 85 20 120/58 97 Nasal Cannula 3.00 09/16/17 11:13 97.0 86 18 124/61 86 Nasal Cannula 3.00 09/16/17 10:58 98.0 80 20 113/60 99 Nasal Cannula 4.00 09/16/17 08:57 95 Nasal Cannula 4.00 09/16/17 08:57 Nasal Cannula 4.00 Capillary Refill : Less Than 3 Seconds General Appearance: No Apparent Distress, WD/WN HEENT: PERRL/EOMI, Pharynx Normal Neck: Full Range of Motion, Supple Respiratory: Chest Non Tender, Lungs Clear, Decreased Breath Sounds Cardiovascular: Regular Rate, Rhythm Gastrointestinal: normal bowel sounds, non tender, soft, no pulsatile mass Extremity: Normal Capillary Refill, No Pedal Edema Neurologic/Psychiatric: Alert, Oriented x3, Depressed Affect Lymphatic: No Adenopathy Results Lab Laboratory Tests 09/17/17 04:50: White Blood Count 3.6L, Red Blood Count 2.68L, Hemoglobin 8.6#L, Hematocrit 27L , Mean Corpuscular Volume 99, Mean Corpuscular Hemoglobin 32, Mean Corpuscular Hemoglobin Concent 32, Red Cell Distribution Width 19.1H, Platelet Count 102L, Mean Platelet Volume 10.2, Neutrophils (%) (Auto) 88H, Lymphocytes (%) (Auto) 11L, Monocytes (%) (Auto) 1, Eosinophils (%) (Auto) 0, Basophils (%) (Auto) 0, Neutrophils # (Auto) 3.2, Lymphocytes # (Auto) 0.4L, Monocytes # (Auto) 0.0, Eosinophils # (Auto) 0.0, Basophils # (Auto) 0.0, Sodium Level 142, Potassium Level 3.6, Chloride Level 104, Carbon Dioxide Level 30, Anion Gap 8, Blood Urea Nitrogen 21H, Creatinine 0.49L, Estimat Glomerular Filtration Rate > 60, BUN/ Creatinine Ratio 43, Glucose Level 89, Uric Acid 2.4L, Calcium Level 7.2L, Total Bilirubin 0.5, Aspartate Amino Transf (AST/SGOT) 16, Alanine Aminotransferase (ALT/SGPT) 7, Alkaline Phosphatase 124, Total Protein 3.6L, Albumin 2.2L Assessment/Plan Assessment/Plan Assess & Plan/Chief Complaint HYPERCALCEMIA CONFUSION LYMPHOMA HYPOTHYROID HX OF PULMONARY EMBOLISM CHRONIC ANTICOAGULATION EDEMA HYPOMAGNESEMIA HYPERKALEMIA ANEMIA ANEMIA - HGB IMPROVED POST TRANSFUSION YESTERDAY - - CHECK LABS IN MORNING . HYPERCALCEMIA - CALCIUM LEVEL IMPROVED - CONTINUE TO MONITOR LABS. PT HAS SERIAL LABS SCHEDULED. CONFUSION - WORSENING - SUSPECT DUE TO HER ANEMIA - MONITOR SYMPTOMS CLOSELY - SUPPORTIVE CARE. LYMPHOMA - CONSULT TO DR. CRAWFORD - WE DISCUSSED HER DIAGNOSIS -FINAL PATHOLOGY REVEALED DIFFUSE LARGE B CELL LYMPHOMA WITH HIGH PROLIFERATIVE RATE - NON- GERMINAL CENTER OF B CELL ORIGIN. PT TO STARTED CHEMOTHERAPY. - PER DR. CRAWFORD - TREATMENT FOLLOWS: RITUXAN AND CHOP R REGIMEN --HOWEVER PT WAS TOO WEAK FOR RITUXAN - WILL WAIT ON HIS INPUT TODAY. HYPOTHYROID - RESUMED HOME MEDICATION HYPOMAGNESEMIA - MONITOR SERIAL MAGNESIUM LEVELS. HYPERKALEMIA - RESOLVED. DVT PROPHYLAXIS WITH XARELTO (CURRENTLY ON HOLD) AND SCD'S PT TO HAVE DOGS BROUGHT IN TODAY GI PROPHYLAXIS WILL BE WITH PROTONIX. I HAVE DISCUSSED WITH HER DPOA - PT MADE DNR/DNI - PLAN IS FOLLOWS: IF PT HAS IMPROVEMENT IN HER SYMPTOMS WITH CHEMOTHERAPY - UPON DISCHARGE, DANIELA WILL GO TO [facility] AND POSSIBLY GO TO ASSISTED LIVING AFTER IMPROVED STRENGTHENING AT [facility]. Clinical Quality Measures DVT/VTE Risk/Contraindication: Risk Factor Score Per Nursin SAM CINTRON MD Sep 17, 2017 08:42
[2017-09-17] MEDS: amLODIPine 5 MG (NORVASC) TAB PO SCH ×2 (10:13→21:05)
[2017-09-17] MEDS: PANTOPRAZOLE 40 MG (PROTONIX) TAB PO SCH (10:13)
[2017-09-17] MEDS: VENlafaxine XR 75 MG (EFFEXOR XR) CAP PO SCH ×2 (10:14→21:04)
[2017-09-17] MEDS: ALLOPURINOL 300 MG (ZYLOPRIM) TAB PO SCH (10:14)
[2017-09-17] MEDS: MENTHOL/ZINC OXIDE (CALMOSEPTINE) 113 GM TUBE TOP SCH ×2 (10:14→21:07)
[2017-09-17] MEDS: CARVEDILOL 12.5 MG (COREG) TABLET PO SCH ×2 (10:14→21:10)
--- NOTE | 2017-09-17 10:36 | Physical Therapy Daily Note ---
PT Daily Note-Current Subjective Pt denies pain except says "My bottom hurts from this bed!" Pt agreeable to get up to chair. Pt states "I'm leaking" during transfer bed->chair. Required commode for BM. Pt denied symptoms of low hemoglobin throughout treatment. Mental Status Patient Orientation: Person, Place, Situation Attachments: Oxygen, Chapin Catheter O2 per nasal canula throughout treatment. Transfers Functional [place] Measure 0=Not Assessed/NA 4=Minimal Assistance 1=Total Assistance 5=Supervision or Setup 2=Maximal Assistance 6=Modified [place] 3=Moderate Assistance 7=Complete IndependenceIRFPAI Quality Coding Scale 6 Independent with activity with or without an assistive device 5 Patient requires set up or clean up by helper. Patient completes activity by themselves 4 Supervision or touching assist (CGA). [place] provide cues , steadying assist 3 The helper provides less than half the effort to complete the activity 2 The helper provides more than half the effort to complete the activity 1 Dependent. The helper does all the effort to complete an activity 7 Patient refused to complete or attempt activity 9 The patient did not perform the activity before the current illness or injury 88 Not attempted due to Medical conditions or safety concerns Transfers mod (I) all levels. Gait Training Gait Assistive Device: FWW Pt took 3-4 steps bed -> commode, 3-4 steps commode-> bedside chair with min A for management of FWW. Pt able to stand for pericar and clean up x 2-3 min without symptoms of low hemoglobin. Exercises Seated Therapy Exercises: Ankle pumps, Long arc quads, Hip flexion, Hip abd/add Seated Reps: 10 Treatments Pt seen for ther ex at bedside. Pt agreeable to up in chair, incontinent of bowels in transit. Pt cleaned and changed. Pt up in recliner with legs elevated and floating on pillow. O2 per nasal canula throughout treatment. Assessment Current Status: Good Progress Pt up in bedside recliner with all needs met. call light in lap. PT Production Line Mechanic Goals Production Line Mechanic Goals PT Production Line Mechanic Goals Time Frame: Sep 19, 2017 Transfers (B,C,W/C) (FIM): 5 Sit to Lying (QC): 4 Lying-Sitting on Side/Bed(QC): 4 Sit to Stand (QC): 4 Rollin Chair/Bmh-jh-Eelmr Xfer(QC): 4 Does the Patient Walk: Yes Gait (FIM): 1 Gait distance (FIM): 1=up to 49 ft (25') Distance: 25' Walk 50ft with 2 Turns (QC): 9 Walk 150 ft (QC): 9 Gait Level of Assist: 5 Gait Assistive Device: FWW PT Plan Treatment/Plan Treatment Plan: Continue Plan of Care Treatment Plan: Bed Mobility, Education, Functional Activity Emily, Functional Strength, Gait, Safety, Therapeutic Exercise, Transfers Treatment Duration: Sep 19, 2017 Frequency: 6 times per week Estimated Hrs Per Day: .25 hour per day Patient and/or Family Agrees t: Yes Time/GCodes Time In: 920 Time Out: 950 Total Billed Treatment Time: 30 Total Billed Treatment 1, FA x 15min, Ther ex 15min MOHAN RAMIREZ CPTA Sep 17, 2017 10:36
--- NOTE | 2017-09-17 11:18 | Occupational Ther Daily Note ---
OT Current Status-Daily Note Subjective Pt alert, sitting in recliner. Pt agreed to therapy. Visitor present in room. No c/o pain at this time. Mental Status/Objective Patient Orientation: Person, Place, Time, Situation Functional [place] Measure 0=Not Assessed/NA 4=Minimal Assistance 1=Total Assistance 5=Supervision or Setup 2=Maximal Assistance 6=Modified [place] 3=Moderate Assistance 7=Complete [place] Attachments: Chapin Catheter, IV, Oxygen ADL-Treatment Pt requested to use BSC. Pt required min A to go from sit to stand then used FWW to transfer from recliner to BSC. Pt required assist to manipulate hospital gown and tubing. Pt attempted to cleanse self after BM unable to complete efficiently. After therapy, pt sitting in room with call light/phone in reach. All needs met in room. Functional [place] Measure 0=Not Assessed/NA 4=Minimal Assistance 1=Total Assistance 5=Supervision or Setup 2=Maximal Assistance 6=Modified [place] 3=Moderate Assistance 7=Complete IndependenceIRFPAI Quality Coding Scale 6 Independent with activity with or without an assistive device 5 Patient requires set up or clean up by helper. Patient completes activity by themselves 4 Supervision or touching assist (CGA). [place] provide cues , steadying assist 3 The helper provides less than half the effort to complete the activity 2 The helper provides more than half the effort to complete the activity 1 Dependent. The helper does all the effort to complete an activity 7 Patient refused to complete or attempt activity 9 The patient did not perform the activity before the current illness or injury 88 Not attempted due to Medical conditions or safety concerns Other Treatment Pt completed 2 UE exercises against gravity,1 set 10 reps. Pt required rest break at 7th rep on both exercises. Decreased R shldr ROM at 90*. OT Short Term Goals Short Term Goals 1=Demonstrate adherence to instructed precautions during ADL tasks. 2=Patient will verbalize/demonstrate understanding of assistive devices/ modifications for ADL. 3=Patient will improve strength/tolerance for activity to enable patient to perform ADL's. OT Group Home Goals Publication Distributor Goals Time Frame: Sep 19, 2017 Eating (FIM): 5 Eating (QC): 5 Groomin Oral Hygiene (QC): 5 Upper Body Dressing(FIM): 5 Lower Body Dressing(FIM): 4 Toileting(FIM): 4 Toileting Hygiene (QC): 4 Toilet/Commode Transfer(FIM): 5 Toilet/Commode Transfer (QC): 4 Additional Goals: 1-Demonstrate ADL Tasks, 2-Verbalize Understanding, 3- ImproveStrength/Emily 1=Demonstrate adherence to instructed precautions during ADL tasks. 2=Patient will verbalize/demonstrate understanding of assistive devices/ modifications for ADL. 3=Patient will improve strength/tolerance for activity to enable patient to perform ADL's. OT Education/Plan Problem List/Assessment Pt demonstrates decreased ADL functioning, strength, mobility, and activity tolerance. Pt to benefit from skilled OT intervention for ADL training, transfers, strengthening, and safety education to improve level of independence and allow safe discharge plan. Discharge Recommendations Plan/Recommendations: Continue POC Treatment Plan/Plan of Care Patient would benefit from OT for education, treatment and training to promote independence in ADL's, mobility, safety and/or upper extremity function for ADL' s. Plan of Care: ADL Retraining, Functional Mobility, UE Funct Exercise/Act Treatment Duration: Sep 19, 2017 Frequency: 5 times per week Estimated Hrs Per Day: .25 hour per day Rehab Potential: Fair Time/GCodes Start Time: 10:48 Stop Time: 11:05 Total Time Billed (hr/min): 17 Billed Treatment Time 1 visit-FA 1 (17 min) HALIMA KERNS Sep 17, 2017 11:18
--- NOTE | 2017-09-17 14:34 | Progress Note-Standard ---
Standard Progress Note Progress Notes/Assess & Plan Date Seen by Provider: Sep 17, 2017 Time Seen by Provider: 14:29 Progress/Assessment & Plan 67-year-old female with recurrent hypercalcemia caused by diffuse large B cell non-Hodgkin's lymphoma non germinal center type. 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 Status post chemotherapy which is CHOP plus Rituxan regimen on 09/11/2017 with tumor lysis syndrome which has responded to rasburicase. Patient did not receive Rituxan or prednisone on days 2 through 5. She also did not receive the growth factors. She is tearful today because she misses her pets. She c/o loose stools. She mentioned that she is feeling better and worked with PT. Still very weak. Eating fairly. Physical examination showed an elderly female, awake and answering questions fairly. No JVD. Lungs fairly clear without wheezes or rales. Extremities with no edema. Easily tearful today. Laboratory Tests 09/17/17 04:50 A/P: 1. Diffuse large B cell non-Hodgkin's lymphoma, stage IV with involvement of kidney. Triple hit with BCL-2, BCL 6 and C MYC positivity. 2. Hypercalcemia due to above. this has normalized now after chemotherapy and continue to monitor. 3. Status post chemotherapy with CHOPR regimen on 09/11/2017 with tumor lysis syndrome. Status post rasburicase administration with resolution. 4. I will withhold Rituxan during the first course and we will administer with the second course. 5. Anemia, most likely due to GI bleeding. Patient received 2 units of packed red blood cells today. Hb stable today. Monitor. 6. Diarrhea, will check c. difficile toxin. 7. Deconditioning. Continue physical therapy and strengthening exercises. May d/c to [facility] when stable from medical stand point. DYLAN CRAWFORD Sep 17, 2017 14:34
[2017-09-17 16:15] VITALS: BP 103/56
[2017-09-18] MEDS: CARVEDILOL 12.5 MG (COREG) TABLET PO SCH ×3 (00:09→20:27)
[2017-09-18 00:10] VITALS: BP 141/67
[2017-09-18] MEDS: RT-ALBUTEROL/IPRATROPIUM 3 ML (DUONEB) VIAL IH SCH ×4 (02:40→20:12)
[2017-09-18] MEDS: LEVOTHYROXINE 100 MCG (LEVOTHROID) TAB PO SCH (05:44)
[2017-09-18 06:28] LABS: BASOPHILS % (AUTO) 1 % (0-10); EOSINOPHILS # (AUTO) 0.1 10^3/uL (0.0-0.3); EOSINOPHILS % (AUTO) 7 % (0-10); LYMPHOCYTES # (AUTO) 0.3 X 10^3 (1.0-4.0); LYMPHOCYTES % (AUTO) 24 % (12-44); MEAN CORPUSCULAR HEMOGLOBIN 32 PG (25-34); MEAN CORPUSCULAR HGB CONC 31 G/DL (32-36); MEAN CORPUSCULAR VOLUME 101 FL (80-99); MEAN PLATELET VOLUME 10.6 FL (7.4-10.4); MONOCYTES % (AUTO) 2 % (0-12); NEUTROPHILS # (AUTO) 0.8 X 10^3 (1.8-7.8); NEUTROPHILS % (AUTO) 67 % (42-75); PLATELET COUNT 108 10^3/uL (130-400); RED CELL DISTRIBUTION WIDTH 18.4 % (10.0-14.5)
[2017-09-18 06:31] LABS: WHITE BLOOD COUNT 1.2 10^3/uL (4.3-11.0)
[2017-09-18 06:50] LABS: ANION GAP 7 MMOL/L (5-14); BLOOD UREA NITROGEN 14 MG/DL (7-18); BUN/CREATININE RATIO 30; CALCIUM 6.6 MG/DL (8.5-10.1); CARBON DIOXIDE 31 MMOL/L (21-32); CHLORIDE 104 MMOL/L (98-107); CREATININE SERUM 0.46 MG/DL (0.60-1.30); GFR ESTIMATED > 60; GLUCOSE 75 MG/DL (70-105); POTASSIUM 3.2 MMOL/L (3.6-5.0); SODIUM 142 MMOL/L (135-145)
[2017-09-18 06:52] LABS: MAGNESIUM 0.9 MG/DL (1.8-2.4)
[2017-09-18] MEDS: MAGNESIUM 1 GM/100 ML IVPB 100 ML IV SCH ×4 (07:23→12:18)
[2017-09-18] MEDS: NS IV 1000 ML 1,000 ML IV SCH ×2 (07:23→21:19)
[2017-09-18 07:59] VITALS: BP 141/76
--- NOTE | 2017-09-18 08:44 | Progress Note (SOAP) ---
Subjective Date Seen by Provider: Sep 18, 2017 Time Seen by Provider: 09:00 Subjective/Events-last exam PT REPORTS THAT AFTER SEEING HER DOGS SHE IS SO MUCH HAPPIER. STAFF REPORTS THAT SHE HAS NOT BEEN HAVING MUCH FATIGUE PER THEIR REPORT. Review of Systems General: Fatigue Pulmonary: Dyspnea Cardiovascular: No: Chest Pain Gastrointestinal: No: Nausea, Abdominal Pain, Diarrhea Neurological: Weakness, Confusion (INTERMITTENT) Objective Exam Vital Signs Date Time Temp Pulse Resp B/P (MAP) Pulse Ox O2 Delivery O2 Flow Rate FiO2 09/18/17 07:59 99.8 80 20 141/76 93 Nasal Cannula 4.00 09/18/17 02:41 98 Nasal Cannula 4.00 09/18/17 00:10 99.0 85 18 141/67 96 Nasal Cannula 4.00 09/17/17 20:38 Nasal Cannula 4.00 09/17/17 20:33 97 Nasal Cannula 4.00 09/17/17 20:24 Nasal Cannula 4.00 09/17/17 16:15 98.2 75 20 103/56 99 Nasal Cannula 4.00 09/17/17 15:12 98 Nasal Cannula 4.00 I & O 09/19/17 07:00 Intake Total 1000 ml Balance 1000 ml Capillary Refill : Less Than 3 Seconds General Appearance: WD/WN HEENT: PERRL/EOMI, Pharynx Normal Neck: Full Range of Motion, Supple Respiratory: Chest Non Tender, Lungs Clear, Normal Breath Sounds Cardiovascular: Regular Rate, Rhythm, Systolic Murmur Gastrointestinal: normal bowel sounds, non tender, soft, no organomegaly, no pulsatile mass Extremity: No Pedal Edema Neurologic/Psychiatric: Alert, Normal Mood/Affect Skin: Warm/Dry Results Lab Laboratory Tests 09/18/17 06:00: White Blood Count 1.2*L, Red Blood Count 2.50L, Hemoglobin 7.9L, Hematocrit 25L , Mean Corpuscular Volume 101H, Mean Corpuscular Hemoglobin 32, Mean Corpuscular Hemoglobin Concent 31L, Red Cell Distribution Width 18.4H, Platelet Count 108L, Mean Platelet Volume 10.6H, Neutrophils (%) (Auto) 67, Lymphocytes ( %) (Auto) 24, Monocytes (%) (Auto) 2, Eosinophils (%) (Auto) 7, Basophils (%) ( Auto) 1, Neutrophils # (Auto) 0.8L, Lymphocytes # (Auto) 0.3L, Monocytes # (Auto ) 0.0, Eosinophils # (Auto) 0.1, Basophils # (Auto) 0.0, Sodium Level 142, Potassium Level 3.2L, Chloride Level 104, Carbon Dioxide Level 31, Anion Gap 7, Blood Urea Nitrogen 14, Creatinine 0.46L, Estimat Glomerular Filtration Rate > 60, BUN/Creatinine Ratio 30, Glucose Level 75, Calcium Level 6.6L, Magnesium Level 0.9*L Microbiology 09/18/17 C. difficile [facility] Antigen & Toxins - Preliminary, Resulted Assessment/Plan Assessment/Plan Assess & Plan/Chief Complaint HYPERCALCEMIA CONFUSION LYMPHOMA HYPOTHYROID HX OF PULMONARY EMBOLISM CHRONIC ANTICOAGULATION EDEMA HYPOMAGNESEMIA HYPERKALEMIA ANEMIA THROMBOCYTOPENIA LEUKOPENIA ANEMIA - HGB DROPPED TO 7.9 THIS MORNING - TRANSFUSION OF 1 UNITS PLANNED FOR TODAY. - CHECK LABS IN MORNING . HYPERCALCEMIA - CALCIUM LEVEL IMPROVED - CONTINUE TO MONITOR LABS. PT HAS SERIAL LABS SCHEDULED. CONFUSION - WORSENING - SUSPECT DUE TO HER ANEMIA - MONITOR SYMPTOMS CLOSELY - SUPPORTIVE CARE. LYMPHOMA - CONSULT TO DR. CRAWFORD - WE DISCUSSED HER DIAGNOSIS -FINAL PATHOLOGY REVEALED DIFFUSE LARGE B CELL LYMPHOMA WITH HIGH PROLIFERATIVE RATE - NON- GERMINAL CENTER OF B CELL ORIGIN. PT TO STARTED CHEMOTHERAPY. - PER DR. CRAWFORD - TREATMENT FOLLOWS: RITUXAN AND CHOP R REGIMEN --HOWEVER PT WAS TOO WEAK FOR RITUXAN - HYPOTHYROID - RESUMED HOME MEDICATION HYPOMAGNESEMIA - MONITOR SERIAL MAGNESIUM LEVELS. HYPERKALEMIA - RESOLVED. HX OF PULMONARY EMBOLISM WITH CHRONIC ANTICOAGULATION - DVT PROPHYLAXIS WITH XARELTO (CURRENTLY ON HOLD) AND SCD'S GI PROPHYLAXIS WILL BE WITH PROTONIX. I HAVE DISCUSSED WITH HER DPOA - PT MADE DNR/DNI - PLAN IS FOLLOWS: IF PT HAS IMPROVEMENT IN HER SYMPTOMS WITH CHEMOTHERAPY - UPON DISCHARGE, DANIELA WILL GO TO [facility] AND POSSIBLY GO TO ASSISTED LIVING AFTER IMPROVED STRENGTHENING AT [facility]. Clinical Quality Measures DVT/VTE Risk/Contraindication: Risk Factor Score Per Nursin SAM CINTRON MD Sep 18, 2017 08:44
[2017-09-18] MEDS: amLODIPine 5 MG (NORVASC) TAB PO SCH ×2 (09:35→20:27)
[2017-09-18] MEDS: VENlafaxine XR 75 MG (EFFEXOR XR) CAP PO SCH ×2 (09:35→20:27)
[2017-09-18] MEDS: PANTOPRAZOLE 40 MG (PROTONIX) TAB PO SCH (09:35)
[2017-09-18] MEDS: MENTHOL/ZINC OXIDE (CALMOSEPTINE) 113 GM TUBE TOP SCH ×2 (09:35→20:27)
[2017-09-18] MEDS: ALLOPURINOL 300 MG (ZYLOPRIM) TAB PO SCH (09:35)
[2017-09-18] MEDS: RT-ADVAIR HFA 115/21 MCG PER PUFF IH SCH ×2 (10:01→20:12)
--- NOTE | 2017-09-18 11:00 | Physical Therapy Daily Note ---
PT Daily Note-Current Subjective Patient states that she is feeling okay today upon PT entering. She states that she had a great night last night. Pain Numeric Pain Scale: 0-No Pain Location: No Pain Reported Mental Status Patient Orientation: Person, Confused (She is oriented to her situation, but she states she has never been this confused.), Place, Situation Attachments: Oxygen, Suprapubic Catheter Transfers Functional [place] Measure 0=Not Assessed/NA 4=Minimal Assistance 1=Total Assistance 5=Supervision or Setup 2=Maximal Assistance 6=Modified [place] 3=Moderate Assistance 7=Complete IndependenceIRFPAI Quality Coding Scale 6 Independent with activity with or without an assistive device 5 Patient requires set up or clean up by helper. Patient completes activity by themselves 4 Supervision or touching assist (CGA). [place] provide cues , steadying assist 3 The helper provides less than half the effort to complete the activity 2 The helper provides more than half the effort to complete the activity 1 Dependent. The helper does all the effort to complete an activity 7 Patient refused to complete or attempt activity 9 The patient did not perform the activity before the current illness or injury 88 Not attempted due to Medical conditions or safety concerns Transfers (B, C, W/C) (FIM): 5 Sit to/from Stand: 5 Patient performs sit to stand transfer with CGA. Weight Bearing Right Lower Extremity: Right Full Weight Bearing Left Lower Extremity: Left Full Weight Bearing Gait Training Distance (FIM): 0=does not occure Exercises Seated Therapy Exercises: Ankle pumps (1 set bilateral), Long arc quads (1 set bilateral), Hip flexion (1 set bilateral) Seated Reps: 20 Standing: Hip Abduction (1 set bilateral), Heel/toe raises (1 set bilateral), 3 way Ex=Flex, Abd, Ext (1 set bilateral) Standing Reps: 20 Assessment Current Status: Fair Progress Patient portrayed low hemoglobin and magnesium levels and are being addressed and monitored. PT limited exercise to seated and standing exercises due to these measures. PT will progress with the patient as her tolerance and health improves. PT Shelter Goals Manager Truck Goals PT Manager Truck Goals Time Frame: Sep 19, 2017 Transfers (B,C,W/C) (FIM): 5 Gait (FIM): 1 Gait distance (FIM): 1=up to 49 ft (25') Distance: 25' Gait Level of Assist: 5 Gait Assistive Device: FWW PT Plan Problem List Problem List: Activity Tolerance, Functional Strength, Safety, Balance, Transfer, Bed Mobility Treatment/Plan Treatment Plan: Continue Plan of Care Treatment Plan: Bed Mobility, Education, Functional Activity Emily, Functional Strength, Gait, Safety, Therapeutic Exercise, Transfers Treatment Duration: Sep 19, 2017 Frequency: 6 times per week Estimated Hrs Per Day: .25 hour per day Patient and/or Family Agrees t: Yes Time/GCodes Time In: 1035 Time Out: 1052 Total Billed Treatment Time: 17 Total Billed Treatment 1 visit FA 17 min ALISON BOBBY PT Sep 18, 2017 11:00
--- NOTE | 2017-09-18 12:26 | Occupational Ther Daily Note ---
OT Current Status-Daily Note Subjective Pt alert, sitting in recliner. Pt was excited that she was able to see one of her dogs last night. Pt agreed to therapy. No c/o pain at this time. Mental Status/Objective Patient Orientation: Person, Place, Time, Situation Functional [place] Measure 0=Not Assessed/NA 4=Minimal Assistance 1=Total Assistance 5=Supervision or Setup 2=Maximal Assistance 6=Modified [place] 3=Moderate Assistance 7=Complete [place] ADL-Treatment Functional [place] Measure 0=Not Assessed/NA 4=Minimal Assistance 1=Total Assistance 5=Supervision or Setup 2=Maximal Assistance 6=Modified [place] 3=Moderate Assistance 7=Complete IndependenceIRFPAI Quality Coding Scale 6 Independent with activity with or without an assistive device 5 Patient requires set up or clean up by helper. Patient completes activity by themselves 4 Supervision or touching assist (CGA). [place] provide cues , steadying assist 3 The helper provides less than half the effort to complete the activity 2 The helper provides more than half the effort to complete the activity 1 Dependent. The helper does all the effort to complete an activity 7 Patient refused to complete or attempt activity 9 The patient did not perform the activity before the current illness or injury 88 Not attempted due to Medical conditions or safety concerns Other Treatment Pt completed 5 UE exercises against gravity, 3 sets 5 reps. Pt was fatigued after each one, but continued to work through it. Pt has decreased B shldr though has been able to complete grooming during previous sessions though increased weakness and fatigue is apparent. After therapy, pt sitting in recliner with call light/phone in reach. All needs met in room. OT Short Term Goals Short Term Goals 1=Demonstrate adherence to instructed precautions during ADL tasks. 2=Patient will verbalize/demonstrate understanding of assistive devices/ modifications for ADL. 3=Patient will improve strength/tolerance for activity to enable patient to perform ADL's. OT Hand Weaver Goals Hand Weaver Goals Time Frame: Sep 19, 2017 Eating (FIM): 5 Eating (QC): 5 Groomin Oral Hygiene (QC): 5 Upper Body Dressing(FIM): 5 Lower Body Dressing(FIM): 4 Toileting(FIM): 4 Toileting Hygiene (QC): 4 Toilet/Commode Transfer(FIM): 5 Toilet/Commode Transfer (QC): 4 Additional Goals: 1-Demonstrate ADL Tasks, 2-Verbalize Understanding, 3- ImproveStrength/Emily 1=Demonstrate adherence to instructed precautions during ADL tasks. 2=Patient will verbalize/demonstrate understanding of assistive devices/ modifications for ADL. 3=Patient will improve strength/tolerance for activity to enable patient to perform ADL's. OT Education/Plan Problem List/Assessment Pt demonstrates decreased ADL functioning, strength, mobility, and activity tolerance. Pt to benefit from skilled OT intervention for ADL training, transfers, strengthening, and safety education to improve level of independence and allow safe discharge plan. Discharge Recommendations Plan/Recommendations: Continue POC Treatment Plan/Plan of Care Patient would benefit from OT for education, treatment and training to promote independence in ADL's, mobility, safety and/or upper extremity function for ADL' s. Plan of Care: ADL Retraining, Functional Mobility, UE Funct Exercise/Act Treatment Duration: Sep 19, 2017 Frequency: 5 times per week Estimated Hrs Per Day: .25 hour per day Rehab Potential: Fair Time/GCodes Start Time: 11:45 Stop Time: 12:00 Total Time Billed (hr/min): 15 Billed Treatment Time 1 visit-EX 1 (15 min) HALIMA KERNS Sep 18, 2017 12:26
[2017-09-18 16:27] VITALS: BP 128/70
--- NOTE | 2017-09-18 18:29 | Progress Note-Standard ---
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 Status post chemotherapy which is CHOP plus Rituxan regimen on 09/11/2017 with tumor lysis syndrome which has responded to rasburicase. Patient did not receive Rituxan or prednisone on days 2 through 5. She also did not receive the growth factors. She mentioned that she is feeling better and worked with PT. Still very weak. Eating fairly. Diarrhea getting better. Physical examination showed an elderly female , awake and answering questions fairly. No JVD. Lungs fairly clear without wheezes or rales. Extremities with no edema. Laboratory Tests 09/18/17 06:00 A/P: 1. Diffuse large B cell non-Hodgkin's lymphoma, stage IV with involvement of kidney. Triple hit with BCL-2, BCL 6 and C MYC positivity. 2. Hypercalcemia due to above. this has normalized now after chemotherapy and continue to monitor. 3. Status post chemotherapy with CHOPR regimen on 09/11/2017 with tumor lysis syndrome. Status post rasburicase administration with resolution. 4. Neutropenia grade 3 secondary to chemotherapy. Her risk of febrile neutropenia is significant. I will start her on G-CSF 480 g subcutaneous daily until ANC more than 10,000. 5. Anemia, most likely due to GI bleeding. Patient received 2 units of packed red blood cells. Hb stable. Monitor. 6. Diarrhea, improving. Continue to monitor. 7. Deconditioning. Continue physical therapy and strengthening exercises. May d/c to [facility] when stable from medical stand point. DYLAN CRAWFORD Sep 18, 2017 18:29
[2017-09-19 00:36] VITALS: BP 108/59
[2017-09-19] MEDS: RT-ALBUTEROL/IPRATROPIUM 3 ML (DUONEB) VIAL IH SCH ×4 (02:54→19:10)
[2017-09-19] MEDS: LEVOTHYROXINE 100 MCG (LEVOTHROID) TAB PO SCH (05:45)
[2017-09-19 06:05] LABS: MEAN PLATELET VOLUME 9.8 FL (7.4-10.4); RED BLOOD COUNT 2.52 10^6/uL (4.35-5.85); RED CELL DISTRIBUTION WIDTH 17.9 % (10.0-14.5)
[2017-09-19 06:14] LABS: WHITE BLOOD COUNT 0.9 10^3/uL (4.3-11.0)
[2017-09-19 06:30] LABS: ALANINE AMINOTRANSFERASE 6 U/L (0-55); ALBUMIN 2.1 GM/DL (3.2-4.5); ANION GAP 6 MMOL/L (5-14); ASPARTATE AMINO TRANSFERASE 15 U/L (5-34); BILIRUBIN,TOTAL 0.4 MG/DL (0.1-1.0); BLOOD UREA NITROGEN 10 MG/DL (7-18); BUN/CREATININE RATIO 22; CALCIUM 6.2 MG/DL (8.5-10.1); CARBON DIOXIDE 31 MMOL/L (21-32); CHLORIDE 104 MMOL/L (98-107); CREATININE SERUM 0.46 MG/DL (0.60-1.30); GFR ESTIMATED > 60; GLUCOSE 79 MG/DL (70-105); MAGNESIUM 1.5 MG/DL (1.8-2.4); POTASSIUM 3.3 MMOL/L (3.6-5.0); SODIUM 141 MMOL/L (135-145)
[2017-09-19] MEDS: NS IV 1000 ML 1,000 ML IV SCH (07:17)
[2017-09-19 08:00] VITALS: BP 140/72
[2017-09-19] MEDS: RT-ADVAIR HFA 115/21 MCG PER PUFF IH SCH ×2 (08:41→19:10)
[2017-09-19] MEDS: TBO-FILGRASTIM 480 MCG/0.8 ML (GRANIX) SQ SCH (08:48)
[2017-09-19] MEDS: amLODIPine 5 MG (NORVASC) TAB PO SCH ×2 (08:48→20:23)
[2017-09-19] MEDS: CARVEDILOL 12.5 MG (COREG) TABLET PO SCH ×2 (08:48→20:22)
[2017-09-19] MEDS: PANTOPRAZOLE 40 MG (PROTONIX) TAB PO SCH (08:49)
[2017-09-19] MEDS: MENTHOL/ZINC OXIDE (CALMOSEPTINE) 113 GM TUBE TOP SCH ×2 (08:49→20:23)
[2017-09-19] MEDS: VENlafaxine XR 75 MG (EFFEXOR XR) CAP PO SCH ×2 (08:49→20:23)
[2017-09-19] MEDS: ALLOPURINOL 300 MG (ZYLOPRIM) TAB PO SCH (08:49)
[2017-09-19] MEDS ORDERED: NS IV 500 ML 500 ML IV SCH (09:12)
[2017-09-19] MEDS ORDERED: diphenhydrAMINE 50 MG/ML INJ (BENADRYL) IVP PRN (09:15)
--- NOTE | 2017-09-19 09:18 | Progress Note (SOAP) ---
Subjective Date Seen by Provider: Sep 19, 2017 Time Seen by Provider: 09:10 Subjective/Events-last exam PT REPORTS THAT SHE IS FEELING BETTER TODAY. HER FAMILY REPORTS THAT SHE IS A LITTLE MORE CONFUSED TODAY COMPARED TO YESTERDAY. SHE DENIES PAIN TODAY. Review of Systems General: No Chills, Fatigue HEENT: No Head Aches Pulmonary: No Dyspnea, No Cough Cardiovascular: No: Chest Pain Gastrointestinal: Diarrhea (YESTERDAY X 2), No: Nausea Genitourinary: No Dysuria Neurological: Weakness, Confusion Objective Exam Vital Signs Date Time Temp Pulse Resp B/P (MAP) Pulse Ox O2 Delivery O2 Flow Rate FiO2 09/19/17 08:41 91 Nasal Cannula 3.00 09/19/17 08:41 Nasal Cannula 3.00 09/19/17 02:54 90 Nasal Cannula 3.00 09/19/17 00:36 98.6 78 16 108/59 94 Nasal Cannula 3.00 09/18/17 20:24 Nasal Cannula 3.00 09/18/17 20:18 Nasal Cannula 3.00 09/18/17 20:13 97 Nasal Cannula 3.00 09/18/17 16:27 97.4 85 20 128/70 99 Nasal Cannula 4.00 09/18/17 10:09 99 Nasal Cannula 4.00 09/18/17 10:01 99 Nasal Cannula 4.00 I & O 09/20/17 07:00 Intake Total 1000 ml Balance 1000 ml Capillary Refill : Less Than 3 Seconds General Appearance: No Apparent Distress, WD/WN HEENT: PERRL/EOMI, Pharynx Normal Neck: Full Range of Motion, Supple Respiratory: No Chest Non Tender, Lungs Clear, Normal Breath Sounds, No Accessory Muscle Use Cardiovascular: Regular Rate, Rhythm, Systolic Murmur Gastrointestinal: normal bowel sounds, non tender, soft Extremity: Pedal Edema Neurologic/Psychiatric: Alert, Normal Mood/Affect, Other (ORIENTED TO PERSON) Skin: Warm/Dry Lymphatic: No Adenopathy Results Lab Laboratory Tests 09/18/17 10:57: Lab Scanned Report Transfusion Reaction Form 09/19/17 05:50: White Blood Count 0.9*L, Red Blood Count 2.52L, Hemoglobin 7.8L, Hematocrit 25L , Mean Corpuscular Volume 100H, Mean Corpuscular Hemoglobin 31, Mean Corpuscular Hemoglobin Concent 31L, Red Cell Distribution Width 17.9H, Platelet Count 123L, Mean Platelet Volume 9.8, Sodium Level 141, Potassium Level 3.3L, Chloride Level 104, Carbon Dioxide Level 31, Anion Gap 6, Blood Urea Nitrogen 10 , Creatinine 0.46L, Estimat Glomerular Filtration Rate > 60, BUN/Creatinine Ratio 22, Glucose Level 79, Calcium Level 6.2L, Magnesium Level 1.5L, Total Bilirubin 0.4, Aspartate Amino Transf (AST/SGOT) 15, Alanine Aminotransferase ( ALT/SGPT) 6, Alkaline Phosphatase 129, Total Protein 4.0L, Albumin 2.1L Microbiology 09/18/17 C. difficile DNA Amplification - Final, Complete 09/18/17 C. difficile GDH Antigen & Toxins - Final, Complete Assessment/Plan Assessment/Plan Assess & Plan/Chief Complaint HYPERCALCEMIA CONFUSION LYMPHOMA HYPOTHYROID HX OF PULMONARY EMBOLISM CHRONIC ANTICOAGULATION EDEMA HYPOMAGNESEMIA HYPERKALEMIA ANEMIA ANEMIA - HGB DROPPED TO 7.8 THIS MORNING - TRANSFUSION OF 1 UNITS PLANNED FOR TODAY. - CHECK LABS THIS AFTERNOON AND AGAIN IN MORNING . HYPERCALCEMIA - CALCIUM LEVEL IMPROVED - CONTINUE TO MONITOR LABS. PT HAS SERIAL LABS SCHEDULED. CONFUSION - WORSENING - SUSPECT DUE TO HER ANEMIA - MONITOR SYMPTOMS CLOSELY - SUPPORTIVE CARE. LYMPHOMA - CONSULT TO DR. CRAWFORD - WE DISCUSSED HER DIAGNOSIS -FINAL PATHOLOGY REVEALED DIFFUSE LARGE B CELL LYMPHOMA WITH HIGH PROLIFERATIVE RATE - NON- GERMINAL CENTER OF B CELL ORIGIN. PT TO STARTED CHEMOTHERAPY. - PER DR. CRAWFORD - TREATMENT FOLLOWS: RITUXAN AND CHOP R REGIMEN --HOWEVER PT WAS TOO WEAK FOR RITUXAN - WILL WAIT ON HIS INPUT TODAY. HYPOTHYROID - RESUMED HOME MEDICATION HYPOMAGNESEMIA - MONITOR SERIAL MAGNESIUM LEVELS. HYPERKALEMIA - RESOLVED. HX OF PULMONARY EMBOLISM WITH CHRONIC ANTICOAGULATION - ANTICOAGULATION HELD DUE TO HER ANEMIA, THROMBOCYTOPENIA DVT PROPHYLAXIS WITH XARELTO (CURRENTLY ON HOLD) AND SCD'S GI PROPHYLAXIS WILL BE WITH PROTONIX. I HAVE DISCUSSED WITH HER DPOA - PT MADE DNR/DNI - PLAN IS FOLLOWS: IF PT HAS IMPROVEMENT IN HER SYMPTOMS WITH CHEMOTHERAPY - UPON DISCHARGE, DANIELA WILL GO TO [facility] AND POSSIBLY GO TO ASSISTED LIVING AFTER IMPROVED STRENGTHENING AT [facility]. Clinical Quality Measures DVT/VTE Risk/Contraindication: Risk Factor Score Per Nursin SAM CINTRON MD Sep 19, 2017 09:18
--- NOTE | 2017-09-19 09:59 | Occupational Ther Daily Note ---
OT Current Status-Daily Note Subjective Brother in room feeding pt her breakfast, pt lying in bed. Pt agreed to therapy. No c/o pain at this time. Mental Status/Objective Patient Orientation: Person, Place, Time, Situation Functional [place] Measure 0=Not Assessed/NA 4=Minimal Assistance 1=Total Assistance 5=Supervision or Setup 2=Maximal Assistance 6=Modified [place] 3=Moderate Assistance 7=Complete [place] Attachments: [place] Catheter, Oxygen ADL-Treatment Pt was able to spear food and bring to mouth 15 x's before pt fatigued. Pt required rest breaks between each bite. Pt has difficulty getting arm up to spear food off of tray due to decreased shldr AROM and strength. After pt was finished requested to use BSC. Min A for supine to sitting EOB using bedrails. Pt transferred from bed to BSC using FWW with CGA. After therapy, pt sitting on BSC with call light in reach and visitor present in room. Nrsg notified that pt was on BSC. Functional [place] Measure 0=Not Assessed/NA 4=Minimal Assistance 1=Total Assistance 5=Supervision or Setup 2=Maximal Assistance 6=Modified [place] 3=Moderate Assistance 7=Complete IndependenceIRFPAI Quality Coding Scale 6 Independent with activity with or without an assistive device 5 Patient requires set up or clean up by helper. Patient completes activity by themselves 4 Supervision or touching assist (CGA). [place] provide cues , steadying assist 3 The helper provides less than half the effort to complete the activity 2 The helper provides more than half the effort to complete the activity 1 Dependent. The helper does all the effort to complete an activity 7 Patient refused to complete or attempt activity 9 The patient did not perform the activity before the current illness or injury 88 Not attempted due to Medical conditions or safety concerns OT Short Term Goals Short Term Goals 1=Demonstrate adherence to instructed precautions during ADL tasks. 2=Patient will verbalize/demonstrate understanding of assistive devices/ modifications for ADL. 3=Patient will improve strength/tolerance for activity to enable patient to perform ADL's. OT Senior Care Goals Anesthesiology Tech Goals Time Frame: Sep 19, 2017 Eating (FIM): 5 Eating (QC): 5 Groomin Oral Hygiene (QC): 5 Upper Body Dressing(FIM): 5 Lower Body Dressing(FIM): 4 Toileting(FIM): 4 Toileting Hygiene (QC): 4 Toilet/Commode Transfer(FIM): 5 Toilet/Commode Transfer (QC): 4 Additional Goals: 1-Demonstrate ADL Tasks, 2-Verbalize Understanding, 3- ImproveStrength/Emily 1=Demonstrate adherence to instructed precautions during ADL tasks. 2=Patient will verbalize/demonstrate understanding of assistive devices/ modifications for ADL. 3=Patient will improve strength/tolerance for activity to enable patient to perform ADL's. OT Education/Plan Problem List/Assessment Pt demonstrates decreased ADL functioning, strength, mobility, and activity tolerance. Pt to benefit from skilled OT intervention for ADL training, transfers, strengthening, and safety education to improve level of independence and allow safe discharge plan. Discharge Recommendations Plan/Recommendations: Continue POC Treatment Plan/Plan of Care Patient would benefit from OT for education, treatment and training to promote independence in ADL's, mobility, safety and/or upper extremity function for ADL' s. Plan of Care: ADL Retraining, Functional Mobility, UE Funct Exercise/Act Treatment Duration: Sep 19, 2017 Frequency: 5 times per week Estimated Hrs Per Day: .25 hour per day Rehab Potential: Fair Time/GCodes Start Time: 09:35 Stop Time: 09:55 Total Time Billed (hr/min): 20 Billed Treatment Time Visit-FA 1 (20 min) HALIMA KERNS Sep 19, 2017 09:59
[2017-09-19] MEDS: LACTOBACILLUS Acidoph/Bulgar (LACTINEX/FLORANEX) TAB PO SCH ×2 (10:04→17:04)
[2017-09-19] MEDS: metroNIDAZOLE 500MG/100ML IVPB 100 ML IV SCH ×2 (10:04→17:04)
[2017-09-19] MEDS: NYSTATIN ORAL SUSP 5 ML UDC PO SCH ×4 (10:04→23:32)
[2017-09-19] MEDS: fluCOnazole (DIFLUCAN) 100 MG TAB PO SCH (10:04)
[2017-09-19] MEDS: ACETAMINOPHEN 325 MG TABLET/CAPLET (TYLENOL) PO PRN ×2 (12:25→23:38)
[2017-09-19 13:25] VITALS: BP 117/63
[2017-09-19 13:46] VITALS: BP 117/59
--- NOTE | 2017-09-19 14:51 | Progress Note-Standard ---
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 Status post chemotherapy which is CHOP plus Rituxan regimen on 09/11/2017 with tumor lysis syndrome which has responded to rasburicase. Patient did not receive Rituxan or prednisone. She also did not receive the growth factors. She mentioned that she is feeling better today. Eating fairly. Diarrhea getting better. Physical examination showed an elderly female, awake and answering questions fairly. No JVD. Lungs fairly clear without wheezes or rales. Extremities with no edema. Laboratory Tests 09/19/17 05:50: White Blood Count 0.9*L, Red Blood Count 2.52L, Hemoglobin 7.8L, Hematocrit 25L , Mean Corpuscular Volume 100H, Mean Corpuscular Hemoglobin 31, Mean Corpuscular Hemoglobin Concent 31L, Red Cell Distribution Width 17.9H, Platelet Count 123L, Mean Platelet Volume 9.8, Sodium Level 141, Potassium Level 3.3L, Chloride Level 104, Carbon Dioxide Level 31, Anion Gap 6, Blood Urea Nitrogen 10 , Creatinine 0.46L, Estimat Glomerular Filtration Rate > 60, BUN/Creatinine Ratio 22, Glucose Level 79, Calcium Level 6.2L, Magnesium Level 1.5L, Total Bilirubin 0.4, Aspartate Amino Transf (AST/SGOT) 15, Alanine Aminotransferase ( ALT/SGPT) 6, Alkaline Phosphatase 129, Total Protein 4.0L, Albumin 2.1L Microbiology 09/18/17 C. difficile DNA Amplification - Final, Complete 09/18/17 C. difficile GDH Antigen & Toxins - Final, Complete A/P: 1. Diffuse large B cell non-Hodgkin's lymphoma, stage IV with involvement of kidney. Triple hit with BCL-2, BCL 6 and C MYC positivity. 2. Hypercalcemia due to above. this has normalized now after chemotherapy and continue to monitor. 3. Status post chemotherapy with CHOPR regimen on 09/11/2017 with tumor lysis syndrome. Status post rasburicase administration with resolution. 4. Neutropenia grade 3-4 secondary to chemotherapy. Her risk of febrile neutropenia is significant. Started on G-CSF 480 g subcutaneous daily yesterday and we will continue until ANC more than 10,000. 5. Anemia, most likely due to GI bleeding. Patient receiving a unit of packed red blood cells. Monitor. 6. Diarrhea, due to C. difficile colitis. Patient started on Flagyl and probiotics. If continued diarrhea, we will add Questran. Monitor. 7. Deconditioning. Continue physical therapy and strengthening exercises. March d/c to [facility] when stable from medical stand point. DYLAN CRAWFORD Sep 19, 2017 14:51
--- NOTE | 2017-09-19 14:59 | Physical Therapy Daily Note ---
PT Daily Note-Current Subjective Patient in bed pre tx, agrees to PT, has no complaints of pain. Patient had low hemoglobin and is getting blood currently, will perform bed exercises. Appearance Patient in bed post tx with nurse call, phone, tray, all needs met. Mental Status Patient Orientation: Person, Place, Situation Attachments: Suprapubic Catheter, IV Transfers Functional [place] Measure 0=Not Assessed/NA 4=Minimal Assistance 1=Total Assistance 5=Supervision or Setup 2=Maximal Assistance 6=Modified [place] 3=Moderate Assistance 7=Complete IndependenceIRFPAI Quality Coding Scale 6 Independent with activity with or without an assistive device 5 Patient requires set up or clean up by helper. Patient completes activity by themselves 4 Supervision or touching assist (CGA). [place] provide cues , steadying assist 3 The helper provides less than half the effort to complete the activity 2 The helper provides more than half the effort to complete the activity 1 Dependent. The helper does all the effort to complete an activity 7 Patient refused to complete or attempt activity 9 The patient did not perform the activity before the current illness or injury 88 Not attempted due to Medical conditions or safety concerns Weight Bearing Right Lower Extremity: Right Full Weight Bearing Left Lower Extremity: Left Full Weight Bearing Exercises Supine Ex: Ankle pumps, Quad Set, Glut sets, Heel Slides, Short Arc Quads, Straight leg raise, Hip abd/add Supine Reps: 15 Treatments functional strengthening Assessment patient alycia well, put pillow for heel elevation before leaving PT Project Architect Goals Group Home Goals PT Project Architect Goals Time Frame: Sep 19, 2017 Transfers (B,C,W/C) (FIM): 5 Gait (FIM): 1 Gait distance (FIM): 1=up to 49 ft (25') Distance: 25' Gait Level of Assist: 5 Gait Assistive Device: FWW PT Plan Problem List Problem List: Activity Tolerance, Functional Strength, Safety, Balance, Gait, Transfer, Bed Mobility, ROM Treatment/Plan Treatment Plan: Continue Plan of Care Treatment Plan: Bed Mobility, Education, Functional Activity Emily, Functional Strength, Gait, Safety, Therapeutic Exercise, Transfers Treatment Duration: Sep 19, 2017 Frequency: 6 times per week Estimated Hrs Per Day: .25 hour per day Patient and/or Family Agrees t: Yes Safety Risks/Education Patient Education: Correct Positioning, Safety Issues Teaching Recipient: Patient Teaching Methods: Demonstration, Discussion Response to Teaching: Reinforcement Needed Time/GCodes Time In: 1440 Time Out: 1455 Total Billed Treatment Time: 15 Total Billed Treatment 1 visit EX 15' MAURICIO HYATT PT Sep 19, 2017 14:59
[2017-09-19 15:54] VITALS: BP 109/69
--- NOTE | 2017-09-19 16:09 | Physical Therapy Daily Note ---
PT Daily Note-Current Subjective Patient in bed pre tx, agrees to PT, has no complaints of pain. Patient had low hemoglobin and is getting blood currently, will perform bed exercises. Appearance Patient in bed post tx with nurse call, phone, tray, all needs met. Mental Status Patient Orientation: Person, Place, Situation Attachments: Suprapubic Catheter, IV Transfers Functional [place] Measure 0=Not Assessed/NA 4=Minimal Assistance 1=Total Assistance 5=Supervision or Setup 2=Maximal Assistance 6=Modified [place] 3=Moderate Assistance 7=Complete IndependenceIRFPAI Quality Coding Scale 6 Independent with activity with or without an assistive device 5 Patient requires set up or clean up by helper. Patient completes activity by themselves 4 Supervision or touching assist (CGA). [place] provide cues , steadying assist 3 The helper provides less than half the effort to complete the activity 2 The helper provides more than half the effort to complete the activity 1 Dependent. The helper does all the effort to complete an activity 7 Patient refused to complete or attempt activity 9 The patient did not perform the activity before the current illness or injury 88 Not attempted due to Medical conditions or safety concerns Weight Bearing Right Lower Extremity: Right Full Weight Bearing Left Lower Extremity: Left Full Weight Bearing Exercises Supine Ex: Ankle pumps, Quad Set, Glut sets, Heel Slides, Short Arc Quads, Straight leg raise, Hip abd/add Supine Reps: 15 Treatments functional strengthening Assessment patient alycia well, put pillow for heel elevation before leaving PT Assessment Director Goals Shelter Goals PT Assessment Director Goals Time Frame: Sep 19, 2017 Transfers (B,C,W/C) (FIM): 5 Sit to Lying (QC): 4 Lying-Sitting on Side/Bed(QC): 4 Sit to Stand (QC): 4 Rollin Chair/[id number]-[id number] Xfer(QC): 4 Does the Patient Walk: Yes Gait (FIM): 1 Gait distance (FIM): 1=up to 49 ft (25') Distance: 25' Walk 50ft with 2 Turns (QC): 9 Walk 150 ft (QC): 9 Gait Level of Assist: 5 Gait Assistive Device: FWW PT Plan Problem List Problem List: Activity Tolerance, Functional Strength, Safety, Balance, Gait, Transfer, Bed Mobility, ROM Treatment/Plan Treatment Plan: Continue Plan of Care Treatment Plan: Bed Mobility, Education, Functional Activity Emily, Functional Strength, Gait, Safety, Therapeutic Exercise, Transfers Treatment Duration: Sep 19, 2017 Frequency: 6 times per week Estimated Hrs Per Day: .25 hour per day Patient and/or Family Agrees t: Yes Safety Risks/Education Patient Education: Correct Positioning, Safety Issues Teaching Recipient: Patient Teaching Methods: Demonstration, Discussion Response to Teaching: Reinforcement Needed Time/GCodes Time In: 1440 Time Out: 1455 Total Billed Treatment Time: 15 Total Billed Treatment 1 visit EX 15' MAURICIO HYATT PT Sep 19, 2017 16:09
[2017-09-19 16:17] VITALS: BP 109/69
[2017-09-20] VITALS: BP 121/62
[2017-09-20] MEDS: metroNIDAZOLE 500MG/100ML IVPB 100 ML IV SCH ×3 (00:48→17:46)
[2017-09-20] MEDS: NS IV 1000 ML 1,000 ML IV SCH ×2 (00:48→16:16)
[2017-09-20] MEDS: RT-ALBUTEROL/IPRATROPIUM 3 ML (DUONEB) VIAL IH SCH ×4 (02:59→19:10)
[2017-09-20] MEDS: LACTOBACILLUS Acidoph/Bulgar (LACTINEX/FLORANEX) TAB PO SCH ×3 (05:51→16:13)
[2017-09-20] MEDS: NYSTATIN ORAL SUSP 5 ML UDC PO SCH ×4 (05:51→23:50)
[2017-09-20] MEDS: LEVOTHYROXINE 100 MCG (LEVOTHROID) TAB PO SCH (05:51)
[2017-09-20 06:03] LABS: MEAN PLATELET VOLUME 9.6 FL (7.4-10.4); RED BLOOD COUNT 2.91 10^6/uL (4.35-5.85); RED CELL DISTRIBUTION WIDTH 19.8 % (10.0-14.5)
[2017-09-20 06:22] LABS: ALANINE AMINOTRANSFERASE 6 U/L (0-55); ALBUMIN 2.3 GM/DL (3.2-4.5); ANION GAP 7 MMOL/L (5-14); ASPARTATE AMINO TRANSFERASE 18 U/L (5-34); BILIRUBIN,TOTAL 0.4 MG/DL (0.1-1.0); BLOOD UREA NITROGEN 10 MG/DL (7-18); BUN/CREATININE RATIO 20; CARBON DIOXIDE 31 MMOL/L (21-32); CHLORIDE 104 MMOL/L (98-107); CREATININE SERUM 0.51 MG/DL (0.60-1.30); GFR ESTIMATED > 60; GLUCOSE 72 MG/DL (70-105); MAGNESIUM 1.1 MG/DL (1.8-2.4); POTASSIUM 3.2 MMOL/L (3.6-5.0); SODIUM 142 MMOL/L (135-145); TOTAL PROTEIN 4.4 GM/DL (6.4-8.2)
[2017-09-20 06:26] LABS: CALCIUM 5.9 MG/DL (8.5-10.1)
[2017-09-20 08:00] VITALS: BP 151/71
[2017-09-20] MEDS: PANTOPRAZOLE 40 MG (PROTONIX) TAB PO SCH (08:01)
[2017-09-20] MEDS: CARVEDILOL 12.5 MG (COREG) TABLET PO SCH ×2 (08:01→20:20)
[2017-09-20] MEDS: amLODIPine 5 MG (NORVASC) TAB PO SCH ×2 (08:02→20:20)
[2017-09-20] MEDS: VENlafaxine XR 75 MG (EFFEXOR XR) CAP PO SCH ×2 (08:02→20:20)
[2017-09-20] MEDS: fluCOnazole (DIFLUCAN) 100 MG TAB PO SCH (08:02)
[2017-09-20] MEDS: ALLOPURINOL 300 MG (ZYLOPRIM) TAB PO SCH (08:03)
[2017-09-20] MEDS: MENTHOL/ZINC OXIDE (CALMOSEPTINE) 113 GM TUBE TOP SCH ×2 (08:04→20:20)
[2017-09-20] MEDS: TBO-FILGRASTIM 480 MCG/0.8 ML (GRANIX) SQ SCH (08:47)
--- NOTE | 2017-09-20 10:22 | Physical Therapy Daily Note ---
PT Daily Note-Current Subjective Patient in bed pre tx, agrees to PT, no complaints of pain. Appearance Patient in recliner post tx with nurse call, phone, tray, chair alarm on, all needs met. Mental Status Patient Orientation: Person, Place, Situation Attachments: Oxygen, Suprapubic Catheter, IV Transfers Functional [place] Measure 0=Not Assessed/NA 4=Minimal Assistance 1=Total Assistance 5=Supervision or Setup 2=Maximal Assistance 6=Modified [place] 3=Moderate Assistance 7=Complete IndependenceIRFPAI Quality Coding Scale 6 Independent with activity with or without an assistive device 5 Patient requires set up or clean up by helper. Patient completes activity by themselves 4 Supervision or touching assist (CGA). [place] provide cues , steadying assist 3 The helper provides less than half the effort to complete the activity 2 The helper provides more than half the effort to complete the activity 1 Dependent. The helper does all the effort to complete an activity 7 Patient refused to complete or attempt activity 9 The patient did not perform the activity before the current illness or injury 88 Not attempted due to Medical conditions or safety concerns Transfers (B, C, W/C) (FIM): 4 Scootin Supine to/from Sit: 5 Sit to/from Stand: 4 Bed to/from Chair: 4 CGA for sit to stand and stand pivot Weight Bearing Right Lower Extremity: Right Full Weight Bearing Left Lower Extremity: Left Full Weight Bearing Gait Training Gait (FIM): 1 Distance: 5' Gait Level of Assist: 4 Gait Persons Needed: 1 Gait Assistive Device: FWW no LOB, cues for direction Exercises Seated Therapy Exercises: Ankle pumps, Long arc quads, Hip flexion Seated Reps: 20 Treatments bed mobility and transfers, ambulation, functional strengthening Assessment Current Status: Fair Progress improving transfers PT Ceiling Installer Goals Skilled Nursing Goals PT Ceiling Installer Goals Time Frame: Sep 19, 2017 Transfers (B,C,W/C) (FIM): 5 Sit to Lying (QC): 4 Lying-Sitting on Side/Bed(QC): 4 Sit to Stand (QC): 4 Rollin Chair/Lxy-ns-Qzsif Xfer(QC): 4 Does the Patient Walk: Yes Gait (FIM): 1 Gait distance (FIM): 1=up to 49 ft (25') Distance: 25' Walk 50ft with 2 Turns (QC): 9 Walk 150 ft (QC): 9 Gait Level of Assist: 5 Gait Assistive Device: FWW PT Plan Problem List Problem List: Activity Tolerance, Functional Strength, Safety, Balance, Gait, Transfer, Bed Mobility Treatment/Plan Treatment Plan: Continue Plan of Care Treatment Plan: Bed Mobility, Education, Functional Activity Emily, Functional Strength, Gait, Safety, Therapeutic Exercise, Transfers Treatment Duration: Sep 19, 2017 Frequency: 6 times per week Estimated Hrs Per Day: .25 hour per day Patient and/or Family Agrees t: Yes Safety Risks/Education Patient Education: Gait Training, Transfer Techniques, Correct Positioning, Safety Issues Teaching Recipient: Patient Teaching Methods: Demonstration, Discussion Response to Teaching: Reinforcement Needed Time/GCodes Time In: 1005 Time Out: 1020 Total Billed Treatment Time: 15 Total Billed Treatment 1 visit FA MAURICIO SHEA PT Sep 20, 2017 10:22
[2017-09-20] MEDS: RT-ADVAIR HFA 115/21 MCG PER PUFF IH SCH (10:28)
[2017-09-20] MEDS ORDERED: MAGNESIUM 1 GM/100 ML IVPB 100 ML IV ONE (11:00)
--- NOTE | 2017-09-20 11:09 | Progress Note-Hospitalist ---
Subjective HPI/CC On Admission Date Seen by Provider: Sep 20, 2017 Time Seen by Provider: 08:30 Subjective/Events-last exam Mrs. Del Castillo reports feeling much better today. She denies abdominal pain and cramping or diarrhea and her appetite is improving. She also extremity cramping and reports no problems with cramping in her hand when her blood pressure is being taken. She's had no chills or fever and reports her energy level is improved. She denies chest pain or shortness of breath she denies oral pain with eating. Objective Exam Vital Signs Vital Sign - Last 12Hours 09/14/17 00:00 Temp 99.1 Pulse 90 Resp 18 B/P (MAP) 156/80 Pulse Ox 96 O2 Delivery High Flow N/C O2 Flow Rate 5.00 Capillary Refill : Less Than 3 Seconds General Appearance: No Apparent Distress, Chronically ill Respiratory: Chest Non Tender, Lungs Clear, Normal Breath Sounds, No Accessory Muscle Use, No Respiratory Distress Cardiovascular: Regular Rate, Rhythm, No Gallop, No JVD, Systolic Murmur ( harsh 3/6 systolic ejection murmur) Gastrointestinal: Normal Bowel Sounds, Non Tender, Soft Extremity: Pedal Edema (1-2+ upper and lower extremity edema) Results/Procedures Lab Laboratory Tests 09/19/17 17:04 09/20/17 05:48 Assessment/Plan Assessment and Plan Assess & Plan/Chief Complaint 1. Lymphoma status post first round of CHOP with tumor lysis syndrome improving. 2. Neutropenia and anemia secondary to number 1. 3. Hypercalcemia resolved patient now hypocalcemic aggravated by malnutrition. Will obtain an ionized calcium level and hold replacement as long as the patient remains asymptomatic deferring to oncology. 4. Worsening hypomagnesemia we will replace 1 g IV now. 5. C. difficile colitis currently diarrhea resolved continue IV metronidazole. 6. Thrush significantly improved on Diflucan continue. JEAN PAUL VASQUES MD Sep 20, 2017 11:09
--- NOTE | 2017-09-20 11:34 | Progress Note-Standard ---
Standard Progress Note Progress Notes/Assess & Plan Date Seen by Provider: Sep 20, 2017 Time Seen by Provider: 11:30 Progress/Assessment & Plan 67-year-old female with recurrent hypercalcemia caused by diffuse large B cell non-Hodgkin's lymphoma non germinal center type. 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 Status post chemotherapy which is CHOP plus Rituxan regimen on 09/11/2017 with tumor lysis syndrome which has responded to rasburicase. Patient did not receive Rituxan or prednisone. She also did not receive the growth factors. She looks better clinically and is feeling better also. Eating better as appetite is improving. Diarrhea resolved. Physical examination showed an elderly female, awake and answering questions fairly. No JVD. Lungs fairly clear without wheezes or rales. Extremities with no edema. Laboratory Tests 09/19/17 17:04 09/20/17 05:48 A/P: 1. Diffuse large B cell non-Hodgkin's lymphoma, stage IV with involvement of kidney. Triple hit with BCL-2, BCL 6 and C MYC positivity. 2. Hypercalcemia due to above. this has normalized now after chemotherapy and continue to monitor. 3. Status post chemotherapy with CHOPR regimen on 09/11/2017 with tumor lysis syndrome. Status post rasburicase administration with resolution. 4. Neutropenia grade 3-4 secondary to chemotherapy. Her risk of febrile neutropenia is significant. Started on G-CSF 480 g subcutaneous daily and we will continue until ANC more than 10,000. 5. Anemia, most likely due to GI bleeding and chemotherapy, status post PRBC transfusion. Monitor. 6. Diarrhea, due to C. difficile colitis. Patient started on Flagyl and probiotics, improving. Continue to monitor. 7. Hypomagnesemia and hypokalemia, probably due to diarrhea. Magnesium being replaced today. Monitor. 8. Deconditioning. Continue physical therapy and strengthening exercises. May d/c to [facility] when stable from medical stand point. DYLAN CRAWFORD Sep 20, 2017 11:34
[2017-09-20] MEDS: ACETAMINOPHEN 325 MG TABLET/CAPLET (TYLENOL) PO PRN (16:14)
[2017-09-20 16:26] VITALS: BP 118/69
[2017-09-20] MEDS: ADVAIR HFA 115/21 MCG INHALER 8 GM IH SCH (19:10)
[2017-09-20 23:15] VITALS: BP 136/73
[2017-09-21] MEDS: metroNIDAZOLE 500MG/100ML IVPB 100 ML IV SCH ×3 (00:58→16:51)
[2017-09-21] MEDS: RT-ALBUTEROL/IPRATROPIUM 3 ML (DUONEB) VIAL IH SCH ×4 (03:03→20:36)
[2017-09-21] MEDS: NS IV 1000 ML 1,000 ML IV SCH ×2 (04:44→16:34)
[2017-09-21] MEDS: NYSTATIN ORAL SUSP 5 ML UDC PO SCH ×3 (05:55→17:19)
[2017-09-21] MEDS: LACTOBACILLUS Acidoph/Bulgar (LACTINEX/FLORANEX) TAB PO SCH ×3 (05:55→15:39)
[2017-09-21] MEDS: LEVOTHYROXINE 100 MCG (LEVOTHROID) TAB PO SCH (05:55)
[2017-09-21 06:10] LABS: MEAN PLATELET VOLUME 9.7 FL (7.4-10.4); RED BLOOD COUNT 2.87 10^6/uL (4.35-5.85); RED CELL DISTRIBUTION WIDTH 19.3 % (10.0-14.5)
[2017-09-21 06:20] LABS: WHITE BLOOD COUNT 1.2 10^3/uL (4.3-11.0)
[2017-09-21 06:30] LABS: ALANINE AMINOTRANSFERASE 6 U/L (0-55); ALBUMIN 2.2 GM/DL (3.2-4.5); ANION GAP 9 MMOL/L (5-14); ASPARTATE AMINO TRANSFERASE 15 U/L (5-34); BILIRUBIN,TOTAL 0.3 MG/DL (0.1-1.0); BLOOD UREA NITROGEN 8 MG/DL (7-18); BUN/CREATININE RATIO 17; CARBON DIOXIDE 29 MMOL/L (21-32); CHLORIDE 104 MMOL/L (98-107); CREATININE SERUM 0.48 MG/DL (0.60-1.30); GFR ESTIMATED > 60; GLUCOSE 67 MG/DL (70-105); MAGNESIUM 1.1 MG/DL (1.8-2.4); POTASSIUM 3.1 MMOL/L (3.6-5.0); SODIUM 142 MMOL/L (135-145); TOTAL PROTEIN 4.3 GM/DL (6.4-8.2)
[2017-09-21 06:34] LABS: CALCIUM 5.7 MG/DL (8.5-10.1)
[2017-09-21 08:26] VITALS: BP 126/76
[2017-09-21] MEDS: PANTOPRAZOLE 40 MG (PROTONIX) TAB PO SCH (08:38)
[2017-09-21] MEDS: MICONAZOLE 2% POWDER (DESENEX AF) 90 GM TOP SCH ×2 (08:38→21:15)
[2017-09-21] MEDS: CARVEDILOL 12.5 MG (COREG) TABLET PO SCH ×2 (08:38→21:15)
[2017-09-21] MEDS: amLODIPine 5 MG (NORVASC) TAB PO SCH ×2 (08:38→21:12)
[2017-09-21] MEDS: ALLOPURINOL 300 MG (ZYLOPRIM) TAB PO SCH (08:38)
[2017-09-21] MEDS: fluCOnazole (DIFLUCAN) 100 MG TAB PO SCH (08:38)
[2017-09-21] MEDS: VENlafaxine XR 75 MG (EFFEXOR XR) CAP PO SCH ×2 (08:38→21:12)
[2017-09-21] MEDS: TBO-FILGRASTIM 480 MCG/0.8 ML (GRANIX) SQ SCH (08:39)
[2017-09-21] MEDS: MENTHOL/ZINC OXIDE (CALMOSEPTINE) 113 GM TUBE TOP SCH ×2 (08:39→21:14)
[2017-09-21] MEDS: ADVAIR HFA 115/21 MCG INHALER 8 GM IH SCH ×2 (10:00→20:37)
--- NOTE | 2017-09-21 13:04 | Progress Note-Hospitalist ---
Subjective HPI/CC On Admission Date Seen by Provider: Sep 21, 2017 Time Seen by Provider: 12:30 Mrs. Del Castillo voices no complaints today. She denies chills fever abdominal pain or diarrhea. It's been 36 hours since her last bowel movement. She reports her appetite is improving as is her energy level. Objective Exam Vital Signs Vital Sign - Last 12Hours 09/15/17 00:22 Temp 99.8 Pulse 84 Resp 14 B/P (MAP) 122/58 Pulse Ox 96 O2 Delivery Nasal Cannula O2 Flow Rate 3.50 Capillary Refill : Less Than 3 Seconds General Appearance: No Apparent Distress, Chronically ill Respiratory: Chest Non Tender, Lungs Clear, Normal Breath Sounds, No Accessory Muscle Use, No Respiratory Distress Cardiovascular: Regular Rate, Rhythm, No Edema, No Gallop, Systolic Murmur (3/ 6 unchanged) Gastrointestinal: Normal Bowel Sounds, No Organomegaly, No Pulsatile Mass, Non Tender, Soft Results/Procedures Lab Laboratory Tests 09/21/17 05:48 Assessment/Plan Assessment and Plan Assess & Plan/Chief Complaint 1. Lymphoma status post first round of CHOP with tumor lysis syndrome resolved. 2. Neutropenia and anemia secondary to number 1 on Neupogen white count up slightly to 1.2. 3. Hypercalcemia resolved patient now hypocalcemic aggravated by malnutrition. Will obtain an ionized calcium level and hold replacement as long as the patient remains asymptomatic deferring to oncology. 4. hypokalemia and hypomagnesemia we'll give another 2 g IV dose of mag sulfate and increase potassium oral replacement.. 5. C. difficile colitis currently diarrhea resolved continue IV metronidazole. 6. Thrush significantly improved on Diflucan continue. JEAN PAUL VASQUES MD Sep 21, 2017 13:04
[2017-09-21] MEDS: MAGNESIUM 1 GM/100 ML IVPB 100 ML IV SCH ×4 (13:45→14:42)
[2017-09-21] MEDS: POTASSIUM CL 10MEQ/50ML IVPB 50 ML IV SCH ×3 (13:46→15:39)
[2017-09-21 20:24] LABS: CALCIUM IONIZED 0.79 mmol/L (1.16-1.32); CORRECTED IONIZED CALCIUM 0.8 mmol/L (1.16-1.32)
[2017-09-21 21:09] VITALS: BP 147/82
[2017-09-21] MEDS ORDERED: ONDANSETRON 4 MG/2 ML (SDV) Z0FRAN IVP PRN (21:15)
[2017-09-21] MEDS: ACETAMINOPHEN 325 MG TABLET/CAPLET (TYLENOL) PO PRN (21:17)
[2017-09-22] MEDS: metroNIDAZOLE 500MG/100ML IVPB 100 ML IV SCH ×3 (00:21→17:01)
[2017-09-22] MEDS: NS IV 1000 ML 1,000 ML IV SCH ×2 (00:21→15:45)
[2017-09-22] MEDS: NYSTATIN ORAL SUSP 5 ML UDC PO SCH ×5 (00:21→23:47)
[2017-09-22 00:29] VITALS: BP 119/73
[2017-09-22] MEDS: RT-ALBUTEROL/IPRATROPIUM 3 ML (DUONEB) VIAL IH SCH ×4 (03:37→20:00)
[2017-09-22] MEDS: LEVOTHYROXINE 100 MCG (LEVOTHROID) TAB PO SCH (06:15)
[2017-09-22] MEDS: LACTOBACILLUS Acidoph/Bulgar (LACTINEX/FLORANEX) TAB PO SCH ×3 (06:15→17:00)
[2017-09-22 06:32] LABS: BASOPHILS % (AUTO) 1 % (0-10); EOSINOPHILS # (AUTO) 0.2 10^3/uL (0.0-0.3); EOSINOPHILS % (AUTO) 5 % (0-10); LYMPHOCYTES # (AUTO) 0.5 X 10^3 (1.0-4.0); LYMPHOCYTES % (AUTO) 11 % (12-44); MEAN CORPUSCULAR HEMOGLOBIN 31 PG (25-34); MEAN CORPUSCULAR HGB CONC 32 G/DL (32-36); MEAN CORPUSCULAR VOLUME 96 FL (80-99); MEAN PLATELET VOLUME 9.5 FL (7.4-10.4); MONOCYTES # (AUTO) 0.6 X 10^3 (0.0-1.0); MONOCYTES % (AUTO) 14 % (0-12); NEUTROPHILS # (AUTO) 2.9 X 10^3 (1.8-7.8); NEUTROPHILS % (AUTO) 69 % (42-75); PLATELET COUNT 187 10^3/uL (130-400); RED BLOOD COUNT 2.79 10^6/uL (4.35-5.85); RED CELL DISTRIBUTION WIDTH 18.9 % (10.0-14.5); WHITE BLOOD COUNT 4.2 10^3/uL (4.3-11.0)
[2017-09-22 06:51] LABS: ALANINE AMINOTRANSFERASE 7 U/L (0-55); ALBUMIN 2.2 GM/DL (3.2-4.5); ANION GAP 6 MMOL/L (5-14); ASPARTATE AMINO TRANSFERASE 21 U/L (5-34); BILIRUBIN,TOTAL 0.2 MG/DL (0.1-1.0); BLOOD UREA NITROGEN 11 MG/DL (7-18); BUN/CREATININE RATIO 21; CARBON DIOXIDE 30 MMOL/L (21-32); CHLORIDE 105 MMOL/L (98-107); CREATININE SERUM 0.52 MG/DL (0.60-1.30); GFR ESTIMATED > 60; GLUCOSE 82 MG/DL (70-105); MAGNESIUM 1.4 MG/DL (1.8-2.4); POTASSIUM 3.5 MMOL/L (3.6-5.0); SODIUM 141 MMOL/L (135-145); TOTAL PROTEIN 4.2 GM/DL (6.4-8.2)
[2017-09-22 06:54] LABS: CALCIUM 5.8 MG/DL (8.5-10.1)
[2017-09-22] MEDS: ADVAIR HFA 115/21 MCG INHALER 8 GM IH SCH ×2 (07:48→20:02)
[2017-09-22 08:16] LABS: CALCIUM PH 7.44
[2017-09-22] MEDS: TBO-FILGRASTIM 480 MCG/0.8 ML (GRANIX) SQ SCH (08:27)
[2017-09-22] MEDS: ALLOPURINOL 300 MG (ZYLOPRIM) TAB PO SCH (08:28)
[2017-09-22] MEDS: fluCOnazole (DIFLUCAN) 100 MG TAB PO SCH (08:28)
[2017-09-22] MEDS: CARVEDILOL 12.5 MG (COREG) TABLET PO SCH ×2 (08:28→20:53)
[2017-09-22] MEDS: PANTOPRAZOLE 40 MG (PROTONIX) TAB PO SCH (08:28)
[2017-09-22] MEDS: amLODIPine 5 MG (NORVASC) TAB PO SCH ×2 (08:28→20:53)
[2017-09-22] MEDS: VENlafaxine XR 75 MG (EFFEXOR XR) CAP PO SCH ×2 (08:28→20:53)
[2017-09-22] MEDS: ACETAMINOPHEN 325 MG TABLET/CAPLET (TYLENOL) PO PRN (08:29)
[2017-09-22] MEDS: MICONAZOLE 2% POWDER (DESENEX AF) 90 GM TOP SCH ×2 (08:29→20:46)
[2017-09-22] MEDS: MENTHOL/ZINC OXIDE (CALMOSEPTINE) 113 GM TUBE TOP SCH ×2 (08:30→20:46)
[2017-09-22] MEDS ORDERED: CALCIUM CARBONATE 600 MG (CALCARB) TAB PO NR (08:49)
--- NOTE | 2017-09-22 09:45 | Progress Note (SOAP) ---
Objective Exam Vital Signs Date Time Temp Pulse Resp B/P (MAP) Pulse Ox O2 Delivery O2 Flow Rate FiO2 09/22/17 07:53 96 Nasal Cannula 3.00 09/22/17 07:48 96 Nasal Cannula 3.00 09/22/17 03:37 93 Nasal Cannula 3.00 09/22/17 00:29 98.5 83 16 119/73 92 Nasal Cannula 3.00 09/21/17 21:47 99.4 09/21/17 21:17 101.7 09/21/17 21:09 101.7 98 18 147/82 Nasal Cannula 3.00 09/21/17 20:42 94 Nasal Cannula 3.00 09/21/17 20:37 93 Nasal Cannula 3.00 09/21/17 20:20 Nasal Cannula 3.00 09/21/17 16:43 99.3 09/21/17 15:14 95 Nasal Cannula 3.00 09/21/17 12:32 98.7 Capillary Refill : Less Than 3 Seconds Results Lab Laboratory Tests 09/22/17 06:23: White Blood Count 4.2L, Red Blood Count 2.79L, Hemoglobin 8.5L, Hematocrit 27L, Mean Corpuscular Volume 96, Mean Corpuscular Hemoglobin 31, Mean Corpuscular Hemoglobin Concent 32, Red Cell Distribution Width 18.9H, Platelet Count 187, Mean Platelet Volume 9.5, Neutrophils (%) (Auto) 69, Lymphocytes (%) (Auto) 11L , Monocytes (%) (Auto) 14H, Eosinophils (%) (Auto) 5, Basophils (%) (Auto) 1, Neutrophils # (Auto) 2.9, Lymphocytes # (Auto) 0.5L, Monocytes # (Auto) 0.6, Eosinophils # (Auto) 0.2, Basophils # (Auto) 0.0, Sodium Level 141, Potassium Level 3.5L, Chloride Level 105, Carbon Dioxide Level 30, Anion Gap 6, Blood Urea Nitrogen 11, Creatinine 0.52L, Estimat Glomerular Filtration Rate > 60, BUN /Creatinine Ratio 21, Glucose Level 82, Calcium Level 5.8*L, Magnesium Level 1.4L, Total Bilirubin 0.2, Aspartate Amino Transf (AST/SGOT) 21, Alanine Aminotransferase (ALT/SGPT) 7, Alkaline Phosphatase 161H, Total Protein 4.2L, Albumin 2.2L Microbiology 09/18/17 C. difficile DNA Amplification - Final, Complete 09/18/17 C. difficile GDH Antigen & Toxins - Final, Complete Assessment/Plan Assessment/Plan Assess & Plan/Chief Complaint HYPERCALCEMIA CONFUSION LYMPHOMA HYPOTHYROID HX OF PULMONARY EMBOLISM CHRONIC ANTICOAGULATION EDEMA HYPOMAGNESEMIA HYPERKALEMIA ANEMIA THROMBOCYTOPENIA LEUKOPENIA ANEMIA - HGB DROPPED TO 7.9 THIS MORNING - TRANSFUSION OF 1 UNITS PLANNED FOR TODAY. - CHECK LABS IN MORNING . HYPERCALCEMIA - CALCIUM LEVEL IMPROVED - CONTINUE TO MONITOR LABS. PT HAS SERIAL LABS SCHEDULED. CONFUSION - WORSENING - SUSPECT DUE TO HER ANEMIA - MONITOR SYMPTOMS CLOSELY - SUPPORTIVE CARE. LYMPHOMA - CONSULT TO DR. CRAWFORD - WE DISCUSSED HER DIAGNOSIS -FINAL PATHOLOGY REVEALED DIFFUSE LARGE B CELL LYMPHOMA WITH HIGH PROLIFERATIVE RATE - NON- GERMINAL CENTER OF B CELL ORIGIN. PT TO STARTED CHEMOTHERAPY. - PER DR. CRAWFORD - TREATMENT FOLLOWS: RITUXAN AND CHOP R REGIMEN --HOWEVER PT WAS TOO WEAK FOR RITUXAN - HYPOTHYROID - RESUMED HOME MEDICATION HYPOMAGNESEMIA - MONITOR SERIAL MAGNESIUM LEVELS. HYPERKALEMIA - RESOLVED. HX OF PULMONARY EMBOLISM WITH CHRONIC ANTICOAGULATION - DVT PROPHYLAXIS WITH XARELTO (CURRENTLY ON HOLD) AND SCD'S GI PROPHYLAXIS WILL BE WITH PROTONIX. I HAVE DISCUSSED WITH HER DPOA - PT MADE DNR/DNI - PLAN IS FOLLOWS: IF PT HAS IMPROVEMENT IN HER SYMPTOMS WITH CHEMOTHERAPY - UPON DISCHARGE, DANIELA WILL GO TO [facility] AND POSSIBLY GO TO ASSISTED LIVING AFTER IMPROVED STRENGTHENING AT [facility]ARE HOME. Clinical Quality Measures DVT/VTE Risk/Contraindication: Risk Factor Score Per Nursin SAM CINTRON MD Sep 22, 2017 09:45
--- NOTE | 2017-09-22 10:44 | Physical Therapy Daily Note ---
PT Daily Note-Current Subjective Patient sitting in bed and agrees to PT. Patient c/o right LE "tingling". Pain Numeric Pain Scale: 0-No Pain Location: No Pain Reported Mental Status Patient Orientation: Normal For Age Attachments: Oxygen, Chapin Catheter, IV Transfers Functional [place] Measure 0=Not Assessed/NA 4=Minimal Assistance 1=Total Assistance 5=Supervision or Setup 2=Maximal Assistance 6=Modified [place] 3=Moderate Assistance 7=Complete IndependenceIRFPAI Quality Coding Scale 6 Independent with activity with or without an assistive device 5 Patient requires set up or clean up by helper. Patient completes activity by themselves 4 Supervision or touching assist (CGA). [place] provide cues , steadying assist 3 The helper provides less than half the effort to complete the activity 2 The helper provides more than half the effort to complete the activity 1 Dependent. The helper does all the effort to complete an activity 7 Patient refused to complete or attempt activity 9 The patient did not perform the activity before the current illness or injury 88 Not attempted due to Medical conditions or safety concerns Transfers (B, C, W/C) (FIM): 4 Scootin Supine to/from Sit: 5 Sit to/from Stand: 4 Sit to Lying (QC): 4 Sit to Stand (QC): 3 Chair/Bkj-ux-Gdmsj Xfer(QC): 3 Bed to/from Chair: 4 Weight Bearing Right Lower Extremity: Right Full Weight Bearing Left Lower Extremity: Left Full Weight Bearing Gait Training Does the Patient Walk?: Yes Gait (FIM): 1 Distance (FIM): 1=up to 49 ft Distance: 45' Gait Level of Assist: 4 Gait Persons Needed: 1 Gait Assistive Device: FWW CGA for safety due to c/o right LE tingling and weakness Assessment Patient is incontinent BM and (+) Cdiff, requiring dependent assist to cleanse and change patient's clothing. Patient reports frustration with having to remain in hospital. Family present. RN notified of incontinence of BM. PT Property Maintenance Technician Goals [facility] Goals PT Property Maintenance Technician Goals Time Frame: Oct 10, 2017 Transfers (B,C,W/C) (FIM): 5 Sit to Lying (QC): 4 Lying-Sitting on Side/Bed(QC): 4 Sit to Stand (QC): 4 Rollin Chair/Acq-vk-Qoicz Xfer(QC): 4 Does the Patient Walk: Yes Gait (FIM): 1 Gait distance (FIM): 1=up to 49 ft (25') Distance: 25' Walk 50ft with 2 Turns (QC): 9 Walk 150 ft (QC): 9 Gait Level of Assist: 5 Gait Assistive Device: FWW PT Plan Treatment/Plan Treatment Plan: Continue Plan of Care Treatment Plan: Bed Mobility, Education, Functional Activity Emily, Functional Strength, Gait, Safety, Therapeutic Exercise, Transfers Treatment Duration: Oct 10, 2017 Frequency: 6 times per week Estimated Hrs Per Day: .25 hour per day Patient and/or Family Agrees t: Yes Time/GCodes Time In: 1005 Time Out: 1028 Total Billed Treatment Time: 23 Total Billed Treatment 1 visit GT 8 min FA 15 min ALISON BOBBY PT Sep 22, 2017 10:43
--- NOTE | 2017-09-22 12:47 | Occupational Ther Daily Note ---
OT Current Status-Daily Note Subjective Pt alert, sitting in recliner. Pt appeared down today. Pt did agreed to therapy. No c/o pain. Mental Status/Objective Patient Orientation: Person, Place, Time, Situation Functional [place] Measure 0=Not Assessed/NA 4=Minimal Assistance 1=Total Assistance 5=Supervision or Setup 2=Maximal Assistance 6=Modified [place] 3=Moderate Assistance 7=Complete [place] Attachments: Chapin Catheter, IV, Oxygen ADL-Treatment Pt ambulated to bathroom with FWW and assist from nrsg assistance to monitor all the tubes and IV pole, CGA. Pt transferred into shower with CGA using grabbars and FWW. Pt was able to bathe self using hand held shower, grabbars and shower bench. Assist only with cleansing buttocks. Pt dried self. Pt slipped on shoes and hospital gown. Pt then ambulated back to room, incontinent of bowel as pt was ambulating, and transferred onto bed. Pt was able to lift own feet into bed and position self. After therapy, pt lying in room with visitor present in room. Call light/phone in reach. All needs met in room. Functional [place] Measure 0=Not Assessed/NA 4=Minimal Assistance 1=Total Assistance 5=Supervision or Setup 2=Maximal Assistance 6=Modified [place] 3=Moderate Assistance 7=Complete IndependenceIRFPAI Quality Coding Scale 6 Independent with activity with or without an assistive device 5 Patient requires set up or clean up by helper. Patient completes activity by themselves 4 Supervision or touching assist (CGA). [place] provide cues , steadying assist 3 The helper provides less than half the effort to complete the activity 2 The helper provides more than half the effort to complete the activity 1 Dependent. The helper does all the effort to complete an activity 7 Patient refused to complete or attempt activity 9 The patient did not perform the activity before the current illness or injury 88 Not attempted due to Medical conditions or safety concerns Bathing (FIM): 4 Bathing Location: L Arm, R Arm, L Upper Leg, R Upper Leg, L Lower Leg ( including foot), R Lower Leg (including foot), Chest, Abdomen, Perineal Area Transfers (B, C, W/C) (FIM): 4 Shower Transfer(FIM): 4 OT Short Term Goals Short Term Goals 1=Demonstrate adherence to instructed precautions during ADL tasks. 2=Patient will verbalize/demonstrate understanding of assistive devices/ modifications for ADL. 3=Patient will improve strength/tolerance for activity to enable patient to perform ADL's. OT Aircraft Cleaner Goals Aircraft Cleaner Goals Time Frame: Sep 19, 2017 Eating (FIM): 5 Eating (QC): 5 Groomin Oral Hygiene (QC): 5 Upper Body Dressing(FIM): 5 Lower Body Dressing(FIM): 4 Toileting(FIM): 4 Toileting Hygiene (QC): 4 Toilet/Commode Transfer(FIM): 5 Toilet/Commode Transfer (QC): 4 Additional Goals: 1-Demonstrate ADL Tasks, 2-Verbalize Understanding, 3- ImproveStrength/Emily 1=Demonstrate adherence to instructed precautions during ADL tasks. 2=Patient will verbalize/demonstrate understanding of assistive devices/ modifications for ADL. 3=Patient will improve strength/tolerance for activity to enable patient to perform ADL's. OT Education/Plan Problem List/Assessment Pt demonstrates decreased ADL functioning, strength, mobility, and activity tolerance. Pt to benefit from skilled OT intervention for ADL training, transfers, strengthening, and safety education to improve level of independence and allow safe discharge plan. Discharge Recommendations Plan/Recommendations: Continue POC Treatment Plan/Plan of Care Patient would benefit from OT for education, treatment and training to promote independence in ADL's, mobility, safety and/or upper extremity function for ADL' s. Plan of Care: ADL Retraining, Functional Mobility, UE Funct Exercise/Act Treatment Duration: Sep 19, 2017 Frequency: 5 times per week Estimated Hrs Per Day: .25 hour per day Rehab Potential: Fair Time/GCodes Start Time: 11:15 Stop Time: 11:49 Total Time Billed (hr/min): 34 Billed Treatment Time 1 visit-ADL 2 (34 min) HALIMA KERNS Sep 22, 2017 12:47
--- NOTE | 2017-09-22 16:44 | Progress Note-Standard ---
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 Status post chemotherapy which is CHOP plus Rituxan regimen on 09/11/2017 with tumor lysis syndrome which has responded to rasburicase. Patient did not receive Rituxan or prednisone. She looks better clinically and is feeling better also. Eating better as appetite is improving. Diarrhea resolved. Physical examination showed an elderly female , awake and answering questions fairly. No JVD. Lungs clear without wheezes or rales. Cardio vascular exam was regular in rate and rhythm with a few missed beats. Abdomen soft, nontender with no hepatosplenomegaly or other masses palpable. Extremities with no edema. Laboratory Tests 09/22/17 06:23: White Blood Count 4.2L, Red Blood Count 2.79L, Hemoglobin 8.5L, Hematocrit 27L, Mean Corpuscular Volume 96, Mean Corpuscular Hemoglobin 31, Mean Corpuscular Hemoglobin Concent 32, Red Cell Distribution Width 18.9H, Platelet Count 187, Mean Platelet Volume 9.5, Neutrophils (%) (Auto) 69, Lymphocytes (%) (Auto) 11L , Monocytes (%) (Auto) 14H, Eosinophils (%) (Auto) 5, Basophils (%) (Auto) 1, Neutrophils # (Auto) 2.9, Lymphocytes # (Auto) 0.5L, Monocytes # (Auto) 0.6, Eosinophils # (Auto) 0.2, Basophils # (Auto) 0.0, Sodium Level 141, Potassium Level 3.5L, Chloride Level 105, Carbon Dioxide Level 30, Anion Gap 6, Blood Urea Nitrogen 11, Creatinine 0.52L, Estimat Glomerular Filtration Rate > 60, BUN /Creatinine Ratio 21, Glucose Level 82, Calcium Level 5.8*L, Magnesium Level 1.4L, Total Bilirubin 0.2, Aspartate Amino Transf (AST/SGOT) 21, Alanine Aminotransferase (ALT/SGPT) 7, Alkaline Phosphatase 161H, Total Protein 4.2L, Albumin 2.2L 09/22/17 15:27: Lab Scanned Report Transfusion Reaction Form Microbiology 09/18/17 C. difficile DNA Amplification - Final, Complete 09/18/17 C. difficile GDH Antigen & Toxins - Final, Complete A/P: 1. Diffuse large B cell non-Hodgkin's lymphoma, stage IV with involvement of kidney. Triple hit with BCL-2, BCL 6 and C MYC positivity. 2. Hypercalcemia due to above. this has normalized now after chemotherapy and continue to monitor. 3. Status post chemotherapy with CHOPR regimen on 09/11/2017 with tumor lysis syndrome. Status post rasburicase administration with resolution. 4. Neutropenia grade 3-4 secondary to chemotherapy. Currently on G-CSF with improving WBC count. Continue until ANC more than 10,000 and stop. 5. Anemia, most likely due to GI bleeding and chemotherapy, status post PRBC transfusion. Monitor. 6. Diarrhea, due to C. difficile colitis. Patient is on Flagyl and probiotics , improving. Continue to monitor. 7. Hypomagnesemia and hypokalemia, probably due to diarrhea. Being replaced today. Monitor. 8. Deconditioning. Continue physical therapy and strengthening exercises. May d/c to N/H when stable from medical stand point. 9. Second cycle of chemotherapy will be during second week of October 2017. DYLAN CRAWFORD Sep 22, 2017 16:44
[2017-09-22 18:00] VITALS: BP 105/65
[2017-09-22] MEDS: MAGNESIUM 1 GM/100 ML IVPB 100 ML IV SCH ×3 (18:27→22:13)
[2017-09-22] MEDS: POTASSIUM CL 10MEQ/50ML IVPB 50 ML IV SCH ×2 (18:27→20:02)
[2017-09-22 20:51] VITALS: BP 118/62
[2017-09-23] VITALS: BP 135/78
[2017-09-23] MEDS: metroNIDAZOLE 500MG/100ML IVPB 100 ML IV SCH ×2 (00:18→11:36)
[2017-09-23] MEDS: RT-ALBUTEROL/IPRATROPIUM 3 ML (DUONEB) VIAL IH SCH ×2 (02:21→09:10)
[2017-09-23 06:25] LABS: BASOPHILS % (AUTO) 0 % (0-10); EOSINOPHILS # (AUTO) 0.2 10^3/uL (0.0-0.3); EOSINOPHILS % (AUTO) 2 % (0-10); LYMPHOCYTES # (AUTO) 0.7 X 10^3 (1.0-4.0); LYMPHOCYTES % (AUTO) 6 % (12-44); MEAN CORPUSCULAR HEMOGLOBIN 30 PG (25-34); MEAN CORPUSCULAR HGB CONC 32 G/DL (32-36); MEAN CORPUSCULAR VOLUME 96 FL (80-99); MEAN PLATELET VOLUME 9.8 FL (7.4-10.4); MONOCYTES # (AUTO) 1.1 X 10^3 (0.0-1.0); MONOCYTES % (AUTO) 9 % (0-12); NEUTROPHILS # (AUTO) 9.3 X 10^3 (1.8-7.8); NEUTROPHILS % (AUTO) 83 % (42-75); PLATELET COUNT 228 10^3/uL (130-400); RED CELL DISTRIBUTION WIDTH 18.8 % (10.0-14.5); WHITE BLOOD COUNT 11.2 10^3/uL (4.3-11.0)
[2017-09-23] MEDS: LEVOTHYROXINE 100 MCG (LEVOTHROID) TAB PO SCH (06:28)
[2017-09-23] MEDS: LACTOBACILLUS Acidoph/Bulgar (LACTINEX/FLORANEX) TAB PO SCH ×2 (06:28→11:39)
[2017-09-23] MEDS: NYSTATIN ORAL SUSP 5 ML UDC PO SCH ×2 (06:28→11:37)
[2017-09-23 07:00] LABS: ANION GAP 8 MMOL/L (5-14); BLOOD UREA NITROGEN 10 MG/DL (7-18); BUN/CREATININE RATIO 19; CARBON DIOXIDE 27 MMOL/L (21-32); CHLORIDE 105 MMOL/L (98-107); CREATININE SERUM 0.54 MG/DL (0.60-1.30); GFR ESTIMATED > 60; GLUCOSE 82 MG/DL (70-105); MAGNESIUM 1.5 MG/DL (1.8-2.4); POTASSIUM 3.5 MMOL/L (3.6-5.0); SODIUM 140 MMOL/L (135-145)
[2017-09-23] MEDS ORDERED: CALCIUM CARBONATE 600 MG (CALCARB) TAB PO SCH (07:00)
[2017-09-23 07:01] LABS: CALCIUM 5.7 MG/DL (8.5-10.1)
[2017-09-23 08:00] VITALS: BP 129/70
[2017-09-23] MEDS: ALLOPURINOL 300 MG (ZYLOPRIM) TAB PO SCH (09:00)
[2017-09-23] MEDS ORDERED: METR500T PO (09:03)
[2017-09-23] MEDS ORDERED: MENT71OI TOP (09:03)
[2017-09-23] MEDS ORDERED: ACET325T49 PO (09:03)
[2017-09-23] MEDS ORDERED: FLUC100T6 PO (09:03)
[2017-09-23] MEDS ORDERED: NYST1000 PO (09:03)
[2017-09-23] MEDS ORDERED: AMLO5TAB2 PO (09:03)
[2017-09-23] MEDS ORDERED: RIVA10TA PO (09:03)
[2017-09-23] MEDS ORDERED: ALLO300T2 PO (09:03)
[2017-09-23] MEDS ORDERED: MICO90PO TOP (09:03)
--- NOTE | 2017-09-23 09:06 | Discharge Inst-Skilled Nursing ---
Discharge Inst-Skilled NF Patient Instructions Patient Problems: HYPERCALCEMIA CONFUSION LYMPHOMA HYPOTHYROID HX OF PULMONARY EMBOLISM CHRONIC ANTICOAGULATION EDEMA HYPOMAGNESEMIA HYPERKALEMIA ANEMIA THROMBOCYTOPENIA LEUKOPENIA Consult/Follow Up/Orders Follow Up Appt.: 1 week with bryan keane to call with his office visit appt information Skilled NF Admit to: [facility] ([facility]) I certify that SNF services are required to be given on an inpatient basis because of the above named patient's need for halfway care on a continuing basis for the conditions(s) for which he/she was receiving inpatient hospital services prior to his/her transfer to the [facility]. [facility] Facility Order: Nursing Services, [facility]-Evaluate & Treat, Physical Therapy-Evaluate & Treat, Speech Language-Evaluate & Treat Discharge Diet: Regular Diet Daily Activity as Tolerated: Yes New & Resume Previous Orders New & Resume Previous Orders pt will need to be on contact precautions due to her cdiff - will need repeat cdiff testing in 10 days. Sam Goldberg Sep 23, 2017 09:04 Medication List: Active Scripts Active Xarelto (Rivaroxaban) 10 Mg Tablet 10 Mg PO DAILY 30 Days Flagyl (Metronidazole) 500 Mg Tablet 500 Mg PO TID 5 Days Allopurinol 300 Mg Tablet 300 Mg PO DAILY 30 Days Calmoseptine Ointment (Menthol/Lanolin/Calamine/Znox) 71 Gm Oint 0 Gm TOP BID 30 Days apply to affected skin in brittni area and rectal area/gluteus Lotrimin AF (Miconazole Nitrate) 90 Gm Powder 0 Gm TOP BID 10 Days apply to affected skin bid Acetaminophen 325 Mg Tablet 650 Mg PO Q4H PRN 30 Days Amlodipine Besylate 5 Mg Tablet 5 Mg PO BID 30 Days Nystatin 100,000 Unit/1 Ml Oral.susp 5 Ml PO Q6HR 5 Days Fluconazole 100 Mg Tablet 100 Mg PO DAILY 3 Days Prednisone 20 Mg Tab 20 Mg PO DAILY Take 3 tabs(60mg)daily,decrease by 1/2 tab(10mg)every other day. Floranex Tablet (L. Acidophilus/Bulgaricus) 1 Each Tablet 1 Tab.chew PO DAILY 30 Days Reported [Calazime Oint] TOP BID FOR OTHER SPECIFIED AFTER CARE Breo Ellipta 100-25 Mcg INH (Fluticasone/Vilanterol) 1 Each Blst.w.dev 1 Puff IH DAILY Fosamax (Alendronate Sodium) 70 Mg Tablet 70 Mg PO SA Xarelto (Rivaroxaban) 20 Mg Tablet 20 Mg PO 1800 Aspirin EC (Aspirin) 81 Mg Tablet.dr 81 Mg PO DAILY Fish Oil 1,000 mg Capsule ([place] 3 Polyunsat Fatty Acids) 1,000 Mg Cap 2,000 Mg PO HS take 2 (1,000mg) tabs Iprat-Albut 0.5-3(2.5) mg/3 ml (Ipratropium/Albuterol Sulfate) 3 Ml Ampul.neb 3 Ml IH Q6H Furosemide 20 Mg Tablet 20 Mg PO DAILY Amlodipine Besylate 2.5 Mg Tablet 1.25 Mg PO HS TAKES 1/2 (2.5MG) TABLET Albuterol Sulfate 2.5 Mg/3 Ml Vial.neb 2.5 Mg NEB Q4H PRN Vitamin B-12 (Cyanocobalamin (Vitamin B-12)) 1,000 Mcg Tablet 1,000 Mcg PO DAILY Complete Multi 50+ Tablet (Multivit-Min/FA/Lycopene/Lut) 1 Each Tablet 1 Tab PO DAILY Isosorbide Mononitrate ER (Isosorbide Mononitrate) 30 Mg Tab.er.24h 30 Mg PO BID Levothyroxine Sodium 100 Mcg Tablet 100 Mcg PO DAILY Venlafaxine HCl ER (Venlafaxine HCl) 150 Mg Cap.er.24h 150 Mg PO BID Pantoprazole Sodium 40 Mg Tablet.dr 40 Mg PO DAILY Potassium Chloride 20 Meq Tab.er.prt 20 Meq PO DAILY Carvedilol 25 Mg Tablet 25 Mg PO BID Simvastatin 40 Mg Tablet 40 Mg PO HS Lab results: Laboratory Tests Test 09/22/17 15:27 09/23/17 06:09 Range/Units Lab Scanned Report Transfusion Reaction Form [id number] White Blood Count 11.2 H 4.3-11.0 10^3/uL Red Blood Count 2.80 L 4.35-5.85 10^6/uL Hemoglobin 8.5 L 11.5-16.0 G/DL Hematocrit 27 L 35-52 % Mean Corpuscular Volume 96 80-99 FL Mean Corpuscular Hemoglobin 30 25-34 PG Mean Corpuscular Hemoglobin Concent 32 32-36 G/DL Red Cell Distribution Width 18.8 H 10.0-14.5 % Platelet Count 228 130-400 10^3/uL Mean Platelet Volume 9.8 7.4-10.4 FL Neutrophils (%) (Auto) 83 H 42-75 % Lymphocytes (%) (Auto) 6 L 12-44 % Monocytes (%) (Auto) 9 0-12 % Eosinophils (%) (Auto) 2 0-10 % Basophils (%) (Auto) 0 0-10 % Neutrophils # (Auto) 9.3 H 1.8-7.8 X 10^3 Lymphocytes # (Auto) 0.7 L 1.0-4.0 X 10^3 Monocytes # (Auto) 1.1 H 0.0-1.0 X 10^3 Eosinophils # (Auto) 0.2 0.0-0.3 10^3/uL Basophils # (Auto) 0.0 0.0-0.1 10^3/uL Sodium Level 140 135-145 MMOL/L Potassium Level 3.5 L 3.6-5.0 MMOL/L Chloride Level 105 98-107 MMOL/L Carbon Dioxide Level 27 21-32 MMOL/L Anion Gap 8 5-14 MMOL/L Blood Urea Nitrogen 10 7-18 MG/DL Creatinine 0.54 L 0.60-1.30 MG/DL Estimat Glomerular Filtration Rate > 60 BUN/Creatinine Ratio 19 Glucose Level 82 70-105 MG/DL Calcium Level 5.7 *L 8.5-10.1 MG/DL Magnesium Level 1.5 L 1.8-2.4 MG/DL My orders: Orders - SAM GOLDBERG MD Catheter(Urinary) Discontinue (09/22/17 09:45) Patient Visit (09/21/17 ) Functional Activities, Ea 15 (09/21/17 ) Gait Training, Ea 15 Min (09/21/17 ) Attending Discharge (09/23/17 08:51) SAM GOLDBERG MD Sep 23, 2017 09:06
[2017-09-23] MEDS: ADVAIR HFA 115/21 MCG INHALER 8 GM IH SCH (09:11)
--- NOTE | 2017-09-23 09:11 | Discharge Summary ---
Diagnosis/Chief Complaint Date of Admission Sep 05, 2017 at 11:26 Date of Discharge Discharge Date: Sep 23, 2017 Discharge Time: 1100 Admission Diagnosis Admission Diagnosis HYPERCALCEMIA CONFUSION LYMPHOMA HYPOTHYROID HX OF PULMONARY EMBOLISM CHRONIC ANTICOAGULATION EDEMA HYPOMAGNESEMIA HYPERKALEMIA ANEMIA THROMBOCYTOPENIA LEUKOPENIA Discharge Diagnosis HYPERCALCEMIA CONFUSION LYMPHOMA HYPOTHYROID HX OF PULMONARY EMBOLISM CHRONIC ANTICOAGULATION EDEMA HYPOMAGNESEMIA HYPERKALEMIA ANEMIA THROMBOCYTOPENIA LEUKOPENIA Discharge Summary Discharge Physical Examination Allergies: Coded Allergies: penicillin G (Verified Allergy, Intermediate, Pt has received Cefazolin & Cefepime in the past, 09/05/17) ITCHING AFTER RECEIVING PENICILLIN WHEN SHE WAS 30-35 YEARS OLD meperidine (Verified Allergy, Unknown, 09/05/17) quinine (Verified Allergy, Unknown, 09/05/17) levofloxacin (Verified Adverse Reaction, Intermediate, HIVES, 09/05/17) BURNING AND ITCHING Vitals & I&Os Vital Signs Date Time Temp Pulse Resp B/P (MAP) Pulse Ox O2 Delivery O2 Flow Rate FiO2 09/23/17 02:23 96 Nasal Cannula 3.00 09/23/17 00:00 99.8 89 22 135/78 Hospital Course Pending Labs Laboratory Tests 09/23/17 06:09: White Blood Count 11.2, Red Blood Count 2.80, Hemoglobin 8.5, Hematocrit 27, Mean Corpuscular Volume 96, Mean Corpuscular Hemoglobin 30, Mean Corpuscular Hemoglobin Concent 32, Red Cell Distribution Width 18.8, Platelet Count 228, Mean Platelet Volume 9.8, Neutrophils (%) (Auto) 83, Lymphocytes (%) (Auto) 6, Monocytes (%) (Auto) 9, Eosinophils (%) (Auto) 2, Basophils (%) (Auto) 0, Neutrophils # (Auto) 9.3, Lymphocytes # (Auto) 0.7, Monocytes # (Auto) 1.1, Eosinophils # (Auto) 0.2, Basophils # (Auto) 0.0, Sodium Level 140, Potassium Level 3.5, Chloride Level 105, Carbon Dioxide Level 27, Anion Gap 8, Blood Urea Nitrogen 10, Creatinine 0.54, Estimat Glomerular Filtration Rate > 60, BUN/ Creatinine Ratio 19, Glucose Level 82, Calcium Level 5.7, Magnesium Level 1.5 Discharge Instructions to patient/family Please see electronic discharge instructions given to patient. Discharge Medications Reviewed and agree with Discharge Medication list on patient's Discharge Instruction sheet Clinical Quality Measures DVT/VTE Risk/Contraindication: Risk Factor Score Per Nursin SAM CINTRON MD Sep 23, 2017 09:11
--- NOTE | 2017-09-23 09:15 | Physical Therapy Daily Note ---
PT Daily Note-Current Subjective Patient agrees to PT. Pain Numeric Pain Scale: 0-No Pain Location: No Pain Reported Mental Status Patient Orientation: Normal For Age Attachments: Oxygen, IV Transfers Functional Divide Measure 0=Not Assessed/NA 4=Minimal Assistance 1=Total Assistance 5=Supervision or Setup 2=Maximal Assistance 6=Modified Divide 3=Moderate Assistance 7=Complete IndependenceIRFPAI Quality Coding Scale 6 Independent with activity with or without an assistive device 5 Patient requires set up or clean up by helper. Patient completes activity by themselves 4 Supervision or touching assist (CGA). [place] provide cues , steadying assist 3 The helper provides less than half the effort to complete the activity 2 The helper provides more than half the effort to complete the activity 1 Dependent. The helper does all the effort to complete an activity 7 Patient refused to complete or attempt activity 9 The patient did not perform the activity before the current illness or injury 88 Not attempted due to Medical conditions or safety concerns Transfers (B, C, W/C) (FIM): 5 Scootin Roll Left to Right (QC): 5 Supine to/from Sit: 5 Sit to/from Stand: 5 Sit to Lying (QC): 5 Sit to Stand (QC): 5 Chair/Jwj-cv-Nmguu Xfer(QC): 5 Bed to/from Chair: 5 Weight Bearing Right Lower Extremity: Right Full Weight Bearing Left Lower Extremity: Left Full Weight Bearing Gait Training Does the Patient Walk?: Yes Gait (FIM): 2 Distance (FIM): 9=125-63 ft Distance: 75' x 2 Walk 50 ft with 2 Turns(QC): 5 Gait Level of Assist: 5 Gait Assistive Device: FWW increase SOA with minimal activity with O2 in place. Functional gait sequence. Exercises Seated Therapy Exercises: Ankle pumps, Long arc quads, Hip flexion Seated Reps: 25 (x 2 sets) Assessment Patient will transfer to [place] on this date for continued care. Patient is currently at a [facility] with all gross motor skills. PT will continue at [place]. PT Skilled Nursing Goals Locomotive Mechanic Goals PT Locomotive Mechanic Goals Time Frame: Oct 10, 2017 Transfers (B,C,W/C) (FIM): 5 (met 09/23/17) Sit to Lying (QC): 4 (met 09/23/17) Lying-Sitting on Side/Bed(QC): 4 (met 09/23/17) Sit to Stand (QC): 4 (met 09/23/17) Rollin (met 09/23/17) Chair/Vsm-bi-Jinci Xfer(QC): 4 (met 09/23/17) Does the Patient Walk: Yes Gait (FIM): 1 (met 09/23/17) Gait distance (FIM): 1=up to 49 ft (25') Distance: 25' Walk 50ft with 2 Turns (QC): 9 Walk 150 ft (QC): 9 Gait Level of Assist: 5 (met 09/23/17) Gait Assistive Device: FWW PT Plan Treatment/Plan Treatment Plan: Discontinue PT, goals met Treatment Plan: Bed Mobility, Education, Functional Activity Emily, Functional Strength, Gait, Safety, Therapeutic Exercise, Transfers Treatment Duration: Oct 10, 2017 Frequency: 6 times per week Estimated Hrs Per Day: .25 hour per day Patient and/or Family Agrees t: Yes Discharge Recommendations Therapy D/C Recommendations: Intermediate Placement, [facility] ([facility]U/[facility]) Time/GCodes Time In: 851 Time Out: 907 Total Billed Treatment Time: 16 Total Billed Treatment 1 visit FA 16 min ALISON BOBBY PT Sep 23, 2017 09:15
--- NOTE | 2017-09-23 09:17 | Therapy Team Discharge Summary ---
Therapy Discharge Summary Discharge Recommendations Date of Discharge Therapy D/C Recommendations: [facility] Placement, [facility] ([facility]) Physical Therapy Patient will transfer to [place] on this date for continued care. Patient has attained all functional PT goals and will continue to receive skilled PT as tolerated by patient. Patient is currently at a [facility] LOF with all gross motor skills. Occupational Therapy Decreased Activ Tolerance, Decreased Safety Aware, Decreased UE Strength, Dependent Transfers, Impaired Self-Care Skills PT Bias Machine Operator Goals [facility] Goals PT Bias Machine Operator Goals Time Frame: Oct 10, 2017 Transfers (B,C,W/C) (FIM): 5 (met 09/23/17) Sit to Lying (QC): 4 (met 09/23/17) Lying-Sitting on Side/Bed(QC): 4 (met 09/23/17) Sit to Stand (QC): 4 (met 09/23/17) Rollin (met 09/23/17) Chair/Ori-am-Vites Xfer(QC): 4 (met 09/23/17) Does the Patient Walk: Yes Gait (FIM): 1 (met 09/23/17) Gait distance (FIM): 1=up to 49 ft (25') Distance: 25' Walk 50ft with 2 Turns (QC): 9 Walk 150 ft (QC): 9 Gait Level of Assist: 5 (met 09/23/17) Gait Assistive Device: FWW OT Bias Machine Operator Goals [facility] Goals Time Frame: Sep 19, 2017 Eating (FIM): 5 Eating (QC): 5 Groomin Oral Hygiene (QC): 5 Upper Body Dressing(FIM): 5 Lower Body Dressing(FIM): 4 Toileting(FIM): 4 Toileting Hygiene (QC): 4 Toilet/Commode Transfer(FIM): 5 Toilet/Commode Transfer (QC): 4 Additional Goals: 1-Demonstrate ADL Tasks, 2-Verbalize Understanding, 3- ImproveStrength/Emily 1=Demonstrate adherence to instructed precautions during ADL tasks. 2=Patient will verbalize/demonstrate understanding of assistive devices/ modifications for ADL. 3=Patient will improve strength/tolerance for activity to enable patient to perform ADL's. ALISON BOBBY PT Sep 23, 2017 09:17
[2017-09-23] MEDS: amLODIPine 5 MG (NORVASC) TAB PO SCH (11:39)
[2017-09-23] MEDS: VENlafaxine XR 75 MG (EFFEXOR XR) CAP PO SCH (11:39)
[2017-09-23] MEDS: fluCOnazole (DIFLUCAN) 100 MG TAB PO SCH (11:39)
[2017-09-23] MEDS: PANTOPRAZOLE 40 MG (PROTONIX) TAB PO SCH (11:39)
[2017-09-23] MEDS: CARVEDILOL 12.5 MG (COREG) TABLET PO SCH (11:39)
[2017-09-23] MEDS: MICONAZOLE 2% POWDER (DESENEX AF) 90 GM TOP SCH (11:41)
[2017-09-23] MEDS: MENTHOL/ZINC OXIDE (CALMOSEPTINE) 113 GM TUBE TOP SCH (11:41)
== END 2017-09-23 12:47 | DRG 641 ==
LOC: 4TH 11:26
PROVIDERS: ADMIT Family Medicine; ATTEND Family Medicine
DX: E83.52 Hypercalcemia (principal); C85.18 Unspecified B-cell lymphoma, lymph nodes of multiple sites; E87.0 Hyperosmolality and hypernatremia; B37.0 Candidal stomatitis; A04.72 Enterocolitis due to Clostridium difficile, not specified as recurrent; E86.0 Dehydration; J44.9 Chronic obstructive pulmonary disease, unspecified; G47.30 Sleep apnea, unspecified; Z66 Do not resuscitate; I25.10 Atherosclerotic heart disease of native coronary artery without angina pectoris; I10 Essential (primary) hypertension; E11.9 Type 2 diabetes mellitus without complications; D70.1 Agranulocytosis secondary to cancer chemotherapy; E03.9 Hypothyroidism, unspecified; D53.9 Nutritional anemia, unspecified; D63.0 Anemia in neoplastic disease; D63.8 Anemia in other chronic diseases classified elsewhere; F32.9 Major depressive disorder, single episode, unspecified; E87.6 Hypokalemia; E83.42 Hypomagnesemia; Z86.711 Personal history of pulmonary embolism; Z86.718 Personal history of other venous thrombosis and embolism; Z79.01 Long term (current) use of anticoagulants; Z87.891 Personal history of nicotine dependence; Z95.1 Presence of aortocoronary bypass graft; Z95.5 Presence of coronary angioplasty implant and graft; Z96.611 Presence of right artificial shoulder joint; Z96.612 Presence of left artificial shoulder joint; Z79.4 Long term (current) use of insulin; Z23 Encounter for immunization
CPT/HCPCS: 36415; 80048; 80053; 80074; 81000; 82274; 82330; 83735; 84100; 84550; 85014; 85018; 85025; 85027; 86850; 86900; 86901; 86920; 87324; 87449; 87493; 94640; 94760; 96367; 96375; 96411; 96413

== ENCOUNTER 2017-09-30 13:35 | Emergency (ER) | payer MEDICARE ==
[~2017-09-30] VITALS: Ht 152.4 cm; Wt 54.4 kg
[~2017-09-30 13:35] MED LIST changes: +ACET325T49 PO; +ALLO300T2 PO; +AMLO5TAB2 PO; +FLUC100T6 PO; +MENT71OI TOP; +METR500T PO; +MICO90PO TOP; +NYST1000 PO; +RIVA10TA PO
[2017-09-30] MEDS ORDERED: RT-ALBUTEROL/IPRATROPIUM 3 ML (DUONEB) VIAL INH ONE (13:45)
--- NOTE | 2017-09-30 14:22 | Diagnostic Imaging Report ---
INDICATION: Hypoxia. TECHNIQUE: A frontal chest was obtained at 2:26 PM. COMPARISON: 09/03/2017. FINDINGS: There is cardiomegaly and post sternotomy change. There is no change in the Port-A-Cath device. There are bilateral shoulder prostheses. There is central vascular congestion. There is worsening infiltrate in the right upper lobe compared to the previous study. There is no pneumothorax or pleural fluid. IMPRESSION: Central vascular congestion and cardiomegaly. Worsening right upper lobe infiltrate compared to the previous study. Followup is recommended. There is no pleural fluid or pneumothorax. Dictated by: Dictated on workstation # [id number]
--- NOTE | 2017-09-30 14:23 | Diagnostic Imaging Report ---
INDICATION: Pelvic pain. AP pelvis obtained at 0229 hours p.m. No fracture or acute bony abnormality seen. There is mild degenerative change in both hips joints as well as degenerative changes in the lower lumbar spine. IMPRESSION: Chronic findings. No acute abnormality visualized. Dictated by: Dictated on workstation # [id number]
--- NOTE | 2017-09-30 14:29 | ED General ---
General Chief Complaint: Trauma-Non Activation Stated Complaint: AMS Nursing Triage Note: Pt here via [facility] from [facility]. See trauma non assessment for injuries. EMS reports initial o2 saturation of 80% improved to 100% with 15L NRB. Nursing Sepsis Screen: No Definite Risk Source of Information: Patient, EMS, Detention Records, Old Records Exam Limitations: Physical Impairments History of Present Illness Time Seen by Provider: 13:36 Initial Comments This 67-year-old woman with lymphoma presents to the emergency room after having a fall at the group home. She arrives via EMS. She has facial contusions and altered mental status. EMS reports her oxygen saturation was 80 percent on room air. She normally wears 2 L by nasal cannula. Blood pressure was 91/61. Fingerstick blood sugar was 136. She recently finished Flagyl for treatment of C. difficile. The fall was unwitnessed and she had been sitting on the edge of her bed prior to the fall. Patient had a fall yesterday as well. Staff at the group home reported her mental status was at baseline prior to the fall. Patient is taking chemotherapy for lymphoma. Chemotherapy is scheduled again for tomorrow. She appears to have increased work of breathing but is not in respiratory distress. She arrives in a c-collar. She denies any pain. EMS reports she was incontinent of urine. Location Injury Occurred: [facility] Allergies and Home Medications Allergies Coded Allergies: penicillin G (Verified Allergy, Intermediate, Pt has received Cefazolin & Cefepime in the past, 09/05/17) ITCHING AFTER RECEIVING PENICILLIN WHEN SHE WAS 30-35 YEARS OLD meperidine (Verified Allergy, Unknown, 09/05/17) quinine (Verified Allergy, Unknown, 09/05/17) levofloxacin (Verified Adverse Reaction, Intermediate, HIVES, 09/05/17) BURNING AND ITCHING Home Medications Acetaminophen 325 Mg Tablet, 650 MG PO Q4H PRN for FEVER for 30 Days, #90 Prescribed by: SAM GOLBDERG on 09/23/17 0903 Alendronate Sodium 70 Mg Tablet, 70 MG PO Sa, (Reported) Allopurinol 300 Mg Tablet, 300 MG PO DAILY for 30 Days, #30 Ref 3 Prescribed by: SAM GOLDBERG on 09/23/17 0903 Amlodipine Besylate 5 Mg Tablet, 5 MG PO BID for 30 Days, #60 Ref 3 Prescribed by: SAM GOLDBERG on 09/23/17902 Carvedilol 25 Mg Tablet, 25 MG PO BID, (Reported) Cyanocobalamin (Vitamin B-12) 1,000 Mcg Tablet, 1,000 MCG PO DAILY, (Reported) Fluconazole 100 Mg Tablet, 100 MG PO DAILY for 3 Days, #3 Prescribed by: SAM GOLDBERG on 09/23/17902 Fluticasone/Vilanterol 1 Each Blst.w.dev, 1 PUFF IH DAILY, (Reported) Furosemide 20 Mg Tablet, 20 MG PO DAILY, (Reported) Ipratropium/Albuterol Sulfate 3 Ml Ampul.neb, 3 ML IH Q6H, (Reported) L. Acidophilus/Bulgaricus 1 Each Tablet, 1 TAB.CHEW PO DAILY for 30 Days, #30 Ref 6 Prescribed by: SAM GOLDBERG on 08/26/17 0858 Levothyroxine Sodium 100 Mcg Tablet, 100 MCG PO DAILY, (Reported) Menthol/Lanolin/Calamine/Znox 71 Gm Oint, 0 GM TOP BID for 30 Days, #1 apply to affected skin in brittni area and rectal area/gluteus Prescribed by: SAM GOLDBERG on 09/23/17902 Metronidazole 500 Mg Tablet, 500 MG PO TID for 5 Days, #15 Prescribed by: SAM GOLDBERG on 09/23/17902 Miconazole Nitrate 90 Gm Powder, 0 GM TOP BID for 10 Days, #1 apply to affected skin bid Prescribed by: SAM GOLDBERG on 09/23/17902 Multivit-Min/FA/Lycopene/Lut 1 Each Tablet, 1 TAB PO DAILY, (Reported) Nystatin 100,000 Unit/1 Ml Oral.susp, 5 ML PO Q6HR for 5 Days, #100 Prescribed by: SAM GOLDBERG on 09/23/17902 Pantoprazole Sodium 40 Mg Tablet.dr, 40 MG PO DAILY, (Reported) Potassium Chloride 20 Meq Tab.er.prt, 20 MEQ PO DAILY, (Reported) Rivaroxaban 10 Mg Tablet, 10 MG PO DAILY for 30 Days, #30 Ref 6 Prescribed by: SAM GOLDBERG on 09/23/17902 Venlafaxine HCl 150 Mg Cap.er.24h, 150 MG PO BID, (Reported) Constitutional: no symptoms reported EENTM: see HPI Respiratory: see HPI Cardiovascular: no symptoms reported Gastrointestinal: no symptoms reported Genitourinary: no symptoms reported : No Musculoskeletal: see HPI Skin: see HPI Psychiatric/Neurological: See HPI Hematologic/Lymphatic: No Symptoms Reported Immunological/Allergic: no symptoms reported Past Dicbxmw-Cevpqe-Kujpzs Hx Patient Social History Type Used: Cigarettes Former Smoker, Quit: Aug 01, 2017 2nd Hand Smoke Exposure: No Recent Foreign Travel: No Contact w/Someone Who Travel: No Recent Infectious Disease Expo: No Recent Hopitalizations: Yes (Aug) Immunizations Up To Date Tetanus Booster (TDap): Less than 5yrs Date of Pneumonia Vaccine: Aug 21, 2015 Date of Influenza Vaccine: Oct 20, 2016 Seasonal Allergies Seasonal Allergies: No Surgeries History of Surgeries: Yes (L AND R SHOULDER REPLACEMENTS, LEFT ULNAR TRANSPOSITION, BYPASS 2 VESSEL) Surgeries: Appendectomy, CABG, Gallbladder, Hysterectomy, Open Heart Surgery, Orthopedic Respiratory History of Respiratory Disorde: Yes Respiratory Disorders: Pulmonary Embolism, Sleep Apnea, COPD Currently Using CPAP: Yes Currently Using BIPAP: No Cardiovascular History of Cardiac Disorders: Yes (BYPASS, STENTS) Cardiac Disorders: Coronary Artery Disease, Hypertension Neurological History of Neurological Disord: No Reproductive System Hx Reproductive Disorders: No Sexually Transmitted Disease: No HIV/AIDS: No Female Reproductive Disorders: Denies MOVEMAN 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: Hysterectomy Genitourinary History of Genitourinary Disor: No Gastrointestinal History of Gastrointestinal Di: Yes Gastrointestinal Disorders: Abdominal Hernia, Obstructive Bowel, Ulcer Musculoskeletal History of Musculoskeletal Dis: Yes (ARTHRITIS, ARTHROSCOPY OF KNEE) Musculoskeletal Disorders: Chronic Back Pain Endocrine History of Endocrine Disorders: Yes ( PRE- DIABETES diet controlled) Endocrine Disorders: Hypothyroidsim, Diabetes, Non-Insulin dep HEENT History of HEENT Disorders: No Loss of Vision: Denies Cancer History of Cancer: Yes Cancer: Lymphoma Did You Recieve Any Treatments: No Psychosocial History of Psychiatric Problem: Yes Behavioral Health Disorders: Depression Integumentary History of Skin or Integumenta: Yes Skin/Integumentary Disorders: Recent Skin Changes Blood Transfusions History of Blood Disorders: Yes ( HX OF DVT WITH PE) Family Medical History Significant Family History: Heart Disease, Hypertension, Other Conditions/Hx Family Medial History: Blood clots G8 BROTHER Cardiovascular disease 19 FATHER Hypertension 19 FATHER 19 MOTHER G8 BROTHER Hypoglycemia 19 FATHER Myocardial infarction G8 BROTHER, Onset:35 Physical Exam-Suspected Sepsis Physical Exam Vital Signs Vital Sign - Last 12Hours Capillary Refill : Less Than 3 Seconds Blood Pressure Mean: 78 General Appearance: No Apparent Distress, WD/WN HEENT: TMs Normal, Other (Contusions over the upper face with small laceration above the left brow. 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 Oriented to person. Answers with simple responses. Responses are difficult to understand. Will follow instructions.) Skin: normal color, warm/dry, ecchymosis Focused Exam Evaluation Lactate Level Laboratory Tests 09/30/17 14:28: Lactic Acid Level 0.62 Lactic Acid Level Progress/Results/Core Measures Suspected Sepsis Recent Fever Within 48 Hours: No Infection Criteria Present: None New/Unexplained Altered Menta: No Sepsis Screen: No Definite Risk Sepsis Diagnosis: SIRS Temperature: Pulse: 74 Respiratory Rate: 18 Laboratory Tests 09/30/17 14:28: White Blood Count 22.3H Blood Pressure 96 /69 Mean: 78 Laboratory Tests 09/30/17 14:28: Lactic Acid Level 0.62 Laboratory Tests 09/30/17 14:28: Creatinine 0.68, INR Comment 2.3H, Platelet Count 301, Total Bilirubin 0.4 Results/Orders Lab Results Laboratory Tests Test 09/30/17 14:28 Range/Units White Blood Count 22.3 H 4.3-11.0 10^3/uL Red Blood Count 2.51 L 4.35-5.85 10^6/uL Hemoglobin 7.7 L 11.5-16.0 G/DL Hematocrit 24 L 35-52 % Mean Corpuscular Volume 95 80-99 FL Mean Corpuscular Hemoglobin 31 25-34 PG Mean Corpuscular Hemoglobin Concent 32 32-36 G/DL Red Cell Distribution Width 19.2 H 10.0-14.5 % Platelet Count 301 130-400 10^3/uL Mean Platelet Volume 10.2 7.4-10.4 FL Neutrophils (%) (Auto) 89 H 42-75 % Lymphocytes (%) (Auto) 4 L 12-44 % Monocytes (%) (Auto) 6 0-12 % Eosinophils (%) (Auto) 0 0-10 % Basophils (%) (Auto) 1 0-10 % Neutrophils # (Auto) 19.8 H 1.8-7.8 X 10^3 Lymphocytes # (Auto) 1.0 1.0-4.0 X 10^3 Monocytes # (Auto) 1.3 H 0.0-1.0 X 10^3 Eosinophils # (Auto) 0.1 0.0-0.3 10^3/uL Basophils # (Auto) 0.2 H 0.0-0.1 10^3/uL Neutrophils % (Manual) 73 % Lymphocytes % (Manual) 4 % Monocytes % (Manual) 5 % Eosinophils % (Manual) 0 % Basophils % (Manual) 0 % Metamyelocytes % 3 % Myelocytes % 2 % Band Neutrophils 13 % Anisocytosis SLIGHT Elliptocytes SLIGHT Prothrombin Time 25.4 H 12.2-14.7 SEC INR Comment 2.3 H 0.8-1.4 Activated Partial Thromboplast Time 38 H 24-35 SEC Sodium Level 144 135-145 MMOL/L Potassium Level 3.6 3.6-5.0 MMOL/L Chloride Level 108 H 98-107 MMOL/L Carbon Dioxide Level 26 21-32 MMOL/L Anion Gap 10 5-14 MMOL/L Blood Urea Nitrogen 13 7-18 MG/DL Creatinine 0.68 0.60-1.30 MG/DL Estimat Glomerular Filtration Rate > 60 BUN/Creatinine Ratio 19 Glucose Level 115 H 70-105 MG/DL Lactic Acid Level 0.62 0.50-2.00 MMOL/L Calcium Level 4.5 *L 8.5-10.1 MG/DL Total Bilirubin 0.4 0.1-1.0 MG/DL Aspartate Amino Transf (AST/SGOT) 20 5-34 U/L Alanine Aminotransferase (ALT/SGPT) < 6 0-55 U/L Alkaline Phosphatase 137 H 40-136 U/L C-Reactive Protein High Sensitivity 8.39 H 0.00-0.50 MG/DL B-Type Natriuretic Peptide 2343.3 H <100.0 PG/ML Total Protein 4.7 L 6.4-8.2 GM/DL Albumin 2.3 L 3.2-4.5 GM/DL Thyroid Stimulating Hormone (TSH) 13.33 H 0.35-4.94 UIU/ML Free Thyroxine 0.82 0.70-1.48 NG/DL TSH Noti Testing 13.33 H 0.35-4.94 UIU/ML My Orders Orders - MIGUEL SIERRA MD Albuterol/Ipra Inhalation Soln (Duoneb I (09/30/17 13:45) Svn Sm Volume Nebulizer Rt-Rfs (09/30/17 13:44) Pelvis (09/30/17 13:44) Lactic Acid Analyzer (09/30/17 13:44) Blood Culture (09/30/17 13:44) Protime With Inr (09/30/17 13:44) Partial Thromboplastin Time (09/30/17 13:44) O2 (09/30/17 13:44) Saline Lock/Iv-Start (09/30/17 13:44) Vital Signs Adult Sepsis Patie Q1HR (09/30/17 13:44) Remove Rings In Anticipation O (09/30/17 13:44) Hs C Reactive Protein (09/30/17 13:44) Thyroid Analyzer (09/30/17 14:18) Thyroid Stimulating Hormone (09/30/17 14:18) BNP (09/30/17 14:25) Cefepime Injection (Maxipime Injection) (09/30/17 14:30) Chapin Cath Insertion (09/30/17 15:04) Free T4 (Free Thyroxine) (09/30/17 14:28) Ns Iv 1000 Ml (Sodium Chloride 0.9%) (09/30/17 15:20) Fentanyl Injection (Sublimaze Injection (09/30/17 15:45) Scopolamine Patch (Transderm-Scop Patch) (09/30/17 16:00) Medications Given in ED Current Medications Medications Dose Ordered Sig/Osmany Route Start Time Stop Time Status Last Admin Dose Admin Albuterol/ Ipratropium 3 ml ONCE ONCE INH 09/30/17 13:45 09/30/17 13:46 DC 09/30/17 14:19 3 ML Cefepime HCl 2000 mg/Sodium Chloride 50 ml @ 100 mls/hr ONCE ONCE IV 09/30/17 14:30 09/30/17 14:59 DC 09/30/17 14:56 100 MLS/HR Fentanyl Citrate 50 mcg ONCE ONCE IVP 09/30/17 15:45 09/30/17 15:46 DC 09/30/17 15:53 50 MCG Scopolamine 1.5 mg ONCE ONCE TD 09/30/17 16:00 09/30/17 16:01 DC 09/30/17 15:53 1.5 MG Vital Signs/I&O Vital Sign - Last 12Hours 09/30/17 09/30/17 09/30/17 09/30/17 13:40 13:40 14:20 15:57 Pulse 74 71 Resp 18 18 B/P (MAP) 96/69 Pulse Ox 100 93 96 O2 Delivery Non Rebreather Nasal Cannula Nasal Cannula Nasal Cannula O2 Flow Rate 15.00 3.00 3.00 3.00 Capillary Refill : Less Than 3 Seconds Blood Pressure Mean: 78 Progress Note : Progress Note Patient was initially being worked up for sepsis and head injury. After discussion with family and Dr. Goldberg, the decision was made to make her comfort care under hospice. She'll be transferred back to the group home per family's choice to continue comfort care. Dr. Goldberg will provide orders. She requested that the Chapin catheter and port access remain in place. Fentanyl was administered along with a scopolamine patch at Dr. Goldberg's request. Patient did receive a dose of cefepime prior to conversation with Dr. Goldberg. GCS remained at 13 or 14 throughout her ER stay. Diagnostic Imaging Diagonstic Imaging: Xray Plain Films/CT/US/NM/MRI: chest Comments Chest x-ray viewed by me and report reviewed. See report below: NAME: DANIELA MOSER [facility] REC#: [id number] PT STATUS: REG ER : 1950 PHYSICIAN: BAILEY HARDY APRN ADMIT DATE: 09/30/17/ER Draft Date of Exam:09/30/17 CHEST 1 VIEW, AP/PA ONLY INDICATION: Hypoxia. TECHNIQUE: A frontal chest was obtained at 2:26 PM. COMPARISON: 09/03/2017. FINDINGS: There is cardiomegaly and post sternotomy change. There is no change in the Port-A-Cath device. There are bilateral shoulder prostheses. There is central vascular congestion. There is worsening infiltrate in the right upper lobe compared to the previous study. There is no pneumothorax or pleural fluid. IMPRESSION: Central vascular congestion and cardiomegaly. Worsening right upper lobe infiltrate compared to the previous study. Followup is recommended. There is no pleural fluid or pneumothorax. Dictated on workstation # [id number] Dict: 09/30/17 1417 Trans: 09/30/17 1421 [phone] Interpreted by: COLLIN CHENG MD Diagonstic Imaging: Xray Plain Films/CT/US/NM/MRI: pelvis Comments Pelvis x-ray viewed by me and report reviewed. See report below: NAME: DANIELA MOSER [facility] REC#: [id number] PT STATUS: REG ER : 1950 PHYSICIAN: MIGUEL SIERRA MD ADMIT DATE: 09/30/17/ER Draft Date of Exam:09/30/17 PELVIS INDICATION: Pelvic pain. AP pelvis obtained at 0229 hours p.m. No fracture or acute bony abnormality seen. There is mild degenerative change in both hips joints as well as degenerative changes in the lower lumbar spine. IMPRESSION: Chronic findings. No acute abnormality visualized. Dictated on workstation # [id number] Dict: 09/30/178 Trans: 09/30/17 1422 [facility] [phone] Interpreted by: COLLIN CHENG MD Diagonstic Imaging: CT Plain Films/CT/US/NM/MRI: c-spine, head Comments CT head and C-spine viewed by me and report reviewed. See report below: NAME: DANIELA MOSER [facility] REC#: [id number] PT STATUS: REG ER : 1950 PHYSICIAN: BAILEY HARDY APRN ADMIT DATE: 09/30/17/ER Signed Date of Exam: 09/30/17 CT HEAD/CERVICAL SPINE WO PROCEDURE: CT head and CT cervical spine without contrast. TECHNIQUE: Multiple contiguous axial images were obtained through the brain and cervical spine without the use of intravenous contrast. Sagittal and coronal reformations through the cervical spine were then performed. INDICATION: Trauma. FINDINGS: CT head: There is no intracranial hemorrhage, edema, or mass effect. The brain parenchyma and burks-white matter differentiation is preserved. There are periventricular and deep white matter hypodensities suggestive of chronic microvascular ischemic changes. No hydrocephalus. No extra-axial fluid collection seen. The calvarium, the paranasal sinuses, and the orbits appear grossly unremarkable. CT cervical spine: There is satisfactory alignment of the cervical spine. The vertebral body heights are preserved. There is a hkuzzbod-gr-crlwsm disc height loss at C5-C6 and C6-C7. There is slight posterior translation of C5 over C6 and C6 over C7. The facet joints demonstrate normal alignment. There is normal alignment of the lateral masses of C1 and C2 and at the atlanto-occipital joints. There is frnrezzx-ow-uhvigj foraminal stenosis bilaterally at the C5-C6 level. Emphysema changes are seen in the lung apices. IMPRESSION: CT head: No intracranial hemorrhage. CT cervical spine: Prominent degenerative disc changes and yxiterrg-mw-nwcgmn bilateral foraminal stenosis at C5-C6. No fracture seen. Dictated by: Dictated on workstation # [id number] Dict: 09/30/17 1419 Trans: 09/30/17 1444 Interpreted by: PAUL JIMENEZ MD Electronically signed by: PAUL JIMENEZ MD 09/30/17 1444 Departure Impression Impression: Primary Impression: Severe sepsis Additional Impressions: Right upper lobe pneumonia Qualified Codes: J18.1 - Lobar pneumonia, unspecified organism Facial contusion Qualified Codes: S00.83XA - Contusion of other part of head, initial encounter Concussion, unspecified Laceration Hypocalcemia Severe anemia Lymphoma Qualified Codes: C85.90 - Non-Hodgkin lymphoma, unspecified, unspecified site Disposition: 01 HOME, SELF-CARE Condition: Improved Departure-Patient Inst. Decision time for Depature: 15:33 Referrals: SAM GOLDBERG MD (PCP/Family) Primary Care Physician Patient Instructions: Palliative Care Add. Discharge Instructions: Seek additional orders from Dr. Goldberg and hospice for comfort care. All discharge instructions reviewed with patient and/or family. Voiced understanding. MIGUEL SIERRA MD Sep 30, 2017 14:29
[2017-09-30] MEDS ORDERED: CEFEPIME INJECTION 2,000 MG in NS (IVPB) 50 ML IV ONE (14:30)
[2017-09-30 14:39] LABS: BASOPHILS # (AUTO) 0.2 10^3/uL (0.0-0.1); BASOPHILS % (AUTO) 1 % (0-10); EOSINOPHILS # (AUTO) 0.1 10^3/uL (0.0-0.3); EOSINOPHILS % (AUTO) 0 % (0-10); LYMPHOCYTES % (AUTO) 4 % (12-44); MEAN CORPUSCULAR HEMOGLOBIN 31 PG (25-34); MEAN CORPUSCULAR HGB CONC 32 G/DL (32-36); MEAN CORPUSCULAR VOLUME 95 FL (80-99); MEAN PLATELET VOLUME 10.2 FL (7.4-10.4); MONOCYTES # (AUTO) 1.3 X 10^3 (0.0-1.0); MONOCYTES % (AUTO) 6 % (0-12); NEUTROPHILS # (AUTO) 19.8 X 10^3 (1.8-7.8); NEUTROPHILS % (AUTO) 89 % (42-75); PLATELET COUNT 301 10^3/uL (130-400); RED BLOOD COUNT 2.51 10^6/uL (4.35-5.85); RED CELL DISTRIBUTION WIDTH 19.2 % (10.0-14.5); WHITE BLOOD COUNT 22.3 10^3/uL (4.3-11.0)
--- NOTE | 2017-09-30 14:42 | Diagnostic Imaging Report ---
PROCEDURE: CT head and CT cervical spine without contrast. TECHNIQUE: Multiple contiguous axial images were obtained through the brain and cervical spine without the use of intravenous contrast. Sagittal and coronal reformations through the cervical spine were then performed. INDICATION: Trauma. FINDINGS: CT head: There is no intracranial hemorrhage, edema, or mass effect. The brain parenchyma and burks-white matter differentiation is preserved. There are periventricular and deep white matter hypodensities suggestive of chronic microvascular ischemic changes. No hydrocephalus. No extra-axial fluid collection seen. The calvarium, the paranasal sinuses, and the orbits appear grossly unremarkable. CT cervical spine: There is satisfactory alignment of the cervical spine. The vertebral body heights are preserved. There is a esktbnme-jg-pmxonf disc height loss at C5-C6 and C6-C7. There is slight posterior translation of C5 over C6 and C6 over C7. The facet joints demonstrate normal alignment. There is normal alignment of the lateral masses of C1 and C2 and at the atlanto-occipital joints. There is sivylymr-hx-ksrrtd foraminal stenosis bilaterally at the C5-C6 level. Emphysema changes are seen in the lung apices. IMPRESSION: CT head: No intracranial hemorrhage. CT cervical spine: Prominent degenerative disc changes and nlamtywj-ev-iujuxg bilateral foraminal stenosis at C5-C6. No fracture seen. Dictated by: Dictated on workstation # [id number]
[2017-09-30 14:45] LABS: INR 2.3 (0.8-1.4); PROTHROMBIN TIME PATIENT 25.4 SEC (12.2-14.7)
[2017-09-30 14:52] LABS: ALANINE AMINOTRANSFERASE < 6 U/L (0-55); ALBUMIN 2.3 GM/DL (3.2-4.5); ANION GAP 10 MMOL/L (5-14); ASPARTATE AMINO TRANSFERASE 20 U/L (5-34); BILIRUBIN,TOTAL 0.4 MG/DL (0.1-1.0); BLOOD UREA NITROGEN 13 MG/DL (7-18); BUN/CREATININE RATIO 19; CARBON DIOXIDE 26 MMOL/L (21-32); CHLORIDE 108 MMOL/L (98-107); CREATININE SERUM 0.68 MG/DL (0.60-1.30); GFR ESTIMATED > 60; GLUCOSE 115 MG/DL (70-105); POTASSIUM 3.6 MMOL/L (3.6-5.0); SODIUM 144 MMOL/L (135-145); TOTAL PROTEIN 4.7 GM/DL (6.4-8.2); hs C REACTIVE PROTEIN 8.39 MG/DL (0.00-0.50)
[2017-09-30 14:56] LABS: ANISOCYTOSIS SLIGHT; BAND NEUTROPHILS 13 %; BASOPHILS % (MANUAL) 0 %; EOSINOPHILS % (MANUAL) 0 %; LYMPHOCYTES % (MANUAL) 4 %; METAMYELOCYTES % 3 %; MYELOCYTES % 2 %; NEUTROPHILS % (MANUAL) 73 %
[2017-09-30 14:58] LABS: CALCIUM 4.5 MG/DL (8.5-10.1)
[2017-09-30 15:12] LABS: THYROID STIMULATING HORMONE 13.33 UIU/ML (0.35-4.94)
[2017-09-30] MEDS ORDERED: NS IV 1000 ML 1,000 ML IV ONE (15:20)
[2017-09-30] MEDS ORDERED: fentaNYL INJECTION 100 MCG/2 ML AMP IVP ONE (15:45)
[2017-09-30 15:57] VITALS: BP 106/62
[2017-09-30] MEDS ORDERED: SCOPOLAMINE 1.5 MG (TRANSDERM-SCOP) PATCH TD ONE (16:00)
== END 2017-09-30 15:57 | disposition home or self-care (01) ==
LOC: EDUNIT# 13:35 → ER 13:36
DX: S06.0X9A Concussion with loss of consciousness of unspecified duration, initial encounter (principal); S01.112A Laceration without foreign body of left eyelid and periocular area, initial encounter; A41.9 Sepsis, unspecified organism; C85.90 Non-Hodgkin lymphoma, unspecified, unspecified site; J18.1 Lobar pneumonia, unspecified organism; E83.51 Hypocalcemia; D64.9 Anemia, unspecified; F32.9 Major depressive disorder, single episode, unspecified; E03.9 Hypothyroidism, unspecified; E11.9 Type 2 diabetes mellitus without complications; I25.10 Atherosclerotic heart disease of native coronary artery without angina pectoris; I10 Essential (primary) hypertension; G47.30 Sleep apnea, unspecified; Z87.11 Personal history of peptic ulcer disease; Z90.710 Acquired absence of both cervix and uterus; Z95.5 Presence of coronary angioplasty implant and graft; Z95.1 Presence of aortocoronary bypass graft; Z90.49 Acquired absence of other specified parts of digestive tract; Z90.89 Acquired absence of other organs; Z96.611 Presence of right artificial shoulder joint; Z96.612 Presence of left artificial shoulder joint; Z99.11 Dependence on respirator [ventilator] status; Z82.49 Family history of ischemic heart disease and other diseases of the circulatory system; W19.XXXA Unspecified fall, initial encounter
CPT/HCPCS: 36415; 70450; 71010; 72125; 72170; 80053; 83605; 83880; 84439; 84443; 85007; 85025; 85027; 85610; 85730; 86141; 87040; 87186; 94640; 96374; 96375; 99284